=== PATIENT | female | born 1965 | race African-American/Black ===

== ENCOUNTER 2017-12-19 15:46 | Emergency (ER) | payer OTHER ==
[2017-12-19] MEDS ORDERED: ONDANSETRON 4 MG/2 ML VIAL ONE (18:41)
[2017-12-19 18:53] LABS: Urine Blood NEGATIVE (NEG); Urine Glucose NEGATIVE (NEG); Urine Protein NEGATIVE (NEG)
--- NOTE | 2017-12-19 19:07 | RAD REPORT ---
EXAM DESCRIPTION: CT - Stone Protocol - 12/19/2017 6:50 pm CLINICAL HISTORY: Flank pain. ABD PAIN COMPARISON: Abdomen Pelvis W Contrast dated 01/13/2017 TECHNIQUE: Axial images were obtained without oral or IV contrast. Lack of contrast limits solid org an and vascular assessment. The [id number] spans the entirety of the system partially obscuring uppermost abdomen and lung bases. Coronal reformatted images were obtained and reviewed. All CT scans are performed using dose optimization technique as appropriate and may include automated exposure control or mA/KV adjustment according to patient size. FINDINGS: The lower lung martin are clear. Imaged portions of the liver and spleen show no suspicious findings on non-contrast imaging. The panc reas and adrenal glands are normal. No pathologic lymphadenopathy in the abdomen or pelvis. No urinary tract stones or obstructive uropathy. No bowel obstruction, free air, free fluid or abscess. Normal appendix noted. Prominent lower lumbar degenerative changes. IMPRESSION: No urinary tract stones or obstructive uropathy.
[2017-12-19 19:10] LABS: Absolute Lymphocytes (CBC) 2.3 K/uL (0.7-4.9); Absolute Monocytes 0.3 K/uL (0.1-1.3); Absolute Neutrophil 2.6 K/uL (1.8-8.0); Basophils % 0.5 % (0-1.3); Eosinophils % 2.2 % (0-4.4); Hematocrit 35.4 % (36.0-45.0); Lymphocytes % 42.5 % (15.3-44.8); MCH 30.8 pg (27.0-35.0); MCV 91.3 fL (80-100); MPV 8.2 fL (7.6-11.3); Monocytes % 5.8 % (3.3-12.3); RBC Red Blood Cell Count 3.88 M/uL (3.86-4.86)
[2017-12-19 19:32] LABS: ALT/SGPT 12 U/L (12-78); AST/SGOT 15 U/L (15-37); Albumin 3.6 g/dL (3.4-5.0); Alkaline Phosphatase 58 U/L (45-117); BUN Blood Urea Nitrogen 13 mg/dL (7-18); Bicarbonate 33 mmol/L (21-32); Bilirubin Direct < 0.1 mg/dL (0-0.2); Bilirubin Total 0.3 mg/dL (0.2-1.0); Glucose Level 87 mg/dL (74-106); Lipase 137 U/L (73-393); Potassium 3.3 mmol/L (3.5-5.1); Protein, Total 7.2 g/dL (6.4-8.2); Sodium Level 143 mmol/L (136-145)
[2017-12-19 19:34] LABS: Urine Bacteria >50 /HPF (<20); Urine Culture Reflex Order REFLEXED; Urine RBC <5 /HPF (NONE SEEN)
--- NOTE | 2017-12-19 21:07 | EDPHYS ---
Physician Documentation [facility] Name: Zohreh Mabry Age: 52 yrs Sex: Female : 1965 Arrival Date: 12/19/2017 Time: 15:48 Bed 8 Private MD: Guanakito Nettles ED Physician Ward Espinoza HPI: 12/19 21:03 This 52 yrs old Black Female presents to ER via Ambulatory with complaints of Abdominal gs Pain, Dizziness. 21:03 The patient presents with abdominal pain. Onset: The symptoms/episode began/occurred 2 gs day(s) ago. Associated signs and symptoms: Pertinent positives: nausea. The symptoms are described as crampy. Modifying factors: The symptoms are alleviated by nothing, the symptoms are aggravated by nothing. Severity of pain: At its worst the pain was moderate in the emergency department the pain has improved moderately. The patient has experienced similar episodes in the past, a few times. 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 - Social history:: Smoking status: Patient/guardian denies using tobacco. - Ebola Screening: : No symptoms or risks identified at this time. ROS: 21:03 All other systems are negative. gs 21:03 Neuro: Positive for dizziness, similar to vertigo in past. gs Exam: 21:03 Head/Face: Normocephalic, atraumatic. Eyes: Pupils equal round and reactive to light, gs extra-ocular motions intact. Lids and lashes normal. Conjunctiva and sclera are non-icteric and not injected. Cornea within normal limits. Periorbital areas with no swelling, redness, or edema. ENT: Nares patent. No nasal discharge, no septal abnormalities noted. Tympanic membranes are normal and external auditory canals are clear. Oropharynx with no redness, swelling, or masses, exudates, or evidence of obstruction, uvula midline. Mucous membranes moist. Neck: Trachea midline, no thyromegaly or masses palpated, and no cervical lymphadenopathy. Supple, full range of motion without nuchal rigidity, or vertebral point tenderness. No Meningismus. Chest/axilla: Normal chest wall appearance and motion. Nontender with no deformity. No lesions are appreciated. Cardiovascular: Regular rate and rhythm with a normal S1 and S2. No gallops, murmurs, or rubs. Normal PMI, no JVD. No pulse deficits. Respiratory: Lungs have equal breath sounds bilaterally, clear to auscultation and percussion. No rales, rhonchi or wheezes noted. No increased work of breathing, no retractions or nasal flaring. Back: No spinal tenderness. No costovertebral tenderness. Full range of motion. Skin: Warm, dry with normal turgor. Normal color with no rashes, no lesions, and no evidence of cellulitis. MS/ Extremity: Pulses equal, no cyanosis. Neurovascular intact. Full, normal range of motion. Neuro: Awake and alert, GCS 15, oriented to person, place, time, and situation. Cranial nerves II-XII grossly intact. Motor strength 5/5 in all extremities. Sensory grossly intact. Cerebellar exam normal. Normal gait. 21:03 Constitutional: The patient appears alert, awake. 21:03 Abdomen/GI: Palpation: mild abdominal tenderness, in all quadrants, rebound tenderness, is not appreciated. Vital Signs: 16:07 BP 163 / 85; Pulse 76; Resp 16 S; Temp 98.0(TE); Pulse Ox 99% on R/A; Weight 120.2 kg aa5 (R); Height 5 ft. 3 in. (160.02 cm) (R); Pain 8/10; 17:00 BP 156 / 82; Pulse 74; Resp 15; Pulse Ox 100% on R/A; hb 18:15 BP 148 / 80; Pulse 72; Resp 16; Pulse Ox 100% on R/A; Pain 3/10; hb 20:09 BP 126 / 83; Pulse 59; Resp 16; Pulse Ox 98% on R/A; mt 21:00 BP 130 / 79; Pulse 62; Resp 16; Pulse Ox 99% on R/A; Pain 0/10; aa1 16:07 Body Mass Index 46.94 (120.20 kg, 160.02 cm) aa5 MDM: 18:28 Patient medically screened. 21:03 Differential diagnosis: bowel obstruction, diverticulitis, non-specific abd pain, gs pancreatitis. Data reviewed: vital signs, nurses notes. Response to treatment: the patient's symptoms have markedly improved after treatment, the patient's condition has returned to base line, patient is well hydrated. and as a result, I will discharge patient. 21:03 Counseling: I had a detailed discussion with the patient and/or guardian regarding: the gs historical points, exam findings, and any diagnostic results supporting the discharge/admit diagnosis, lab results, radiology results, the need for outpatient follow up. 12/19 18:29 Order name: Basic Metabolic Panel; Complete Time: 20:11 12/19 18:29 Order name: CBC with Diff; Complete Time: 20:11 12/19 18:29 Order name: Hepatic Function; Complete Time: 20:11 12/19 18:29 Order name: Lipase; Complete Time: 20:11 12/19 18:29 Order name: Urine Microscopic Only; Complete Time: 20:11 12/19 18:48 Order name: Urine Dipstick--Ancillary (enter results); Complete Time: 20:11 12/19 18:29 Order name: IV Saline Lock; Complete Time: 18:50 12/19 18:29 Order name: Labs collected and sent; Complete Time: 18:51 12/19 18:29 Order name: Urine Dipstick-Ancillary (obtain specimen); Complete Time: 18:51 12/19 18:29 Order name: CT Stone Protocol; Complete Time: 20:11 12/19 18:30 Order name: EKG; Complete Time: 18:30 12/19 18:30 Order name: EKG - Nurse/Tech; Complete Time: 18:36 12/19 19:35 Order name: Urine Culture EDMS Administered Medications: 18:40 Drug: Zofran 4 mg Route: IVP; Site: left antecubital; hb 19:40 Follow up: Response: No adverse reaction; Nausea is decreased aa1 Disposition: 12/19/17 21:06 Discharged to Home. Impression: Generalized abdominal pain, Cystitis. - Condition is Stable. - Discharge Instructions: Abdominal Pain, Adult, Urinary Tract Infection. - Prescriptions for Macrobid 100 mg Oral Capsule - take 1 capsule by ORAL route every 12 hours for 5 days; 10 capsule. - Medication Reconciliation Form, Thank You Letter, Antibiotic Education, Prescription Opioid Use form. - Follow up: Private Physician; When: 2 - 3 days; Reason: Re-evaluation by your physician. Signatures: Dispatcher [employer] EDKarrie Betancourt RN RN aa1 Maria R Etienne RN RN aa5 Ary Mueller RN RN Ward Espinoza MD MD gs Corrections: (The following items were deleted from the chart) 21:25 21:06 12/19/2017 21:06 Discharged to Home. Impression: Generalized abdominal pain; aa1 Cystitis. Condition is Stable. Forms are Medication Reconciliation Form, Thank You Letter, Antibiotic Education, Prescription Opioid Use. Follow up: Private Physician; When: 2 - 3 days; Reason: Re-evaluation by your physician. gs
--- NOTE | 2017-12-19 21:07 | ER ---
Nurse's Notes [facility] Name: Zohreh Mabry Age: 52 yrs Sex: Female : 1965 Arrival Date: 12/19/2017 Time: 15:48 Bed 8 Private MD: Guanakito Nettles Diagnosis: Generalized abdominal pain;Cystitis Presentation: 12/19 16:06 Presenting complaint: Patient states: LLQ abd pain and nausea that began 2-3 days ago. aa5 Pt also reports dizziness. Pt states"It seems like when I turn my head to the right I get more dizzy". Transition of care: patient was not received from another setting of care. Onset of symptoms was December 2017. Risk Assessment: Do you want to hurt yourself or someone else? Patient reports no desire to harm self or others. Initial Sepsis Screen: Does the patient meet any 2 criteria? No. Patient's initial sepsis screen is negative. Does the patient have a suspected source of infection? No. Patient's initial sepsis screen is negative. Care prior to arrival: None. 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 - Social history:: Smoking status: Patient/guardian denies using tobacco. - Ebola Screening: : No symptoms or risks identified at this time. Screenin:47 Abuse screen: Denies threats or abuse. Denies injuries from another. Nutritional hb screening: No deficits noted. Tuberculosis screening: No symptoms or risk factors identified. Fall Risk None identified. Assessment: 17:45 General: Appears in no apparent distress. Behavior is calm, cooperative. Pain: Pain hb currently is 3 out of 10 on a pain scale. Neuro: Level of Consciousness is awake, alert, obeys commands, Oriented to person, place, time, situation. Cardiovascular: Heart tones S1 S2 present Capillary refill < 3 seconds Patient's skin is warm and dry. Respiratory: Airway is patent Trachea midline Respiratory effort is even, unlabored, Respiratory pattern is regular, symmetrical, Breath sounds are clear bilaterally. GI: Abdomen is non-distended, Bowel sounds present X 4 quads. Abd is soft and non tender X 4 quads. Reports lower abdominal pain, nausea. : No signs and/or symptoms were reported regarding the genitourinary system. EENT: No signs and/or symptoms were reported regarding the EENT system. Derm: No signs and/or symptoms reported regarding the dermatologic system. Skin is intact, is healthy with good turgor, Skin is pink, warm \\T\\ dry. Musculoskeletal: No signs and/or symptoms reported regarding the musculoskeletal system. 18:42 Reassessment: Patient appears in no apparent distress at this time. No changes from hb previously documented assessment. Patient and/or family updated on plan of care and expected duration. Pain level reassessed. Patient is alert, oriented x 3, equal unlabored respirations, skin warm/dry/pink. 21:16 Reassessment: Patient appears in no apparent distress at this time. Patient is alert, aa1 oriented x 3, equal unlabored respirations, skin warm/dry/pink. Discussed d/c \\T\\ f/u instructions with pt; denies questions or concerns at this time Patient states feeling better. Vital Signs: 16:07 BP 163 / 85; Pulse 76; Resp 16 S; Temp 98.0(TE); Pulse Ox 99% on R/A; Weight 120.2 kg aa5 (R); Height 5 ft. 3 in. (160.02 cm) (R); Pain 8/10; 17:00 BP 156 / 82; Pulse 74; Resp 15; Pulse Ox 100% on R/A; hb 18:15 BP 148 / 80; Pulse 72; Resp 16; Pulse Ox 100% on R/A; Pain 3/10; hb 20:09 BP 126 / 83; Pulse 59; Resp 16; Pulse Ox 98% on R/A; mt 21:00 BP 130 / 79; Pulse 62; Resp 16; Pulse Ox 99% on R/A; Pain 0/10; aa1 16:07 Body Mass Index 46.94 (120.20 kg, 160.02 cm) aa5 ED Course: 15:48 Patient arrived in ED. sb2 15:49 Guanakito Nettles MD is Private Physician. sb2 16:07 Triage completed. aa5 16:07 Arm band placed on. aa5 17:45 Ward Espinoza MD is Attending Physician. gs 17:45 Patient has correct armband on for positive identification. Placed in gown. Bed in low hb position. Call light in reach. Side rails up X 1. 18:36 Ary Mueller, RN is Primary Nurse. hb 18:40 Inserted saline lock: 20 gauge in left antecubital area, using aseptic technique. Blood hb collected. 18:46 Patient moved to SD via wheelchair. nj 18:50 CT Stone Protocol In Process Unspecified. EDMS 18:50 CT completed. Patient tolerated procedure well. Patient moved back from SD. sd 19:10 Primary Nurse role handed off by Ary Mueller RN rg2 20:00 Karrie Crawford RN is Primary Nurse. aa1 21:17 No provider procedures requiring assistance completed. IV discontinued, intact, aa1 bleeding controlled, No redness/swelling at site. Pressure dressing applied. Administered Medications: 18:40 Drug: Zofran 4 mg Route: IVP; Site: left antecubital; hb 19:40 Follow up: Response: No adverse reaction; Nausea is decreased aa1 Outcome: 21:06 Discharge ordered by . gs 21:18 Discharged to home ambulatory. aa1 21:18 Condition: good 21:18 Discharge instructions given to patient, Instructed on discharge instructions, follow up and referral plans. medication usage, Demonstrated understanding of instructions, follow-up care, medications, Prescriptions given X 1. 21:25 Patient left the ED. aa1 Signatures: Dispatcher [employer] EDVA Angelo Carty 2 Karrie Crawford RN RN aa1 Maria R Etienne RN RN aa5 Ary Mueller, APURVA MIXON Дмитрий, Zeinab Burks mt, Gregory, MD MD Marlene Eubanks2
[2017-12-19 21:33] VITALS: TEMP 98
[2017-12-19 21:38] VITALS: BP 130/79; O2SAT 99
--- NOTE | 2017-12-20 08:37 | EKG ---
Test Date: 2017-12-19 Test Time: 18:35:06 Water Chaser: SWG MEASUREMENT RESULTS: Intervals: Rate: 55 IA: 158 QRSD: 82 QT: 432 QTc: 413 [place]: P: 65 IA: 158 QRS: 72 T: 34 INTERPRETIVE STATEMENTS: Sinus bradycardia Otherwise normal ECG Compared to ECG 11/13/2016 02:19:52 Sinus rhythm no longer present Electronically Signed On 12-20-17 08:35:32 CDT by Aris Murray
== END 2017-12-19 21:25 | disposition home or self-care (01) ==
LOC: ER 15:46
DX: N30.90 Cystitis, unspecified without hematuria (principal); I10 Essential (primary) hypertension; Z88.8 Allergy status to other drugs, medicaments and biological substances
CPT/HCPCS: 36415; 74176; 76377; 80048; 80076; 81003; 81015; 83690; 85025; 87086; 87088; 93005; 96374; 99284; J2405

== ENCOUNTER 2019-04-02 12:26 | Emergency (ER) | payer OTHER ==
[2019-04-02] MEDS ORDERED: ACETAMINOPHEN 500 MG TAB ONE (13:28)
[2019-04-02] MEDS ORDERED: MECLIZINE HCL 12.5 MG TAB ONE (13:28)
[2019-04-02] MEDS ORDERED: KETOROLAC 30 MG/ML INJ ONE (13:29)
[2019-04-02] MEDS ORDERED: NA CHLORIDE 0.9% 1,000 ML ONE (13:29)
[2019-04-02 13:54] LABS: Absolute Lymphocytes (CBC) 1.8 K/uL (0.7-4.9); Basophils % 0.9 % (0-1.3); Hematocrit 37.2 % (36.0-45.0); Lymphocytes % 46.1 % (15.3-44.8); MPV 8.2 fL (7.6-11.3); RBC Red Blood Cell Count 4.05 M/uL (3.86-4.86)
[2019-04-02 14:06] LABS: Urine Blood NEGATIVE (NEG); Urine Glucose NEGATIVE (NEG); Urine Protein NEGATIVE (NEG)
[2019-04-02 14:08] LABS: ALT/SGPT 13 U/L (12-78); AST/SGOT 15 U/L (15-37); Albumin 3.7 g/dL (3.4-5.0); Alkaline Phosphatase 65 U/L (45-117); BUN Blood Urea Nitrogen 9 mg/dL (7-18); Bicarbonate 30 mmol/L (21-32); Bilirubin Direct 0.2 mg/dL (0-0.2); Bilirubin Total 0.6 mg/dL (0.2-1.0); Glucose Level 87 mg/dL (74-106); Potassium 3.8 mmol/L (3.5-5.1); Protein, Total 7.2 g/dL (6.4-8.2); Sodium Level 141 mmol/L (136-145); Troponin (Emerg Dept Use Only) < 0.02 ng/mL (0.0-0.045)
[2019-04-02 14:08] LABS: Urine Bacteria 20-50 /HPF (<20); Urine RBC <5 /HPF (NONE SEEN)
[2019-04-02 14:09] LABS: Urine Culture Reflex Order REFLEXED; Urine Mucus 1+ /HPF (NONE SEEN)
--- NOTE | 2019-04-02 15:13 | EKG ---
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
--- NOTE | 2019-04-02 15:14 | RAD REPORT ---
EXAM DESCRIPTION: CT - Abdomen Pelvis W Contrast - 04/02/2019 2:29 pm CLINICAL HISTORY: Abdominal pain/diarrhea COMPARISON: 2016 TECHNIQUE: Computed axial tomography of the abdomen pelvis was obtained. 100 cc Isovue-300 was admin istered intravenously. Oral contrast was not requested which limits evaluation of bowel. All CT scans are performed using dose optimization technique as appropriate and may include automated exposure control or mA/KV adjustment according to patient size. FINDINGS: The liver, spleen, pancreas, adrenal and kidneys appear unremarkable. There is no evidence of diverticulitis. Normal appendix Tiny umbilical hernia IMPRESSION: No acute abnormality is displayed.
--- NOTE | 2019-04-02 16:45 | EDPHYS ---
Physician Documentation [facility] Name: Zohreh Mabry Age: 53 yrs Sex: Female : 1965 Arrival Date: 04/02/2019 Time: 12:30 Bed 23 Private MD: ED Physician Regulo Hilton HPI: 04/02 14:54 This 53 yrs old Black Female presents to ER via Ambulatory with complaints of Headache. wa 14:54 The patient complains of pain to the forehead. The patient describes the headache as wa aching. Onset: The symptoms/episode began/occurred 4 day(s) ago. Associated signs and symptoms: Pertinent positives: dizziness, nausea, diarrhea, Pertinent negatives: altered mental status, fever, neck stiffness, paresthesias, Photophobia vomiting, weakness. Severity of symptoms: At its worst the pain was moderate, in the emergency department the pain has improved. Headache History: The patient has had previous headaches and this one is different than previous episodes. The symptoms are alleviated by nothing. the symptoms are aggravated by movement of head to the right. The patient has not experienced similar symptoms in the past. The patient has not recently seen a physician. 53 yo F states woke up 4 days ago with frontal IRWIN, described as pressure. states also noted rm spinning especially when turn head to the right. denies vomiting. states since then has had several bouts of lose stools assoc with abd cramps. denies photophobia. this morning noted mild upper chest discomfort. denies SOB, dizziness, sweats, or facial or arm pain or discomfort. 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 - Social history:: Smoking status: Patient/guardian denies using tobacco. - Ebola Screening: : No symptoms or risks identified at this time. - Family history:: not pertinent. - Hospitalizations: : No recent hospitalization is reported. ROS: 15:00 Constitutional: Negative for fever, chills, and weight loss, Eyes: Negative for injury, wa pain, redness, and discharge, ENT: Negative for injury, pain, and discharge, Neck: Negative for injury, pain, and swelling, Respiratory: Negative for shortness of breath, cough, wheezing, and pleuritic chest pain, Back: Negative for injury and pain, : Negative for injury, bleeding, discharge, and swelling, MS/Extremity: Negative for injury and deformity, Skin: Negative for injury, rash, and discoloration, Psych: Negative for depression, anxiety, suicide ideation, homicidal ideation, and hallucinations. 15:00 Abdomen/GI: Positive for abdominal pain, diarrhea, Negative for vomiting, rectal bleeding. 15:00 Neuro: Positive for dizziness, headache, Negative for syncope, weakness. 15:00 All other systems are negative. Exam: 15:01 Constitutional: This is a well developed, well nourished patient who is awake, alert, wa and in no acute distress. Head/Face: Normocephalic, atraumatic. Eyes: Pupils equal round and reactive to light, extra-ocular motions intact. Lids and lashes normal. Conjunctiva and sclera are non-icteric and not injected. Cornea within normal limits. Periorbital areas with no swelling, redness, or edema. ENT: Nares patent. No nasal discharge, no septal abnormalities noted. Tympanic membranes are normal and external auditory canals are clear. Oropharynx with no redness, swelling, or masses, exudates, or evidence of obstruction, uvula midline. Mucous membranes moist. Neck: Trachea midline, no thyromegaly or masses palpated, and no cervical lymphadenopathy. Supple, full range of motion without nuchal rigidity, or vertebral point tenderness. No Meningismus. Chest/axilla: Normal chest wall appearance and motion. Nontender with no deformity. No lesions are appreciated. Cardiovascular: Regular rate and rhythm with a normal S1 and S2. No gallops, murmurs, or rubs. Normal PMI, no JVD. No pulse deficits. Respiratory: Lungs have equal breath sounds bilaterally, clear to auscultation and percussion. No rales, rhonchi or wheezes noted. No increased work of breathing, no retractions or nasal flaring. Abdomen/GI: Soft, non-tender, with normal bowel sounds. No distension or tympany. No guarding or rebound. No evidence of tenderness throughout. Back: No spinal tenderness. No costovertebral tenderness. Full range of motion. Skin: Warm, dry with normal turgor. Normal color with no rashes, no lesions, and no evidence of cellulitis. MS/ Extremity: Pulses equal, no cyanosis. Neurovascular intact. Full, normal range of motion. Psych: Awake, alert, with orientation to person, place and time. Behavior, mood, and affect are within normal limits. 15:01 Neuro: Orientation: is normal, Cranial nerves: grossly normal, Nystagmus is absent. Cerebellar function: normal finger to nose testing, heel to hinkle testing is normal, able to perform alternating rapid hand movements, Motor: is normal. Vital Signs: 12:38 BP 146 / 89; Pulse 73; Resp 16; Temp 97.4; Pulse Ox 99% ; Pain 5/10; jl7 13:47 BP 136 / 100; Pulse 65; Resp 18; Pulse Ox 100% on R/A; mg2 14:58 BP 143 / 92; Pulse 63; Resp 18; Pulse Ox 100% on R/A; mg2 16:02 BP 146 / 100; Pulse 59; Resp 18; Pulse Ox 100% on R/A; mg2 16:02 patient is sleeping mg2 MDM: 12:[address] 15:01 Differential diagnosis: migraine, vertigo. consider infectious diarrhea, colitis? wa consider dehydration. electrolyte abnml. noted nml cerebellar exam. will work up. treat and ressess. 16:13 Data reviewed: vital signs, EMS record. Test interpretation: by ED physician or ct midlevel provider: labs noted for mild leukopenia at 3.8. Otherwise labs wnl. CXR nml. CT abd/pelvis: no colitis. no acute process. Response to treatment: the patient's symptoms have markedly improved after treatment. ED course: denies IRWIN at this time. states still with mild dizziness when looks sharply to the right. denies episode of abd cramps and or diarrhea. 04/02 13:17 Order name: Basic Metabolic Panel; Complete Time: 15:58 ct 04/02 13:17 Order name: CBC with Diff; Complete Time: 15:59 ct 04/02 13:17 Order name: LFT's; Complete Time: 15:59 ct 04/02 13:17 Order name: Troponin (emerg Dept Use Only); Complete Time: 15:59 ct 04/02 13:17 Order name: Urine Microscopic Only; Complete Time: 15:59 ct 04/02 13:57 Order name: Urine Dipstick--Ancillary (enter results); Complete Time: 15:59 04/02 13:17 Order name: XRAY Chest (1 view) ct 04/02 13:19 Order name: CT Abd/Pelvis - IV Contrast Only; Complete Time: 15:59 ct 04/02 13:57 Order name: Urine --Ancillary (enter results); Complete Time: 15:58 04/02 14:10 Order name: Urine Culture EDAR 04/02 13:06 Order name: EKG - Nurse/Tech; Complete Time: 13:07 [facility] 04/02 13:17 Order name: EKG; Complete Time: 13:18 ct 04/02 13:17 Order name: Cardiac monitoring; Complete Time: 13:31 ct 04/02 13:17 Order name: IV Saline Lock; Complete Time: 13:31 ct 04/02 13:17 Order name: Labs collected and sent; Complete Time: 13:31 ct 04/02 13:17 Order name: O2 Sat Monitoring; Complete Time: 13:31 ct 04/02 13:17 Order name: Urine Dipstick-Ancillary (obtain specimen); Complete Time: 13:43 ct Administered Medications: 13:43 Drug: NS 0.9% 1000 ml Route: IV; Rate: 1 bolus; Site: left antecubital; mg2 14:59 Follow up: Response: No adverse reaction; IV Status: Completed infusion; IV Intake: mg2 1000ml 13:43 Drug: Meclizine 25 mg Route: PO; mg2 14:58 Follow up: Response: No adverse reaction; Marked relief of symptoms mg2 13:43 Drug: Tylenol 1000 mg Route: PO; mg2 14:58 Follow up: Response: No adverse reaction; Marked relief of symptoms mg2 13:43 Drug: TORadol 30 mg Route: IVP; Site: left antecubital; mg2 14:58 Follow up: Response: No adverse reaction; Marked relief of symptoms mg2 Disposition: 04/02/19 16:44 Discharged to Home. Impression: acute dizziness, acute diarrhea, acute headache. - Condition is Stable. - Discharge Instructions: General Headache Without Cause, Diarrhea, Adult, [id number], Dizziness, [id number]. - Prescriptions for Zofran 4 mg Oral Tablet - take 1 tablet by ORAL route every 12 hours As needed; 20 tablet. - Medication Reconciliation Form, Thank You Letter, Antibiotic Education, Prescription Opioid Use form. - Follow up: Jose M Suarez MD; When: 2 - 3 days; Reason: Re-evaluation by your physician. - Problem is new. - Symptoms have improved. - Notes: follow up with the neurologist as discussed. return to ER for any worrisome concerns you may have.drink ample fluids for hydration. see your doctor for follow up if the diarrhea does not improve Signatures: Dispatcher [employer] EDMS Reny Wiggins RN RN jl7 Regulo Hilton MD MD wa Kiet Banks RN RN mg2 Corrections: (The following items were deleted from the chart) 17:25 16:44 04/02/2019 16:44 Discharged to Home. Impression: acute dizziness; acute diarrhea; mg2 acute headache. Condition is Stable. Forms are Medication Reconciliation Form, Thank You Letter, Antibiotic Education, Prescription Opioid Use. Follow up: Jose M Suarez; When: 2 - 3 days; Reason: Re-evaluation by your physician. Problem is new. Symptoms have improved. wa
--- NOTE | 2019-04-02 16:45 | ER ---
Nurse's Notes [facility] Name: Zohreh Mabry Age: 53 yrs Sex: Female : 1965 Arrival Date: 04/02/2019 Time: 12:30 Bed 23 Private MD: Diagnosis: acute dizziness;acute diarrhea;acute headache Presentation: 04/02 12:35 Presenting complaint: Patient states: Right sided IRWIN began Tuesday evening and when I jl7 stand up it feels like the room is spinning and now the "Top of my chest feels like a little pressure." Reports diarrhea since Tuesday evening. Transition of care: patient was not received from another setting of care. Onset of symptoms was March 31, 2019. Risk Assessment: Do you want to hurt yourself or someone else? Patient reports no desire to harm self or others. Initial Sepsis Screen: Does the patient meet any 2 criteria? No. Patient's initial sepsis screen is negative. Does the patient have a suspected source of infection? No. Patient's initial sepsis screen is negative. Care prior to arrival: None. 12:35 Method Of Arrival: Ambulatory [facility] 12:35 Acuity: KERRY 3 jl7 Triage Assessment: 13:51 Headache History: The patient has had previous headaches. General: Appears in no mg2 apparent distress. comfortable, Behavior is calm, cooperative. Pain: Also complains of no other associated symptoms. 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 - Social history:: Smoking status: Patient/guardian denies using tobacco. - Ebola Screening: : No symptoms or risks identified at this time. - Family history:: not pertinent. - Hospitalizations: : No recent hospitalization is reported. Screenin:43 Abuse screen: Denies threats or abuse. Denies injuries from another. Nutritional mg2 screening: No deficits noted. Tuberculosis screening: No symptoms or risk factors identified. 12:44 Fall Risk Secondary diagnosis (15 points) dizziness. mg2 Assessment: 12:43 General: Appears in no apparent distress. comfortable, Behavior is calm, cooperative. mg2 Pain: Complains of pain in head and chest Pain does not radiate. Pain currently is 3 out of 10 on a pain scale. Quality of pain is described as aching, Pain began gradually, Is intermittent. Neuro: Level of Consciousness is awake, alert, obeys commands, Oriented to person, place, time, situation. Cardiovascular: Capillary refill < 3 seconds Patient's skin is warm and dry. Respiratory: Airway is patent Respiratory effort is even, unlabored, Respiratory pattern is regular, symmetrical. GI: No signs and/or symptoms were reported involving the gastrointestinal system. : No signs and/or symptoms were reported regarding the genitourinary system. EENT: No signs and/or symptoms were reported regarding the EENT system. Derm: Skin is intact, is healthy with good turgor, Skin is pink, warm \\T\\ dry. normal. Musculoskeletal: Circulation, motion, and sensation intact. Capillary refill < 3 seconds. 12:45 Neuro: Reports dizziness, headache. mg2 16:02 Reassessment: patient is sleeping on bed now. mg2 17:09 Reassessment: patient up for discharge after completing iv fluid. mg2 Vital Signs: 12:38 BP 146 / 89; Pulse 73; Resp 16; Temp 97.4; Pulse Ox 99% ; Pain 5/10; jl7 13:47 BP 136 / 100; Pulse 65; Resp 18; Pulse Ox 100% on R/A; mg2 14:58 BP 143 / 92; Pulse 63; Resp 18; Pulse Ox 100% on R/A; mg2 16:02 BP 146 / 100; Pulse 59; Resp 18; Pulse Ox 100% on R/A; mg2 16:02 patient is sleeping mg2 ED Course: 12:30 Patient arrived in ED. rg4 12:37 Triage completed. jl7 12:38 Arm band placed on right wrist. jl7 12:42 Kiet Banks, APURVA is Primary Nurse. mg2 12:43 Patient has correct armband on for positive identification. Pulse ox on. NIBP on. Door mg2 closed. Warm blanket given. 12:45 No provider procedures requiring assistance completed. mg2 12:46 Regulo Hilton MD is Attending Physician. wa 13:01 EKG done, by refractory technician. reviewed by Regulo Hilton MD. at1 13:31 Inserted saline lock: 20 gauge in left antecubital area, using aseptic technique. Blood mg2 collected. 13:53 XRAY Chest (1 view) In Process Unspecified. EDMS 14:31 CT Abd/Pelvis - IV Contrast Only In Process Unspecified. EDMS 16:43 Jose M Suarez MD is Referral Physician. wa 17:25 IV discontinued, intact, bleeding controlled, No redness/swelling at site. Pressure mg2 dressing applied. Administered Medications: 13:43 Drug: NS 0.9% 1000 ml Route: IV; Rate: 1 bolus; Site: left antecubital; mg2 14:59 Follow up: Response: No adverse reaction; IV Status: Completed infusion; IV Intake: mg2 1000ml 13:43 Drug: Meclizine 25 mg Route: PO; mg2 14:58 Follow up: Response: No adverse reaction; Marked relief of symptoms mg2 13:43 Drug: Tylenol 1000 mg Route: PO; mg2 14:58 Follow up: Response: No adverse reaction; Marked relief of symptoms mg2 13:43 Drug: TORadol 30 mg Route: IVP; Site: left antecubital; mg2 14:58 Follow up: Response: No adverse reaction; Marked relief of symptoms mg2 Intake: 14:59 IV: 1000ml; Total: 1000ml. mg2 Outcome: 16:44 Discharge ordered by . wa 17:25 Discharged to home ambulatory. mg2 17:25 Condition: good 17:25 Discharge instructions given to patient, Instructed on discharge instructions, follow up and referral plans. medication usage, Demonstrated understanding of instructions, follow-up care, medications, Prescriptions given X 1. 17:25 Patient left the ED. mg2 Signatures: Dispatcher [employer] EDMS Jordana Gross, staff educator EKG Tat1 Yi Roa rg4 Reny Wiggins RN RN jl7 Regulo Hilton MD MD wa Gardose, Michele RN RN mg2 Corrections: (The following items were deleted from the chart) 16:03 16:02 Pulse 59bpm; Resp 18bpm; Pulse Ox 100% RA; patient is sleeping ; mg2 mg2
[2019-04-02 17:31] VITALS: TEMP 97.4
[2019-04-02 17:32] VITALS: O2SAT 100
[2019-04-02 17:34] VITALS: BP 146/100
--- NOTE | 2019-04-03 10:30 | RAD REPORT ---
EXAM DESCRIPTION: Olga Single View04/02/2019 1:52 pm CLINICAL HISTORY: Chest pain COMPARISON: 2017 FINDINGS: The lungs appear clear of acute infiltrate. The heart is normal size IMPRESSION: No acute abnormalities displayed
== END 2019-04-02 17:25 | disposition home or self-care (01) ==
LOC: ER 12:26
DX: R19.7 Diarrhea, unspecified (principal); R51 Headache; I10 Essential (primary) hypertension; Z88.8 Allergy status to other drugs, medicaments and biological substances
CPT/HCPCS: 96361; 93005; 87088; 85025; 87086; 80048; 36415; 81025; 80076; 84484; 74177; 71045; 96374; 99284; Q9967; J8597; J7030; 81003; 81015

== ENCOUNTER 2020-08-05 23:35 | Emergency (ER) | payer OTHER, SELFPAY ==
[2020-08-06] MEDS ORDERED: NA CHLORIDE 0.9% 1,000 ML ONE (00:12)
[2020-08-06] MEDS ORDERED: ONDANSETRON 4 MG/2 ML VIAL ONE (00:12)
[2020-08-06 00:35] LABS: Absolute Lymphocytes (CBC) 0.8 K/uL (0.7-4.9); Basophils % 0.3 % (0-1.3); Hematocrit 41.9 % (36.0-45.0); MPV 8.5 fL (7.6-11.3); RBC Red Blood Cell Count 4.65 M/uL (3.86-4.86)
[2020-08-06 00:56] LABS: Albumin 3.7 g/dL (3.4-5.0); Bilirubin Direct 0.2 mg/dL (0-0.2); Potassium 3.4 mmol/L (3.5-5.1); Protein, Total 8.2 g/dL (6.4-8.2)
--- NOTE | 2020-08-06 02:27 | ER ---
Nurse's Notes [facility] Name: Zohreh Mabry Age: 55 yrs Sex: Female : 1965 Arrival Date: 08/05/2020 Time: 23:39 Bed 24 Private MD: Diagnosis: Other viral enteritis Presentation: 08/05 23:39 Chief complaint: EMS states: they were toned out for report of pt with nausea, bb vomiting, diarrhea since 0200, pt c/o headache earlier in the day and her hands and feet are tingling. Coronavirus screen: diarrhea, headache, nausea, vomiting. Ebola Screen: No symptoms or risks identified at this time. Initial Sepsis Screen: Does the patient meet any 2 criteria? No. Patient's initial sepsis screen is negative. Does the patient have a suspected source of infection? No. Patient's initial sepsis screen is negative. Risk Assessment: Do you want to hurt yourself or someone else? Patient reports no desire to harm self or others. Onset of symptoms was August 05, 2020. 23:39 Method Of Arrival: EMS: [facility] bb 23:39 Acuity: KERRY 3 bb Triage Assessment: 23:43 General: Appears uncomfortable, Behavior is calm, cooperative. GI: Reports diarrhea, bb nausea, vomiting. Historical: - Allergies: 23:43 Nubain; bb 23:43 Vistaril; bb - Home Meds: 23:43 Triamterene-Hydrochlorothiazid Oral [Active]; bb - PMHx: 23:43 Headaches; Hypertension; Vertigo; bb - PSHx: 23:43 Hysterectomy; Tubal ligation; Breast Cyst Removal; spinal surgery; bb - Immunization history:: Adult Immunizations up to date. - Social history:: Smoking status: Patient denies any tobacco usage or history of. Screenin/24 00:00 Abuse screen: Denies threats or abuse. Nutritional screening: No deficits noted. ll2 Tuberculosis screening: No symptoms or risk factors identified. Fall Risk None identified. Assessment: 08/05 23:40 General: Appears in no apparent distress. uncomfortable, Behavior is calm, cooperative, ll2 appropriate for age. Pain: Complains of pain in abdomen. Neuro: Level of Consciousness is awake, alert, obeys commands, Oriented to person, place, time, situation. Cardiovascular: Patient's skin is warm and dry. Respiratory: Airway is patent Respiratory effort is even, unlabored, Respiratory pattern is regular, symmetrical. GI: Abdomen is non-distended. : No signs and/or symptoms were reported regarding the genitourinary system. EENT: No signs and/or symptoms were reported regarding the EENT system. Derm: Skin is intact, is healthy with good turgor, Skin is dry, Skin is normal, Skin temperature is warm. Musculoskeletal: Circulation, motion, and sensation intact. Range of motion: intact in all extremities. 08/06 00:45 Reassessment: Patient and/or family updated on plan of care and expected duration. Pain ll2 level reassessed. Patient is alert, oriented x 3, equal unlabored respirations, skin warm/dry/pink. 01:45 Reassessment: Patient and/or family updated on plan of care and expected duration. Pain ll2 level reassessed. Patient is alert, oriented x 3, equal unlabored respirations, skin warm/dry/pink. 02:58 Reassessment: Patient and/or family updated on plan of care and expected duration. Pain ll2 level reassessed. Patient is alert, oriented x 3, equal unlabored respirations, skin warm/dry/pink. pt escorted to lobby to wait for ride. Vital Signs: 08/05 23:39 BP 147 / 97; Pulse 132; Resp 16 S; Temp 98.4(O); Pulse Ox 97% on R/A; Weight 117.93 kg bb (R); Height 5 ft. 3 in. (160.02 cm) (R); 08/06 00:00 BP 133 / 48; Pulse 108; Resp 20; Pulse Ox 97% on R/A; ll2 01:00 BP 133 / 103; Pulse 104; Resp 22; Pulse Ox 98% on R/A; ll2 02:00 BP 131 / 84; Pulse 95; Resp 18; Pulse Ox 94% on R/A; ll2 08/05 23:39 Body Mass Index 46.06 (117.93 kg, 160.02 cm) ED Course: 08/05 23:39 Patient arrived in ED. cf2 23:41 Triage completed. bb 23:42 Vijay Dao MD is Attending Physician. tw4 23:43 Arm band placed on Patient placed in an exam room, on a stretcher, on pulse oximetry. penny 23:58 Sheri Del Toro, RN is Primary Nurse. ll2 08/06 00:00 Patient has correct armband on for positive identification. Bed in low position. Call 2 light in reach. Side rails up X 1. Pulse ox on. NIBP on. 00:00 Initial lab(s) drawn, by me, sent to lab. Inserted saline lock: 20 gauge in right ll2 antecubital area, using aseptic technique. Blood collected. 02:59 No provider procedures requiring assistance completed. IV discontinued, intact, ll2 bleeding controlled, No redness/swelling at site. Pressure dressing applied. Administered Medications: 00:08 Drug: Zofran (Ondansetron) 4 mg Route: IVP; Site: left antecubital; ll2 00:09 Drug: NS 0.9% 1000 ml Route: IV; Rate: 1 bolus; Site: left antecubital; ll2 Outcome: 02:26 Discharge ordered by . 4 02:59 Discharged to home ambulatory. ll2 02:59 Condition: stable 02:59 Discharge instructions given to patient, Instructed on discharge instructions, follow up and referral plans. medication usage, Demonstrated understanding of instructions, follow-up care, medications, Prescriptions given X 3. 02:59 Patient left the ED. 2 Signatures: Dalila Christianson, RN RN Vijay Booth MD MD 4 Jazmín Saez 2 Sheri Del Toro, RN RN 2
--- NOTE | 2020-08-06 02:27 | EDPHYS ---
Physician Documentation [facility] Name: Zohreh Mabry Age: 55 yrs Sex: Female : 1965 Arrival Date: 08/05/2020 Time: 23:39 Bed 24 Private MD: ED Physician Vijay Dao HPI: 08/06 06:14 This 55 yrs old Black Female presents to ER via EMS with complaints of Nausea. tw4 06:14 The patient presents to the emergency department with nausea, vomiting, diarrhea. tw4 Onset: The symptoms/episode began/occurred yesterday. Possible causes: unknown. The symptoms are aggravated by nothing. The symptoms are alleviated by nothing. Associated signs and symptoms: The patient has no apparent associated signs or symptoms. The patient has not experienced similar symptoms in the past. Historical: - Allergies: 08/05 23:43 Nubain; bb 23:43 Vistaril; bb - Home Meds: 23:43 Triamterene-Hydrochlorothiazid Oral [Active]; bb - PMHx: 23:43 Headaches; Hypertension; Vertigo; bb - PSHx: 23:43 Hysterectomy; Tubal ligation; Breast Cyst Removal; spinal surgery; bb - Immunization history:: Adult Immunizations up to date. - Social history:: Smoking status: Patient denies any tobacco usage or history of. ROS: 08/06 06:14 Constitutional: Negative for fever, chills, and weight loss, Eyes: Negative for injury, tw4 pain, redness, and discharge, Cardiovascular: Negative for chest pain, palpitations, and edema, Respiratory: Negative for shortness of breath, cough, wheezing, and pleuritic chest pain. Back: Negative for injury and pain, MS/Extremity: Negative for injury and deformity, Skin: Negative for injury, rash, and discoloration, Neuro: Negative for headache, weakness, numbness, tingling, and seizure. Abdomen/GI: Positive for abdominal pain, nausea and vomiting, nausea, vomiting, and diarrhea, nausea, vomiting, diarrhea, abdominal cramps, Negative for anorexia, dysphagia, hematemesis, black/tarry stool, rectal pain, rectal bleeding, bowel incontinence, flatulence. Exam: 06:14 Constitutional: This is a well developed, well nourished patient who is awake, alert, tw4 and in no acute distress. Head/Face: Normocephalic, atraumatic. Chest/axilla: Normal chest wall appearance and motion. Nontender with no deformity. No lesions are appreciated. Cardiovascular: Regular rate and rhythm with a normal S1 and S2. No gallops, murmurs, or rubs. Normal PMI, no JVD. No pulse deficits. Respiratory: Lungs have equal breath sounds bilaterally, clear to auscultation and percussion. No rales, rhonchi or wheezes noted. No increased work of breathing, no retractions or nasal flaring. Abdomen/GI: Soft, non-tender, with normal bowel sounds. No distension or tympany. No guarding or rebound. No evidence of tenderness throughout. Back: No spinal tenderness. No costovertebral tenderness. Full range of motion. Skin: Warm, dry with normal turgor. Normal color with no rashes, no lesions, and no evidence of cellulitis. MS/ Extremity: Pulses equal, no cyanosis. Neurovascular intact. Full, normal range of motion. Neuro: Awake and alert, GCS 15, oriented to person, place, time, and situation. Cranial nerves II-XII grossly intact. Motor strength 5/5 in all extremities. Sensory grossly intact. Cerebellar exam normal. Normal gait. Vital Signs: 08/05 23:39 BP 147 / 97; Pulse 132; Resp 16 S; Temp 98.4(O); Pulse Ox 97% on R/A; Weight 117.93 kg bb (R); Height 5 ft. 3 in. (160.02 cm) (R); 08/06 00:00 BP 133 / 48; Pulse 108; Resp 20; Pulse Ox 97% on R/A; ll2 01:00 BP 133 / 103; Pulse 104; Resp 22; Pulse Ox 98% on R/A; ll2 02:00 BP 131 / 84; Pulse 95; Resp 18; Pulse Ox 94% on R/A; ll2 08/05 23:39 Body Mass Index 46.06 (117.93 kg, 160.02 cm) bb MDM: 08/05 23:42 Patient medically screened. tw4 08/06 06:14 Differential diagnosis: Nonspecific abd pain, gastritis, cholecystitis, pancreatitis. tw4 Data reviewed: vital signs, nurses notes. Data interpreted: Pulse oximetry: Interpretation: normal. Counseling: I had a detailed discussion with the patient and/or guardian regarding: the historical points, exam findings, and any diagnostic results supporting the discharge/admit diagnosis. Medication response: Zofran relieved the patient's nausea. Response to treatment: the patient's symptoms have markedly improved after treatment, and as a result, I will discharge patient. Special discussion: I discussed with the patient/guardian in detail that at this point there is no indication for admission to the hospital. It is understood, however, that if the symptoms persist or worsen the patient needs to return immediately for re-evaluation. 08/05 23:44 Order name: Basic Metabolic Panel 08/05 23:44 Order name: CBC with Diff 08/05 23:44 Order name: Hepatic Function 08/05 23:44 Order name: Lipase; Complete Time: 01:48 tw08/06 02:11 Interpretation: Within normal limits: LIP 46. 08/05 23:44 Order name: Basic Metabolic Panel; Complete Time: 01:48 EDMS 08/06 02:10 Interpretation: Normal except: K 3.4; GLUC 121; GFR 74. 08/05 23:44 Order name: CBC with Automated Diff; Complete Time: 01:48 EDMS 08/05 23:44 Order name: IV Saline Lock; Complete Time: 01:54 08/05 23:44 Order name: Labs collected and sent; Complete Time: 01:54 08/05 23:44 Order name: Liver (Hepatic) Function; Complete Time: 01:48 EDMS 08/06 02:25 Interpretation: Normal except: A/G 0.8; GLOB 4.5; AST 11. tw4 Administered Medications: 00:08 Drug: Zofran (Ondansetron) 4 mg Route: IVP; Site: left antecubital; ll2 00:09 Drug: NS 0.9% 1000 ml Route: IV; Rate: 1 bolus; Site: left antecubital; ll2 Disposition: 08/06/20 02:26 Discharged to Home. Impression: Other viral enteritis. - Condition is Stable. - Discharge Instructions: Viral Gastroenteritis, Adult. - Prescriptions for Bentyl 20 mg Oral Tablet - take 1 tablet by ORAL route every 6 hours As needed; 20 tablet. Zofran 4 mg Oral Tablet - take 1 tablet by ORAL route every 12 hours As needed; 6 tablet. Lomotil 2.5- 0.025 mg Oral Tablet - take 2 tablet by ORAL route once daily As needed; 20 tablet. - Medication Reconciliation Form, Thank You Letter, Antibiotic Education, Prescription Opioid Use form. - Follow up: Private Physician; When: Upon discharge from the Emergency Department; Reason: Recheck today's complaints, Continuance of care, Re-evaluation by your physician. - Problem is new. - Symptoms have improved. Signatures: Dispatcher [employer] Dalila Llamas, RN RN Vijay Booth MD MD tw4 Sheri Del Toro RN RN ll2 Corrections: (The following items were deleted from the chart) 02:59 02:26 08/06/2020 02:26 Discharged to Home. Impression: Other viral enteritis. Condition ll2 is Stable. Forms are Medication Reconciliation Form, Thank You Letter, Antibiotic Education, Prescription Opioid Use. Follow up: Private Physician; When: Upon discharge from the Emergency Department; Reason: Recheck today's complaints, Continuance of care, Re-evaluation by your physician. Problem is new. Symptoms have improved. tw4
[2020-08-06 03:29] VITALS: TEMP 98.4
[2020-08-06 03:33] VITALS: BP 131/84; O2SAT 94
== END 2020-08-06 02:59 | disposition home or self-care (01) ==
LOC: ER 23:35
DX: A08.4 Viral intestinal infection, unspecified (principal); I10 Essential (primary) hypertension
CPT/HCPCS: 36415; 80048; 80076; 83690; 85025; 96374; 99284

== ENCOUNTER 2020-09-22 13:45 | Inpatient (IN) | payer SELFPAY ==
[2020-09-22 14:33] LABS: Absolute Lymphocytes (CBC) 1.7 K/uL (0.7-4.9); Basophils % 0.5 % (0-1.3); Hematocrit 36.1 % (36.0-45.0); Lymphocytes % 39.4 % (15.3-44.8); RBC Red Blood Cell Count 3.99 M/uL (3.86-4.86)
[2020-09-22 14:34] LABS: Protime INR 1.11
[2020-09-22 14:51] LABS: ALT/SGPT 12 U/L (12-78); AST/SGOT 15 U/L (15-37); Albumin 3.7 g/dL (3.4-5.0); Alkaline Phosphatase 71 U/L (45-117); BUN Blood Urea Nitrogen 7 mg/dL (7-18); Bicarbonate 31 mmol/L (21-32); Bilirubin Direct < 0.1 mg/dL (0-0.2); Bilirubin Total 0.3 mg/dL (0.2-1.0); Glucose Level 69 mg/dL (74-106); NT PRO-BNP 40 pg/mL (<125); Potassium 3.2 mmol/L (3.5-5.1); Protein, Total 7.3 g/dL (6.4-8.2); Sodium Level 143 mmol/L (136-145); Troponin (Emerg Dept Use Only) 0.05 ng/mL (0.0-0.045)
--- NOTE | 2020-09-22 14:55 | RAD REPORT ---
EXAM DESCRIPTION: RAD - Chest Single View - 09/22/2020 2:48 pm CLINICAL HISTORY: CHEST PAIN COMPARISON: Portable March 2019 TECHNIQUE: AP portable chest image was obtained 09/22/2020 2:48 pm . FINDINGS: Lung volumes are low with no focal lung parenchymal process seen. Heart and vasculature ar e normal. No measurable pleural effusion and no pneumothorax. No acute bony abnormality seen. No acut e aortic findings suspected. Surgical hardware in place from prior cervical fusion procedure. IMPRESSION: No acute cardiopulmonary process.
[2020-09-22] MEDS ORDERED: NITROGLYCERIN 1 GM PKT TD ONE (14:57)
--- NOTE | 2020-09-22 15:11 | ER ---
Nurse's Notes [facility] Name: Zohreh Mabry Age: 55 yrs Sex: Female : 1965 Arrival Date: 09/22/2020 Time: 13:50 Bed 13 Private MD: Diagnosis: Non-ST elevation (NSTEMI) myocardial infarction Presentation: 09/22 13:50 Chief complaint: EMS states: SUDDEN SUBSTERNAL CHEST PRESSURE RADIATING TO THE bp SHOULDERS WITH SOB. Coronavirus screen: At this time, the client does not indicate any symptoms associated with coronavirus-19. Ebola Screen: No symptoms or risks identified at this time. Initial Sepsis Screen: Does the patient meet any 2 criteria? No. Patient's initial sepsis screen is negative. Does the patient have a suspected source of infection? No. Patient's initial sepsis screen is negative. Risk Assessment: Do you want to hurt yourself or someone else? Patient reports no desire to harm self or others. Onset of symptoms was September 22, 2020 at 13:00. Care prior to arrival: Medication(s) given: ASA, 81 mg, x 4, Nitroglycerin, 0.4 mg SL x 1, IV initiated. 20 GA, in the left antecubital area. 13:50 Method Of Arrival: EMS: [facility] bp 13:50 Acuity: KERRY 2 bp Triage Assessment: 13:53 General: Appears distressed, uncomfortable, obese, Behavior is cooperative, appropriate bp for age, anxious. Pain: Complains of pain in chest. EENT: No deficits noted. Neuro: No deficits noted. Cardiovascular: Rhythm is sinus rhythm. Cardiovascular: Reports chest pain. Respiratory: Reports shortness of breath. GI: No signs and/or symptoms were reported involving the gastrointestinal system. : No signs and/or symptoms were reported regarding the genitourinary system. Derm: No deficits noted. Musculoskeletal: No deficits noted. Historical: - Allergies: 13:53 Nubain; bp 13:53 Vistaril; bp - Home Meds: 13:53 Triamterene-Hydrochlorothiazid Oral [Active]; bp - PMHx: 13:53 Headaches; Hypertension; Vertigo; bp - Immunization history:: Adult Immunizations up to date. - Social history:: Smoking status: Patient denies any tobacco usage or history of. Screenin:56 Abuse screen: Denies threats or abuse. Denies injuries from another. Nutritional bp screening: No deficits noted. Tuberculosis screening: No symptoms or risk factors identified. Fall Risk None identified. Assessment: 13:56 General: SEE TRIAGE NOTE. bp 16:00 Reassessment: No changes from previously documented assessment. Patient and/or family bp updated on plan of care and expected duration. Pain level reassessed. DISPO PENDING. 18:00 Reassessment: Patient and/or family updated on plan of care and expected duration. Pain bp level reassessed. Patient is alert, oriented x 3, equal unlabored respirations, skin warm/dry/pink. ADMIT IN PROCESS Patient states symptoms have improved. Vital Signs: 13:50 BP 148 / 86; Pulse 62; Resp 17; Temp 98; Pulse Ox 98% on R/A; bp 14:15 BP 147 / 68; Pulse 60; Resp 10; Pulse Ox 99% ; bp 14:51 BP 128 / 87; Pulse 65; Resp 18; Pulse Ox 97% on R/A; Pain 4/10; sr5 16:00 BP 128 / 77; Pulse 61; Resp 16; Pulse Ox 99% ; bp 17:00 BP 123 / 70; Pulse 64; Resp 12; Pulse Ox 98% ; bp 18:00 BP 116 / 82; Pulse 61; Resp 12; Pulse Ox 96% ; bp ED Course: 13:50 Patient arrived in ED. bp 13:51 Justyn Cuevas NP is PHCP. pm1 13:51 Spencer Kessler MD is Attending Physician. pm1 13:52 Triage completed. bp 13:53 Arm band placed on. bp 13:55 Maintain EMS IV. Dressing intact. Good blood return noted. Site clean \\T\\ dry. Gauge \\T\\ bp site: 20 GAUGE LEFT AC. 13:56 Patient has correct armband on for positive identification. Bed in low position. Call bp light in reach. Side rails up X2. cardiac monitor on. Pulse ox on. NIBP on. 13:57 Amado Goodrich, RN is Primary Nurse. bp 14:34 Warm blanket given. sr5 14:34 Initial lab(s) drawn, by me, sent to lab. sr5 14:48 XRAY Chest (1 view) In Process Unspecified. EDMS 15:11 Gerry Salmon DO is Hospitalizing Provider. pm1 16:36 COVID-19 : Document "Date of Symptom Onset" if Symptomatic. Sent. mh5 16:37 COVID swab sent to lab. mh5 19:13 No provider procedures requiring assistance completed. Patient admitted, IV remains in ea place. Administered Medications: 14:50 Drug: Nitro-Bid Ointment 2 % 1 inches Route: Transdermal; Site: anterior chest wall; sr5 15:15 Drug: morphine 4 mg Route: IVP; Site: left antecubital; bp 18:18 Follow up: Response: Pain is decreased bp 15:30 Drug: Potassium Effervescent Tablet 50 mEq Route: PO; bp 18:18 Follow up: Response: No adverse reaction bp Outcome: 15:11 Decision to Hospitalize by Provider. pm1 19:13 Admitted to ER Hold. Please see [facility] for further documentation. ea 19:13 Condition: stable 19:13 Instructed on the need for admit, Demonstrated understanding of instructions. 22:33 Patient left the ED. jb4 Signatures: Dispatcher [employer] EDMS Justyn Cuevas NP APPLIANCE TECHNICIAN pm1 Ector Taylor RN RN 5 Mathew Barnes RN RN jb4 Moon Samaniego 5 Daysi Verdin RN RN ea Peltier, Brian, RN RN bp
--- NOTE | 2020-09-22 15:12 | EDPHYS ---
Physician Documentation [facility] Name: Zohreh Mabry Age: 55 yrs Sex: Female : 1965 Arrival Date: 09/22/2020 Time: 13:50 Bed 13 Private MD: ED Physician Spencer Kessler HPI: 09/22 14:23 This 55 yrs old Black Female presents to ER via EMS with complaints of Chest Pain, pm1 Shortness Of Breath. 14:23 The patient or guardian reports chest pain that is located primarily in the across pm1 chest. Onset: at 12:30. The pain radiates to the left arm, Associated signs and symptoms: Pertinent positives: nausea, shortness of breath, Pertinent negatives: abdominal pain, cough, headache. The chest pain is described as a pressure. Duration: The patient or guardian reports a single episode, that is still ongoing, but improving. Modifying factors: The symptoms are alleviated by NTG, by EMS in route. Severity of pain: in the emergency department the pain has improved moderately, is a 5 / 10. EMS care prior to arrival includes: aspirin, nitroglycerin, x 1, with partial relief of the chest pain. The patient has not experienced similar symptoms in the past. The patient has not recently seen a physician, the patient's primary care provider is Dr. Carlos. Historical: - Allergies: 13:53 Nubain; bp 13:53 Vistaril; bp - Home Meds: 13:53 Triamterene-Hydrochlorothiazid Oral [Active]; bp - PMHx: 13:53 Headaches; Hypertension; Vertigo; bp - Immunization history:: Adult Immunizations up to date. - Social history:: Smoking status: Patient denies any tobacco usage or history of. ROS: 14:23 Constitutional: Negative for fever, chills, and weight loss. pm1 14:23 Back: Negative for injury and pain, : Negative for injury, bleeding, discharge, and swelling, MS/Extremity: Negative for injury and deformity, Skin: Negative for injury, rash, and discoloration, Neuro: Negative for headache, weakness, numbness, tingling, and seizure. 14:23 Cardiovascular: Positive for chest pain, Negative for edema, palpitations. 14:23 Respiratory: Positive for shortness of breath, Negative for cough. 14:23 Abdomen/GI: Positive for nausea, Negative for abdominal pain, vomiting, diarrhea, constipation. Exam: 14:31 Constitutional: This is a well developed, well nourished patient who is awake, alert, pm1 and in no acute distress. Head/Face: Normocephalic, atraumatic. 14:31 Back: No spinal tenderness. No costovertebral tenderness. Full range of motion. Skin: Warm, dry with normal turgor. Normal color with no rashes, no lesions, and no evidence of cellulitis. MS/ Extremity: Pulses equal, no cyanosis. Neurovascular intact. Full, normal range of motion. 14:31 Cardiovascular: Rate: normal, actual rate is 60 bpm, Rhythm: regular, Pulses: no pulse deficits are appreciated, Edema: is not appreciated. 14:31 ECG was reviewed by the Attending Physician. 14:31 Respiratory: the patient does not display signs of respiratory distress, Breath sounds: are clear throughout. 14:31 Abdomen/GI: Inspection: obese Palpation: abdomen is soft and non-tender, in all quadrants. 14:31 Neuro: Exam negative for acute changes, Orientation: is normal, Mentation: is normal, Motor: is normal, moves all fours. Vital Signs: 13:50 BP 148 / 86; Pulse 62; Resp 17; Temp 98; Pulse Ox 98% on R/A; bp 14:15 BP 147 / 68; Pulse 60; Resp 10; Pulse Ox 99% ; bp 14:51 BP 128 / 87; Pulse 65; Resp 18; Pulse Ox 97% on R/A; Pain 4/10; sr5 16:00 BP 128 / 77; Pulse 61; Resp 16; Pulse Ox 99% ; bp 17:00 BP 123 / 70; Pulse 64; Resp 12; Pulse Ox 98% ; bp 18:00 BP 116 / 82; Pulse 61; Resp 12; Pulse Ox 96% ; bp MDM: 13:53 Patient medically screened. yolanda 15:10 Data reviewed: vital signs. Data interpreted: Pulse oximetry: on room air is 97 %. pm1 Interpretation: normal. Counseling: I had a detailed discussion with the patient and/or guardian regarding: the historical points, exam findings, and any diagnostic results supporting the discharge/admit diagnosis, lab results, radiology results, the need for further work-up and treatment in the hospital. 15:22 Physician consultation: Gerry Salmon DO was called at 15:20, was contacted at 15:20, pm1 regarding admission, patient's condition, in the emergency department to see patient at 15:20, Will contact Dr. Smith to see if he wants Lovenox or Heparin for the patient. 09/22 14:00 Order name: Basic Metabolic Panel; Complete Time: 15:00 pm1 09/22 14:00 Order name: CBC with Diff; Complete Time: 15:00 pm1 09/22 14:00 Order name: LFT's; Complete Time: 15:00 pm1 09/22 14:00 Order name: Magnesium; Complete Time: 15:00 pm1 09/22 14:00 Order name: NT PRO-BNP; Complete Time: 15:00 pm1 09/22 14:00 Order name: PT-INR; Complete Time: 15:00 pm1 09/22 14:00 Order name: Troponin (emerg Dept Use Only); Complete Time: 15:00 pm1 09/22 14:00 Order name: XRAY Chest (1 view); Complete Time: 15:00 pm1 09/22 15:27 Order name: COVID-19 : Document "Date of Symptom Onset" if Symptomatic. pm1 09/22 18:01 Order name: SARS-COV-2 RT PCR; Complete Time: 18:04 EDMS 09/22 21:09 Order name: Creatine Phosphokinase; Complete Time: 21:12 EDMS 09/22 21:09 Order name: CKMB Creatine Kinase MB; Complete Time: 21:12 EDMS 09/22 21:09 Order name: Troponin I; Complete Time: 21:12 EDMS 09/22 14:00 Order name: EKG; Complete Time: 14:01 pm1 09/22 14:00 Order name: Cardiac monitoring; Complete Time: 14:02 pm1 09/22 14:00 Order name: EKG - Nurse/Tech; Complete Time: 14:34 pm1 09/22 14:00 Order name: IV Saline Lock; Complete Time: 14:18 pm1 09/22 14:00 Order name: Labs collected and sent; Complete Time: 14:34 pm1 09/22 14:00 Order name: O2 Per Protocol; Complete Time: 14:02 pm1 09/22 14:00 Order name: O2 Sat Monitoring; Complete Time: 14:02 pm1 EC:31 Rate is 60 beats/min. Rhythm is regular, Normal Sinus Rhythm with No ectopy. QRS [place] pm1 is Normal. No Q waves. T waves are Normal. No ST changes noted. Clinical impression: Normal ECG. Administered Medications: 14:50 Drug: Nitro-Bid Ointment 2 % 1 inches Route: Transdermal; Site: anterior chest wall; sr5 15:15 Drug: morphine 4 mg Route: IVP; Site: left antecubital; bp 18:18 Follow up: Response: Pain is decreased bp 15:30 Drug: Potassium Effervescent Tablet 50 mEq Route: PO; bp 18:18 Follow up: Response: No adverse reaction bp Disposition: 09/22/20 15:11 Hospitalization ordered by Gerry Salmon for Inpatient Admission. Preliminary diagnosis is Non-ST elevation (NSTEMI) myocardial infarction. - Bed requested for Telemetry/MedSurg (Inpatient). - Status is Inpatient Admission. jb4 - Condition is Stable. - Problem is new. - Symptoms have improved. Addendum: 09/24/2020 06:41 Co-signature as Attending Physician, Spencer Kessler MD I agree with the assessment and c brown plan of care. Signatures: Dispatcher [employer] EDMS Kenya Morton bd Lindsey Donovan, RN RN Spencer Rizvi MD MD cha Marinas, Patrick, [employer] pm1 Ector Taylor, RN RN sr5 Mathew Barnes, APURVA RN jb4 Amado Goodrich RN RN bp Corrections: (The following items were deleted from the chart) 09/22 17:19 15:11 Hospitalization Ordered by Gerry Salmon DO for Inpatient Admission. Preliminary bd diagnosis is Non-ST elevation (NSTEMI) myocardial infarction. Bed requested for Telemetry/MedSurg (Inpatient). Status is Inpatient Admission. Condition is Stable. Problem is new. Symptoms have improved. pm1 17:26 17:19 09/22/2020 15:11 Hospitalization Ordered by Gerry Salmon DO for Inpatient bd Admission. Preliminary diagnosis is Non-ST elevation (NSTEMI) myocardial infarction. Bed requested for Telemetry/MedSurg (Inpatient). Status is Inpatient Admission. Condition is Stable. Problem is new. Symptoms have improved. bd 18:25 17:26 09/22/2020 15:11 Hospitalization Ordered by Gerry Salmon DO for Inpatient bd Admission. Preliminary diagnosis is Non-ST elevation (NSTEMI) myocardial infarction. Bed requested for Telemetry/MedSurg (Inpatient). Status is Inpatient Admission. Condition is Stable. Problem is new. Symptoms have improved. bd 21:12 18:25 09/22/2020 15:11 Hospitalization Ordered by Gerry Salmon DO for Inpatient mw Admission. Preliminary diagnosis is Non-ST elevation (NSTEMI) myocardial infarction. Bed requested for [facility] ER HOLD. Status is Inpatient Admission. Condition is Stable. Problem is new. Symptoms have improved. bd 22:33 21:12 09/22/2020 15:11 Hospitalization Ordered by Gerry Salmon DO for Inpatient jb4 Admission. Preliminary diagnosis is Non-ST elevation (NSTEMI) myocardial infarction. Bed requested for Telemetry/MedSurg (Inpatient). Status is Inpatient Admission. Condition is Stable. Problem is new. Symptoms have improved. mw
[2020-09-22] MEDS ORDERED: MORPHINE 4 MG/ML SYR ONE (15:31)
--- NOTE | 2020-09-22 16:01 | P.HP ---
Certification for Inpatient Patient admitted to: Observation With expected LOS: <2 Midnights Patient will require the following post-hospital care: None Practitioner: I am a practitioner with admitting privileges, knowledge of patient current condition, hospital course, and medical plan of care. Services: Services provided to patient in accordance with Admission requirements found in Title 42 Section 412.3 of the Code of Federal Regulations Patient History Date of Service: 09/22/20 Primary Care Provider: Dr. Gasca Reason for admission: chest pain History of Present Illness: 55-year-old -[place] female with history of hypertension presented to the emergency room after chest pain. Patient reported chest pain today while at work. 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 Chest pain radiated from the sternal chest area to the left shoulder. It was associated with some nausea. No vomiting noted. Mild shortness of breath was noted. He is not had this type of chest pain before. She came to the ER for further evaluation. In the ER patient evaluated. EKG shows no significant ST changes. Troponin 0 0.05. Chest x-ray unremarkable. Patient was given nitroglycerin with improvement. Patient now with Nitropaste. Patient admitted for further evaluation and treatment. Patient reports history of a cardiac stress test many years ago. This was unremarkable. She takes Dyazide for hypertension. Allergies hydroxyzine HCl [From Vistaril] Allergy (Mild, Verified 08/17/11 05:12) Hives/Rash hydroxyzine pamoate [From Vistaril] Allergy (Mild, Verified 08/17/11 13:49) Hives/Rash nalbuphine HCl [From Nubain] Allergy (Mild, Verified 08/17/11 05:12) Shortness of breath Home medications list reviewed: Yes Home Medications: Butalbital/Acetaminophen [Butalbital-Acetaminophn 50-325] 1 tab PO Q4HP PRN 08/27/15 Gabapentin 300 mg PO DAILY 08/27/15 Hydrochlorothiazide 25 mg PO DAILY 08/27/15 Amlodipine Besylate [Norvasc] 10 mg PO DAILY #30 tablet 08/28/15 Topiramate [Topamax] 25 mg PO DAILY #30 tablet 08/28/15 - Past Medical/Surgical History Diabetic: No -: Hypertension -: Chronic back pain -: Hysterectomy -: Tubal ligation -: Breast biopsy -: Back surgery Psychosocial/ Personal History: 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 - Family History Family History: Reviewed- Non-Contributory - Family History Father -: Kidney disease - Social History Smoking Status: Never smoker Alcohol use: Yes CD- Drugs: No Caffeine use: Yes Place of Residence: Home Review of Systems General: As per HPI Eyes: Unremarkable ENT: Unremarkable Respiratory: Shortness of Breath, As per HPI Cardiovascular: Chest Pain, Edema, As per HPI Gastrointestinal: Nausea, As per HPI Genitourinary: Unremarkable Musculoskeletal: Pedal edema, As per HPI Integumentary: Unremarkable Neurological: Unremarkable Lymphatics: Unremarkable Physical Examination - Physical Exam General: Alert, In no apparent distress, Oriented x3, Cooperative HEENT: Atraumatic, Normocephalic, PERRLA, Mucous membr. moist/pink Neck: Supple, No Thyromegaly Respiratory: Clear to auscultation bilaterally, Normal air movement Cardiovascular: Normal pulses, Regular rate/rhythm Gastrointestinal: Normal bowel sounds, Soft and benign, Non-distended, No tenderness, No masses, No rebound, No guarding Musculoskeletal: No tenderness, No warmth Integumentary: Tenderness/swelling (1+ pitting edema into the lower extremities) Neurological: Normal speech, Normal strength at 5/5 x4 extr, Normal tone, Normal affect - Studies Laboratory Data (last 24 hrs) 09/22/20 14:15: PT 12.8 H, INR 1.11 09/22/20 14:15: WBC 4.30, Hgb 11.9 L, Hct 36.1, Plt Count 263 09/22/20 14:15: Sodium 143, Potassium 3.2 L, BUN 7, Creatinine 0.76, Glucose 69 L, Magnesium 2.0, Total Bilirubin 0.3, AST 15, ALT 12, Alkaline Phosphatase 71 Assessment and Plan - Plan Impression: Chest pain with history of hypertension Edema to the lower extremities possible underlying CHF Plan: Chest pain with history of hypertension: Patient will be admitted for further evaluation and treatment. Troponin 0 0.05. Will start Lovenox at DVT p rophylaxis. If troponin elevated on second troponin then will adjust Lovenox accordingly. Will start aspirin, metoprolol, and Lipitor. Case discussed with cardiology. Anticipate further evaluation. We will keep the patient n.p.o. after midnight for possible cardiac evaluation. Await recommendations. We will also order echocardiogram to further evaluate for possible underlying CHF. Patient with some edema. Will start Lasix 20 mg. Anticipate improvement over the next 24 hours. Await further evaluation. Edema to the lower extremities possible underlying CHF: We will provide Lasix. Dyazide. Teach on 1500 cc/day fluid restriction. Will check echocardiogram. Await further recommendations from cardiology. Discharge Plan: Home Plan to discharge in: 24 Hours - Advance Directives Does patient have a Living Will: No Does patient have a Durable POA for Healthcare: No - Code Status/Comfort Care Code Status Assessed: Yes (Patient is full code) Time Spent Managing Pts Care (In Minutes): 55
[2020-09-22] MEDS ORDERED: POTASSIUM 25 MEQ EFFERV TAB ONE (16:33)
[2020-09-22] MEDS ORDERED: ONDANSETRON 4 MG/2 ML VIAL IV PRN (19:35)
[2020-09-22] MEDS ORDERED: FUROSEMIDE 20 MG/ 2ML VIAL IV ONE (19:35)
--- NOTE | 2020-09-22 19:41 | CON ---
Date of Consultation: 09/22/2020 Reason For Consultation: Chest pain. History Of Present Illness: This is a 55-year-old female, who at school started having retrosternal chest pain with shortness of breath, heaviness, radiates to upper extremity. The patient denies trinity hua any history of chest pain or exertional related chest discomfort. In the emergency room after irineo n management, her chest pain is much better, but she continues to have some shortness of breath. Past Medical History: Hypertension. Medications: Refer to reconciliation sheet for detailed list. Allergies: HYDROXYZINE. Family History: No premature coronary artery disease or cancer. Social History: Does not smoke or drink. Does not use any drugs. Review of Systems: All systems reviewed and they were negative except what mentioned in the HPI. Physical Examination: Vital Signs: Reviewed. Head and Neck: Pupils are equal, reactive to light. Intact eye movements. No JVD. No cervical lym phadenopathy. Neck: Supple. Thyroid is not enlarged. Lungs: Clear to auscultation bilaterally. No rhonchi, rales, or crackles. No accessory muscle use. Heart: Regular rate and rhythm. No extra sounds. Abdomen: Soft, nontender. Bowel sounds positive. No organomegaly. No masses or hernia. No rigidi ty or rebound. Extremities: No edema, clubbing, or cyanosis. Intact pulses. Skin: No rash noted. Neurologic: Alert, awake, oriented x3. No acute focal deficits appreciated. Investigations: Creatinine 0.76. Troponin 0.05. Hemoglobin is 11.9. EKG without acute specific ab normalities. Assessment And Recommendations: Chest pain with mild troponin leak. Admit and trend troponin. Star t her on heparin drip and keep n.p.o. midnight for possible coronary angiogram if the troponin rises further. Please obtain an echocardiogram and if troponin does not increase, a stress test would be a n alternative option as well. Please load with aspirin 325 mg and then 81 mg daily and heparin drip as outlined above. Please check D-dimer and if elevated, I would recommend CTA of the lungs. Thank you for the consult. SR/MODL Voice ID: [id number] Report ID: [id number]
[2020-09-22] MEDS: FAMOTIDINE 20 MG TAB PO SCH (19:55)
[2020-09-22] MEDS: ATORVASTATIN 20 MG TAB PO SCH (19:55)
[2020-09-22] MEDS: METOPROLOL TAR 25 MG TAB PO SCH (19:56)
[2020-09-22] MEDS: ASPIRIN EC 81 MG TAB PO SCH (19:57)
[2020-09-22] MEDS ORDERED: ATORVASTATIN 20 MG TAB ONE (20:02)
[2020-09-22] MEDS ORDERED: FUROSEMIDE 20 MG/ 2ML VIAL ONE (20:02)
[2020-09-22] MEDS ORDERED: ASPIRIN EC 81 MG TAB PO ONE (20:02)
[2020-09-22] MEDS ORDERED: METOPROLOL TAR 25 MG TAB ONE (20:03)
[2020-09-22] MEDS ORDERED: FAMOTIDINE 20 MG TAB ONE (20:05)
[2020-09-22 21:04] LABS: CKMB Creatine Kinase MB 3.3 ng/mL (0.3-3.6)
[2020-09-22 21:08] LABS: Troponin I 1.56 ng/mL (0.0-0.045)
[2020-09-22 22:32] VITALS: BMI 48.4
[2020-09-23] MEDS ORDERED: HEPARIN/D5W 25,000 UNIT/500 ML BAG IV SCH (03:14)
[2020-09-23] MEDS: ACETAMINOPHEN 500 MG TAB PO PRN ×2 (03:55→12:13)
[2020-09-23 04:02] LABS: Absolute Lymphocytes (CBC) 2.3 K/uL (0.7-4.9); Basophils % 1.1 % (0-1.3); Hematocrit 33.8 % (36.0-45.0); Lymphocytes % 46.1 % (15.3-44.8); MPV 8.4 fL (7.6-11.3); RBC Red Blood Cell Count 3.75 M/uL (3.86-4.86)
[2020-09-23 04:25] LABS: BUN Blood Urea Nitrogen 9 mg/dL (7-18); Bicarbonate 32 mmol/L (21-32); Glucose Level 98 mg/dL (74-106); HDL Cholesterol 57 mg/dL (40-60); LDL Cholesterol, Calculated 29 (<130); Magnesium 2.2 mg/dL (1.8-2.4); Potassium 3.6 mmol/L (3.5-5.1); Sodium Level 142 mmol/L (136-145)
[2020-09-23 04:29] LABS: CKMB Creatine Kinase MB 2.9 ng/mL (0.3-3.6)
[2020-09-23 04:53] LABS: Troponin I 1.01 ng/mL (0.0-0.045)
[2020-09-23] MEDS: METOPROLOL TAR 25 MG TAB PO SCH ×2 (05:26→18:08)
--- NOTE | 2020-09-23 07:51 | P.PN ---
Subjective Date of Service: 09/23/20 Primary Care Provider: Dr. Gasca Chief Complaint: chest pain Subjective: Improving, Doing well Physical Examination - Vital Signs Temperature: 97.6 F Blood Pressure: 109/61 Pulse: 59 Respirations: 18 Pulse Ox (%): 98 - Studies Laboratory Data (last 24 hrs) 09/22/20 14:15: PT 12.8 H, INR 1.11 09/22/20 14:15: WBC 4.30, Hgb 11.9 L, Hct 36.1, Plt Count 263 09/22/20 14:15: Sodium 143, Potassium 3.2 L, BUN 7, Creatinine 0.76, Glucose 69 L, Magnesium 2.0, Total Bilirubin 0.3, AST 15, ALT 12, Alkaline Phosphatase 71 Assessment & Plan Discharge Plan: Home Plan to discharge in: 24 Hours Physician Review Additional Text: Physical exam: Patient alert, cooperative. No chest pain this morning. Second troponin increased to 1.56. Third troponin improved. Heart: Regular rate and rhythm Lungs: Clear to auscultation Abdomen: Soft nontender nondistended Extremities: Good range of motion. No focal deficits. No edema to the lower extremities. Impression: Chest pain secondary to NSTEMI Hypertension Edema to the lower extremities suspect underlying diastolic CHF Obesity, BMI 48 Plan: Chest pain secondary to NSTEMI: Patient on heparin drip in preparation for heart catheterization today. Continue aspirin, metoprolol and Lipitor. Patient without chest pain this morning. Await findings from heart catheterization. Await further recommendations. Likely discharge within the next 24 hours. Hypertension: Continue metoprolol. Will make adjustments accordingly. Edema to the lower extremities suspect underlying diastolic CHF: Await echocardiogram. Patient previously on Dyazide which has been discontinued. Lasix was given yesterday. Teach on 1500 cc/day fluid restriction. Await further recommendations from cardiology. Obesity, BMI 48: Continue lifestyle modification education. Time Spent Managing Pts Care (In Minutes): 55
[2020-09-23] MEDS: ASPIRIN EC 81 MG TAB PO SCH (08:29)
[2020-09-23] MEDS: FAMOTIDINE 20 MG TAB PO SCH ×2 (08:30→22:12)
[2020-09-23] MEDS ORDERED: ENOXAPARIN 40 MG/0.4 ML SQ SCH (09:00)
[2020-09-23] MEDS ORDERED: HEPA 1000U/500MLS 1,000 UNIT/500 ML BAG IV ONE (10:26)
[2020-09-23] MEDS ORDERED: MIDAZOLAM HCL 2 MG/2 ML INJ ONE ×2 (10:41→10:56)
[2020-09-23] MEDS ORDERED: ATROPINE SULF 1 MG/10 ML SYR IV ONE (10:42)
[2020-09-23] MEDS ORDERED: NA CHLORIDE 0.9% 0 ML ONE (10:42)
[2020-09-23] MEDS ORDERED: FENTANYL CITR 100 MCG/2 ML ONE (10:42)
[2020-09-23] MEDS ORDERED: NA CHLORIDE 0.9% 1,000 ML ONE (10:42)
[2020-09-23] MEDS ORDERED: cloNIDine HCL 0.1 MG TAB ONE (10:58)
[2020-09-23 13:38] LABS: Urine Appearance CLEAR (Clear); Urine Bilirubin NEGATIVE (Negataive); Urine Blood NEGATIVE (Negative); Urine Color YELLOW (Yellow); Urine Glucose NEGATIVE (Negative); Urine Protein NEGATIVE (Negative); Urine Specific Gravity >=1.030 (1.005-1.030); Urine Urobilinogen 0.2 mg/dL (0.2-1.0); Urine pH 7.5 (5.0-7.0)
[2020-09-23 13:41] LABS: Urine Microscopic Reflex NO UMIC
--- NOTE | 2020-09-23 14:36 | P.DS ---
Admission Date: 09/23/20 Discharge Date: 09/23/20 Primary Care Provider: Dr. Gasca Disposition: ROUTINE DISCHARGE Discharge Condition: GOOD Reason for Admission: chest pain Consultations: Cardiology-Dr. Murray Procedures: COVID: Negative Heart Cath: Normal coronaries Medical Problem List: Chest pain secondary to NSTEMI Hypertension Edema to the lower extremities suspect underlying diastolic CHF Obesity, BMI 48 Brief History of Present Illness: 55-year-old -[place] female with history of hypertension presented to the emergency room after chest pain. Patient reported chest pain today while at work. 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 Chest pain radiated from the sternal chest area to the left shoulder. It was associated with some nausea. No vomiting noted. Mild shortness of breath was noted. He is not had this type of chest pain before. She came to the ER for further evaluation. In the ER patient evaluated. EKG shows no significant ST changes. Troponin 0 0.05. Chest x-ray unremarkable. Patient was given nitroglycerin with improvement. Patient now with Nitropaste. Patient admitted for further evaluation and treatment. Patient reports history of a cardiac stress test many years ago. This was unremarkable. She takes Dyazide for hypertension. Hospital Course: Patient presented with chest pain. Patient found to have elevated troponin suspicious for NSTEMI. Cardiology was consulted. Heart catheterization was recommended. Heart catheterization performed showed normal coronaries. Patient did had elevated blood pressure upon admission. Patient also had edema to the lower extremities suspicious for diastolic CHF. The patient was given diuresis. Blood pressure improved with medication. No further intervention required at this time. At discharge patient will continue with aspirin 81 mg daily, metoprolol 12.5 mg 1 pill twice daily and hydrochlorothiazide 25 mg daily. Recommend follow-up with PCP in 1 week to follow-up hospitalization. Recommend follow-up with cardiology in 2 to 4 weeks. Patient with hypertension. Blood pressures were elevated upon admission. Patient was given metoprolol with improvement. Recommend to maintain blood pressure less than 130/80. Discharge patient will continue with metoprolol 12.5 mg 1 pill twice daily and hydrochlorothiazide 25 mg daily. Further adjustment can be done by her PCP or cardiology. Recommend follow-up with cardiology in 2 to 4 weeks to follow-up hospitalization. Suspect underlying diastolic CHF. Continue with [place] [employer] diet. Education on CHF will be provided. Recommend to continue 1500 cc/day fluid restriction and low-salt diet. Recommend to monitor her weight daily. As mentioned above patient will continue with hydrochlorothiazide 25 mg daily. Further adjustment in medication can be done by her PCP or cardiology. Vital Signs/Physical Exam: Temp Pulse Resp BP Pulse Ox 97.3 F 50 15 173/80 H 98 09/23/20 08:00 09/23/20 12:25 09/23/20 11:25 09/23/20 12:25 09/23/20 08:00 General: Alert, In no apparent distress, Oriented x3, Cooperative HEENT: Atraumatic Neck: Supple Respiratory: Clear to auscultation bilaterally, Normal air movement Cardiovascular: Normal pulses, Regular rate/rhythm Gastrointestinal: Normal bowel sounds, Soft and benign, Non-distended, No masses, No rebound, No guarding Musculoskeletal: No erythema, No tenderness, No warmth Neurological: Normal speech, Normal strength at 5/5 x4 extr, Normal tone, Normal affect Laboratory Data at Discharge: WBC 5.00 K/uL (4.3-10.9) D 09/23/20 03:40 Hgb 11.1 g/dL (12.0-15.0) L 09/23/20 03:40 Hct 33.8 % (36.0-45.0) L 09/23/20 03:40 Plt Count 247 K/uL (152-406) 09/23/20 03:40 PT 12.8 SECONDS (9.5-12.5) H 09/22/20 14:15 INR 1.11 09/22/20 14:15 APTT 70.7 SECONDS (24.3-36.9) H 09/23/20 08:22 Sodium 142 mmol/L (136-145) 09/23/20 03:40 Potassium 3.6 mmol/L (3.5-5.1) 09/23/20 03:40 BUN 9 mg/dL (7-18) 09/23/20 03:40 Creatinine 0.73 mg/dL (0.55-1.3) 09/23/20 03:40 Glucose 98 mg/dL (74-106) 09/23/20 03:40 Magnesium 2.2 mg/dL (1.8-2.4) 09/23/20 03:40 Total Bilirubin 0.3 mg/dL (0.2-1.0) 09/22/20 14:15 AST 15 U/L (15-37) 09/22/20 14:15 ALT 12 U/L (12-78) 09/22/20 14:15 Alkaline Phosphatase 71 U/L (45-117) 09/22/20 14:15 Troponin I 1.01 ng/mL (0.0-0.045) H* 09/23/20 03:40 Triglycerides 88 mg/dL (<150) 09/23/20 03:40 Cholesterol 104 mg/dL (<200) 09/23/20 03:40 HDL Cholesterol 57 mg/dL (40-60) 09/23/20 03:40 Cholesterol/HDL Ratio 1.82 09/23/20 03:40 Home Medications: Aspirin [Aspirin EC 81 MG] 81 mg PO DAILY #90 tablet. 09/23/20 Metoprolol Tartrate [Lopressor*] 12.5 mg PO BID #30 tab 09/23/20 hydroCHLOROthiazide [Hydrochlorothiazide] 25 mg PO DAILY #30 tablet 09/23/20 New Medications: Aspirin [Aspirin EC 81 MG] 81 mg PO DAILY #90 tablet. hydroCHLOROthiazide [Hydrochlorothiazide] 25 mg PO DAILY #30 tablet Metoprolol Tartrate [Lopressor*] 12.5 mg PO BID #30 tab Physician Discharge Instructions: Patient presented with chest pain. Patient found to have elevated troponin suspicious for NSTEMI. Cardiology was consulted. Heart catheterization was recommended. Heart catheterization performed showed normal coronaries. Patient did had elevated blood pressure upon admission. Patient also had edema to the lower extremities suspicious for diastolic CHF. The patient was given diuresis. Blood pressure improved with medication. No further intervention required at this time. At discharge patient will continue with aspirin 81 mg daily, metoprolol 12.5 mg 1 pill twice daily and hydrochlorothiazide 25 mg daily. Recommend follow-up with PCP in 1 week to follow-up hospitalization. Recommend follow-up with cardiology in 2 to 4 weeks. Patient with hypertension. Blood pressures were elevated upon admission. Patient was given metoprolol with improvement. Recommend to maintain blood pressure less than 130/80. Discharge patient will continue with metoprolol 12.5 mg 1 pill twice daily and hydrochlorothiazide 25 mg daily. Further adjustment can be done by her PCP or cardiology. Recommend follow-up with cardiology in 2 to 4 weeks to follow-up hospitalization. Suspect underlying diastolic CHF. Continue with [place] [employer] diet. Education on CHF will be provided. Recommend to continue 1500 cc/day fluid restriction and low-salt diet. Recommend to monitor her weight daily. As mentioned above patient will continue with hydrochlorothiazide 25 mg daily. Further adjustment in medication can be done by her PCP or cardiology. Diet: AHA Activity: Ad eladia Followup: NONE,NONE [Primary Care Provider] - Time spent managing pt's care (in minutes): 55
--- NOTE | 2020-09-23 16:36 | EKG ---
Test Date: 2020-09-22 Test Time: 14:27:46 Career Professional: GENESIS MEASUREMENT RESULTS: Intervals: Rate: 60 FL: 162 QRSD: 82 QT: 432 QTc: 432 [place]: P: 49 FL: 162 QRS: 14 T: 5 INTERPRETIVE STATEMENTS: Normal sinus rhythm Normal ECG Compared to ECG 04/02/2019 12:55:48 No significant changes Electronically Signed On 09-23-20 16:33:16 CDT by Aris Murray
--- NOTE | 2020-09-23 20:15 | RAD REPORT ---
EXAM DESCRIPTION: US - Extremity Venous Uni Ltd - 09/23/2020 8:07 pm CLINICAL HISTORY: RLE pain/paresthesia s/p heart cath R femoral COMPARISON: None. TECHNIQUE: Real-time sonographic evaluation of the right lower extremity deep venous systems was per formed. FINDINGS: Normal compressibility, flow augmentation, phasic flow and spontaneous flow are identified in the right lower extremity common femoral, superficial femoral, popliteal and posterior tibial vei ns. No intraluminal filling defects seen. No pseudoaneurysm, hematoma or other mass in the right groin. No suspicious soft tissue findings. IMPRESSION: No DVT in the right lower extremity.
--- NOTE | 2020-09-23 20:16 | RAD REPORT ---
EXAM DESCRIPTION: US - Lower Extremity Artery Uni Ltd - 09/23/2020 8:07 pm CLINICAL HISTORY: RLE pain/paresthesia s/p heart cath R femoral COMPARISON: LOWER EXTREMITY WITH CONTRAST dated 03/31/2007 TECHNIQUE: Doppler evaluation of the right leg arterial tree performed. Waveforms and velocity value s were obtained along with visual inspection. FINDINGS: Triphasic to biphasic waveforms were seen along the entire length of the right lower extre mity. No pseudoaneurysm or hematoma in the right groin. No suspicious soft tissue finding identifiabl e. No suspicious waveform pattern or velocity value observed. No occlusion or focal flow restricting les ion identifiable. IMPRESSION: Right lower extremity arterial study shows no significant or suspicious finding. No pseudoaneurysm, hematoma or other suspicious finding in the groin soft tissues.
[2020-09-23 20:23] VITALS: O2SAT 95
[2020-09-23] MEDS ORDERED: HYDROCODONE/APAP 5/325 MG TAB PO PRN (20:30)
--- NOTE | 2020-09-23 21:08 | OP ---
Date of Procedure: 09/23/2020 Surgeon: Aris Murray MD Paper Hanger: Jerardo Lagunas. I saw the patient on 09/23/2020 in the ammunition assembly ii laborer. She was brought to the ammunition assembly ii laborer for a heart cathete rization, selective coronary arteriogram. Indication: Elevated troponin and chest pain. The patient was prepped and draped in routine sterile fashion. Given Versed and fentanyl for sedation. A 6-Israeli sheath was introduced in the right com mon femoral artery successfully. Angiography there was normal. Angio-Seal was used to close the brice e. 6-Israeli catheter, left and right Veronica were used to cannulate the left main and the right main . She had normal coronaries. Left dominant system. No complications. Blood Loss: 5 mL. Postoperative Diagnoses: Hypertension, elevated troponin, normal heart catheterization. Plan: Plan for medical therapy. The patient can go home later on today if it is okay with Dr. Sandra ko. We will see her in the office in 2 weeks. Anesthesia: Total conscious sedation was 45 minutes. LUIS FERNANDO/XAVI Voice ID: [id number] Report ID: [id number]
[2020-09-23 21:10] VITALS: BP 135/81; TEMP 97.7
--- NOTE | 2020-09-23 21:34 | RAD REPORT ---
EXAM DESCRIPTION: CT - Abdomen Pelvis Wo Contrast - 09/23/2020 9:09 pm CLINICAL HISTORY: abd pain COMPARISON: Abdomen Pelvis W Contrast dated 04/02/2019 TECHNIQUE: Axial [address] imaging of the abdomen and pelvis was performed without IV contrast. No IV contrast was given because of allergy, abnormal renal function, patient refusal or physician re quest. No oral contrast administered. All CT scans are performed using dose optimization technique as appropriate and may include automated exposure control or mA/KV adjustment according to patient size. FINDINGS: No suspicious findings in the lung bases. The liver, spleen and pancreas show no suspicious findings on non-contrast imaging. Gallbladder is ti ghtly contracted. No biliary tree dilatation. No hydronephrosis or suspicious renal mass. Nonobstructing calyx or pyramid calculi are present. Nume papito pelvic floor phleboliths are present. No significant adrenal finding. Isodense renal masses and pyelonephritis cannot be excluded in the absence of IV contrast. Urinary bladder is tightly contracte d. Uterus is absent. Ovaries are absent or atrophic. No adnexal mass. No dilated bowel loops or bowel wall thickening. No appendicitis or other active GI process identifie d. No free air, free fluid or inflammatory stranding. No hernia, mass or bulky lymphadenopathy. Prominent disc and bone degenerative changes are present. No pathologic bone process seen. IMPRESSION: Non-contrast enhanced CT abdomen and pelvis imaging show no acute or emergent finding. No significant change from the 2019 comparison. Full assessment is limited is the absence of IV contrast.
[2020-09-23] MEDS: ATORVASTATIN 20 MG TAB PO SCH (22:13)
[2020-09-24 01:02] LABS: Urine Appearance CLEAR (Clear); Urine Bilirubin NEGATIVE (Negataive); Urine Blood NEGATIVE (Negative); Urine Color YELLOW (Yellow); Urine Glucose NEGATIVE (Negative); Urine Protein NEGATIVE (Negative); Urine Specific Gravity >=1.030 (1.005-1.030); Urine Urobilinogen 0.2 mg/dL (0.2-1.0); Urine pH 7.5 (5.0-7.0)
[2020-09-24 01:05] LABS: Urine Microscopic Reflex NO UMIC
== END 2020-09-23 23:00 | disposition home or self-care (01) | DRG 280 ==
LOC: ER 13:45 → ERHOLD 15:49 → 4TH 21:24 → OBSVTOIN 09-23 08:43
PROVIDERS: ADMIT Family Medicine; ATTEND Family Medicine
PROC: 4A023N7 Measurement of Cardiac Sampling and Pressure, Left Heart, Percutaneous Approach (ICD-10-PCS; principal; 2020-09-23)
PROC: B2111ZZ Fluoroscopy of Multiple Coronary Arteries using Low Osmolar Contrast (ICD-10-PCS; 2020-09-23)
DX: I21.4 Non-ST elevation (NSTEMI) myocardial infarction (principal); I50.33 Acute on chronic diastolic (congestive) heart failure; Z68.42 Body mass index [BMI] 45.0-49.9, adult; E66.9 Obesity, unspecified; I11.0 Hypertensive heart disease with heart failure; G89.29 Other chronic pain; M54.9 Dorsalgia, unspecified; Z88.5 Allergy status to narcotic agent; Z88.8 Allergy status to other drugs, medicaments and biological substances; Z79.899 Other long term (current) drug therapy; Z79.82 Long term (current) use of aspirin; Z90.710 Acquired absence of both cervix and uterus; Z98.51 Tubal ligation status; Z20.822 Contact with and (suspected) exposure to COVID-19
CPT/HCPCS: 36415; 71045; 74176; 80048; 80061; 80076; 81003; 82550; 82553; 83735; 83880; 84443; 84484; 85025; 85379; 85610; 85730; 93005; 93454; 93926; 93971; 96374; 99285; C1760; C1893; G0378; J0583; J1644; J1650; J1940; J2250; J3010; J7030; U0003

== ENCOUNTER 2020-10-03 10:17 | Emergency (ER) | payer SELFPAY ==
[2020-10-03 13:48] LABS: Absolute Lymphocytes (CBC) 2.1 K/uL (0.7-4.9); Basophils % 0.8 % (0-1.3); Hematocrit 35.1 % (36.0-45.0); Lymphocytes % 38.5 % (15.3-44.8); MPV 7.8 fL (7.6-11.3); RBC Red Blood Cell Count 3.89 M/uL (3.86-4.86)
[2020-10-03 13:52] LABS: Protime INR 1.14
[2020-10-03] MEDS ORDERED: ONDANSETRON 4 MG/2 ML VIAL ONE (13:58)
[2020-10-03] MEDS ORDERED: MORPHINE 4 MG/ML SYR ONE (13:58)
--- NOTE | 2020-10-03 14:03 | RAD REPORT ---
EXAM DESCRIPTION: RAD - Chest Single View - 10/03/2020 1:44 pm CLINICAL HISTORY: CHEST PAIN Chest pain. COMPARISON: Chest Single View dated 09/22/2020; Chest Single View dated 04/02/2019; Chest Single View dated 11/13/2016; Chest Single View dated 11/07/2016 FINDINGS: Portable technique limits examination quality. The lungs are grossly clear. The heart is normal in size. No displaced fractures.Cervical spine hardw are plate. IMPRESSION: No acute intrathoracic process suspected.
[2020-10-03 14:09] LABS: ALT/SGPT 14 U/L (12-78); AST/SGOT 12 U/L (15-37); Albumin 3.8 g/dL (3.4-5.0); Alkaline Phosphatase 68 U/L (45-117); BUN Blood Urea Nitrogen 13 mg/dL (7-18); Bicarbonate 32 mmol/L (21-32); Bilirubin Direct 0.2 mg/dL (0-0.2); Bilirubin Total 0.6 mg/dL (0.2-1.0); Glucose Level 83 mg/dL (74-106); Magnesium 2.4 mg/dL (1.8-2.4); NT PRO-BNP 21 pg/mL (<125); Potassium 3.4 mmol/L (3.5-5.1); Protein, Total 7.8 g/dL (6.4-8.2); Sodium Level 140 mmol/L (136-145); Troponin (Emerg Dept Use Only) < 0.02 ng/mL (0.0-0.045)
--- NOTE | 2020-10-03 14:15 | RAD REPORT ---
EXAM DESCRIPTION: CTAbdomen Pelvis W Contrast - 10/03/2020 2:01 pm CLINICAL HISTORY: Abdominal pain. ABDOMINAL DISTENTION COMPARISON: Abdomen Pelvis W Contrast dated 04/02/2019; Abdomen Pelvis W Contrast dated 01/13/2017 ; Abdomen Pelvis Wo Contrast dated 09/23/2020 TECHNIQUE: Biphasic CT imaging of the abdomen and pelvis was performed with 100 ml non-ionic IV cont rast. All CT scans are performed using dose optimization technique as appropriate and may include automated exposure control or mA/KV adjustment according to patient size. FINDINGS: The lung bases are clear.Small hiatal hernia. The liver, spleen, pancreas, adrenal glands and kidneys are within normal limits. There is prominence of the pancreatic duct which is seen on prior exams wellness patient may be a normal variant. No bowel obstruction, free air, free fluid or abscess. The appendix is normal. No evidence of signi ficant lymphadenopathy. Moderate degenerative lumbar spondylosis. IMPRESSION: No acute intra-abdominal or pelvic finding.
[2020-10-03 14:23] LABS: Urine Blood Negative (Negative); Urine Glucose Negative (Negative); Urine Protein Negative (Negative)
--- NOTE | 2020-10-03 14:35 | ER ---
Nurse's Notes [facility] Name: Zohreh Mabry Age: 55 yrs Sex: Female : 1965 Arrival Date: 10/03/2020 Time: 10:20 Bed 25 Private MD: Guanakito Nettles Diagnosis: Lower abdominal pain, unspecified;Chest pain, unspecified Presentation: 10/03 10:30 Chief complaint: Diarrhea x 5 and right sided abdominal pain upon waking today, SOB and ss left sided chest pain x 2 hours. Had cardiac cath last week with Dr. Murray, no stent placement. Coronavirus screen: Client presents with at least one sign or symptom that may indicate coronavirus-19. Standard/surgical mask placed on the client. Ebola Screen: No symptoms or risks identified at this time. Initial Sepsis Screen: Does the patient meet any 2 criteria? No. Patient's initial sepsis screen is negative. Does the patient have a suspected source of infection? No. Patient's initial sepsis screen is negative. Risk Assessment: Do you want to hurt yourself or someone else? Patient reports no desire to harm self or others. Onset of symptoms was October 03, 2020. 10:30 Method Of Arrival: Ambulatory ss 10:30 Acuity: KERRY 3 ss Historical: - Allergies: 10:34 Nubain; ss 10:34 Vistaril; ss - Home Meds: 10:34 Metoprolol Tartrate Oral [Active]; Aspirin Oral [Active]; hydrochlorothiazide Oral ss [Active]; - PMHx: 10:34 Headaches; Hypertension; Vertigo; ss - Immunization history:: Adult Immunizations up to date. - Social history:: Smoking status: Patient denies any tobacco usage or history of. Screenin:10 Abuse screen: Denies threats or abuse. Nutritional screening: No deficits noted. aa5 Tuberculosis screening: No symptoms or risk factors identified. Fall Risk None identified. Assessment: 13:10 General: Appears uncomfortable, Behavior is calm, cooperative. Pain: Complains of pain aa5 in anterior aspect of right upper chest and right side of abdomen Pain does not radiate. Pain currently is 6 out of 10 on a pain scale. Quality of pain is described as sharp, Pain began today Is continuous. Neuro: Level of Consciousness is awake, alert, obeys commands, Oriented to person, place, time, situation. Cardiovascular: Heart tones S1 S2 present Rhythm is sinus rhythm. Respiratory: Airway is patent Respiratory effort is even, unlabored, Respiratory pattern is regular, symmetrical. GI: Abdomen is round non-distended, Bowel sounds present X 4 quads. Abd is soft and non tender X 4 quads. Reports diarrhea. : No signs and/or symptoms were reported regarding the genitourinary system. EENT: No signs and/or symptoms were reported regarding the EENT system. Derm: Skin is dry, Skin is normal, Skin temperature is warm. Musculoskeletal: Range of motion: intact in all extremities. 15:20 General: Appears comfortable. Neuro: Level of Consciousness is awake, alert, obeys aa5 commands, Oriented to person, place, time, situation. Respiratory: Airway is patent Respiratory effort is even, unlabored, Respiratory pattern is regular, symmetrical. Derm: Skin is dry, Skin is normal, Skin temperature is warm. Vital Signs: 10:30 BP 136 / 91; Pulse 73; Resp 16; Temp 97.5; Pulse Ox 99% on R/A; Pain 5/10; ss ED Course: 10:20 Patient arrived in ED. mr 10:20 Guanakito Nettles MD is Private Physician. mr 10:32 Triage completed. ss 10:34 Arm band placed on. ss 13:03 Pb Rudolph [facility] jr8 13:03 Spencer Kessler MD is Attending Physician. jr8 13:10 Maria R Etienne, RN is Primary Nurse. aa5 13:10 Patient has correct armband on for positive identification. Bed in low position. Call aa5 light in reach. Side rails up X2. telemetry monitor on. Pulse ox on. NIBP on. 13:25 Initial lab(s) drawn, by me, sent to lab. EKG done, by ED staff, reviewed by Pb [facility]. Inserted saline lock: 20 gauge in left antecubital area, using aseptic technique. Blood collected. 13:25 Patient maintains SpO2 saturation greater than 95% on room air. jp3 13:44 XRAY Chest (1 view) In Process Unspecified. EDMS 14:01 CT Abd/Pelvis - IV Contrast Only In Process Unspecified. EDMS 14:34 Guanakito Nettles MD is Referral Physician. jr8 15:20 No provider procedures requiring assistance completed. IV discontinued, intact, aa5 bleeding controlled, No redness/swelling at site. Pressure dressing applied. Administered Medications: 13:49 Drug: morphine 4 mg Route: IVP; Site: left antecubital; kg 15:02 Follow up: Response: No adverse reaction; Pain is decreased kg 13:49 Drug: Zofran (Ondansetron) 4 mg Route: IVP; Site: left antecubital; kg 15:01 Follow up: Response: No adverse reaction; Pain is decreased kg Outcome: 14:34 Discharge ordered by MD. jr8 15:20 Discharged to home ambulatory. aa5 15:20 Condition: stable 15:20 Discharge instructions given to patient, Instructed on discharge instructions, follow up and referral plans. medication usage, Demonstrated understanding of instructions, follow-up care, medications, Prescriptions given X 1. 15:22 Patient left the ED. aa5 Signatures: Dispatcher [employer] [facility] BatemanGabrielle Audri, RN RN aa5 Marybeth Howe RN RN ss Roszak, Josh, PA PA jr8 Mateo Palomo jp3 [place] kg
--- NOTE | 2020-10-03 14:35 | EDPHYS ---
Physician Documentation [facility] Name: Zohreh Mabry Age: 55 yrs Sex: Female : 1965 Arrival Date: 10/03/2020 Time: 10:20 Bed 25 Private MD: Guanakito Nettles ED Physician Spencer Kessler HPI: 10/03 13:26 This 55 yrs old Black Female presents to ER via Ambulatory with complaints of Chest jr8 Pain, Abdominal Pain. 13:26 Patient presents for abd pain and CP. She reports having a heart attack 12 days ago to jr8 which she had a cath and no stent was placed. This morning she woke up to excessive amounts of diarrhea with a feeling of fullness and pain in R lower abd that radiates to L flank pain. She reports feeling a wetness but cannot visualize the area on her own. . Historical: - Allergies: 10:34 Nubain; ss 10:34 Vistaril; ss - Home Meds: 10:34 Metoprolol Tartrate Oral [Active]; Aspirin Oral [Active]; hydrochlorothiazide Oral ss [Active]; - PMHx: 10:34 Headaches; Hypertension; Vertigo; ss - Immunization history:: Adult Immunizations up to date. - Social history:: Smoking status: Patient denies any tobacco usage or history of. ROS: 13:30 Respiratory: Negative for shortness of breath, cough, wheezing, and pleuritic chest jr8 pain, MS/Extremity: Negative for injury and deformity, Skin: Negative for injury, rash, and discoloration, Neuro: Negative for headache, weakness, numbness, tingling, and seizure. 13:30 Cardiovascular: Positive for chest pain. 13:30 Abdomen/GI: Positive for abdominal pain, diarrhea, abdominal distension. 13:30 Back: Positive for flank pain, on the left. 13:30 Skin: Positive for 13:30 All other systems are negative. jr8 Exam: 13:46 Constitutional: This is a well developed, well nourished patient who is awake, alert, jr8 and in no acute distress. Respiratory: Lungs have equal breath sounds bilaterally, clear to auscultation and percussion. No rales, rhonchi or wheezes noted. No increased work of breathing, no retractions or nasal flaring. MS/ Extremity: Pulses equal, no cyanosis. Neurovascular intact. Full, normal range of motion. Neuro: Awake and alert, GCS 15, oriented to person, place, time, and situation. Cranial nerves II-XII grossly intact. Motor strength 5/5 in all extremities. Sensory grossly intact. Cerebellar exam normal. Normal gait. 13:46 Chest/axilla: Inspection: normal, Palpation: is normal. 13:46 Cardiovascular: Rate: normal, actual rate is 73 bpm, Rhythm: regular, Pulses: Pulses are 2+ in right radial artery, right dorsalis pedis artery, left radial artery and left dorsalis pedis artery. Heart sounds: normal. 13:46 Respiratory: the patient does not display signs of respiratory distress. 13:46 Abdomen/GI: Inspection: obese Bowel sounds: diminished, in all quadrants, Palpation: moderate abdominal tenderness, in the anterior aspect of right lateral abdomen and right lower quadrant, involuntary guarding, is elicited in the anterior aspect of right lateral abdomen and right lower quadrant, Indicators: McBurney's point is tender, Cho's sign is positive, Rovsing's sign is negative. Vital Signs: 10:30 BP 136 / 91; Pulse 73; Resp 16; Temp 97.5; Pulse Ox 99% on R/A; Pain 5/10; ss [facility]: 13:03 Patient medically screened. [facility] 14:31 Data reviewed: vital signs, nurses notes, lab test result(s), EKG, radiologic studies, [facility] CT scan, plain films. Data interpreted: Pulse oximetry: on room air is 99 %. Interpretation: normal. Counseling: I had a detailed discussion with the patient and/or guardian regarding: the historical points, exam findings, and any diagnostic results supporting the discharge/admit diagnosis, lab results, radiology results, the need for outpatient follow up, a family practitioner, to return to the emergency department if symptoms worsen or persist or if there are any questions or concerns that arise at home. ED course: Discussed with patient that at this time there are no acute blood findings or imaging findings that would give light to the lower abdominal pain she is experiencing. Catheter site from angio appears clean and without no hematoma formation. Nothing on the CT to suggest extravasation as well. Recommend rest and will put on a few days of pain medicine. To watch for other s/s or fevers. If this were to occur or she were to worsen, to come back for further evaluation. Patient good with this plan . 10/03 13:05 Order name: Basic Metabolic Panel [facility] 10/03 13:05 Order name: CBC with Diff 10/03 13:05 Order name: LFT's 10/03 13:05 Order name: Magnesium [facility] 10/03 13:05 Order name: NT PRO-BNP; Complete Time: 14:10 [facility] 10/03 13:05 Order name: PT-INR; Complete Time: 13:59 [facility] 10/03 13:05 Order name: Troponin (emerg Dept Use Only); Complete Time: 14:10 [facility] 10/03 13:05 Order name: Urine Microscopic Only [facility] 10/03 13:06 Order name: Basic Metabolic Panel; Complete Time: 14:10 EDMS 10/03 13:06 Order name: CBC with Automated Diff; Complete Time: 13:52 EDMS 10/03 13:06 Order name: Liver (Hepatic) Function; Complete Time: 14:10 EDMS 10/03 13:06 Order name: Magnesium; Complete Time: 14:10 EDMS 10/03 14:14 Order name: CREATININE WHOLE BLOOD; Complete Time: 14:24 EDMS 10/03 14:23 Order name: Urine Dipstick-Ancillary; Complete Time: 14:24 EDMS 10/03 13:05 Order name: XRAY Chest (1 view); Complete Time: 14:03 10/03 13:05 Order name: EKG; Complete Time: 13:06 10/03 13:05 Order name: Cardiac monitoring; Complete Time: 13:35 [facility] 10/03 13:05 Order name: EKG - Nurse/Tech; Complete Time: 13:11 10/03 13:05 Order name: IV Saline Lock; Complete Time: 13:34 10/03 13:05 Order name: Labs collected and sent; Complete Time: 13:34 10/03 13:05 Order name: O2 Per Protocol; Complete Time: 13:35 10/03 13:05 Order name: O2 Sat Monitoring; Complete Time: 13:35 10/03 13:05 Order name: Urine Dipstick-Ancillary (obtain specimen); Complete Time: 15:01 10/03 13:26 Order name: CT Abd/Pelvis - IV Contrast Only; Complete Time: 14:24 jr8 Administered Medications: 13:49 Drug: morphine 4 mg Route: IVP; Site: left antecubital; kg 15:02 Follow up: Response: No adverse reaction; Pain is decreased kg 13:49 Drug: Zofran (Ondansetron) 4 mg Route: IVP; Site: left antecubital; kg 15:01 Follow up: Response: No adverse reaction; Pain is decreased kg Disposition: 10/03/20 14:34 Discharged to Home. Impression: Lower abdominal pain, unspecified, Chest pain, unspecified. - Condition is Stable. - Discharge Instructions: Abdominal Pain, Adult, Nonspecific Chest Pain. - Prescriptions for Tylenol- Codeine #3 300-30 mg Oral Tablet - take 2 tablets by ORAL route every 4-6 hours As needed; 20 tablet. - Medication Reconciliation Form, Thank You Letter, Antibiotic Education, Prescription Opioid Use form. - Follow up: Guanakito Nettles MD; When: 2 - 3 days; Reason: Recheck today's complaints, Continuance of care, Re-evaluation by your physician. - Problem is new. - Symptoms have improved. Addendum: 10/05/2020 08:08 Co-signature as Attending Physician, Spencer Kessler MD I agree with the assessment and c brown plan of care. Signatures: Dispatcher [employer] EDMS Spencer Kessler MD MD cha Calderon, Audri, RN RN aa5 Marybeth Howe RN RN ss Pb Rudolph PA PA jr8 [place] kg Corrections: (The following items were deleted from the chart) 10/03 15:22 14:34 10/03/2020 14:34 Discharged to Home. Impression: Lower abdominal pain, aa5 unspecified; Chest pain, unspecified. Condition is Stable. Forms are Medication Reconciliation Form, Thank You Letter, Antibiotic Education, Prescription Opioid Use. Follow up: Guanakito Nettles; When: 2 - 3 days; Reason: Recheck today's complaints, Continuance of care, Re-evaluation by your physician. Problem is new. Symptoms have improved. jr8
[2020-10-03 15:26] LABS: Urine RBC NONE SEEN /HPF (NONE SEEN)
[2020-10-03 15:27] LABS: Urine Bacteria <20 /HPF (<20)
[2020-10-03 15:36] VITALS: BP 136/91; TEMP 97.5; O2SAT 99
--- NOTE | 2020-10-04 07:58 | EKG ---
Test Date: 2020-10-03 Test Time: 10:39:13 Ssds Mk 2 Advanced Operator: HB MEASUREMENT RESULTS: Intervals: Rate: 69 MO: 162 QRSD: 82 QT: 408 QTc: 437 [place]: P: 22 MO: 162 QRS: 19 T: -4 INTERPRETIVE STATEMENTS: Normal sinus rhythm Nonspecific ST and T wave abnormality Abnormal ECG Compared to ECG 09/22/2020 14:27:46 ST (T wave) deviation now present Electronically Signed On 10-04-20 07:56:49 CDT by Aris Murray
== END 2020-10-03 15:22 | disposition home or self-care (01) ==
LOC: ER 10:17
DX: R10.30 Lower abdominal pain, unspecified (principal); R07.9 Chest pain, unspecified; R19.7 Diarrhea, unspecified; I10 Essential (primary) hypertension; I21.9 Acute myocardial infarction, unspecified
CPT/HCPCS: 36415; 71045; 74177; 80048; 80076; 81003; 81015; 82565; 83735; 83880; 84484; 85025; 85610; 93005; 96374; 96375; 99285; J2405; Q9967

== ENCOUNTER 2021-02-09 16:32 | Emergency (ER) | payer SELFPAY ==
--- OUTSIDE RECORDS SUMMARY | 2021-02-09 16:35 | XMS REPORT | Continuity of Care Document ---
:1965 Author Organization [facility] t Address [address] [place] [address] Care Team Providers Name Role Phone Pcp, Does Not Have A Primary Care Physician Frandy YUNG Attending Clinician Jose E YUNG Attending Clinician Doctor Unassigned, Name Attending Clinician Unavailable Jose E YUNG Admitting Clinician Problems Condition Condition Condition Status Onset Resolution Last Treating Co mments Source Name Details Category Date Date Treatment Clinician Date Chest pain Chest pain Disease Active U nivers 7-15 ity of 00:00: [place] [facility] Morbid Morbid Disease Active Univers obesity obesity 7-15 [place]y of [place] mass index 00 Me dical of of Branch 40.0-49.9 40.0-49.9 Essential Essential Disease Active Uni vers hypertensi hypertensi 7-15 it y of on on 00:00: [place] [facility] Dizziness Dizziness Disease Active Uni vers 7-15 ity of 00:: [place] [facility] Headache Headache Disease Active Unive rs 7-15 ity of 00:00: [place] [facility] Allergies, Adverse Reactions, Alerts Allergy Allergy Status Severity Reaction(s) Onset Inactive Treating Comm ents Source Name Type Date Date Clinician Nalbuphi Propensi Active Extra Univer s ne ty to pyramidal 7-14 ity of adverse effects 00:00: [place] reaction 00 Medical s Branch Hydroxyz Propensi Active Extra Univer s ine Hcl ty to pyramidal 7-14 ity of adverse effects 00:00: [place] reaction 00 Medical s Branch Social History Social Habit Start Date Stop Date Quantity Comments Source Exposure to Not sure University SARS-CoV-2 [place] [facility] (event) Branch Tobacco use and 2017-12-25 2017-12-25 Never used Universit y of exposure 00:00:00 00:00:00 [facility] Alcohol intake 2017-12-25 2017-12-25 Current University 00:00:00 00:00:00 non-drinker of [facility] [place] [facility] alcohol Branch (finding) Sex Ass[birth year] At [birth year] Universit y of 00:00:00 00:00:00 [facility] Smoking Status Start Date Stop Date Source Never smoker [facility] [place] Medications Ordered Filled Start Stop Current Ordering Indication Dosage Frequency Signature Comments Components Source Medication Medication Date Date Medication? Clinician (SIG) Name Name enoxaparin Yes 40mg 40 mg, Unive rs (LOVENOX) 02-08 Subcutaneo ity of [place] 14:00[place] 00 First dose Medical [place] 02/08/21 at 0900, Until Discontinu ed, Routine hydroCHLORO Yes 25mg Take 25 mg Univers thiazide 25 8-28 by mouth ity of mg tablet 23:51: daily. [address] Branch traZODONE Yes 50mg Take 50 mg Un rubin 50 mg 8-28 by mouth ity of tablet 23:51: at [place] [address] bedtime. Medical Branch aspirin 81 Yes 81mg Take 81 mg U nivers mg chewable 8-28 by mouth ity of tablet 23:51: as needed. [address] Branch azithromyci Yes 250mg Take 250 U nivers n 8-28 mg by ity of (ZITHROMAX 23:51: mouth [place] Z-NIRAJ) 250 41 daily. Medical mg tablet Take 500 Branch mg day 1, then 250 mg days 2 to 5. azithromyci Yes 250mg Take 250 U nivers n 8-28 mg by ity of (ZITHROMAX 23:51: mouth [place] Z-NIRAJ) 250 41 daily. Medical mg tablet Take 500 Branch mg day 1, then 250 mg days 2 to 5. iopamidol 2020- No [id number] 100mL 100 mL, Univers (ISOVUE 02-07 Intravenou ity o f 370-500 mL) 20:45: 20:45 s, ONCE, 1 [place] injection 00 :00 dose, Sat Medic al 100 mL 02/07/21 at Branch 1545, Routine aspirin 2020- No 325mg 325 mg, Unive rs tablet 325 02-07 Oral, ity of mg 19:45: 22:03 ONCE, 1 [place] 00 :00 dose, Sat Medical 02/07/21 at Branch 1445, STAT nitroglycer Yes .4mg 0.4 mg, Uni vers in 02-07 Sublingual ity of (NITROSTAT) 18:56: , Q5MIN Manpreet as sublingual 00 PRN, Medical tablet 0.4 Starting Branc h mg [facility] 02/07/21 at 1356, Until Discontinu ed, Routine, Chest pain morpHINE 2020- Yes 2mg 2 mg, Slow Un rubin injection 2 02-07 IV Push, ity of mg 18:55: 18:54 Q4HPRN, [place] 48 :48 Starting Medical [facility] 02/07/21 at 1355, Until 02/08/21 at 1354, Routine, Pain (scale 7-10), Chest pain acetaminoph Yes 650mg 650 mg, Un rubin en 02-07 Oral, ity of (TYLENOL) 18:55: Q6HPN, [place] tablet 650 36 Starting Medic al mg [facility] 02/07/21 at 1355, Until Discontinu ed, Routine, Pain (scale 1-3) hydroCHLORO Yes 25mg Take 25 mg Univers thiazide 25 7-15 by mouth ity of mg tablet 22:10: daily. [address] traZODONE Yes 50mg Take 50 mg Un rubin 50 mg 7-15 by mouth ity of tablet 22:10: at [place] [address] bedtime. [facility] Branch aspirin 81 Yes 81mg Take 81 mg U nivers mg chewable 7-15 by mouth ity of tablet 22:10: as needed. [address] Vital Signs Vital Name Observation Time Observation Value Comments Source Heart rate 2021-02-07 22:00:00 79 /min [facility] Respiratory rate 2021-02-07 22:00:00 21 /min [facility] Oxygen saturation in 2021-02-07 22:00:00 98 /min [facility] Arterial blood by [facility] Pulse oximetry Branch Systolic blood 2021-02-07 21:00:00 166 mm[Hg] [facility] Diastolic blood 2021-02-07 21:00:00 131 mm[Hg] [facility] Body temperature 2021-02-07 20:00:00 36.83 Myrtle [facility] Body weight 2021-02-07 16:56:00 120.203 kg [facility] BMI 2021-02-07 16:56:00 46.94 kg/m2 [facility] Procedures Procedure Date / Time Performing Clinician Source Performed TROPONIN I 2021-02-07 22:16:00 Graham Dorantes [facility] CT CHEST PULMONARY 2021-02-07 19:40:28 Graham Dorantes [facility] ANGIOGRAM [facility] PROTHROMBIN TIME / INR 2021-02-07 18:58:00 Graham [facility] D-DIMER 2021-02-07 18:58:00 Luis [facility] ACTIVATED PARTIAL 2021-02-07 18:58:00 Jose E [facility] THRMPLAS TERESO [facility] XR CHEST 1 VW 2021-02-07 17:53:12 Julian Wise [facility] TROPONIN I 2021-02-07 17:25:00 Julian Wise [facility] COMP. METABOLIC PANEL 2021-02-07 17:25:00 Julian Wise [facility] ([id number]) [facility] CBC WITH DIFF 2021-02-07 17:25:00 Julian Wise [facility] N-TERMINAL PRO-BNP 2021-02-07 17:25:00 Julian Wise [facility] COVID-19 (ID NOW RAPID 2021-02-07 17:25:00 Julian Wise [facility] TESTING) Medical Branch NOTICE OF PRIVACY 2021-02-07 16:55:14 Doctor Unassigned, No Univ [facility] PRACTICES Name Medical Branch CONSENT/REFUSAL FOR 2021-02-07 16:51:57 [facility], [facility] Name Medical Branch Encounters Start End Encounter Admission Attending Care Care Encounter Source Date/Time Date/Time Type Type Clinicians Facility Department ID 2021-02-07 2021-02-07 Emergency [facility] [id number] Univers 11:59:00 18:51:00 Graham Dorantes [id number] ity [facility] [id number] [facility] [id number] [facility] 080 Branch 2021-02-07 2021-02-07 Orders Doctor RUCKER [id number] Univers 00:00:00 00:00:00 Only UnassRAHEEM lloyd 350.1.13.10 ity of [place] [facility] [id number] [facility] [id number] [facility] 009 Branch Results Test Description Test Time Test Comments Results Result Comments Source TROPONIN I 2021-02-07 22:50:08 Test Item Value Reference Range Interpretation Comme nts TROPONIN I (test code = 0.001 ng/mL See_Comment [Au tomated message] The [id number]) system which ge nerated this result transmit taniya reference range: <=0.034. The reference range was not u sed to interpret this result as normal/abnormal . SANTO (test code = SANTO) Lab Interpretation (test code Normal = 85718-4) [facility] [id number] 20:59:34 1. No pulmonary emboli. 2. Scattered lung opacities involving small volumes of the lungs consistentwith the known diagnosis of COVID 19 pneumonia. Preliminary Report Dictated by Resident: Quinn Nicole MD., have reviewed this study and agree with theabove report.PROCEDURE: CT CHEST WITH CONTRAST- CHEST PE PROTOCOL CLINICAL INDICATION: 55-year-old female patient with Covid presenting withshortness of breath. COMPARISON: Chest radiograph dated 08/10/2020. TECHNIQUE: Volumetric helical CT angiogram was performed of the chest (lungapices to bases) with IV contrast. Imageswere reconstructed at 1.25 mmslice thickness. Corresponding axial, sagittal and coronal MIP images wereperformed. Axial MIPs and coronal and sagittal MPR images were generatedand reviewed.. FINDINGS: DEVICES: None HEART AND GREAT VESSELS: The opacification of the pulmonary vasculature isappropriate. No filling defects are seen through the level of the segmentalpulmonary arteries. The pulmonary trunk is normal in caliber. The thoracic aorta is normal in caliber. The heart is normal in size. No pericardial abnormalities are identified.The RV to LV is normal. MEDIASTINUM AND LOWER NECK: No central a irway lesions are detected. Theesophagus is within normal limits. The included thyroid gland appearsnormal. LYMPH NODES: Scattered small lymph nodes in both sides of the mediastinumand hilar regions. No evidence of intrathoracic lymphadenopathy. LUNGS AND PLEURA: Scattered small areas of peripheral patchy groundglassopacities seen at both lungs involving small volume of the lungs. Nosuspicious nodules. No pleural abnormality detected. VISUALIZED UPPER ABDOMEN: Small type I hiatal hernia. OSSEOUS STRUCTURES AND SOFT TISSUES: No focal osseous lesions are detected.The soft tissues appear normal. [facility], Radiant Results Inft User - 02/07/2021 4:00 PM CDTFormatting of this note might be different fromthe original.PROCEDURE: CT CHEST WITH CONTRAST- CHEST PE PROTOCOLCLINICAL INDICATION: 55-year-old female patient with Covid presenting withshortness of breath. COMPARISON: Chest radiograph dated 08/10/2020.TECHNIQUE: Volumetric helical CT angiogram was performed of the chest (lungapices to bases) with IV contrast. Images were reconstructed at 1.25 mmslice thickness. Corresponding axial, sagittal and coronal MIP images wereperformed. Axial MIPs and coronal and sagittal MPR images were generatedand revi ewed..FINDINGS:DEVICES: None HEART AND GREAT VESSELS: The opacification of the pulmonary vasculatureisappropriate. No filling defects are seen through the level of the segmentalpulmonary arteries. Thepulmonary trunk is normal in caliber.The thoracic aorta is normal in caliber.The heart is normal in size. No pericardial abnormalities are identified.The RV to LV is normal. MEDIASTINUM AND LOWER NECK:No central airway lesions are detected. Theesophagus is within normal limits. The included thyroid gland appearsnormal.LYMPH NODES: Scattered small lymph nodes in both sides of the mediastinumand hilarregions. No evidence of intrathoracic lymphadenopathy.LUNGS AND PLEURA: Scattered small areas of geoffrey pheral patchy groundglassopacities seen at both lungs involving small volume of the lungs. Nosuspicious nodules. No pleural abnormality detected.VISUALIZED UPPER ABDOMEN: Small type I hiatal hernia. OSSEOUS STRUCTURES AND SOFT TISSUES: No focal osseous lesions are detected.The soft tissues appear kaushik l.IMPRESSION1. No pulmonary emboli.2. Scattered lung opacities involving small volumes of the lungs consistentwith the known diagnosis of COVID 19 pneumonia.Preliminary Report Dictated by Resident: Quinn Finney MD., have reviewed this study and agree with theabove report.[id number] 19:37:33 Test Item Value Reference Range Interpretation Comments D-DIMER (test code = See_Comment H [Autom ated message] [id number]) The system [employer] generated this result transmitted ref erence range: <0.41 ?g /mL (FEU). The refe rence range was not u sed to interpret this result as normal/abnor mal. SANTO (test code = SANTO) Lab Interpretation (test Abnormal code = 76214-9) [facility] THRMPLAS [id number] 19:30:55 Test Item Value Reference Range Interpretation Comments APTT Patient (test code = See_Comment [ Automated message] 3173-2) The system [employer] generated this result transmitted ref erence range: 23 - 38 Seconds. The re ference range was not u sed to interpret this result as normal/abnor mal. SANTO (test code = SANTO) Lab Interpretation (test Normal code = 11418-0) [facility] / [id number] 19:28:54 Test Item Value Reference Range Interpretation Comments PROTIME PATIENT (test See_Comment [Auto mated message] code = 5964-2) The system [employer] generated this result transmitted ref erence range: 12.0 - 1 4.7 Seconds. The re ference range was not u sed to interpret this result as normal/abnor mal. INR (test code = 6301-6) Lab Interpretation (test Normal code = 11708-0) [facility] 1 [id number] 18:41:28 1. ?Low lung volumes without focal infiltrate. RL: 1105 Electronically signed by Jayy Edwards 02/07/2021 1:41 PMHISTORY: ?dyspnea COMPARISON: ?None FINDINGS: AP view of the chest shows the heart to be normal in size. ?Lung volumesare low resulting in crowding of the pulmonary vascularity. ?Cardiacmonitor leads overlie the chest. [facility], Radiant Results Inft User - 02/07/2021 1:42 PM CDT HISTORY: dyspnea COMPARISON: None FINDINGS:AP view of the chest shows the heart to be normal in size. Lung volumesare low resulting in crowding of the pulmonary vascularity. Cardiacmonitor leads overlie the chest.IMPRESSION1. Low lung volumes without focal infiltrate.RL: 1105 [facility] [id number] 18:06:10 Test Item Value Reference Range Interpretation Comments TROPONIN I (test code = 0.002 ng/mL See_Comment [Au tomated [id number]) message] The sy stem which generated this result transmitted reference range : <=0.034. The reference range was not used to interpret this result as normal/abnormal . SANTO (test code = SANTO) Lab Interpretation Normal (test code = 76869-0) [facility] [id number] 18:02:53 Test Item Value Reference Range Interpretation Comments NT-proBNP (test code = 97 pg/mL See_Comment [Aut omated message] 0761280621) The system whic h generated this result transmitted ref erence range: <=125. T he reference range was not used to int erpret this result as normal/abnormal . SANTO (test code = SANTO) Lab Interpretation (test Normal code = 76364-4) [facility]OLIC PANEL (41760)2021-02-07 17:55:47 Test Item Value Reference Range Interpretation Comments NA (test code = 2924057791) 142 mmol/L 135-145 K (test code = 8375166986) 3.8 mmol/L 3.5-5.0 CL (test code = 9112805861) 102 mmol/L 98-108 CO2 TOTAL (test code = 5649122512) 29 mmol/L 23-31 AGAP (test code = 9100898995) 2-16 BUN (test code = 7920442890) 15 mg/dL 7-23 GLUCOSE (test code = 7066258522) 98 mg/dL 70-110 CREATININE (test code = 0.66 mg/dL 0.50-1.04 5502273987) TOTAL BILI (test code = 0.7 mg/dL 0.1-1.6 2442296580) CALCIUM (test code = 0669359892) 9.2 mg/dL 8.6-10.6 T PROTEIN (test code = 7379004509) 8.3 g/dL 6.3-8.2 H ALBUMIN (test code = 6693283245) 4.5 g/dL 3.5-5.0 ALK PHOS (test code = 8576935305) 65 U/L 34-122 ALTv (test code = 1742-6) 33 U/L 5-35 AST(SGOT) (test code = 6714615663) 44 U/L 13-40 H eGFR (test code = 6640242446) mL/min/1.73m2 SANTO (test code = SANTO) Lab Interpretation (test code = Abnormal 92420-0) [facility] (ID NOW RAPID TESTING)2021-02-07 17:55:47 Test Item Value Reference Range Interpretation Comments SARS-CoV-2 Rapid ID NOW (test code = Positive Not Detected A 34927-1) SANTO (test code = SANTO) Lab Interpretation (test code = Abnormal 80936-9) [facility] WITH [id number] 17:41:52 Test Item Value Reference Range Interpretation Comments WBC (test code = See_Comment [Automated 0268-2) message] The sy stem which generated this result transmitted reference range : 4.30 - 11.10 10*3/?L. The reference range was not used to interpret this result as normal/abnormal . RBC (test code = See_Comment [Automated 789-8) message] The sy stem which generated this result transmitted reference range : 3.93 - 5.25 10*6/?L. The reference range was not used to interpret this result as normal/abnormal . HGB (test code = 12.0 g/dL 11.6-15.0 718-7) HCT (test code = 38.0 % 35.7-45.2 4544-3) MCV (test code = 91.1 fL 80.6-95.5 787-2) MCH (test code = 28.8 pg 25.9-32.8 785-6) MCHC (test code = 31.6 g/dL 31.6-35.1 786-4) RDW-SD (test code = 48.4 fL 39.0-49.9 84559-2) RDW-CV (test code = 14.6 % 12.0-15.5 788-0) PLT (test code = See_Comment H [Automated 777-3) message] The sy stem which generated this result transmitted reference range : 166 - 358 10*3/ ?L. The reference r darius was not used to interpret this result as normal/abnormal . MPV (test code = 9.2 fL 9.5-12.9 L 02185-2) NRBC/100 WBC (test See_Comment [Automat ed code = 5565122692) message] The system which generated this result transmitted reference range : 0.0 - 10.0 /100 WBCs. The refer ence range was not u sed to interpret th is result as normal/abnormal . NRBC x10^3 (test code <0.01 See_Comment [Auto mated = 6248057700) message] The s ystem which generated this result transmitted reference range : 10*3/?L. The reference range was not used to interpret this result as normal/abnormal . GRAN MAT (NEUT) % 74.0 % (test code = 770-8) IMM GRAN % (test code 1.60 % = 8148708196) LYMPH % (test code = 18.7 % 736-9) MONO % (test code = 5.3 % 5905-5) EOS % (test code = 0.2 % 713-8) BASO % (test code = 0.2 % 706-2) GRAN MAT x10^3(ANC) 7.07 10*3/uL 1.88-7.09 (test code = 0249012017) IMM GRAN x10^3 (test 0.15 10*3/uL 0.00-0.06 H code = 8200172214) LYMPH x10^3 (test code 1.79 10*3/uL 1.32-3.29 = 731-0) MONO x10^3 (test code 0.51 10*3/uL 0.33-0.92 = 742-7) EOS x10^3 (test code = <0.03 0.03-0.39 L 711-2) BASO x10^3 (test code <0.03 0.01-0.07 = 704-7) Lab Interpretation Abnormal (test code = 84281-1) [facility]
--- NOTE | 2021-02-09 18:25 | RAD REPORT ---
EXAM DESCRIPTION: Olga Single View02/09/2021 6:04 pm CLINICAL HISTORY: Chest pain COMPARISON: September 2020 FINDINGS: The lungs appear clear of acute infiltrate. The heart is normal size IMPRESSION: No acute abnormalities displayed
[2021-02-09 18:39] LABS: Absolute Lymphocytes (CBC) 2.5 K/uL (0.7-4.9); Basophils % 1.6 % (0-1.3); Hematocrit 36.4 % (36.0-45.0); Lymphocytes % 33.1 % (15.3-44.8); MPV 6.8 fL (7.6-11.3); RBC Red Blood Cell Count 4.06 M/uL (3.86-4.86)
[2021-02-09 19:04] LABS: Protime INR 1.27
[2021-02-09] MEDS ORDERED: ASPIRIN 81 MG CHEWABLE TABLET ONE (19:16)
[2021-02-09 19:54] LABS: ALT/SGPT 28 U/L (12-78); AST/SGOT 19 U/L (15-37); Albumin 3.3 g/dL (3.4-5.0); Alkaline Phosphatase 59 U/L (45-117); BUN Blood Urea Nitrogen 12 mg/dL (7-18); Bicarbonate 28 mmol/L (21-32); Bilirubin Direct 0.1 mg/dL (0-0.2); Bilirubin Total 0.4 mg/dL (0.2-1.0); Glucose Level 94 mg/dL (74-106); Lipase 326 U/L (73-393); Magnesium 2.5 mg/dL (1.8-2.4); NT PRO-BNP 51 pg/mL (<125); Potassium 3.8 mmol/L (3.5-5.1); Protein, Total 7.4 g/dL (6.4-8.2); Sodium Level 144 mmol/L (136-145); Troponin (Emerg Dept Use Only) < 0.02 ng/mL (0.0-0.045)
[2021-02-09] MEDS ORDERED: METOPROLOL TAR 25 MG TAB ONE (20:21)
[2021-02-09] MEDS ORDERED: FAMOTIDINE 20 MG/2 ML VIAL IV ONE (20:22)
[2021-02-09] MEDS ORDERED: ONDANSETRON 4 MG/2 ML VIAL ONE (20:35)
--- NOTE | 2021-02-09 20:36 | RAD REPORT ---
EXAM DESCRIPTION: CT - Chest For Pe Angio - 02/09/2021 8:28 pm CLINICAL HISTORY: Chest pain COMPARISON: Chest x-ray February 09, 2021 TECHNIQUE: Dynamically enhanced axial 3 mm thick images of the chest were obtained during administra tion of <100> mL Isovue 370 IV contrast. Coronal and oblique reconstruction images were generated and reviewed. Exam utilizes a protocol for optimal evaluation of pulmonary arterial tree. Maximum intensity projections 3D imaging was utilized All CT scans are performed using dose optimization technique as appropriate and may include automated exposure control or mA/KV adjustment according to patient size. FINDINGS: A pulmonary embolus is not seen. A thoracic aortic aneurysm is not noted. A pleural effusion is not seen. A pericardial effusion is not seen. A lung consolidation is not present. IMPRESSION: Negative for a pulmonary embolism.
[2021-02-09] MEDS ORDERED: AMLODIPINE 5 MG TAB ONE (20:57)
[2021-02-09 21:03] LABS: Blood Morphology Comment NOT SEEN (NOT SEEN); Platelet Estimate INCR
--- NOTE | 2021-02-09 21:04 | ER ---
Nurse's Notes [facility] Name: Zohreh Mabry Age: 55 yrs Sex: Female : 1965 Arrival Date: 02/09/2021 Time: 16:35 Bed 12 Private MD: Guanakito Nettles Diagnosis: Chest pain, unspecified;Obesity, unspecified;Essential (primary) hypertension;Bradycardia, unspecified Presentation: 02/09 17:24 Chief complaint: Left sided chest pain that radiates to upper back and intermittent SOB hb x 4 days. Coronavirus screen: At this time, the client does not indicate any symptoms associated with coronavirus-19. Ebola Screen: No symptoms or risks identified at this time. Initial Sepsis Screen: Does the patient meet any 2 criteria? No. Patient's initial sepsis screen is negative. Does the patient have a suspected source of infection? No. Patient's initial sepsis screen is negative. Risk Assessment: Do you want to hurt yourself or someone else? Patient reports no desire to harm self or others. Onset of symptoms was January 26, 2021. 17:24 Method Of Arrival: Ambulatory hb 17:24 Acuity: KERRY 3 hb Triage Assessment: 18:09 General: Appears in no apparent distress. Behavior is calm, cooperative. Pain: Denies kh1 pain. Cardiovascular: No deficits noted. Historical: - Allergies: 17:26 Nubain; hb 17:26 Vistaril; hb - PMHx: 17:26 Headaches; Hypertension; Vertigo; hb - Immunization history:: Client reports having NOT received the Covid vaccine. - Social history:: Smoking status: Patient denies any tobacco usage or history of. - Family history:: not pertinent. - Code Status:: Full code. - Hospitalizations: : No recent hospitalization is reported. - History obtained from: mother. Screenin:09 Abuse screen: Denies threats or abuse. Nutritional screening: No deficits noted. kh1 Tuberculosis screening: No symptoms or risk factors identified. Fall Risk None identified. Assessment: 18:11 Pain: Denies pain. kh1 19:00 Pain: Pain does not radiate. kh1 21:19 Pain: Pain began 2 hours ago. ld1 Vital Signs: 17:24 BP 137 / 93; Pulse 60; Resp 16; Temp 97.5; Pulse Ox 100% on R/A; Weight 117.93 kg; hb Height 5 ft. 3 in. (160.02 cm); Pain 3/10; 18:34 BP 144 / 86; Pulse 66; Resp 20; Temp 97.1(TE); Pulse Ox 98% on R/A; kh1 20:42 BP 117 / 70; Pulse 59; Resp 18; Pulse Ox 99% on R/A; ld1 17:24 Body Mass Index 46.06 (117.93 kg, 160.02 cm) hb ED Course: 16:35 Patient arrived in ED. as 16:35 Guanakito Nettles MD is Private Physician. as 17:26 Triage completed. hb 17:26 Arm band placed on. hb 17:33 Spencer Kessler MD is Attending Physician. yolanda 18:06 XRAY Chest (1 view) In Process Unspecified. EDMS 18:08 Gali Jeffers is Primary Nurse. kh1 18:09 Patient has correct armband on for positive identification. kh1 18:09 Patient maintains SpO2 saturation greater than 95% on room air. kh1 18:10 No provider procedures requiring assistance completed. kh1 18:11 Pulse ox on. NIBP on. kh1 18:11 Inserted Accessed Missed attempt(s): Patient did not have IV access during this [facility] emergency room visit. 18:33 Basic Metabolic Panel Sent. kh1 18:33 Lipase Sent. kh1 18:33 Basic Metabolic Panel Sent. kh1 18:33 Troponin (emerg Dept Use Only) Sent. kh1 18:33 PT-INR Sent. kh1 18:33 NT PRO-BNP Sent. kh1 18:33 Magnesium Sent. kh1 18:33 LFT's Sent. kh1 18:33 CBC with Diff Sent. kh1 19:01 Basic Metabolic Panel Sent. kh1 19:01 Lipase Sent. kh1 19:01 CBC with Diff Sent. kh1 19:01 LFT's Sent. kh1 19:01 Magnesium Sent. kh1 19:01 NT PRO-BNP Sent. kh1 19:01 PT-INR Sent. kh1 19:02 Troponin (emerg Dept Use Only) Sent. kh1 20:28 CT Chest For PE Angio In Process Unspecified. EDMS 21:04 Guanakito Nettles MD is Referral Physician. pm1 21:04 Aris Murray MD is Referral Physician. pm1 21:08 [facility]vas [facility] pm1 Administered Medications: 19:01 Drug: Aspirin Chewable Tablet 324 mg Route: PO; kh1 20:42 Follow up: Response: No adverse reaction ld1 20:00 Drug: Pepcid (famotidine) 20 mg Route: IVP; Site: left antecubital; ld1 20:41 Follow up: Response: No adverse reaction ld1 20:05 Not Given (Duplicate Order): ToPROL XL (metoprolol SUCCINATE) 25 mg PO once [facility] 20:13 Drug: Zofran (Ondansetron) 4 mg Route: IVP; Site: left antecubital; em 20:42 Follow up: Response: No adverse reaction ld1 20:41 Not Given (Physician Discretion): Norvasc (amlodipine) 5 mg PO once ld1 Outcome: 21:04 Discharge ordered by MD. pm1 21:19 Discharged to home ambulatory. ld1 21:19 Condition: stable 21:19 Discharge instructions given to patient, Instructed on discharge instructions, follow up and referral plans. medication usage, Demonstrated understanding of instructions, follow-up care, medications. 21:19 Patient left the ED. ld1 Signatures: Dispatcher [employer] EDMS Spencer Kessler MD MD cha Munoz, Edgar, RN RN em Johana Samaniego as Justyn Cuevas, LANEY ASSEMBLER WATCH TRAIN pm1 Ary Mueller, APURVA MIXON Scarlett Leone RN RN ld1 Gali Jeffers [facility] Corrections: (The following items were deleted from the chart) 19:39 18:33 CORONAVIRUS+MR.LAB.BRZ drawn and sent. [facility] EDOR
--- NOTE | 2021-02-09 21:04 | EDPHYS ---
Physician Documentation [facility] Name: Zohreh Mabry Age: 55 yrs Sex: Female : 1965 Arrival Date: 02/09/2021 Time: 16:35 Bed 12 Private MD: Guanakito Nettles ED Physician Spencer Kessler HPI: 02/09 18:54 This 55 yrs old Black Female presents to ER via Ambulatory with complaints of Chest yolanda Pain, Shortness Of Breath. 18:54 The patient or guardian reports chest pain that is located primarily in the substernal yolanda area, anterior chest wall, bilaterally. Onset: 2 day(s) ago. The pain does not radiate. Associated signs and symptoms: The patient has no apparent associated signs or symptoms. The chest pain is described as aching. Duration: The patient or guardian reports multiple episodes, with no pattern. Modifying factors: The symptoms are alleviated by nothing. the symptoms are aggravated by nothing. Severity of pain: At its worst the pain was mild in the emergency department the pain has resolved and did so earlier today. The patient has experienced similar episodes in the past, a few times. Historical: - Allergies: 17:26 Nubain; hb 17:26 Vistaril; hb - PMHx: 17:26 Headaches; Hypertension; Vertigo; hb - Immunization history:: Client reports having NOT received the Covid vaccine. - Social history:: Smoking status: Patient denies any tobacco usage or history of. - Family history:: not pertinent. - Code Status:: Full code. - Hospitalizations: : No recent hospitalization is reported. - History obtained from: mother. ROS: 18:54 Constitutional: Negative for fever, chills, and weight loss, Eyes: Negative for injury, yolanda pain, redness, and discharge, ENT: Negative for injury, pain, and discharge, Neck: Negative for injury, pain, and swelling, Respiratory: Negative for shortness of breath, cough, wheezing, and pleuritic chest pain, Abdomen/GI: Negative for abdominal pain, nausea, vomiting, diarrhea, and constipation, Back: Negative for injury and pain, : Negative for injury, bleeding, discharge, and swelling, MS/Extremity: Negative for injury and deformity, Skin: Negative for injury, rash, and discoloration, Neuro: Negative for headache, weakness, numbness, tingling, and seizure, Psych: Negative for depression, anxiety, suicide ideation, homicidal ideation, and hallucinations, Allergy/Immunology: Negative for hives, rash, and allergies, Endocrine: Negative for neck swelling, polydipsia, polyuria, polyphagia, and marked weight changes, Hematologic/Lymphatic: Negative for swollen nodes, abnormal bleeding, and unusual bruising. 18:54 Cardiovascular: Positive for chest pain, palpitations. Exam: 18:54 Constitutional: This is a well developed, well nourished patient who is awake, alert, yolanda and in no acute distress. Head/Face: Normocephalic, atraumatic. Eyes: Pupils equal round and reactive to light, extra-ocular motions intact. Lids and lashes normal. Conjunctiva and sclera are non-icteric and not injected. Cornea within normal limits. Periorbital areas with no swelling, redness, or edema. ENT: Nares patent. No nasal discharge, no septal abnormalities noted. Tympanic membranes are normal and external auditory canals are clear. Oropharynx with no redness, swelling, or masses, exudates, or evidence of obstruction, uvula midline. Mucous membranes moist. Neck: Trachea midline, no thyromegaly or masses palpated, and no cervical lymphadenopathy. Supple, full range of motion without nuchal rigidity, or vertebral point tenderness. No Meningismus. Chest/axilla: Normal chest wall appearance and motion. Nontender with no deformity. No lesions are appreciated. Cardiovascular: Regular rate and rhythm with a normal S1 and S2. No gallops, murmurs, or rubs. Normal PMI, no JVD. No pulse deficits. Respiratory: Lungs have equal breath sounds bilaterally, clear to auscultation and percussion. No rales, rhonchi or wheezes noted. No increased work of breathing, no retractions or nasal flaring. Abdomen/GI: Soft, non-tender, with normal bowel sounds. No distension or tympany. No guarding or rebound. No evidence of tenderness throughout. Back: No spinal tenderness. No costovertebral tenderness. Full range of motion. Skin: Warm, dry with normal turgor. Normal color with no rashes, no lesions, and no evidence of cellulitis. MS/ Extremity: Pulses equal, no cyanosis. Neurovascular intact. Full, normal range of motion. Neuro: Awake and alert, GCS 15, oriented to person, place, time, and situation. Cranial nerves II-XII grossly intact. Motor strength 5/5 in all extremities. Sensory grossly intact. Cerebellar exam normal. Normal gait. Psych: Awake, alert, with orientation to person, place and time. Behavior, mood, and affect are within normal limits. 18:54 Musculoskeletal/extremity: DVT Exam: No signs of deep vein thrombosis. no pain, no swelling, no tenderness, negative Homans' sign noted on exam, no appreciated bluish discoloration, no erythema, no increased warmth. 20:06 ECG was reviewed by the Attending Physician. [facility] Vital Signs: 17:24 BP 137 / 93; Pulse 60; Resp 16; Temp 97.5; Pulse Ox 100% on R/A; Weight 117.93 kg; hb Height 5 ft. 3 in. (160.02 cm); Pain 3/10; 18:34 BP 144 / 86; Pulse 66; Resp 20; Temp 97.1(TE); Pulse Ox 98% on R/A; kh1 20:42 BP 117 / 70; Pulse 59; Resp 18; Pulse Ox 99% on R/A; ld1 17:24 Body Mass Index 46.06 (117.93 kg, 160.02 cm) hb MDM: 17:33 Patient medically screened. yolanda 18:57 Differential diagnosis: abnormal EKG, coronary artery disease cholecystitis, hiatal yolanda hernia, pneumonia, pulmonary embolus, stable angina, unstable angina. HEART Score: History: Slightly Suspicious (0), ECG: Normal (0), Age: > 45 and < 65 years (1), Risk Factors: 1 or 2 risk factors (1), [Hypertension] [Obesity] Troponin: < or = 1 x Normal Limit (0). The patient was given aspirin in the Emergency Department. The patient's deep vein thrombosis risk score was calculated as follows: Total Score: 0. This patient was found to be at low risk for a deep vein thrombosis by using the Well's assessment criteria. The patient's pulmonary embolism risk score was calculated as follows: Total Score: 0-2 points. This patient was found to be at low risk for a pulmonary embolism by using the Well's assessment criteria. SUZY Risk Score: TOTAL SCORE = 0. Data reviewed: vital signs, nurses notes, lab test result(s), EKG, radiologic studies, plain films. Data interpreted: monitoring manager: rate is 66 beats/min, rhythm is regular, Pulse oximetry: on room air is 98 %. Test interpretation: by ED physician or midlevel provider: ECG, plain radiologic studies. 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 02/09 17:40 Order name: Basic Metabolic Panel [facility] 02/09 17:40 Order name: CBC with Diff; Complete Time: 21:09 [facility] 02/09 17:40 Order name: LFT's; Complete Time: 19:58 [facility] 02/09 17:40 Order name: Magnesium; Complete Time: 19:58 [facility] 02/09 17:40 Order name: NT PRO-BNP; Complete Time: 19:58 [facility] 02/09 17:40 Order name: PT-INR; Complete Time: 19:14 [facility] 02/09 17:40 Order name: Troponin (emerg Dept Use Only); Complete Time: 19:58 [facility] 02/09 17:40 Order name: XRAY Chest (1 view); Complete Time: 19:03 [facility] 02/09 17:40 Order name: Lipase; Complete Time: 19:58 [facility] 02/09 17:40 Order name: Basic Metabolic Panel; Complete Time: 19:58 [facility] 02/09 19:41 Order name: Troponin (emerg Dept Use Only): AT 8 PM; Complete Time: 20:56 [facility] 02/09 20:36 Order name: Manual Differential; Complete Time: 21:09 [facility] 02/09 21:05 Order name: SARS-COV-2 RT PCR; Complete Time: 21:09 [facility] 02/09 17:40 Order name: EKG; Complete Time: 17:40 [facility] 02/09 17:40 Order name: EKG - Nurse/Tech; Complete Time: 18:34 [facility] 02/09 17:40 Order name: IV Saline Lock; Complete Time: 18:33 [facility] 02/09 17:40 Order name: Labs collected and sent; Complete Time: 18:33 [facility] 02/09 17:40 Order name: O2 Per Protocol; Complete Time: 18:33 [facility] 02/09 17:40 Order name: O2 Sat Monitoring; Complete Time: 18:33 yolanda 02/09 19:41 Order name: CT Chest For PE Angio; Complete Time: 20:56 yolanda EC:06 Rate is 53 beats/min. Rhythm is regular. QRS [place] is Normal. NC interval is normal. QRS yolanda interval is normal. QT interval is normal. No Q waves. T waves are Normal. No ST changes noted. Clinical impression: Sinus bradycardia. Interpreted by me. Reviewed by me. Administered Medications: 19:01 Drug: Aspirin Chewable Tablet 324 mg Route: PO; kh1 20:42 Follow up: Response: No adverse reaction ld1 20:00 Drug: Pepcid (famotidine) 20 mg Route: IVP; Site: left antecubital; ld1 20:41 Follow up: Response: No adverse reaction ld1 20:05 Not Given (Duplicate Order): ToPROL XL (metoprolol SUCCINATE) 25 mg PO once yolanda 20:13 Drug: Zofran (Ondansetron) 4 mg Route: IVP; Site: left antecubital; em 20:42 Follow up: Response: No adverse reaction ld1 20:41 Not Given (Physician Discretion): Norvasc (amlodipine) 5 mg PO once ld1 Disposition Summary: 02/09/21 21:04 Discharge Ordered Location: Home pm1 Problem: new pm1 Symptoms: have improved pm1 Condition: Stable pm1 Diagnosis - Chest pain, unspecified pm1 - Obesity, unspecified pm1 - Essential (primary) hypertension pm1 - Bradycardia, unspecified pm1 Followup: yolanda - With: - When: 1 - 2 days - Reason: Recheck today's complaints, Continuance of care, Re-evaluation by your physician Followup: yolanda - With: - When: 2 - 3 days - Reason: Recheck today's complaints, Continuance of care, Re-evaluation by your physician Discharge Instructions: - Discharge Summary Sheet yolanda - Bradycardia, Adult yolanda - Nonspecific Chest Pain, Adult yolanda - Hypertension, Adult yolanda - Nonspecific Chest Pain, Adult, [id number] yolanda - Hypertension, Adult, [id number] yolanda - Aspirin and Your Heart yolanda - Managing Your Hypertension yolanda Forms: - Medication Reconciliation Form pm1 - Thank You Letter pm1 - Antibiotic Education pm1 - Prescription Opioid Use pm1 Prescriptions: - Norvasc 5 mg Oral Tablet - take 1 tablet by ORAL route once daily; 20 tablet; Refills: 0, Product yolanda Selection Permitted - Pepcid 20 mg Oral Tablet - take 1 tablet by ORAL route every 12 hours for 15 days; 30 tablet; Refills: 0, yolanda Product Selection Permitted Signatures: Dispatcher [employer] EDVanessa Estes, COPYRIGHT CLERK-C COPYRIGHT CLERK-Spencer Grey MD MD cha Munoz, Edgar RN RN Justyn Ortez, PIPELINE EXECUTIVE PIPELINE EXECUTIVE pm1 Ary Mueller RN RN Scarlett Leone RN RN ld1 [facility] Corrections: (The following items were deleted from the chart) 19:39 17:40 CORONAVIRUS+MRRogerLAB.BRZ ordered. ANGELIKAND STEVE
[2021-02-09 21:41] VITALS: TEMP 97.1
[2021-02-09 21:46] VITALS: BP 117/70; O2SAT 99
--- NOTE | 2021-02-10 16:13 | EKG ---
Test Date: 2021-02-09 Test Time: 19:52:23 Derrickman Helper: MARIELA MEASUREMENT RESULTS: Intervals: Rate: 0 OR: QRSD: 0 QT: 0 QTc: 0 [place]: P: OR: QRS: 0 T: 0 INTERPRETIVE STATEMENTS: No QRS complexes found, no ECG analysis possible Compared to ECG 10/03/2020 10:39:13 Sinus rhythm no longer present ST (T wave) deviation no longer present Electronically Signed On 02-10-21 16:11:40 CDT by Aris Murray
--- NOTE | 2021-02-10 16:13 | EKG ---
Test Date: 2021-02-09 Test Time: 19:59:36 Senior Vice President: MARIELA MEASUREMENT RESULTS: Intervals: Rate: 53 [place]: 154 QRSD: 82 QT: 456 QTc: 427 [place]: P: 59 [place]: 154 QRS: 51 T: 42 INTERPRETIVE STATEMENTS: Sinus bradycardia Otherwise normal ECG Compared to ECG 02/09/2021 19:52:23 No significant changes Electronically Signed On 02-10-21 16:11:39 CDT by Aris Murray
== END 2021-02-09 21:19 | disposition home or self-care (01) ==
LOC: ER 16:32
DX: U07.1 COVID-19 (principal); I10 Essential (primary) hypertension; R00.1 Bradycardia, unspecified; E66.9 Obesity, unspecified; Z88.8 Allergy status to other drugs, medicaments and biological substances
CPT/HCPCS: 36415; 71045; 71275; 80048; 80076; 83690; 83735; 83880; 84484; 85025; 85610; 93005; 96374; 96375; 99285; J2405; Q9967; U0003

== ENCOUNTER 2021-10-11 20:37 | Emergency (ER) | payer SELFPAY ==
--- OUTSIDE RECORDS SUMMARY | 2021-10-11 20:40 | XMS REPORT | Continuity of Care Document ---
:1965 Author Organization [facility] t Address [address] [place] [address] Care Team Providers Name Role Phone Pcp, Does Not Have A Primary Care Physician Frandy YUNG Attending Clinician Jose E YUNG Attending Clinician Jose E YUNG Admitting Clinician Problems Condition Condition Condition Status Onset Resolution Last Treating Co mments Source Name Details Category Date Date Treatment Clinician Date Chest pain Chest pain Disease Active U nivers 7-15 ity of 00:00: [place] 00 Medical Branch Morbid Morbid Disease Active Univers obesity obesity 7-15 ity of [place] mass [place] mass index 00 Me dical of of Branch 40.0-49.9 40.0-49.9 Essential Essential Disease Active Uni vers hypertensi hypertensi 7-15 it y of on on 00:00: Medical Branch Dizziness Dizziness Disease Active Uni vers 7-15 ity of 00:00: [place] 00 Medical Branch Headache Headache Disease Active Unive rs 7-15 ity of 00:00: [place] 00 Medical Branch Allergies, Adverse Reactions, Alerts Allergy [...] 00:00: [place] reaction 00 Medical s Branch NALBU[place]I DRUG Active EP Effects Univ ers NE INGREDI 12-24 ity of 00:00: [place] 00 Medical Branch HYDROXYZ DRUG Active EP Effects Univ ers INE HCL INGREDI 12-24 ity of 00:00: [place] 00 Medical Branch Social History Social Habit Start Date Stop Date Quantity Comments Source Exposure to Not sure [facility] SARS-CoV-2 [facility] (event) Branch Tobacco use and 2017-12-25 2017-12-25 Never used Universit y of exposure 00:00:00 00:00:00 [facility] Alcohol intake 2017-12-25 2017-12-25 Current University of 00:00:00 00:00:00 non-drinker of [facility] alcohol [place] (finding) Sex Ass[birth year] At [birth year] Universit y of 00:00:00 00:00:00 [facility] Smoking Status Start Date Stop Date Source Never smoker [facility] Medications Ordered Filled Start Stop Current Ordering [...] mouth ity of mg tablet 23:51: daily. [address] Branch traZODONE Yes 50mg Take 50 mg Un rubin 50 mg 8-28 by mouth ity of tablet 23:51: at [place] [address] bedtime. Medical Branch aspirin 81 Yes 81mg Take 81 mg U nivers mg chewable 8-28 by mouth ity of tablet 23:51: as needed. [address] azithromyci Yes 250mg Take 250 U nivers n 8-28 mg by ity of (ZITHROMAX 23:51: mouth [place] Z-NIRAJ) 250 41 daily. Medical mg tablet Take 500 Branch mg day 1, then 250 mg days 2 to 5. azithromyci Yes 250mg Take 250 U nivers n 02-07 mg by ity of (ZITHROMAX 23:51: mouth [place] Z-NIRAJ) 250 41 daily. Medical mg tablet Take 500 Branch mg day 1, then 250 mg days 2 to 5. iopamidol 2020- No [id number] 100mL 100 mL, Univers (ISOVUE 02-07 Intravenou ity o f 370-500 mL) 20:45: 20:45 s, ONCE, 1 [place] injection 00 :00 dose, Sat Medic al 100 mL 02/07/21 at Branch 1545, Routine aspirin 2020- No 325mg 325 mg, Unive rs tablet 325 02-07 Oral, ity of mg 19:45: 22:03 ONCE, 1 [place] 00 :00 dose, [facility] 02/07/21 at [place] 1445, STAT nitroglycer Yes .4mg 0.4 mg, Uni vers in 02-07 Sublingual ity of (NITROSTAT) 18:56: , Q5MIN Manpreet as sublingual 00 PRN, Medical tablet 0.4 Starting Branc h mg [facility] 02/07/21 at 1356, Until Discontinu ed, Routine, Chest pain morpHINE No 2mg 2 mg, Slow Un rubin injection 2 02-07 IV Push, ity of mg 18:55: 18:54 Q4HPRN, [place] 48 :48 Starting Medical Sat [place] 02/07/21 at 1355, Until 02/08/21 at 1354, Routine, Pain (scale 7-10), Chest pain acetaminoph Yes 650mg 650 mg, Un rubin en 02-07 Oral, ity of (TYLENOL) 18:55: Q6HPRN, [place] tablet 650 36 Starting Medic al mg [facility] 02/07/21 at 1355, Until Discontinu ed, Routine, Pain (scale 1-3) Vital Signs Vital Name Observation Time Observation Value Comments Source Heart rate 2021-02-07 22:00:00 79 /min [facility] Respiratory rate 2021-02-07 22:00:00 21 /min [facility] Oxygen saturation in 2021-02-07 22:00:00 98 /min [facility] Arterial blood by [facility] Pulse oximetry Branch Systolic blood 2021-02-07 21:00:00 166 [facility]Hg[facility] Diastolic blood 2021-02-07 21:00:00 131 mm[Hg] [facility] Body temperature 2021-02-07 20:00:00 36.83 [place] [facility] Body weight 2021-02-07 16:56:00 120.203 kg [facility] BMI 2021-02-07 16:56:00 46.94 kg/m2 [facility] Procedures Procedure Date / Time Performing Clinician Source Performed TROPONIN I 2021-02-07 22:16:00 Graham Dorantes [facility] CT CHEST PULMONARY 2021-02-07 19:40:28 Jose E Graham [facility] ANGIOGRAM [facility] PROTHROMBIN TIME / INR 2021-02-07 18:58:00 Graham Dorantes [facility] D-DIMER 2021-02-07 18:58:[address] [facility] ACTIVATED PARTIAL 2021-02-07 18:58:00 Jose E [facility] THRMPLAS TERESO [facility] XR CHEST 1 VW 2021-02-07 17:53:12 Frandy [facility] TROPONIN I 2021-02-07 17:25:00 Frandy Julian [facility] COMP. METABOLIC PANEL 2021-02-07 17:25:00 Julian Wise [facility] ([id number]) [facility] CBC WITH DIFF 2021-02-07 17:25:00 Julian Wise [facility] N-TERMINAL PRO-BNP 2021-02-07 17:25:00 Julian [facility] COVID-19 (ID NOW RAPID 2021-02-07 17:25:00 [facility] NOTICE OF PRIVACY 2021-02-07 16:55:14 Doctor Unassigned, No Univ [facility] PRACTICES Name Medical Branch Encounters Start End Encounter Admission Attending Care Care Encounter Source Date/Time Date/Time Type Type Clinicians Facility Department ID 2021-02-07 2021-02-07 Emergency Julian Wise [facility] [id number] Univers 11:59:00 18:51:00 [id number] [id number] [facility] [id number] [facility] 080 Branch 2021-02-07 2021-02-07 Emergency X RUST ERT [id number] Univers 11:52:00 11:52:00 ity of [facility] Results Test Description Test Time Test Comments Results Result Comments Source TROPONIN I 2021-02-07 22:50:08 Test Item Value Reference Range Interpretation Comme nts TROPONIN I (test code = 0.001 ng/mL See_Comment [Au tomated message] The [id number]) system which [employer] nerated this result transmit taniya reference range: <=0.034. The reference range was not u sed to interpret this result as normal/abnormal . SANTO (test code = SANTO) Lab Interpretation (test code Normal = 36594-9) [facility] [id number] 20:59:34 1. No pulmonary emboli. 2. Scattered [...] lesions are detected.The soft tissues appear normal. [facility], Radiant Results Inft User - 02/07/2021 4:00 [...] COVID 19 pneumonia.Preliminary Report Dictated by Resident: Larry Lilly, Quinn Small MD., have reviewed this study and agree with theabove report.[id number] 19:37:33 Test Item Value Reference Range Interpretation Comments D-DIMER (test code = See_Comment H [Autom ated message] [id number]) The system [employer] generated this result transmitted ref erence range: <0.41 ?g /mL (FEU). The refe rence range was not u sed to interpret this result as normal/abnor mal. SANTO (test code = SANTO) Lab Interpretation (test Abnormal code = 71690-7) [facility] THRMPLAS [id number] 19:30:55 Test Item Value Reference Range Interpretation Comments APTT Patient (test code = See_Comment [ Automated message] 3173-2) The system [employer] generated this result transmitted ref erence range: 23 - 38 Seconds. The re ference range was not u sed to interpret this result as normal/abnor mal. SANTO (test code = SANTO) Lab Interpretation (test Normal code = 45658-6) [facility] / [id number] 19:28:54 Test Item Value Reference Range Interpretation Comments PROTIME PATIENT (test See_Comment [Auto mated message] code = 5964-2) The system [employer] generated this result transmitted ref erence range: 12.0 - 1 4.7 Seconds. The re ference range was not u sed to interpret this result as normal/abnor mal. INR (test code = 6301-6) Lab Interpretation (test Normal code = 39558-3) [facility] 1 [id number] 18:41:28 1. ?Low lung volumes without focal [...] Low lung volumes without focal infiltrate.RL: [address] [facility] [id number] 18:06:10 Test Item Value Reference Range Interpretation Comments TROPONIN I (test code = 0.002 ng/mL See_Comment [Au tomated [id number]) message] The sy stem which generated this result transmitted reference range : <=0.034. The reference range was not used to interpret this result as normal/abnormal . SANTO (test code = SANTO) Lab Interpretation Normal (test code = 43118-3) [facility] [id number] 18:02:53 Test Item Value Reference Range Interpretation Comments NT-proBNP (test code = 97 pg/mL See_Comment [Aut omated message] [id number]) The system whic h generated this result transmitted ref erence range: <=125. T he reference range was not used to int erpret this result as normal/abnormal . SANTO (test code = SANTO) Lab Interpretation (test Normal code = 36426-5) [facility] MET[facility]OLIC PANEL (33677)2021-02-07 17:55:47 Test Item Value Reference Range Interpretation Comments NA (test code = 1381638456) 142 mmol/L 135-145 K (test code = 1336101868) 3.8 mmol/L 3.5-5.0 CL (test code = 8331801238) 102 mmol/L 98-108 CO2 TOTAL (test code = 4846483386) 29 mmol/L 23-31 AGAP (test code = 1312157501) 2-16 BUN (test code = 9330361890) 15 mg/dL 7-23 GLUCOSE (test code = 4746095524) 98 mg/dL 70-110 CREATININE (test code = 0.66 mg/dL 0.50-1.04 7200795631) TOTAL BILI (test code = 0.7 mg/dL 0.1-1.6 3852388470) CALCIUM (test code = 4281541939) 9.2 mg/dL 8.6-10.6 T PROTEIN (test code = 5845776228) 8.3 g/dL 6.3-8.2 H ALBUMIN (test code = 1259534296) 4.5 g/dL 3.5-5.0 ALK PHOS (test code = 7146233550) 65 U/L 34-122 ALTv (test code = 1742-6) 33 U/L 5-35 AST(SGOT) (test code = 4907541413) 44 U/L 13-40 H eGFR (test code = 4440167042) mL/min/1.73m2 SANTO (test code = SANTO) Lab Interpretation (test code = Abnormal 40456-5) [facility] (ID NOW RAPID TESTING)2021-02-07 17:55:47 Test Item Value Reference Range Interpretation Comments SARS-CoV-2 Rapid ID NOW (test code = Positive Not Detected A 61949-9) SANTO (test code = SANTO) Lab Interpretation (test code = Abnormal 21762-3) [facility] WITH [id number] 17:41:52 Test Item Value Reference Range Interpretation Comments WBC (test code = See_Comment [Automated 3990-2) message] The sy stem which generated this result transmitted reference range : 4.30 - 11.10 10*3/?L. The reference range was not used to interpret this result as normal/abnormal . RBC (test code = See_Comment [Automated 040-8) message] The sy stem which generated this [...] RDW-SD (test code = 48.4 fL 39.0-49.9 95224-6) RDW-CV (test code = 14.6 % 12.0-15.5 788-0) PLT (test code = See_Comment H [Automated 777-3) message] The sy stem which generated this result transmitted reference range : 166 - 358 10*3/ ?L. The reference r darius was not used to interpret this result as normal/abnormal . MPV (test code = 9.2 fL 9.5-12.9 L 57694-9) NRBC/100 WBC (test See_Comment [Automat ed code = 5994267059) message] The system which generated this result transmitted reference range : 0.0 - 10.0 /100 WBCs. The refer ence range was not u sed to interpret th is result as normal/abnormal . NRBC x10^3 (test code <0.01 See_Comment [Auto mated = 4279839238) message] The s ystem which generated this result transmitted reference range : 10*3/?L. The reference range was not used to interpret this result as normal/abnormal . GRAN MAT (NEUT) % 74.0 % (test code = 770-8) IMM GRAN % (test code 1.60 % = 0455077894) LYMPH % (test code = 18.7 % 736-9) MONO % (test code = 5.3 % 5905-5) EOS % (test code = 0.2 % 713-8) BASO % (test code = 0.2 % 706-2) GRAN MAT x10^3(ANC) 7.07 10*3/uL 1.88-7.09 (test code = 7985947945) IMM GRAN x10^3 (test 0.15 10*3/uL 0.00-0.06 H code = 9853641813) LYMPH x10^3 (test code 1.79 10*3/uL 1.32-3.29 = 731-0) MONO x10^3 (test code 0.51 10*3/uL 0.33-0.92 = 742-7) EOS x10^3 (test code = <0.03 0.03-0.39 L 711-2) BASO x10^3 (test code <0.03 0.01-0.07 = 704-7) Lab Interpretation Abnormal (test code = 60489-7) [facility]
[2021-10-11] MEDS ORDERED: ASPIRIN 81 MG CHEWABLE TABLET ONE (21:09)
[2021-10-11] MEDS ORDERED: ASPIRIN 325 MG TAB ONE (21:09)
[2021-10-11 21:14] LABS: Absolute Lymphocytes (CBC) 2.1 K/uL (0.7-4.9); Lymphocytes % 43.3 % (15.3-44.8); MPV 7.4 fL (7.6-11.3); Protime INR 1.12; RBC Red Blood Cell Count 4.06 M/uL (3.86-4.86)
[2021-10-11 21:21] LABS: Urine Blood Negative (Negative); Urine Glucose Negative (Negative); Urine Protein Negative (Negative); Urine pH 7.5 (5.0-7.0)
--- NOTE | 2021-10-11 21:21 | RAD REPORT ---
EXAM DESCRIPTION: RAD - Chest Single View - 10/11/2021 9:11 pm CLINICAL HISTORY: CHEST PAIN Chest pain. COMPARISON: Chest Single View dated 02/09/2021; Chest Single View dated 10/03/2020; Chest Single View dated 09/22/2020; Chest Single View dated 04/02/2019 FINDINGS: Portable technique limits examination quality. The lungs are grossly clear. The heart is normal in size. No displaced fractures.Cervical hardware pl ate. IMPRESSION: No acute intrathoracic process suspected.
[2021-10-11 21:34] LABS: Albumin 3.4 g/dL (3.4-5.0); Alkaline Phosphatase 60 U/L (45-117); BUN Blood Urea Nitrogen 9 mg/dL (7-18); Bicarbonate 31 mmol/L (21-32); Bilirubin Direct 0.1 mg/dL (0-0.2); Bilirubin Total 0.6 mg/dL (0.2-1.0); Glucose Level 101 mg/dL (74-106); Lipase 91 U/L (73-393); NT PRO-BNP 44 pg/mL (<125); Potassium 3.6 mmol/L (3.5-5.1); Protein, Total 7.1 g/dL (6.4-8.2); Sodium Level 141 mmol/L (136-145); Troponin High Sensitivity 5.4 pg/mL (<58.9)
[2021-10-11 21:35] LABS: ALT/SGPT < 10 U/L (12-78); AST/SGOT 16 U/L (15-37); Magnesium 2.2 mg/dL (1.8-2.4)
--- NOTE | 2021-10-11 23:04 | EDPHYS ---
Physician Documentation [facility] Name: Zohreh Mabry Age: 56 yrs Sex: Female : 1965 Arrival Date: 10/11/2021 Time: 20:38 Bed 16 Private MD: ED Physician Spencer Kessler HPI: 10/11 22:51 This 56 yrs old Black Female presents to ER via EMS with complaints of chest pain and yolanda sob. 22:51 The patient has shortness of breath at rest, driving. Onset: The symptoms/episode yolanda began/occurred just prior to arrival. Duration: The symptoms are intermittent. The patient's shortness of breath is aggravated by light activity, deep breathing. The patient or guardian reports chest pain that is located primarily in the anterior chest wall, right. Onset: just prior to arrival. The pain does not radiate. Associated signs and symptoms: The patient has no apparent associated signs or symptoms. Severity of symptoms: At their worst the symptoms were moderate in the emergency department the symptoms have improved moderately. Associated signs and symptoms: Pertinent positives: shortness of breath. Historical: - Allergies: 20:42 Nubain; ke1 20:42 Vistaril; ke1 - PMHx: 20:42 Headaches; Hypertension; Vertigo; ke1 - Immunization history:: Flu vaccine is up to date. - Social history:: Smoking status: Patient denies any tobacco usage or history of. - Family history:: not pertinent. ROS: 22:51 Constitutional: Negative for fever, chills, and weight loss, Eyes: Negative for injury, yolanda pain, redness, and discharge, ENT: Negative for injury, pain, and discharge, Neck: Negative for injury, pain, and swelling, Abdomen/GI: Negative for abdominal pain, nausea, vomiting, diarrhea, and constipation, Back: Negative for injury and pain, : Negative for injury, bleeding, discharge, and swelling, MS/Extremity: Negative for injury and deformity, Skin: Negative for injury, rash, and discoloration, Neuro: Negative for headache, weakness, numbness, tingling, and seizure. 22:51 Cardiovascular: Positive for chest pain, of the anterior aspect of right upper chest and right breast. 22:51 Respiratory: Positive for pleurisy, of the anterior aspect of right upper chest and right breast, shortness of breath. Exam: 22:51 Constitutional: This is a well developed, well nourished patient who is awake, alert, yolanda and in no acute distress. Head/Face: Normocephalic, atraumatic. Eyes: Pupils equal round and reactive to light, extra-ocular motions intact. Lids and lashes normal. Conjunctiva and sclera are non-icteric and not injected. Cornea within normal limits. Periorbital areas with no swelling, redness, or edema. ENT: Nares patent. No nasal discharge, no septal abnormalities noted. Tympanic membranes are normal and external auditory canals are clear. Oropharynx with no redness, swelling, or masses, exudates, or evidence of obstruction, uvula midline. Mucous membranes moist. Neck: Trachea midline, no thyromegaly or masses palpated, and no cervical lymphadenopathy. Supple, full range of motion without nuchal rigidity, or vertebral point tenderness. No Meningismus. Chest/axilla: Normal chest wall appearance and motion. Nontender with no deformity. No lesions are appreciated. Cardiovascular: Regular rate and rhythm with a normal S1 and S2. No gallops, murmurs, or rubs. Normal PMI, no JVD. No pulse deficits. Respiratory: Lungs have equal breath sounds bilaterally, clear to auscultation and percussion. No rales, rhonchi or wheezes noted. No increased work of breathing, no retractions or nasal flaring. Abdomen/GI: Soft, non-tender, with normal bowel sounds. No distension or tympany. No guarding or rebound. No evidence of tenderness throughout. Back: No spinal tenderness. No costovertebral tenderness. Full range of motion. Female : Normal external genitalia. Skin: Warm, dry with normal turgor. Normal color with no rashes, no lesions, and no evidence of cellulitis. MS/ Extremity: Pulses equal, no cyanosis. Neurovascular intact. Full, normal range of motion. Neuro: Awake and alert, GCS 15, oriented to person, place, time, and situation. Cranial nerves II-XII grossly intact. Motor strength 5/5 in all extremities. Sensory grossly intact. Cerebellar exam normal. Normal gait. Psych: Awake, alert, with orientation to person, place and time. Behavior, mood, and affect are within normal limits. 22:51 Musculoskeletal/extremity: DVT Exam: No signs of deep vein thrombosis. no pain, no swelling, no tenderness, negative Homans' sign noted on exam, no appreciated bluish discoloration, no erythema, no increased warmth. 23:04 ECG was reviewed by the Attending Physician. [facility] Vital Signs: 20:39 BP 138 / 80; Pulse 75; Resp 18; Temp 98.3(O); Pulse Ox 96% on R/A; Weight 117.93 kg; ke1 Height 5 ft. 3 in. (160.02 cm); Pain 10/10; 21:10 BP 140 / 92; Pulse 78; Resp 18; Pulse Ox 97% on R/A; ke1 23:18 BP 144 / 91; Pulse 58; Resp 14; Pulse Ox 96% on R/A; ke1 10/12 01:16 BP 116 / 74; Pulse 61; Resp 16; Pulse Ox 100% on R/A; ke1 02:19 BP 130 / 90; Pulse 56; Resp 14; Pulse Ox 97% on R/A; ke1 04:10 BP 150 / 90; Pulse 62; Resp 15; Pulse Ox 100% on R/A; ke1 10/11 20:39 Body Mass Index 46.05 (117.93 kg, 160.02 cm) ke MDM: 10/11 20:48 Patient medically screened. yolanda 22:54 Differential diagnosis: asthma, CHF exacerbation, abnormal EKG, acute pericarditis, yolanda coronary artery disease Cholelithiasis esophagitis, hiatal hernia, pneumonia, Psychogenic pulmonary edema, Pulmonary Embolism reactive airway disease, Unstable Angina. Antibiotic administration: Not indicated. HEART Score: History: Slightly Suspicious (0), ECG: Normal (0), Age: > 45 and < 65 years (1), Risk Factors: > or = 3 Risk factors for atherosclerotic disease (2), [Hypertension] [+ Family HX] [Obesity] Troponin: < or = 1 x Normal Limit (0). The patient was given aspirin in the Emergency Department. The patient's Wells Deep Vein Thrombosis Score was calculated as follows: Total Score: 0. This patient was found to be at low risk for a deep vein thrombosis by using the Well's assessment criteria Total Score: 0-2 Pts- Low Risk. The patient's pulmonary embolism risk score was calculated as follows: Total Score: 0-2 points. This patient was found to be at low risk for a pulmonary embolism by using the Well's assessment criteria Total Score: 0-2 points. This patient was found to be at low risk for a pulmonary embolism by using the Well's assessment criteria. SUZY Risk Score: 1 - Three or more CAD risk factors, 1 - ASA use in past 7 days, 1 - Recent [<24hrs] Severe Angina, TOTAL SCORE = 3. Immunization status: Influenza vaccine:. Data reviewed: vital signs, nurses notes, lab test result(s), EKG, radiologic studies, CT scan, doppler, plain films. Data interpreted: reference data expert: rate is 78 beats/min, rhythm is normal sinus rhythm, Pulse oximetry: on room air is 97 %. Test interpretation: by ED physician or midlevel provider: ECG, plain radiologic studies. 10/11 20:50 Order name: Basic Metabolic Panel; Complete Time: 21:41 yolanda 10/11 20:50 Order name: CBC with Diff; Complete Time: 21:41 yolanda 10/11 20:50 Order name: LFT's; Complete Time: 21:41 yolanda 10/11 20:50 Order name: Magnesium; Complete Time: 21:41 yolanda 10/11 20:50 Order name: NT PRO-BNP; Complete Time: 21:41 yolanda 10/11 20:50 Order name: PT-INR; Complete Time: 21:41 yolanda 10/11 20:50 Order name: Troponin HS; Complete Time: 21:41 yolanda 10/11 20:50 Order name: XRAY Chest (1 view); Complete Time: 21:41 yolanda 10/11 20:51 Order name: SARS-COV-2 RT PCR (Document "Date of Onset" if Symptomatic); Complete Time: yolanda 22:50 10/11 20:51 Order name: Lipase; Complete Time: 21:41 yolanda 10/11 21:21 Order name: Urine Dipstick-Ancillary; Complete Time: 21:41 EDID 10/11 22:50 Order name: CT Chest For PE Angio 10/12 00:49 Order name: Troponin High Sensitivity; Complete Time: 01:37 yolanda 10/11 20:50 Order name: EKG; Complete Time: 20:51 yolanda 10/11 20:50 Order name: Cardiac monitoring; Complete Time: 20:52 yolanda 10/11 20:50 Order name: EKG - Nurse/Tech; Complete Time: 20:52 yolanda 10/11 20:50 Order name: IV Saline Lock; Complete Time: 21:02 [facility] 10/11 20:50 Order name: Labs collected and sent; Complete Time: 21: [facility] 10/11 20:50 Order name: O2 Per Protocol; Complete Time: 20:52 [facility] 10/11 20:50 Order name: O2 Sat Monitoring; Complete Time: 20:52 [facility] 10/11 20:50 Order name: Urine Dipstick-Ancillary (obtain specimen); Complete Time: 21:32 [facility] 10/11 22:50 Order name: US Extremity Venous W Compression Richard yolanda EC: Rate is 69 beats/min. Rhythm is regular. QRS [place] is Normal. [place] interval is normal. QRS yolanda interval is normal. QT interval is normal. No Q waves. T waves are Normal. No ST changes noted. Clinical impression: Normal ECG and No evidence of ischemia. Interpreted by me. Reviewed by me. Administered Medications: 21:11 Drug: Aspirin Chewable Tablet 324 mg Route: PO; 10/12 04:19 Follow up: Response: No adverse reaction 10/11 23:17 Drug: Lovenox (enoxaparin) 100 mg Route: Sub-Q; Site: left upper abdomen; 10/12 02:09 Follow up: Response: No adverse reaction 10/11 23:17 Drug: morphine 2 mg Route: IVP; Site: left antecubital; ke1 23:30 Follow up: Response: Pain is decreased 10/12 02:08 Follow up: Response: No adverse reaction 10/11 23:17 Drug: Zofran (Ondansetron) 4 mg Route: IVP; Site: left antecubital; ke1 23:30 Follow up: Response: No adverse reaction ke 23:18 Drug: Pepcid (famotidine) 20 mg Route: IVP; Site: left antecubital; ke10/12 02:09 Follow up: Response: No adverse reaction 01:11 Drug: Ketorolac 15 mg Route: IVP; Site: left antecubital; ke1 01:44 Follow up: Response: Pain is unchanged, physician notified ke1 02:07 Drug: [facility] (HYDROcodone-acetaminophen) (7.5 mg-325 mg) 1 tabs Route: PO; ke1 02:40 Follow up: Response: Marked relief of symptoms; Pain is decreased ke1 Disposition Summary: 10/12/21 04:07 Discharge Ordered Location: Home(10/12/21 04:07) yolanda Problem: new(10/12/21 04:07) yolanda Symptoms: have improved(10/12/21 04:07) yolanda Condition: Stable(10/12/21 04:07) yolanda Diagnosis - Chest pain on breathing(10/12/21 04:07) yolanda - Obesity, unspecified(10/12/21 04:07) yolanda Followup: yolanda - With: Private Physician - When: 2 - 3 days - Reason: Recheck today's complaints, Continuance of care, Re-evaluation by your physician Followup: yolanda - With: Aris Murray MD - When: 2 - 3 days - Reason: Recheck today's complaints, Re-evaluation by your physician Discharge Instructions: - Discharge Summary Sheet yolanda - Nonspecific Chest Pain, Adult yolanda - Chest Wall Pain yolanda - Costochondritis yolanda - Obesity, Adult yolanda - Nonspecific Chest Pain, Adult, [id number] yolanda - Aspirin and Your Heart yolanda Forms: - Medication Reconciliation Form yolanda - Thank You Letter yolanda - Antibiotic Education yolanda - Prescription Opioid Use yolanda - Work release form ke1 Prescriptions: - Pepcid 20 mg Oral Tablet - take 1 tablet by ORAL route every 12 hours for 10 days; 20 tablet; Refills: 0, yolanda Product Selection Permitted - Motrin IB 200 mg Oral Tablet - take 2 tablet by ORAL route every 6 hours As needed as needed with food; 30 yolanda tablet; Refills: 0, Product Selection Permitted Signatures: Dispatcher [employer] EDSpencer Khan MD MD cha Attema, Lee, [employer]-C [employer]-Cla1 Ophelia Roa, RN RN Noe Santiago RN RN ke1 Corrections: (The following items were deleted from the chart) 00:12 10/11 23:03 Telemetry/MedSurg (Inpatient) [facility] 10/12 00:12 10/11 23:03 [facility] 10/12 04:06 10/11 23:03 Observation on license of [facility] 10/12 04:06 10/11 23:03 David Jalloh on license of [facility] 10/12 04:06 10/11 23:03 Fair on license of [facility] 10/12 04:06 10/11 23:03 new on license of [facility] 10/12 04:06 10/11 23:03 have improved yolanda guerrero 10/12 04:06 10/11 23:03 Standard yolanda guerrero 10/12 04:06 10/11 23:03 Chest pain on breathing yolanda guerrero 10/12 04:06 10/11 23:03 Obesity, unspecified yolanda guerrero 10/12 04:06 10/11 23:03 Pleurisy yolanda guerrero 10/12 04:06 10/11 23:03 Essential (primary) hypertension yolanda guerrero 10/12 04:06 00:12 [facility] ER HOLD cg [facility] 04:06 00:12 ERHOLD- cg yolanda
--- NOTE | 2021-10-11 23:04 | ER ---
Nurse's Notes [facility] Name: Zohreh Mabry Age: 56 yrs Sex: Female : 1965 Arrival Date: 10/11/2021 Time: 20:38 Bed 16 Private MD: Diagnosis: Chest pain on breathing;Obesity, unspecified Presentation: 10/11 20:39 Chief complaint: EMS states: CP under right breast since this morning before going to [address] Coronavirus screen: Vaccine status: Patient reports receiving the 2nd dose of the covid vaccine. x3 doses moderna. Ebola Screen: No symptoms or risks identified at this time. Initial Sepsis Screen: Does the patient meet any 2 criteria? No. Patient's initial sepsis screen is negative. Does the patient have a suspected source of infection? No. Patient's initial sepsis screen is negative. Risk Assessment: Do you want to hurt yourself or someone else? Patient reports no desire to harm self or others. Onset of symptoms was October 11, 2021 at 09:00. 20:39 Method Of Arrival: EMS: [place] [address] 20:39 Acuity: KERRY 4 [facility] Triage Assessment: 20:42 General: Appears uncomfortable, Behavior is appropriate for age. Pain: Complains of [facility] pain in chest under right breast Pain does not radiate. Pain currently is 10 out of 10 on a pain scale. Quality of pain is described as sharp, Pain began gradually, Is intermittent. 20:44 EENT: No deficits noted. Neuro: Level of Consciousness is awake, alert, Oriented to [facility] person, place, time, situation. Respiratory: Airway is patent Respiratory effort is even, unlabored. GI: No deficits noted. : No deficits noted. Derm: No deficits noted. Musculoskeletal: No deficits noted. 20:45 Cardiovascular: Rhythm is sinus rhythm. [facility] Historical: - Allergies: 20:42 Nubain; ke1 20:42 Vistaril; ke1 - PMHx: 20:42 Headaches; Hypertension; Vertigo; ke1 - Immunization history:: Flu vaccine is up to date. - Social history:: Smoking status: Patient denies any tobacco usage or history of. - Family history:: not pertinent. Screenin:45 Abuse screen: Denies threats or abuse. Nutritional screening: No deficits noted. ke1 Tuberculosis screening: No symptoms or risk factors identified. Fall Risk No fall in past 12 months (0 pts). No secondary diagnosis (0 pts). IV access (20 points). Ambulatory Aid- None/Bed Rest/Nurse Assist (0 pts). Gait- Normal/Bed Rest/Wheelchair (0 pts) Mental Status- Oriented to own ability (0 pts). Total Melendez Fall Scale indicates No Risk (0-24 pts). Assessment: 23:40 Reassessment: Patient states feeling better. Patient states symptoms have improved. ke1 Pain: Complains of pain in chest Pain currently is 3 out of 10 on a pain scale. 10/12 00:30 Reassessment: Patient appears in no apparent distress at this time. No changes from ke1 previously documented assessment. Patient states feeling better. 01:00 Pain: Complains of pain in chest Pain does not radiate. Pain currently is 8 out of 10 ke1 on a pain scale. 02:19 Reassessment: Patient appears in no apparent distress at this time. Patient states ke1 symptoms have improved. 04:09 Reassessment: Patient denies pain at this time. Patient states feeling better. ke1 Vital Signs: 10/11 20:39 BP 138 / 80; Pulse 75; Resp 18; Temp 98.3(O); Pulse Ox 96% on R/A; Weight 117.93 kg; ke1 Height 5 ft. 3 in. (160.02 cm); Pain 10/10; 21:10 BP 140 / 92; Pulse 78; Resp 18; Pulse Ox 97% on R/A; ke1 23:18 BP 144 / 91; Pulse 58; Resp 14; Pulse Ox 96% on R/A; ke1 10/12 01:16 BP 116 / 74; Pulse 61; Resp 16; Pulse Ox 100% on R/A; ke1 02:19 BP 130 / 90; Pulse 56; Resp 14; Pulse Ox 97% on R/A; ke1 04:10 BP 150 / 90; Pulse 62; Resp 15; Pulse Ox 100% on R/A; ke1 10/11 20:39 Body Mass Index 46.05 (117.93 kg, 160.02 cm) ke1 ED Course: 10/11 20:38 Patient arrived in ED. ke1 20:38 Noe Lowe RN is Primary Nurse. ke1 20:42 Triage completed. ke1 20:45 Bed in low position. Call light in reach. Side rails up X 1. ke1 20:45 Arm band placed on. ke1 20:48 Spencer Kessler MD is Attending Physician. yolanda 21:02 Inserted saline lock: 20 gauge in left antecubital area, using aseptic technique. ke1 21:13 XRAY Chest (1 view) In Process Unspecified. EDMS 22:57 David Jalloh MD is Hospitalizing Provider. yolanda 23:59 US Extremity Venous W Compression Richard In Process Unspecified. EDMS 05 00:31 CT Chest For PE Angio In Process Unspecified. EDMS 04:06 Aris Murray MD is Referral Physician. yolanda 04:11 No provider procedures requiring assistance completed. IV discontinued. ke1 Administered Medications: 10/11 21:11 Drug: Aspirin Chewable Tablet 324 mg Route: PO; ke1 10/12 04:19 Follow up: Response: No adverse reaction ke1 10/11 23:17 Drug: Lovenox (enoxaparin) 100 mg Route: Sub-Q; Site: left upper abdomen; ke1 10/12 02:09 Follow up: Response: No adverse reaction ke1 10/11 23:17 Drug: morphine 2 mg Route: IVP; Site: left antecubital; ke1 23:30 Follow up: Response: Pain is decreased ke1 10/12 02:08 Follow up: Response: No adverse reaction ke1 10/11 23:17 Drug: Zofran (Ondansetron) 4 mg Route: IVP; Site: left antecubital; ke1 23:30 Follow up: Response: No adverse reaction ke1 23:18 Drug: Pepcid (famotidine) 20 mg Route: IVP; Site: left antecubital; ke1 10/12 02:09 Follow up: Response: No adverse reaction ke1 01:11 Drug: Ketorolac 15 mg Route: IVP; Site: left antecubital; ke1 01:44 Follow up: Response: Pain is unchanged, physician notified ke1 02:07 Drug: [place] (HYDROcodone-acetaminophen) (7.5 mg-325 mg) 1 tabs Route: PO; ke1 02:40 Follow up: Response: Marked relief of symptoms; Pain is decreased ke Outcome: 10/11 23:03 Decision to Hospitalize by Provider. yolanda 10/12 04:07 Discharge ordered by . yolanda 04:24 Discharged to home ambulatory. ke1 04:24 Condition: good 04:24 Discharge instructions given to patient. 04:24 Patient left the ED. ke1 Signatures: Dispatcher [employer] Spencer Escalona MD MD cha Ebrottie, Kouassi RN RN ke1 Corrections: (The following items were deleted from the chart) 04:12 04:10 Arm band placed on ke1 ke1
[2021-10-11] MEDS ORDERED: ONDANSETRON 4 MG/2 ML VIAL ONE (23:08)
[2021-10-11] MEDS ORDERED: MORPHINE 2 MG/ML SYR ONE (23:08)
[2021-10-11] MEDS ORDERED: FAMOTIDINE 20 MG/2 ML VIAL IV ONE (23:09)
[2021-10-11] MEDS ORDERED: ENOXAPARIN 100 MG/ML SYR SQ ONE (23:09)
[2021-10-12] MEDS ORDERED: KETOROLAC 30 MG/ML INJ ONE (01:11)
[2021-10-12] MEDS ORDERED: HYDROCODONE/APAP 7.5/325 MG TAB ONE (02:10)
[2021-10-12 04:31] VITALS: TEMP 98.3
[2021-10-12 04:37] VITALS: BP 150/90; O2SAT 100
--- NOTE | 2021-10-12 12:54 | RAD REPORT ---
EXAM DESCRIPTION: CT - Chest For Pe Angio - 10/12/2021 5:19 am CLINICAL HISTORY: Chest pain COMPARISON: None. TECHNIQUE: CT CHEST ANGIOGRAPHY WITH IV CONTRAST on 10/11/2021 10:50 PM CDT. MIPS reconstructions were generated. This exam was performed according to our departmental dose-optimization program, which includes autom ated exposure control, adjustment of the mA and/or kV according to patient size and/or use of iterati ve reconstruction technique. MIP images were generated. FINDINGS: Thoracic aorta is normal in course and caliber without aneurysm or dissection. Pulmonary a rteries are adequately opacified without acute or chronic filling defects. The heart is moderately enlarged. There is no pericardial effusion. Intrathoracic lymph nodes are not enlarged. There is no pleural effusion, pleural thickening or pneumothorax. Central airways are patent. Lungs a re clear with no consolidation, mass or interstitial lung disease. There are no acute abnormalities within the limited images of the upper abdomen. There are no acute osseous findings. No suspicious bony lesions. IMPRESSION: No aortic dissection or aneurysm. No pulmonary embolus. Cardiomegaly without pneumonia or edema. Electronically signed by: Jorge Holland MD 10/12/2021 12:40 AM CDT Due to temporary technical issues with the PACS/Fluency reporting system, reports are being signed by the in house radiologist without review as a courtesy to ensure prompt reporting. The interpreting r adiologist is fully responsible for the content of the report.
--- NOTE | 2021-10-12 12:56 | RAD REPORT ---
EXAM DESCRIPTION: US - Extrem Venous W Compress Richard - 10/12/2021 12:35 am CLINICAL HISTORY: 56 years, Female, PAIN COMPARISON: None. FINDINGS: Multiple grayscale images as well as duplex Doppler ultrasound of both lower extremities w ere performed. Both common femoral veins, superficial femoral veins, popliteal veins, posterior tibial and peroneal veins at the level of the calves were imaged. Spectral waveform demonstrate normal compressibilit y, phasicity and augmentation. No intraluminal defects were seen. IMPRESSION: No sonographic evidence of acute lower extremity deep venous thrombosis. Electronically signed by: Juan R Holliday MD 10/12/2021 12:21 AM CDT Due to temporary technical issues with the PACS/Fluency reporting system, reports are being signed by the in house radiologist without review as a courtesy to ensure prompt reporting. The interpreting r adiologist is fully responsible for the content of the report.
== END 2021-10-12 04:24 | disposition home or self-care (01) ==
LOC: ER 20:37
DX: R07.1 Chest pain on breathing (principal); E66.9 Obesity, unspecified; I10 Essential (primary) hypertension; Z20.822 Contact with and (suspected) exposure to COVID-19; Z88.8 Allergy status to other drugs, medicaments and biological substances
CPT/HCPCS: 36415; 71045; 71275; 80048; 80076; 81003; 83690; 83735; 83880; 84484; 85025; 85610; 93005; 93970; 96372; 96374; 96375; 99284; J1650; J2270; J2405; J3490; Q9967; U0003

== ENCOUNTER 2022-10-30 12:52 | Observation (INO) | payer SELFPAY ==
--- OUTSIDE RECORDS SUMMARY | 2022-10-30 12:56 | XMS REPORT | Continuity of Care Document ---
:1965 Author Organization [facility] t Address [address] [facility] Last. [address] [place] [address] Care Team Providers Name Role Phone DOMI QUINONEZ JR Primary Care Physician Unavailable Etienne MO Attending Clinician Unavailable Etienne Hernandez Attending Clinician Julian Wise MD Attending Clinician Graham Dorantes MD Attending Clinician Etienne MO Admitting Clinician Unavailable Graham Dorantes MD Admitting Clinician Problems Condition Condition Condition Status Onset Resolution Last Treating Co mments Source Name Details Category Date Date Treatment Clinician Date Morbid Morbid Disease Active Univers obesity obesity 7-15 [place] of [place] mass index 00 [place] dical of of Branch 40.0-49.9 40.0-49.9 Chest pain Chest pain Disease Active U nivers 7-15 ity of 00:00: [address] Morbid Morbid Disease Active Univers obesity obesity 7-15 [place] of with body [place] mass index 00 Me dical of of Branch 40.0-49.9 40.0-49.9 Essential Essential Disease Active Uni vers hypertensi hypertensi 7-15 it y of on on 00:00: [address] Branch Dizziness Dizziness Disease Active Uni vers 7-15 ity of 00:00: [place] 00 Medical Branch Headache Headache Disease Active Unive rs 7-15 ity of 00:00: [place] 00 Medical Branch Allergies, Adverse Reactions, Alerts Allergy Allergy Status Severity Reaction(s) Onset Inactive Treating Comm ents Source Name Type Date Date Clinician Mesna - Propensi Active Intraven ty to 6-28 ous adverse 00:00: reaction 00 to drug Vistaril Propensi Active - Oral ty to 3-03 adverse 00:00: reaction 00 to drug Nalbuphi Propensi Active Extra Univer s ne ty to pyramidal 7-14 ity of adverse effects 00:00: [place] reaction 00 Medical s Branch Hydroxyz Propensi Active Extra Univer s ine Hcl ty to pyramidal 7-14 ity of adverse effects 00:00: [place] reaction 00 Medical s Branch NALBUPHI DRUG Active EP Effects Univ ers NE INGREDI 7-14 ity of 00:00: [place] 00 Medical Branch HYDROXYZ DRUG Active EP Effects Univ ers INE HCL INGREDI 7-14 ity of 00:00: [place] 00 Medical Branch Vistaril Propensi Active 2015-06 ty to 2-01 adverse 00:00: reaction 00 to drug Social History Social Habit Start Date Stop Date Quantity Comments Source Exposure to 2021-10-03 2021-10-13 Not sure [facility] SARS-CoV-2 00:00:00 19:35:00 [facility] (event) Branch Tobacco use and 2017-12-25 2017-12-25 Never used Universit y of exposure 00:00:00 00:00:00 [facility] Alcohol intake 2017-12-25 2017-12-25 Current University of 00:00:00 00:00:00 non-drinker of [facility] alcohol Branch (finding) Sex Ass[birth year] At [birth year] Universit y of 00:00:00 00:00:00 [facility] Smoking Status Start Date Stop Date Source Never smoker [facility] Branch Medications Ordered Filled Start Stop Current Ordering Indication Dosage Frequency Signature Comments Components Source Medication Medication Date Date Medication? Clinician (SIG) Name Name TAKE ONE No 160 TABLET 9-03 DAILY FOR 00:00: MIGRAINE 00 HEADACHE PREVENTION TAKE ONE 2022-0 No TABLET 9-03 DAILY FOR 00:00: MIGRAINE 00 HEADACHE PREVENTION TAKE ONE 2021-0 No 160 TABLET 9-03 DAILY FOR 00:00: MIGRAINE 00 HEADACHE PREVENTION TAKE 1 2021-0 No TABLET BY 8-26 MOUTH TWICE 00:00: DAILY 00 TAKE 1 2021-0 No TABLET BY 8-26 MOUTH TWICE 00:00: DAILY 00 TAKE 1 2021-0 No TABLET BY 8-26 MOUTH TWICE 00:00: DAILY 00 hydrochloro 2-0 No 1mg thiazide 25 6-28 mg tablet 00:00: 00 hydrochloro 2022-0 No 1mg thiazide 25 6-28 mg tablet 00:00: 00 hydrochloro 2022-0 No 1mg thiazide 25 6-28 mg tablet 00:00: 00 KCL 2021-0 2021- No 40meq 40 mEq, Univers (KLOR-CON 10-14-04 Oral, ity of M20) tablet 03:45: 02:55 [place]Eq 00 :00 dose, On Medical Tue10/13/21 Branch at 2245, Routine methylpredn 2021- No 125mg 125 mg, U nivers isolone sod 10-14 05- Slow IV ity of succ 02:30: 01:45 Push, [place] (SOLU-MEDRO 00 :00 ONCE, 1 Medic al L) dose, On Branch injection Tue10/13/21 125 mg at 2130, ABAD methylPREDN 2021-0 Yes [id number] Take by Univers ISolone 5-03 mouth ity of (MEDROL, 00:00: SEE-INSTRU Manpreet as NIRAJ,) 4 mg 00 CTIONS. Medica l tablets follow Branch package directions Augmentin 2021-0 No 1mg 500 mg-125 4-16 mg tablet 00:00: 00 benzonatate 2-0 No 1mg 200 mg 4-16 capsule 00:00: 00 Dose 2021-0 No Unknown 4-16 00:00: 00 Dose 2021-0 No Unknown 4-16 00:00: 00 Augmentin 2022-0 No 1mg 500 mg-125 4-16 mg tablet 00:00: 00 benzonatate 2-0 No 1mg 200 mg 4-16 capsule 00:00: 00 Dose 2021-0 No Unknown 4-16 00:00: 00 Dose 2-0 No Unknown 4-16 00:00: 00 Augmentin 2-0 No 1mg 500 mg-125 4-16 mg tablet 00:00: 00 benzonatate 2-0 No 1mg 200 mg 4-16 capsule 00:00: 00 Dose 2-0 No Unknown 4-16 00:00: 00 Dose 2-0 No Unknown 4-16 00:00: 00 Flovent HFA 2-0 No 2mcg/ac 110 3-10 tuation mcg/actuati 00:00: on aerosol 00 inhaler promethazin 2-0 No 1mg e 12.5 mg 3-10 tablet 00:00: 00 Flovent HFA 2-0 No 2mcg/ac 110 3-10 tuation mcg/actuati 00:00: on aerosol 00 inhaler promethazin 2-0 No 1mg e 12.5 mg 3-10 tablet 00:00: 00 Flovent HFA 2-0 No 2mcg/ac 110 3-10 tuation mcg/actuati 00:00: on aerosol 00 inhaler promethazin 2-0 No 1mg e 12.5 mg 3-10 tablet 00:00: 00 Dose 2-0 No Unknown 3-06 00:00: 00 Dose 2-0 No Unknown 3-06 00:00: 00 Dose 2-0 No Unknown 3-06 00:00: 00 Dose 2-0 No Unknown 3-06 00:00: 00 Dose 2-0 No Unknown 3-06 00:00: 00 Dose 2-0 No Unknown 3-06 00:00: 00 Flovent HFA 2-0 No 2mcg/ac 110 3-05 tuation mcg/actuati 00:00: on aerosol 00 inhaler promethazin 2-0 No 1mg e 12.5 mg 3-05 tablet 00:00: 00 Dose 2-0 No Unknown 3-05 00:00: 00 Dose 2-0 No Unknown 3-05 00:00: 00 Dose 2-0 No Unknown 3-05 00:00: 00 Dose 2-0 No Unknown 3-05 00:00: 00 Dose 2-0 No Unknown 3-05 00:00: 00 Dose 2-0 No Unknown 3-05 00:00: 00 Dose 2022-0 No Unknown 3-05 00:00: 00 Dose 2022-0 No Unknown 3-05 00:00: 00 Dose 2022-0 No Unknown 3-05 00:00: 00 Dose 2022-0 No Unknown 3-05 00:00: 00 Dose 2022-0 No Unknown 3-05 00:00: 00 Dose 2022-0 No Unknown 3-05 00:00: 00 Flovent HFA 2-0 No 2mcg/ac 110 3-05 tuation mcg/actuati 00:00: on aerosol 00 inhaler promethazin 2-0 No 1mg e 12.5 mg 3-05 tablet 00:00: 00 Dose 2022-0 No Unknown 3-05 00:00: 00 Dose 2022-0 No Unknown 3-05 00:00: 00 Dose 2022-0 No Unknown 3-05 00:00: 00 Dose 2022-0 No Unknown 3-05 00:00: 00 Dose 2022-0 No Unknown 3-05 00:00: 00 Dose 2022-0 No Unknown 3-05 00:00: 00 Dose 2022-0 No Unknown 3-05 00:00: 00 Dose 2022-0 No Unknown 3-05 00:00: 00 Dose 2022-0 No Unknown 3-05 00:00: 00 Dose 2022-0 No Unknown 3-05 00:00: 00 Dose 2022-0 No Unknown 3-05 00:00: 00 Dose 2022-0 No Unknown 3-05 00:00: 00 Flovent HFA 2-0 No 2mcg/ac 110 3-05 tuation mcg/actuati 00:00: on aerosol 00 inhaler promethazin 2-0 No 1mg e 12.5 mg 3-05 tablet 00:00: 00 Dose 2022-0 No Unknown 3-05 00:00: 00 Dose 2022-0 No Unknown 3-05 00:00: 00 Dose 2022-0 No Unknown 3-05 00:00: 00 Dose 2022-0 No Unknown 3-05 00:00: 00 Dose 2022-0 No Unknown 3-05 00:00: 00 Dose 2022-0 No Unknown 3-05 00:00: 00 Dose 2022-0 No Unknown 3-05 00:00: 00 Dose 2022-0 No Unknown 3-05 00:00: 00 Dose 2022-0 No Unknown 3-05 00:00: 00 Dose 2022-0 No Unknown 3-05 00:00: 00 Dose 2022-0 No Unknown 3-05 00:00: 00 Dose 2022-0 No Unknown 3-05 00:00: 00 ondansetron 2022-0 No 1mg 4 mg 3-03 disintegrat 00:00: ing tablet 00 benzonatate 2022-0 No 1mg 100 mg 3-03 capsule 00:00: 00 Dose 2022-0 No Unknown 3-03 00:00: 00 Dose 2022-0 No Unknown 3-03 00:00: 00 Dose 2022-0 No Unknown 3-03 00:00: 00 ondansetron 2022-0 No 1mg 4 mg 3-03 disintegrat 00:00: ing tablet 00 Dose 2022-0 No Unknown 3-03 00:00: 00 benzonatate 2022-0 No 1mg 100 mg 3-03 capsule 00:00: 00 Dose 2022-0 No Unknown 3-03 00:00: 00 Dose 2022-0 No Unknown 3-03 00:00: 00 Dose 2022-0 No Unknown 3-03 00:00: 00 Dose 2022-0 No Unknown 3-03 00:00: 00 Dose 2022-0 No Unknown 3-03 00:00: 00 Dose 2022-0 No Unknown 3-03 00:00: 00 Dose 2022-0 No Unknown 3-03 00:00: 00 Dose 2022-0 No Unknown 3-03 00:00: 00 Dose 2022-0 No Unknown 3-03 00:00: 00 Dose 2022-0 No Unknown 3-03 00:00: 00 Dose 2022-0 No Unknown 3-03 00:00: 00 Dose 2022-0 No Unknown 3-03 00:00: 00 Dose 2022-0 No Unknown 3-03 00:00: 00 Dose 2022-0 No Unknown 3-03 00:00: 00 Dose 2022-0 No Unknown 3-03 00:00: 00 Dose 2022-0 No Unknown 3-03 00:00: 00 Dose 2022-0 No Unknown 3-03 00:00: 00 Dose 2022-0 No Unknown 3-03 00:00: 00 Dose 2022-0 No Unknown 3-03 00:00: 00 Dose 2022-0 No Unknown 3-03 00:00: 00 Dose 2022-0 No Unknown 3-03 00:00: 00 Dose 2022-0 No Unknown 3-03 00:00: 00 Dose 2022-0 No Unknown 3-03 00:00: 00 Dose 2022-0 No Unknown 3-03 00:00: 00 Dose 2022-0 No Unknown 3-03 00:00: 00 Dose 2022-0 No Unknown 3-03 00:00: 00 Dose 2022-0 No Unknown 3-03 00:00: 00 Dose 2022-0 No Unknown 3-03 00:00: 00 Dose 2022-0 No Unknown 3-03 00:00: 00 Dose 2022-0 No Unknown 3-03 00:00: 00 Dose 2022-0 No Unknown 3-03 00:00: 00 Dose 2022-0 No Unknown 3-03 00:00: 00 Dose 2022-0 No Unknown 3-03 00:00: 00 Dose 2022-0 No Unknown 3-03 00:00: 00 Dose 2022-0 No Unknown 3-03 00:00: 00 Dose 2022-0 No Unknown 3-03 00:00: 00 Dose 2022-0 No Unknown 3-03 00:00: 00 Dose 2022-0 No Unknown 3-03 00:00: 00 Dose 2022-0 No Unknown 3-03 00:00: 00 Dose 2022-0 No Unknown 3-03 00:00: 00 Dose 2022-0 No Unknown 3-03 00:00: 00 Dose 2022-0 No Unknown 3-03 00:00: 00 Dose 2022-0 No Unknown 3-03 00:00: 00 Dose 2022-0 No Unknown 3-03 00:00: 00 Dose 2022-0 No Unknown 3-03 00:00: 00 Dose 2022-0 No Unknown 3-03 00:00: 00 Dose 2022-0 No Unknown 3-03 00:00: 00 Dose 2022-0 No Unknown 3-03 00:00: 00 Dose 2022-0 No Unknown 3-03 00:00: 00 Dose 2022-0 No Unknown 3-03 00:00: 00 Dose 2022-0 No Unknown 3-03 00:00: 00 Dose 2022-0 No Unknown 3-03 00:00: 00 Dose 2022-0 No Unknown 3-03 00:00: 00 Dose 2022-0 No Unknown 3-03 00:00: 00 Dose 2022-0 No Unknown 3-03 00:00: 00 Dose 2022-0 No Unknown 3-03 00:00: 00 Dose 2022-0 No Unknown 3-03 00:00: 00 Dose 2022-0 No Unknown 3-03 00:00: 00 Dose 2022-0 No Unknown 3-03 00:00: 00 Dose 2022-0 No Unknown 3-03 00:00: 00 Dose 2022-0 No Unknown 3-03 00:00: 00 Dose 2022-0 No Unknown 3-03 00:00: 00 Dose 2022-0 No Unknown 3-03 00:00: 00 Dose 2022-0 No Unknown 3-03 00:00: 00 ondansetron 2022-0 No 1mg 4 mg 3-03 disintegrat 00:00: ing tablet 00 benzonatate 2022-0 No 1mg 100 mg 3-03 capsule 00:00: 00 Dose 2022-0 No Unknown 3-03 00:00: 00 Dose 2022-0 No Unknown 3-03 00:00: 00 Dose 2022-0 No Unknown 3-03 00:00: 00 Dose 2022-0 No Unknown 3-03 00:00: 00 Dose 2022-0 No Unknown 3-03 00:00: 00 Dose 2022-0 No Unknown 3-03 00:00: 00 Dose 2022-0 No Unknown 3-03 00:00: 00 Dose 2022-0 No Unknown 3-03 00:00: 00 Dose 2022-0 No Unknown 3-03 00:00: 00 Dose 2022-0 No Unknown 3-03 00:00: 00 Dose 2022-0 No Unknown 3-03 00:00: 00 Dose 2022-0 No Unknown 3-03 00:00: 00 Dose 2022-0 No Unknown 3-03 00:00: 00 Dose 2022-0 No Unknown 3-03 00:00: 00 Dose 2022-0 No Unknown 3-03 00:00: 00 Dose 2022-0 No Unknown 3-03 00:00: 00 Dose 2022-0 No Unknown 3-03 00:00: 00 Dose 2022-0 No Unknown 3-03 00:00: 00 Dose 2022-0 No Unknown 3-03 00:00: 00 Dose 2022-0 No Unknown 3-03 00:00: 00 Dose 2022-0 No Unknown 3-03 00:00: 00 Dose 2022-0 No Unknown 3-03 00:00: 00 Dose 2022-0 No Unknown 3-03 00:00: 00 Dose 2022-0 No Unknown 3-03 00:00: 00 Dose 2022-0 No Unknown 3-03 00:00: 00 Dose 2022-0 No Unknown 3-03 00:00: 00 Dose 2022-0 No Unknown 3-03 00:00: 00 Dose 2022-0 No Unknown 3-03 00:00: 00 Dose 2022-0 No Unknown 3-03 00:00: 00 Dose 2022-0 No Unknown 3-03 00:00: 00 Dose 2022-0 No Unknown 3-03 00:00: 00 Dose 2022-0 No Unknown 3-03 00:00: 00 Dose 2022-0 No Unknown 3-03 00:00: 00 Dose 2022-0 No Unknown 3-03 00:00: 00 Dose 2022-0 No Unknown 3-03 00:00: 00 Dose 2022-0 No Unknown 3-03 00:00: 00 Dose 2022-0 No Unknown 3-03 00:00: 00 Dose 2022-0 No Unknown 3-03 00:00: 00 Dose 2022-0 No Unknown 3-03 00:00: 00 Dose 2022-0 No Unknown 3-03 00:00: 00 Dose 2022-0 No Unknown 3-03 00:00: 00 Dose 2022-0 No Unknown 3-03 00:00: 00 Dose 2022-0 No Unknown 3-03 00:00: 00 Dose 2022-0 No Unknown 3-03 00:00: 00 Dose 2022-0 No Unknown 3-03 00:00: 00 Dose 2022-0 No Unknown 3-03 00:00: 00 Dose 2022-0 No Unknown 3-03 00:00: 00 Dose 2022-0 No Unknown 3-03 00:00: 00 Dose 2022-0 No Unknown 3-03 00:00: 00 Dose 2022-0 No Unknown 3-03 00:00: 00 Dose 2022-0 No Unknown 3-03 00:00: 00 Dose 2022-0 No Unknown 3-03 00:00: 00 Dose 2022-0 No Unknown 3-03 00:00: 00 Dose 2022-0 No Unknown 3-03 00:00: 00 Dose 2022-0 No Unknown 3-03 00:00: 00 Dose 2022-0 No Unknown 3-03 00:00: 00 Dose 2022-0 No Unknown 3-03 00:00: 00 Dose 2022-0 No Unknown 3-03 00:00: 00 Dose 2022-0 No Unknown 3-03 00:00: 00 Dose 2022-0 No Unknown 3-03 00:00: 00 Dose 2022-0 No Unknown 3-03 00:00: 00 Dose 2022-0 No Unknown 3-03 00:00: 00 Dose 2022-0 No Unknown 3-03 00:00: 00 Dose 2022-0 No Unknown 3-03 00:00: 00 Dose 2022-0 No Unknown 3-03 00:00: 00 Dose 2022-0 No Unknown 3-03 00:00: 00 Dose 2022-0 No Unknown 3-03 00:00: 00 Dose 2022-0 No Unknown 3-03 00:00: 00 Dose 2022-0 No Unknown 3-03 00:00: 00 Dose 2022-0 No Unknown 3-03 00:00: 00 Dose 2022-0 No Unknown 3-03 00:00: 00 Dose 2022-0 No Unknown 3-03 00:00: 00 Dose 2022-0 No Unknown 3-03 00:00: 00 Dose 2022-0 No Unknown 3-03 00:00: 00 Dose 2022-0 No Unknown 3-03 00:00: 00 Dose 2022-0 No Unknown 3-03 00:00: 00 Dose 2022-0 No Unknown 3-03 00:00: 00 Dose 2022-0 No Unknown 3-03 00:00: 00 Dose 2022-0 No Unknown 3-03 00:00: 00 Dose 2022-0 No Unknown 3-03 00:00: 00 Dose 2022-0 No Unknown 3-03 00:00: 00 Dose 2022-0 No Unknown 3-03 00:00: 00 Dose 2022-0 No Unknown 3-03 00:00: 00 Dose 2022-0 No Unknown 3-03 00:00: 00 Dose 2022-0 No Unknown 3-03 00:00: 00 Dose 2022-0 No Unknown 3-03 00:00: 00 Dose 2021-0 No Unknown 3-03 00:00: 00 Dose 2021-0 No Unknown 3-03 00:00: 00 Dose 2021-0 No Unknown 3-03 00:00: 00 Dose 2021-0 No Unknown 3-03 00:00: 00 Dose 2021-0 No Unknown 3-03 00:00: 00 Dose 2021-0 No Unknown 3-03 00:00: 00 Dose 2021-0 No Unknown 3-03 00:00: 00 Dose 2021-0 No Unknown 3-03 00:00: 00 enoxaparin Yes 40mg 40 mg, Unive rs (LOVENOX) 02-08 Subcutaneo ity of injection 14:00[place] 00 First dose Medical on [place] Branch 02/08/21 at 0900, Until Discontinu ed, Routine hydroCHLORO Yes 25mg Take 25 mg Univers thiazide 25 02-07 by mouth ity of mg tablet 23:51: daily. [address] Branch traZODONE Yes 50mg Take 50 mg Un rubin 50 mg -28 by mouth ity of tablet 23:51: at [place] [address] bedtime. [facility] Branch aspirin 81 0 Yes 81mg Take 81 mg U nivers mg chewable 02-07 by mouth ity of tablet 23:51: as needed. [address] azithromyci Yes 250mg Take 250 U [...] days 2 to 5. iopamidol 2020- No [id number] 100mL 100 mL, Univers (ISOVUE 02-07- Intravenou ity o f 370-500 mL) 20:45: 20:45 s, ONCE, 1 [place] injection 00 :00 dose, Sat Medic al 100 mL 02/07/21 at Branch 1545, Routine aspirin 2020- No 325mg 325 mg, Unive rs tablet 325 02-07 Oral, ity of mg 19:45: 22:03 ONCE, 1 [place] 00 :00 dose, Sat [facility] 02/07/21 at Branch 1445, STAT nitroglycer Yes .4mg 0.4 mg, Uni vers in 02-07 Sublingual ity of (NITROSTAT) 18:56: , Q5MIN Manpreet as sublingual 00 PRN, Medical tablet 0.4 Starting Branc h mg [facility] 02/07/21 at 1356, Until Discontinu ed, Routine, Chest pain morpHINE No 2mg 2 mg, Slow Un rubin injection 2 02-07 IV Push, ity of mg 18:55: 18:54 Q4HPRN, [place] 48 :48 Starting Medical Sat [place] 02/07/21 at 1355, Until 02/08/21 at 1354, Routine, Pain (scale 7-10), Chest pain acetaminoph Yes 650mg 650 mg, Un rubin en 02-07 Oral, ity of (TYLENOL) 18:55: Q6HPRN, [place] tablet 650 36 Starting Medic al mg [facility] 02/07/21 at 1355, Until Discontinu ed, Routine, Pain (scale 1-3) hydroCHLORO Yes 25mg Take 25 mg Univers thiazide 25 02-07 by mouth ity of mg tablet 18:51: daily. [address] traZODONE Yes 50mg Take 50 mg Un rubin 50 mg 02-07 by mouth ity of tablet 18:51: at [place] [address] bedtime. [facility] Branch aspirin 81 Yes 81mg Take 81 mg U nivers mg chewable 02-07 by mouth ity of tablet 18:51: as needed. [address] azithromyci Yes 250mg Take 250 U nivers n 02-07 mg by ity of (ZITHROMAX 18:51: mouth [place] Z-NIRAJ) 250 41 daily. Medical mg tablet Take 500 Branch mg day 1, then 250 mg days 2 to 5. azithromyci Yes 250mg Take 250 U nivers n 8-28 mg by ity of (ZITHROMAX 18:51: mouth [place] Z-NIRAJ) 250 41 daily. Medical mg tablet Take 500 Branch mg day 1, then 250 mg days 2 to 5. ProAir HFA No 2mcg/ac 90 8-20 tuation mcg/actuati 00:00: on aerosol 00 inhaler Tessalon 0 No 1mg Perles 100 8-20 mg capsule 00:00: 00 ProAir HFA 0 No 2mcg/ac 90 8-20 tuation mcg/actuati 00:00: on aerosol 00 inhaler Tessalon No 1mg Perles 100 8-20 mg capsule 00:00: 00 ProAir HFA No 2mcg/ac 90 8-20 tuation mcg/actuati 00:00: on aerosol 00 inhaler Tessalon 0 No 1mg Perles 100 8-20 mg capsule 00:00: 00 butalbital- 2015-06 No 1mg acetaminoph 2-01 en-caffeine 00:00: 50 mg-300 00 mg-40 mg capsule hydrochloro 2015-06 No 1mg thiazide 25 2-01 mg tablet 00:00: 00 amlodipine 2015-06 No 1mg 5 mg tablet 2- 00:00: 00 sumatriptan 2015-06 No 12mg 25 mg 2-01 tablet 00:00: 00 butalbital- 2015-06 No 1mg acetaminoph 2-01 en-caffeine 00:00: 50 mg-300 00 mg-40 mg capsule hydrochloro 2015-06 No 1mg thiazide 25 2-01 mg tablet 00:00: 00 amlodipine 2015-06 No 1mg 5 mg tablet 2- 00:00: 00 sumatriptan 2015-06 No 12mg 25 mg 2-01 tablet 00:00: 00 butalbital- 2015-06 No 1mg acetaminoph 2-01 en-caffeine 00:00: 50 mg-300 00 mg-40 mg capsule hydrochloro 2015-06 No 1mg thiazide 25 2-01 mg tablet 00:00: 00 amlodipine 2015-06 No 1mg 5 mg tablet 2- 00:00: 00 sumatriptan 2015-06 No 12mg 25 mg 2-01 tablet 00:00: 00 Vital Signs Vital Name Observation Time Observation Value Comments Source Systolic blood 2021-10-14 02:57:00 139 mm[Hg] Univer sity of pressure [facility] Diastolic blood 2021-10-14 02:57:00 76 mm[Hg] Unive rsity of pressure [facility] Heart rate 2021-10-14 02:57:00 63 /min Universi ty of [facility] Body temperature 2021-10-14 02:57:00 36.5 [place] Univ ersity of [facility] Respiratory rate 2021-10-14 02:57:00 12 /min Univ ersity of [facility] Oxygen saturation in 2021-10-14 02:57:00 99 /min University of Arterial blood by [place] [employer] [facility] Pulse oximetry Branch Body weight 2021-10-13 23:15:00 117.935 kg Universi ty of [place] [facility] [place] BMI 2021-10-13 23:15:00 46.06 kg/m2 Universi ty [facility] Heart rate 2021-02-07 22:00:00 79 /min Universi ty of [place] [facility] [place] Respiratory rate 2021-02-07 22:00:00 21 /min Univ ersity of [facility] Oxygen saturation in 2021-02-07 22:00:00 98 /min University of Arterial blood by [facility] Pulse oximetry Branch Systolic blood 2021-02-07 21:00:00 166 mm[Hg] Univer sity of [facility] Diastolic blood 2021-02-07 21:00:00 131 mm[Hg] Unive rsity of [facility] Body temperature 2021-02-07 20:00:00 36.83 [place] Univ ersity of [place] [facility] [place] Body weight 2021-02-07 16:56:00 120.203 kg Universi ty of [place] [facility] [place] BMI 2021-02-07 16:56:00 46.94 kg/m2 Universi ty [facility] BP Systolic 2022-04-09 13:37:00 138 mm[Hg] BP Diastolic 2022-04-09 13:37:00 88 mm[Hg] Weight Measured 2022-04-09 13:37:00 272.00 pounds Height Measured 2022-04-09 13:37:00 63.00 inches Body Temperature 2022-04-09 13:37:00 Heart Rate 2022-04-09 13:37:00 89.00 /min Respiratory Rate 2022-04-09 13:37:00 20.00 /min Height Measured 2022-02-12 16:59:00 63.00 inches Body Temperature 2022-02-12 16:59:00 98.30 degrees Heart Rate 2022-02-12 16:59:00 68.00 /min Respiratory Rate 2022-02-12 16:59:00 18.00 /min BP Systolic 2022-02-12 16:59:00 141 mm[Hg] BP Diastolic 2022-02-12 16:59:00 87 mm[Hg] Weight Measured 2022-02-12 16:59:00 271.80 pounds BP Systolic 2021-09-26 09:04:00 BP Diastolic 2021-09-26 09:04:00 Weight Measured 2021-09-26 09:04:00 265.00 pounds Height Measured 2021-09-26 09:04:00 63.00 inches Body Temperature 2021-09-26 09:04:00 Heart Rate 2021-09-26 09:04:00 Respiratory Rate 2021-09-26 09:04:00 BP Systolic 2021-02-04 10:45:00 126 mm[Hg] BP Diastolic 2021-02-04 10:45:00 80 mm[Hg] Weight Measured 2021-02-04 10:45:00 Height Measured 2021-02-04 10:45:00 Body Temperature 2021-02-04 10:45:00 98.30 degrees Heart Rate 2021-02-04 10:45:00 78.00 /min Respiratory Rate 2021-02-04 10:45:00 20.00 /min BP Systolic 2021-02-04 10:29:00 129 mm[Hg] BP Diastolic 2021-02-04 10:29:00 84 mm[Hg] Weight Measured 2021-02-04 10:29:00 Height Measured 2021-02-04 10:29:00 Body Temperature 2021-02-04 10:29:00 98.70 degrees Heart Rate 2021-02-04 10:29:00 84.00 /min Respiratory Rate 2021-02-04 10:29:00 22.00 /min BP Systolic 2021-02-04 10:10:00 132 mm[Hg] BP Diastolic 2021-02-04 10:10:00 84 mm[Hg] Weight Measured 2021-02-04 10:10:00 266.00 pounds Height Measured 2021-02-04 10:10:00 63.00 inches Body Temperature 2021-02-04 10:10:00 98.80 degrees Heart Rate 2021-02-04 10:10:00 86.00 /min Respiratory Rate 2021-02-04 10:10:00 22.00 /min BP Systolic 2016-05-13 11:51:00 140 mm[Hg] BP Diastolic 2016-05-13 11:51:00 78 mm[Hg] Weight Measured 2016-05-13 11:51:00 Height Measured 2016-05-13 11:51:00 Body Temperature 2016-05-13 11:51:00 Heart Rate 2016-05-13 11:51:00 Respiratory Rate 2016-05-13 11:51:00 BP Systolic 2016-05-13 11:19:00 162 mm[Hg] BP Diastolic 2016-05-13 11:19:00 80 mm[Hg] Weight Measured 2016-05-13 11:19:00 266.00 pounds Height Measured 2016-05-13 11:19:00 63.00 inches Body Temperature 2016-05-13 11:19:00 98.30 degrees Heart Rate 2016-05-13 11:19:00 90.00 /min Respiratory Rate 2016-05-13 11:19:00 Procedures Procedure Date / Time Performing Clinician Source Performed XR CHEST 1 VW 2021-10-14 01:21:33 Etienne Mo [facility] POCT GLUCOSE(AGE 2021-10-14 00:50:00 Etienne Mo [facility] >30DAYS) Medical Branch POCT GLUCOSE 2021-10-14 00:49:00 Etienne Mo Yoly [facility] (AUTOMATED) [facility] TROPONIN I 2021-10-14 00:38:00 Etienne Mo Yoly [facility] THYROID STIMULATING 2021-10-14 00:38:00 Etienne Mo [facility] HORMONE Medical Branch COMP. METABOLIC PANEL 2021-10-14 00:38:00 Etienne Mo [facility] ([id number]) Medical Branch CBC WITH DIFF 2021-10-14 00:38:00 Etienne Mo [facility] N-TERMINAL PRO-BNP 2021-10-14 00:38:00 Etienne Mo [facility] NOTICE OF PRIVACY 2021-10-13 23:11:47 Doctor Unassigned, No Univ [facility] Name Medical Branch CONSENT/REFUSAL FOR 2021-10-13 23:11:10 [facility] [place] TROPONIN I 2021-02-07 22:16:00 Jose E Graham [facility] CT CHEST PULMONARY 2021-02-07 19:40:28 Jose E [facility] ANGIOGRAM [facility] PROTHROMBIN TIME / INR 2021-02-07 18:58:00 Graham Dorantes [facility] D-DIMER 2021-02-07 18:58:00 Jose E [facility] ACTIVATED PARTIAL 2021-02-07 18:58:00 Jose E [facility] THRMPLAS TERESO [facility] XR CHEST 1 VW 2021-02-07 17:53:12 Frandy [facility] TROPONIN I 2021-02-07 17:25:00 Frandy [facility] COMP. METABOLIC PANEL 2021-02-07 17:25:00 Julian Wise [facility] ([id number]) Medical Branch CBC WITH DIFF 2021-02-07 17:25:00 Julian Wise [facility] N-TERMINAL PRO-BNP 2021-02-07 17:25:00 Julian Wise [facility] COVID-19 (ID NOW RAPID 2021-02-07 17:25:00 [facility] Medical Branch NOTICE OF PRIVACY 2021-02-07 16:55:14 [facility] [place] Plan of Care Planned Activity Planned Date Details Comments Source Goal Plan of Care Note [code = 95519-7] Goal Plan of Care Note [code = 39011-2] Goal Plan of Care Note [code = 37946-2] Goal Plan of Care Note [code = 17181-4] Goal Plan of Care Note [code = 80994-2] Goal Plan of Care Note [code = 88166-2] Goal Plan of Care Note [code = 77738-3] Goal Plan of Care Note [code = 94804-8] Goal Plan of Care Note [code = 81905-3] Goal Plan of Care Note [code = 23288-9] Goal Plan of Care Note [code = 27970-1] Goal Plan of Care Note [code = 55708-5] Goal Plan of Care Note [code = 29539-6] Goal Plan of Care Note [code = 44180-1] Goal Plan of Care Note [code = 51611-7] Goal Plan of Care Note [code = 20970-5] Goal Plan of Care Note [code = 59417-3] Goal Plan of Care Note [code = 55847-0] Goal Plan of Care Note [code = 35448-2] Goal Plan of Care Note [code = 12733-2] Goal Plan of Care Note [code = 21599-3] Goal Plan of Care Note [code = 59421-5] Goal Plan of Care Note [code = 60088-4] Goal Plan of Care Note [code = 99243-4] Goal Plan of Care Note [code = 33164-4] Goal Plan of Care Note [code = 13305-3] Goal Plan of Care Note [code = 31365-9] Goal Plan of Care Note [code = 41815-3] Goal Plan of Care Note [code = 93652-4] Goal Plan of Care Note [code = 30806-5] Goal Plan of Care Note [code = 05076-1] Goal Plan of Care Note [code = 25812-8] Goal Plan of Care Note [code = 50963-7] Goal Plan of Care Note [code = 80395-2] Goal Plan of Care Note [code = 26681-6] Goal Plan of Care Note [code = 59375-9] Goal Plan of Care Note [code = 88978-8] Goal Plan of Care Note [code = 16279-0] Goal Plan of Care Note [code = 48111-6] Goal Plan of Care Note [code = 29132-3] Goal Plan of Care Note [code = 33432-1] Goal Plan of Care Note [code = 62759-6] Goal Plan of Care Note [code = 05496-5] Goal Plan of Care Note [code = 67740-8] Goal Plan of Care Note [code = 76015-2] Goal Plan of Care Note [code = 28696-1] Goal Plan of Care Note [code = 33557-0] Encounters Start End Encounter Admission Attending Care Care Encounter Source Date/Time Date/Time Type Type Clinicians Facility Department ID 2022-07-21 2022-07-21 Outpatient [facility] [id number] Shashank 16:28:19 16:28:19 0[address] [place] 2022-07-14 2022-07-14 Outpatient [facility] [id number] Shashank 15:02:34 15:02:34 0201 [place] 2022-05-24 2022-05-24 Outpatient [facility] [id number] 022 Shashank 17:04:46 17:04:46 1212 [address] [place] 2022-04-09 2022-04-09 Outpatient [facility] [id number] 022 Shashank 13:29:18 13:29:18 1028 [facility] [place] 2022-04-09 2022-04-09 Outpatient [id number]- [id number] 7fj0e1-8 00:00:00 00:00:00 Visit 4151-487b 151-487b-9 -9abb-fcb abb-fcb5f7 2n41f4l8x 6d3b2c 2022-02-12 2022-02-12 Outpatient [id number]- [id number] b0j53n-v 00:00:00 00:00:00 Visit eecb-4a6c ecb-4a6c-9 -6ha7-8wv bf5-7bb59e 12r8t452w 9o445p 2021-12-08 2021-12-08 Outpatient [id number] [id number] 00:00:00 00:00:00 Visit 091b-4bec 91b-4bec-b -bab7-bda ab7-bda1a1 [id number] 2021-10-13 2021-10-13 Emergency X Etienne MO [facility] ERT [id number] [facility] 18:25[facility]-10-13 2021-10-13 Emergency Etienne Mo [facility] [id number] Univers 18:25:00 22:45:00 Yoly ROGEL 350.1.13.10 i ty of [place] 4.2.7.2.[address] [facility] [id number] [place] [id number] [place] 2021-02-07 2021-02-07 Emergency Julian Wise [facility] 1.2.840. 114 [id number] Univers 11:59:00 18:51:00 Luishailee Grahamyashira Rogel 350.1.13.10 ity [facility] 4.2.[address].2.[address] [facility] [id number] [place] [id number] [place] 2021-02-07 2021-02-07 Emergency X [facility] ERT [id number] [facility] 11:52:00 11:52:00 [facility] Results Test Description Test Time Test Comments Results Result Comments Source VITAMIN D, 25 OH 2022-07-23 04:34:46 Test Item Value Reference Range Interpretation Comme nts VITAMIN D, 25 OH (test 9 NG/ML SEE BELOW L E FFECTIVE 06/21/2022, PLEASE NOTE NEW code = 4958) METHODOLOGY IS* ELECTROCHEMILUM INESCENCE BINDING ASSAY. NOTE: 25-HYDROX YVITAMIN D ASSAY INCLUDES 25-HYDROXYVITAM IN D2 AND D3. INTERPRETIVE RA NGES PEDIATRIC (<17 YEARS) . . . . . . . . . . . NG/ML 20-100ADULT: IN SUFFICIENT . . . . . . . . . . . . . . NG/ ML <20 SUBOPTIMAL . . . . . . . . . . . . . . . NG/ML 20-29 OPTIMAL . . . . . . . . . . . . . . . . . NG/ML 30-100 [id number] 04:31:56 Test Item Value Reference Range Interpretation Comments NT-proBNP <50 PG/ML SEE BELOW If NT-ProBNP i s less than 300 (test code = PG/ML, heart fa ilure is unlikely 32195) for allages. Age............ .....Heart Failure Likely <50 Years.......... .>=450 PG/ML 50-75 Years.... .....>=900 PG/ML > 75 Years..... .....>=1800 PG/ML Methodology: Ro estefania Wyatt Electrochemilum inescense Immunoassay [facility] has important patho logy staff changes effecti ve 08/11/2022. New patholo gy staff will provide uninter rupted, excellent patient care an d clinical consultation. S ee URL: [email or web address]. UNLESS OTHERWIS E INDICATED, ALL TESTING PERFORM ED AT [facility] [address] [place] [address] CLIA: [id number], CAP : [id number] VITAMIN [id number] 04:30:14 Test Item Value Reference Range Interpretation Comments VITAMIN B-12 (test code = 2840) 323 PG/ML 200-950 TSH, THIRD [id number] 04:30:14 Test Item Value Reference Range Interpretation Comments TSH, THIRD GENERATION (test code 1.410 UIU/ML 0.400-4.100 = 2821) [id number] 11:09:48 Test Item Value Reference Range Interpretation Comments D-DIMER (test 0.32 UG/ML FEU See_Comment NOTE: Provi ded code = 1405) reference range is established for evaluation of D eep Venous Thrombosis/Pulm onary Embolus (DVT/PE ). Results below c utoff value of <=0.49 UG/ML FEU have a high negative predic tive value forDVT/PE . No reference range is established for disseminatedint ra-vascu lar coagulation (DIC). [facility] has imp ortant pathology staff changes effective 08/11. New pathol ogy staff will prov jef uninterrupted, excellent patie nt care and clinical consultation. S ee URL: [email or web address]. UNLESS OTHERWISE INDIC ATED, ALL TESTING PER FORMED AT [facility] [place] [address] [place] [address] [place] CLIA: [id number], CAP: [id number] [Autom ated message] The sy stem which generated this result transmit taniya reference range : <=0.49. The ref erence range was not u sed to interpret this result as normal/abnor mal. CBC W/AUTO DIFF WITH [id number] 03:30:03 Test Item Value Reference Range Interpretation Comments WBC (test code = 5.1 K/UL 3.5-11.0 1001) RBC (test code = 3.96 M/UL 3.80-5.40 1002) HEMOGLOBIN (test code 12.0 G/DL 11.5-15.5 = 1003) HEMATOCRIT (test code 36.0 % 34.0-45.0 = 1004) MCV (test code = 90.9 fL 80.0-99.0 1005) MCH (test code = 30.3 PG 25.0-33.0 1006) MCHC (test code = 33.3 G/DL 31.0-36.0 1007) RDW (test code = 13.3 % 11.5-15.0 1038) NEUTROPHILS (test 44.7 % code = 1008) LYMPHOCYTES (test 45.4 % code = 1010) MONOCYTES (test code 6.5 % = 1011) EOSINOPHILS (test 2.8 % code = 1012) BASOPHILS (test code 0.4 % = 1013) IMMATURE GRANULOCYTES 0.2 % (test code = 1036) NUCLEATED RBCS (test 0.0 /100 WBC'S See_Comment [Aut omated code = 1065) message] The sy stem which generated this result transmitted reference range : 0.0. The refere nce range was not u sed to interpret th is result as normal/abnormal . PLATELET COUNT (test 284 K/UL 130-400 code = 1015) ABSOLUTE NEUTROPHILS 2.27 K/UL 1.50-7.50 (test code = 1066) ABSOLUTE LYMPHOCYTES 2.30 K/UL 1.00-4.00 (test code = 1067) ABSOLUTE MONOCYTES 0.33 K/UL 0.20-1.00 (test code = 1068) ABSOLUTE EOSINOPHILS 0.14 K/UL 0.00-0.50 (test code = 1040) ABSOLUTE BASOPHILS 0.02 K/UL 0.00-0.20 (test code = 1069) ABS IMMATURE 0.01 K/UL 0.00-0.10 GRANULOCYTES (test code = 1020) ABS NUCLEATED RBCS 0.00 K/UL 0.00-0.11 (test code = 38891) COMPREHENSIVE METABOLIC [id number] 03:13:06 Test Item Value Reference Range Interpretation Comments GLUCOSE (test code = 92 MG/DL 70-99 2216) BUN (test code = 10 MG/DL 6-20 2207) CREATININE (test 0.89 MG/DL 0.60-1.30 code = 221) eGFR (2020 CKD-EPI) 75 ML/MIN/1.73 >60 (test code = 23691) CALC BUN/CREAT (test 11 RATIO 6-28 code = 223) SODIUM (test code = 144 MEQ/L 868-743 7231) POTASSIUM (test code 3.8 MEQ/L 3.5-5.4 = 2227) CHLORIDE (test code 105 MEQ/L 95-107 = 2214) CARBON DIOXIDE (test 31 MEQ/L 19-31 code = 220) CALCIUM (test code = 9.1 MG/DL 8.5-10.5 2208) PROTEIN, TOTAL (test 6.8 G/DL 6.1-8.3 code = 222) ALBUMIN (test code = 4.3 G/DL 3.5-5.2 2200) CALC GLOBULIN (test 2.5 G/DL 1.9-3.7 code = 2240) CALC A/G RATIO (test 1.7 RATIO 1.0-2.6 code = 223) BILIRUBIN, TOTAL 0.3 MG/DL See_Comment [Automated message] (test code = 2206) The syste m which generated this result transmit taniya reference range : <=1.2. The refe rence range was not u sed to interpret th is result as normal/abnormal . ALKALINE PHOSPHATASE 66 U/L 40-136 (test code = 2203) AST (test code = 15 U/L 9-40 2217) ALT (test code = 7 U/L 5-40 2218) COMPREHENSIVE METABOLIC [id number] 05:44:51 Test Item Value Reference Range Interpretation Comments GLUCOSE (test code = 92 MG/DL 70-99 2216) BUN (test code = 9 MG/DL -8) CREATININE (test 0.78 MG/DL 0.60-1.30 code = 221) eGFR (2020 CKD-EPI) 88 ML/MIN/1.73 >60 (test code = 84747) CALC BUN/CREAT (test 12 RATIO 6-28 code = 2235) SODIUM (test code = 144 MEQ/L 289-386 7374) POTASSIUM (test code 3.3 MEQ/L 3.5-5.4 L = 2227) CHLORIDE (test code 101 MEQ/L 95-107 = 2214) CARBON DIOXIDE (test 31 MEQ/L 19-31 code = 2206) CALCIUM (test code = 9.8 MG/DL 8.5-10.5 2208) PROTEIN, TOTAL (test 7.7 G/DL 6.1-8.3 code = 2228) ALBUMIN (test code = 4.6 G/DL 3.5-5.2 2200) CALC GLOBULIN (test 3.1 G/DL 1.9-3.7 code = 224) CALC A/G RATIO (test 1.5 RATIO 1.0-2.6 code = 223) BILIRUBIN, TOTAL 0.4 MG/DL See_Comment [Automated message] (test code = 220) The syste m which generated this result transmit taniya reference range : <=1.2. The refe rence range was not u sed to interpret th is result as normal/abnormal . ALKALINE PHOSPHATASE 69 U/L 40-136 (test code = 2204) AST (test code = 15 U/L 9-40 2217) ALT (test code = 6 U/L 5-40 2218) LIPID [id number] 05:44:51 Test Item Value Reference Range Interpretation Comments CHOLESTEROL (test 131 MG/DL <200 code = 2210) TRIGLYCERIDES (test 124 MG/DL <150 code = 2232) HDL CHOLESTEROL (test 59 MG/DL >39 code = 2220) CALC LDL CHOL (test 51 MG/DL <100 NOTE: C ALCULATED LDL code = 2237) IS BASED ON SINA-VELÁZQUEZ METHOD WHICHINCLUDES ADJUSTABLE TRIGLYCERIDE:VL DL CHOLESTEROL RAT IO.THIS FACTOR VARIES B Y MEASURED TRIGLY CERIDE AND NON-HDLCHOL ESTEROL CONCENTRATIONS WITH INCREASED CALCU LATED LDL SEENIN HIGH ER TRIGLYCERIDE OR LOWER NON-HDL SPECIME NS. FOR MOREINFORMATION , SEE CLIENT ANNOUNCE MENT AT [email or web address] LDL/HDL 0.86 RATIO <3.22 UNLESS OTHERWISE (test code = 2238) INDICATED , ALL TESTING PERFORMED [facility], [facility]. [address] [place] [address] [facility] DIRECTOR: TRISHA MUNSON M.D. CLIA NUMBER [id number] CAP ACCREDITATION N O. [id number] CBC WITH [id number] 01:46:24 Test Item Value Reference Range Interpretation Comments WBC (test code = See_Comment [Automated 6690-2) message] The sy stem which generated this [...] as normal/abnormal . HGB (test code = 12.3 g/dL 11.6-15.0 718-7) HCT (test code = 36.3 % 35.7-45.2 4544-3) MCV (test code = 89.2 fL 80.6-95.5 787-2) MCH (test code = 30.2 pg 25.9-32.8 785-6) MCHC (test code = 33.9 g/dL 31.6-35.1 786-4) RDW-SD (test code = 44.4 fL 39.0-49.9 74084-7) RDW-CV (test code = 13.6 % 12.0-15.5 788-0) PLT (test code = See_Comment [Automated 777-3) message] The sy stem which generated this result transmitted reference range : 166 - 358 10*3/ ?L. The reference r darius was not used to interpret this result as normal/abnormal . MPV (test code = 9.5 fL 9.5-12.9 37179-0) NRBC/100 WBC (test See_Comment [Automat ed code = 5840056473) message] The system which generated this result transmitted reference range : 0.0 - 10.0 /100 WBCs. The refer ence range was not u sed to interpret th is result as normal/abnormal . NRBC x10^3 (test code <0.01 See_Comment [Auto mated = [id number]) message] The s ystem which generated this result transmitted reference range : 10*3/?L. The reference range was not used to interpret this result as normal/abnormal . SEG % (test code = 47 % 33-76 48997-0) LYMPH % (test code = 45 % 14-54 36934-3) MONO % (test code = 5 % 0-4 H 77483-8) EOS % (test code = 3 % 0-3 29422-0) ANC (test code = 2.18 10*3/uL 1.88-7.09 753-4) SPHEROCYTES (test code 2+ A = 802-9) Lab Interpretation Abnormal (test code = 26737-2) [facility] [id number] 01:34:03 Test Item Value Reference Range Interpretation Comments TSH (test code = See_Comment Biotin has been [id number]) reported to cau se a negative bias, interpret resul ts relative to pat ient's use of biotin. [Automated mess age] The system whic h generated this result transmitted ref erence range: 0.45 - 4 .70 mIU/L. The refe rence range was not u sed to interpret this result as normal/abnor mal. Lab Interpretation (test Normal code = 22616-1) [facility] [id number] 01:15:00 Test Item Value Reference Interpretation Comments Range TROPONIN I (test 0.001 ng/mL See_Comment [Automated code = 9559746576) message] The system which generated this result transmitted reference range : <=0.034. The reference range was not used to interpret this result as normal/abnormal . SANTO (test code = Reference (Normal) SANTO) Range (defined by the 99th percentile reference limit): <= 0.034 ng/mL Note: Cardiac troponin begins to rise 3-4 hours after the onset of ischemia. Repeat in 4-6 hours if the sample was drawn within 3-4 hours of the onset of the symptom and found normal. Diagnosis of myocardial injury is made with acute changes in cTn concentrations with at least one serial sample above the 99th percentile upper reference limit (URL), taken together with the patient's clinical presentation. Biotin has been reported to cause a negative bias, interpret results relative to patient's use of biotin. Lab Interpretation Normal (test code = 84724-1) [facility]MIN[facility] [id number] 01:11:38 Test Item Value Reference Range Interpretation Comments NT-proBNP (test code 35 pg/mL See_Comment [Autom ated = 9678151405) message] The system which generated this result transmitted reference range : <=125. The reference range was not used to interpret this result as normal/abnormal . SANTO (test code = SANTO) Biotin has been reported to cause a negative bias, interpret results relative to patient's use of biotin. Lab Interpretation Normal (test code = 23960-5) [facility]wood[facility] MET[facility]OLIC PAN[facility] (63159)2021-10-14 01:02:55 Test Item Value Reference Range Interpretation Comments NA (test code = 142 mmol/L 135-145 4802234088) K (test code = 3.3 mmol/L 3.5-5.0 L 1268379383) CL (test code = 100 mmol/L 98-108 4106418802) CO2 TOTAL (test code = 30 mmol/L 23-31 0126278370) AGAP (test code = 2-16 8951330487) BUN (test code = 11 mg/dL 7-23 1728861251) GLUCOSE (test code = 108 mg/dL 70-110 5468610414) CREATININE (test code = 0.71 mg/dL 0.50-1.04 2147948970) TOTAL BILI (test code = 0.6 mg/dL 0.1-1.8 6553283610) CALCIUM (test code = 8.8 mg/dL 8.6-10.6 7246744303) T PROTEIN (test code = 7.1 g/dL 6.3-8.2 9351841582) ALBUMIN (test code = 4.2 g/dL 3.5-5.0 2190920702) ALK PHOS (test code = 61 U/L 34-122 5364278694) ALTv (test code = 8 U/L 35 1742-6) AST(SGOT) (test code = 21 U/L 13-40 7381691717) eGFR (test code = mL/min/1.73m2 2312402789) SANTO (test code = SANTO) Association of Glomerular Filtration Rate (GFR) and Staging of Kidney Disease* + --+ --+ ------+| GFR (mL/min/1.73 m2) ?| With Kidney Damage ?| ?Without Kidney Damage+ --------+ --------+ +| ?>90 ?| ?Stage one ?| ? Normal ?+ ---+ ---+ -------+| ?60-89 ?| ?Stage two ?| ? Decreased GFR ? + --+ --+ ------+| ?30-59 ?| ?Stage three ?| ? Stage three ? + --+ --+ ------+| ?15-29 ?| ?Stage four ? | ? Stage four ?+ ---+ ---+ -------+| ?<15 (or dialysis) ? ?| ?Stage five ? | ? Stage five ?+ ---+ ---+ -------+ *Each stage assumes the associated GFR level has been in effect for at least three months. ?Stages 1 to 5, with or without kidney disease, indicate chronic kidney disease. Notes: Determination of stages one and two (with eGFR >59mL/min/1.73 m2) requires estimation of kidney damage for at least three months as defined by structural or functional abnormalities of the kidney, manifested by either:Pathological abnormalities or Markers of kidney damage (including abnormalities in the composition of the blood or urine or abnormalities in imaging tests). Lab Interpretation Abnormal (test code = 90280-0) [facility] GLUCOSE (AUTOMATED)2021-10-14 00:58:37 Test Item Value Reference Range Interpretation Comments POCT GLU (test code = 3600887578) 109 mg/dL 70-110 Lab Interpretation (test code = Normal 35408-8) [facility] GLUCOSE(AGE >30DAYS)2021-10-14 00:50:00 Test Item Value Reference Range Interpretation Comments POCT Glu (age>30days) (test code = 109 mg/dL 70-110 3342) Lab Interpretation (test code = Normal 81612-6) [facility] (COVID-19) by RT-PCR (HIGH RISK) 2021-02-21 00:00:00 Test Item Value Reference Range Interpretation Comments SARS-CoV-2 INTERPRETATION NEGATIVE (test code = 12961) SOURCE (test code = 06399) NASOPHARYNGEAL SARS-CoV-2 (COVID-19) by RT-PCR (HIGH RISK)2021-02-21 00:00:00 Test Item Value Reference Range Interpretation Comments SARS-CoV-2 INTERPRETATION NEGATIVE (test code = 67780) SOURCE (test code = 28765) NASOPHARYNGEAL SARS-CoV-2 (COVID-19) by RT-PCR (HIGH RISK)2021-02-21 00:00:00 Test Item Value Reference Range Interpretation Comments SARS-CoV-2 INTERPRETATION NEGATIVE (test code = 89236) SOURCE (test code = 44488) NASOPHARYNGEAL SARS-CoV-2 (COVID-19) by RT-PCR (HIGH RISK)2021-02-21 00:00:00 Test Item Value Reference Range Interpretation Comments SARS-CoV-2 INTERPRETATION NEGATIVE (test code = 83296) SOURCE (test code = 84917) NASOPHARYNGEAL SARS-CoV-2 (COVID-19) by RT-PCR (HIGH RISK)2021-02-21 00:00:00 Test Item Value Reference Range Interpretation Comments SARS-CoV-2 INTERPRETATION NEGATIVE (test code = 32120) SOURCE (test code = 51077) NASOPHARYNGEAL SARS-CoV-2 (COVID-19) by RT-PCR (HIGH RISK)2021-02-21 00:00:00 Test Item Value Reference Range Interpretation Comments SARS-CoV-2 INTERPRETATION NEGATIVE (test code = 13096) SOURCE (test code = 44274) NASOPHARYNGEAL TROPONIN [id number] 22:50:08 Test Item Value Reference Range Interpretation Comments TROPONIN I (test code = 0.001 ng/mL See_Comment [Au tomated [id number]) message] The sy stem which generated this result transmitted reference range : <=0.034. The reference range was not used to interpret this result as normal/abnormal . SANTO (test code = SANTO) Lab Interpretation Normal (test code = 35579-8) [facility] PULMONARY [id number] 20:59:34 1. No pulmonary emboli. 2. Scattered [...] of the segmentalpulmonary arteries. The pulmonary trunk isnormal in caliber. The thoracic aorta is normal in caliber. The heart is normal in size. No pericardial abnormalities are identified.The RV to LV is normal. MEDIASTINUM AND LOWER NECK: No central airway lesions are detected. Theesophagus is within normal limits. The included thyroid gland appearsnormal. LYMPH NODES: Scattered small lymph nodes in both sides of the mediastinumand hilar regions. No evidence of intrathoracic lymphadenopathy. LUNGS AND PLEURA: Scattered small areas of peripheral patchy g roundglassopacities seen at both lungs involving small volume of the lungs. Nosuspicious nodules. Nopleural abnormality detected. VISUALIZED UPPER ABDOMEN: Small type I hiatal hernia. OSSEOUS STRUCTURES AND SOFT TISSUES: No focal osseous lesions are detected.The soft tissues appear normal. [facility], Radiant Results Inft User - 02/07/2021 4:00 PM CDT PROCEDURE: CT CHEST WITH CONTRAST- CHEST PE PROTOCOLCLINICAL INDICATION: 55-year-old female patient with Covid presenting withshortness of breath. COMPARISON: Chest radiograph dated 08/10/2020.TECHNIQUE: Volumetric helical CT angiogram was performed of the chest (lungapices to bases) with IV contrast. Images were reconstructed at 1.25 mmslice thickness. Corresponding axial, sagittal and coronal MIP images wereperformed. Axial MIPs and coronal and sagittal MPR images were generatedand reviewed..FI NDINGS:DEVICES: None HEART AND GREAT VESSELS: The opacification of the pulmonary vasculature isappropriate. No filling defects are seen through the level of the segmentalpulmonary arteries. The pulmonary trunk is normal in caliber.The thoracic aorta is normal in caliber.The heart is normal in size. Nopericardial abnormalities are identified.The RV to LV is normal. MEDIASTINUM AND LOWER NECK: No central airway lesions are detected. Theesophagus is within normal limits. The included thyroid gland appearsnormal.LYMPH NODES: Scattered small lymph nodes in both sides of the mediastinumand hilar regions. No evidence of intrathoracic lymphadenopathy.LUNGS AND PLEURA: Scattered small areas of peripheral patchy groundglassopacities seen at both lungs involving small volume of the lungs. Nosuspicious nodules. No pleural abnormality detected.VISUALIZED UPPER ABDOMEN: Small type I hiatal hernia. OSSEOUS STRUCTURES AND SOFT TISSUES: No focal osseous lesions are detected.The soft tissues appear normal.IMPRES SION1. No pulmonary emboli.2. Scattered lung opacities involving small volumes of the lungs consistentwith the known diagnosis of COVID 19 pneumonia.Preliminary Report Dictated by Resident: Quinn Finney MD., have reviewed this study and agree with theabove report.[facility]woodD-[id number] 19:37:33 Test Item Value Reference Range Interpretation Comments D-DIMER (test code = See_Comment H [Autom ated message] [id number]) The system [employer] generated this result transmitted ref erence range: <0.41 ?g /mL (FEU). The refe rence range was not u sed to interpret this result as normal/abnor mal. SANTO (test code = SANTO) Lab Interpretation (test Abnormal code = 76495-4) [facility]woodACTIVATED PARTIAL THRMPLAS [id number] 19:30:55 Test Item Value Reference Range Interpretation Comments APTT Patient (test code = See_Comment [ Automated message] 3173-2) The system [employer] generated this result transmitted ref erence range: 23 - 38 Seconds. The re ference range was not u sed to interpret this result as normal/abnor mal. SANTO (test code = SANTO) Lab Interpretation (test Normal code = 61742-7) [facility] BrownwoodPROTHROMBIN TIME / [id number] 19:28:54 Test Item Value Reference Range Interpretation Comments PROTIME PATIENT (test See_Comment [Auto mated message] code = 5964-2) The system [employer] generated this result transmitted ref erence range: 12.0 - 1 4.7 Seconds. The re ference range was not u sed to interpret this result as normal/abnor mal. INR (test code = 6301-6) Lab Interpretation (test Normal code = 84133-4) [facility]woodXR CHEST 1 [id number] 18:41:28 1. ?Low lung volumes without focal infiltrate. RL: 1105 HISTORY: ?dyspnea COMPARISON: ?None FINDINGS: AP view of [...] overlie the chest.IMPRESSION1. Low lung volumes without foc al infiltrate.RL: 1105 [facility] [id number] 18:06:10 Test Item Value Reference Range Interpretation Comments TROPONIN I (test code = 0.002 ng/mL See_Comment [Au tomated [id number]) message] The sy stem which generated this result transmitted reference range : <=0.034. The reference range was not used to interpret this result as normal/abnormal . SANTO (test code = SANTO) Lab Interpretation Normal (test code = 66682-3) [facility]wood[facility]-TERMINAL [id number] 18:02:53 Test Item Value Reference Range Interpretation Comments NT-proBNP (test code = 97 pg/mL See_Comment [Aut omated message] [id number]) The system whic h generated this result transmitted ref erence range: <=125. T he reference range was not used to int erpret this result as normal/abnormal . SANTO (test code = SANTO) Lab Interpretation (test Normal code = 08211-7) [facility]OL[facility] PAN[facility] (47372)2021-02-07 17:55:47 Test Item Value Reference Range Interpretation Comments NA (test code = 1689962918) 142 mmol/L 135-145 K (test code = 6714306068) 3.8 mmol/L 3.5-5.0 CL (test code = 5171396374) 102 mmol/L 98-108 CO2 TOTAL (test code = 6036797888) 29 mmol/L 23-31 AGAP (test code = 0993954161) 2-16 BUN (test code = 7024079476) 15 mg/dL 7-23 GLUCOSE (test code = 4766930908) 98 mg/dL 70-110 CREATININE (test code = 0.66 mg/dL 0.50-1.04 8822278161) TOTAL BILI (test code = 0.7 mg/dL 0.1-1.6 5353217474) CALCIUM (test code = 2924085478) 9.2 mg/dL 8.6-10.6 T PROTEIN (test code = 5095918540) 8.3 g/dL 6.3-8.2 H ALBUMIN (test code = 7498572696) 4.5 g/dL 3.5-5.0 ALK PHOS (test code = 4969693701) 65 U/L 34-122 ALTv (test code = 1742-6) 33 U/L 5-35 AST(SGOT) (test code = 2320686715) 44 U/L 13-40 H eGFR (test code = 6754607600) mL/min/1.73m2 SANTO (test code = SANTO) Lab Interpretation (test code = Abnormal 55147-0) [facility] NOW RAPID TESTING)2021-02-07 17:55:47 Test Item Value Reference Range Interpretation Comments SARS-CoV-2 Rapid ID NOW (test code = Positive Not Detected A 29163-0) SANTO (test code = SANTO) Lab Interpretation (test code = Abnormal 11737-5) [facility] WITH [id number] 17:41:52 Test Item Value Reference Range Interpretation Comments WBC (test code = See_Comment [Automated 6690-2) message] The sy stem which generated this [...] RDW-SD (test code = 48.4 fL 39.0-49.9 44431-2) RDW-CV (test code = 14.6 % 12.0-15.5 788-0) PLT (test code = See_Comment H [Automated 777-3) message] The sy stem which generated this result transmitted reference range : 166 - 358 10*3/ ?L. The reference r darius was not used to interpret this result as normal/abnormal . MPV (test code = 9.2 fL 9.5-12.9 L 78196-4) NRBC/100 WBC (test See_Comment [Automat ed code = 3791579779) message] The system which generated this result transmitted reference range : 0.0 - 10.0 /100 WBCs. The refer ence range was not u sed to interpret th is result as normal/abnormal . NRBC x10^3 (test code <0.01 See_Comment [Auto mated = 3586121617) message] The s ystem which generated this result transmitted reference range : 10*3/?L. The reference range was not used to interpret this result as normal/abnormal . GRAN MAT (NEUT) % 74.0 % (test code = 770-8) IMM GRAN % (test code 1.60 % = 0027863584) LYMPH % (test code = 18.7 % 736-9) MONO % (test code = 5.3 % 5905-5) EOS % (test code = 0.2 % 713-8) BASO % (test code = 0.2 % 706-2) GRAN MAT x10^3(ANC) 7.07 10*3/uL 1.88-7.09 (test code = 6818875376) IMM GRAN x10^3 (test 0.15 10*3/uL 0.00-0.06 H code = 4766455723) LYMPH x10^3 (test code 1.79 10*3/uL 1.32-3.29 = 731-0) MONO x10^3 (test code 0.51 10*3/uL 0.33-0.92 = 742-7) EOS x10^3 (test code = <0.03 0.03-0.39 L 711-2) BASO x10^3 (test code <0.03 0.01-0.07 = 704-7) Lab Interpretation Abnormal (test code = 35806-9) [facility] ([facility] by RT-PCR (HIGH RISK) 2020-07-06 00:00:00 Test Item Value Reference Range Interpretation Comments SARS-CoV-2 INTERPRETATION NEGATIVE (test code = 88847) SOURCE (test code = 69979) NASOPHARYNGEAL SARS-CoV-2 (COVID-19) by RT-PCR (HIGH RISK)2020-07-06 00:00:00 Test Item Value Reference Range Interpretation Comments SARS-CoV-2 INTERPRETATION NEGATIVE (test code = 31370) SOURCE (test code = 80860) NASOPHARYNGEAL SARS-CoV-2 (COVID-19) by RT-PCR (HIGH RISK)2020-07-06 00:00:00 Test Item Value Reference Range Interpretation Comments SARS-CoV-2 INTERPRETATION NEGATIVE (test code = 24986) SOURCE (test code = 46924) NASOPHARYNGEAL SARS-CoV-2 (COVID-19) by RT-PCR (HIGH RISK)2020-07-06 00:00:00 Test Item Value Reference Range Interpretation Comments SARS-CoV-2 INTERPRETATION NEGATIVE (test code = 23245) SOURCE (test code = 43247) NASOPHARYNGEAL SARS-CoV-2 (COVID-19) by RT-PCR (HIGH RISK)2020-07-06 00:00:00 Test Item Value Reference Range Interpretation Comments SARS-CoV-2 INTERPRETATION NEGATIVE (test code = 48079) SOURCE (test code = 09245) NASOPHARYNGEAL SARS-CoV-2 (COVID-19) by RT-PCR (HIGH RISK)2020-07-06 00:00:00 Test Item Value Reference Range Interpretation Comments SARS-CoV-2 INTERPRETATION NEGATIVE (test code = 81201) SOURCE (test code = 60600) NASOPHARYNGEAL"
[2022-10-30] MEDS ORDERED: PANTOPRAZOLE 40 MG INJ ONE (13:45)
--- NOTE | 2022-10-30 13:48 | RAD REPORT ---
EXAM DESCRIPTION: CT - Head Brain Wo Cont - 10/30/2022 1:39 pm CLINICAL HISTORY: Dizziness COMPARISON: June 2022 TECHNIQUE: Computed axial tomography of the head was obtained. IV contrast was not requested. All CT scans are performed using dose optimization technique as appropriate and may include automated exposure control or mA/KV adjustment according to patient size. FINDINGS: An intracranial bleed is not seen The ventricles are normal in caliber No significant hypodense areas within the brain visualized No extra-axial fluid collection is noted. Fluid within the sinuses/ mastoids is not seen IMPRESSION: No acute intracranial abnormality is seen If patient's symptoms persist MRI of the brain would be recommended
[2022-10-30 14:10] LABS: Hematocrit 38.7 % (36.0-45.0); Lymphocytes % 39.5 % (15.3-44.8); MCV 90.7 fL (80-100); MPV 7.4 fL (7.6-11.3); RBC Red Blood Cell Count 4.26 M/uL (3.86-4.86)
[2022-10-30 14:17] LABS: Protime INR 1.11
--- NOTE | 2022-10-30 14:36 | RAD REPORT ---
EXAM DESCRIPTION: Olga Single View10/30/2022 2:16 pm CLINICAL HISTORY: Chest pain COMPARISON: August 2022 FINDINGS: The lungs appear clear of acute infiltrate. The heart is normal size IMPRESSION: No acute abnormalities displayed
[2022-10-30 14:39] LABS: Albumin 3.6 g/dL (3.4-5.0); Bilirubin Direct 0.2 mg/dL (0-0.2); Bilirubin Indirect, Calculated 0.3 mg/dL (0.2-0.8); Bilirubin Total 0.5 mg/dL (0.2-1.0); Magnesium 2.1 mg/dL (1.6-2.4); Potassium 2.8 mEq/L (3.5-5.1); Protein, Total 7.7 g/dL (6.4-8.2)
[2022-10-30 15:08] LABS: Blood Morphology Comment NOT SEEN (NOT SEEN); Platelet Estimate ADEQ; White Blood Cell Scan OK (OK)
--- NOTE | 2022-10-30 15:31 | ER ---
Nurse's Notes [facility] Name: Zohreh Mabry Age: 57 yrs Sex: Female : 1965 Arrival Date: 10/30/2022 Time: 12:52 Bed 7 Private MD: Diagnosis: Hypokalemia;Chest pain, unspecified Presentation: 10/30 13:02 Chief complaint: Intermittent substernal chest pressure and SOB since yesterday, black hb stool today. Coronavirus screen: At this time, the client does not indicate any symptoms associated with coronavirus-19. Ebola Screen: No symptoms or risks identified at this time. Initial Sepsis Screen: Does the patient meet any 2 criteria? No. Patient's initial sepsis screen is negative. Does the patient have a suspected source of infection? No. Patient's initial sepsis screen is negative. Risk Assessment: Do you want to hurt yourself or someone else? Patient reports no desire to harm self or others. Onset of symptoms was October 29, 2022. 13:02 Method Of Arrival: Ambulatory hb 13:02 Acuity: KERRY 3 hb Historical: - Allergies: 13:04 Nubain; hb 13:04 Vistaril; hb - Home Meds: 13:04 hydrochlorothiazide 25 mg Oral tablet daily [Active]; hb - PMHx: 13:04 Headaches; Hypertension; Vertigo; hb - PSHx: 13:04 breast; hysterectomy; tubal ligation; hb - Immunization history:: Adult Immunizations up to date. - Social history:: Smoking status: Patient denies any tobacco usage or history of. Screenin:05 [facility] ED Fall Risk Assessment (Adult) History of falling in the last 3 months, vg1 including since admission No falls in past 3 months (0 pts). Abuse screen: Denies threats or abuse. Denies injuries from another. Nutritional screening: No deficits noted. Tuberculosis screening: No symptoms or risk factors identified. Assessment: 14:05 General: Appears in no apparent distress. comfortable, Behavior is calm, cooperative. vg1 Pain: Complains of pain in back, chest and epigastric area Pain began 2-3 days ago. Neuro: Level of Consciousness is awake, alert, obeys commands, Oriented to person, place, time, situation, Reports headache. Cardiovascular: Patient's skin is warm and dry. Respiratory: Reports shortness of breath Airway is patent Respiratory effort is even, unlabored. GI: Patient currently denies pain, vomiting. Musculoskeletal: Circulation, motion, and sensation intact. 15:00 Reassessment: Patient appears in no apparent distress at this time. Patient and/or vg1 family updated on plan of care and expected duration. Pain level reassessed. Patient is alert, oriented x 3, equal unlabored respirations, skin warm/dry/pink. 16:00 Reassessment: Patient appears in no apparent distress at this time. Patient and/or vg1 family updated on plan of care and expected duration. Pain level reassessed. Patient is alert, oriented x 3, equal unlabored respirations, skin warm/dry/pink. Patient states feeling better. 19:00 Reassessment: Patient appears in no apparent distress at this time. No changes from vg1 previously documented assessment. Patient and/or family updated on plan of care and expected duration. Pain level reassessed. Patient is alert, oriented x 3, equal unlabored respirations, skin warm/dry/pink. 19:37 Reassessment: Patient and/or family updated on plan of care and expected duration. Pain ha1 level reassessed. Patient is alert, oriented x 3, equal unlabored respirations, skin warm/dry/pink. Pain: Denies pain. Neuro: Level of Consciousness is awake, alert, obeys commands, Oriented to person, place, time, situation. Cardiovascular: Patient's skin is warm and dry. Respiratory: Airway is patent Respiratory effort is even, unlabored, Respiratory pattern is regular, symmetrical. 20:00 Reassessment: awaiting on receiving nurse to receive report. nurse unavailable. ha1 Vital Signs: 13:02 BP 176 / 94; Pulse 63; Resp 16; Temp 97.8(TE); Pulse Ox 100% on R/A; Weight 122.47 kg; hb Height 5 ft. 3 in. ; Pain 8/10; 14:07 BP 130 / 70; Pulse 65; Resp 16; Pulse Ox 97% on R/A; vg1 15:30 BP 130 / 80; Pulse 69; Resp 16; Pulse Ox 98% on R/A; vg1 16:00 BP 119 / 70; Pulse 77; Resp 16; Pulse Ox 98% on R/A; hb 16:30 BP 121 / 64; Pulse 72; Resp 20; Pulse Ox 99% on R/A; vg1 17:30 BP 139 / 92; Pulse 70; Resp 19; Pulse Ox 99% ; vg1 19:00 BP 127 / 78; Pulse 68; Resp 18; Pulse Ox 99% on R/A; vg1 19:30 BP 119 / 57; Pulse 67; Resp 16 S; Pulse Ox 100% on R/A; ha1 20:22 BP 113 / 62; Pulse 64; Resp 16; Pulse Ox 100% on R/A; ll3 13:02 Body Mass Index 47.83 (122.47 kg, 160.02 cm) hb 13:02 Pain Scale: Adult hb ED Course: 12:54 Patient arrived in ED. mr 13:03 Linda Greene FNP-C is PHCP. snw 13:03 Spencer Kessler MD is Attending Physician. snw 13:03 Triage completed. hb 13:04 Arm band placed on. hb 13:05 Linda Greene FNP-C is PHCP. snw 13:09 EKG completed in triage. Results shown to . hb 13:28 Lizy Roa, RN is Primary Nurse. vg1 13:41 CT Head Brain wo Cont In Process Unspecified. EDMS 13:57 Inserted saline lock: 20 gauge in left antecubital area, using aseptic technique. vg1 Patient maintains SpO2 saturation greater than 95% on room air. 14:05 Patient has correct armband on for positive identification. Placed in gown. Bed in low vg1 position. Call light in reach. Side rails up X 1. Adult w/ patient. Client placed on continuous cardiac and pulse oximetry monitoring. NIBP monitoring applied. 14:18 XRAY Chest (1 view) In Process Unspecified. EDMS 15:30 Gama Sharif is Hospitalizing Provider. snw 20:40 No provider procedures requiring assistance completed. Patient admitted, IV remains in ha1 place. Administered Medications: 14:00 Drug: Pantoprazole IVP 40 mg Route: IVP; Site: left antecubital; vg1 15:42 Follow up: Response: No adverse reaction; Pain is decreased vg1 15:40 Drug: Potassium Chloride IV 20 mEq Route: IV; Rate: calculated rate; Site: left vg1 antecubital; 15:40 Drug: NS 0.9% IV 250 ml Route: IV; Rate: 100 ml/hr; Site: left antecubital; vg1 19:51 Not Given (Physician Discretion): Potassium Chloride IV 20 mEq IV at calculated rate kd3 once; administer over 1-2 hours 19:58 Drug: Potassium Chloride PO 40 mEq Route: PO; ll3 Medication: 14:05 VIS not applicable for this client. vg1 Outcome: 15:31 Decision to Hospitalize by Provider. snw 20:40 Admitted to Med/surg accompanied by tech, via wheelchair, room 207, with chart, Report ha1 called to Report called to Apurva Wallace by APURVA Ambriz. 20:40 Condition: stable 20:40 Discharge instructions given to patient, Instructed on the need for admit, Demonstrated understanding of instructions. 20:42 Patient left the ED. ha1 Signatures: Dispatcher [employer] EDMS Linda Greene, [employer] NETWORK LIAISON-Gabrielle Barillas mr MuellerAry RN RN hb Garcia, Victoria, RN RN vg1 Katina Chang RN RN ll3 Lore Luciano RN RN 1 Ana Rivas RN kd3
--- NOTE | 2022-10-30 15:31 | EDPHYS ---
Physician Documentation [facility] Name: Zohreh Mabry Age: 57 yrs Sex: Female : 1965 Arrival Date: 10/30/2022 Time: 12:52 Bed 7 Private MD: ED Physician Spencer Kessler HPI: 10/30 13:30 This 57 yrs old Black Female presents to ER via Ambulatory with complaints of Chest snw Pressure, Shortness Of Breath. 13:30 The patient or guardian reports chest pain that is located primarily in the epigastric snw area. 13:30 Onset: 1 week(s) ago, and became persistent. The pain does not radiate. Associated snw signs and symptoms: Pertinent positives: dizziness, nausea. The chest pain is described as a pressure. Duration: The patient or guardian reports multiple episodes, that are intermittent. Severity of pain: At its worst the pain was moderate. The patient has experienced a previous episode. as noted in ED and per PCP. Historical: - Allergies: 13:04 Nubain; hb 13:04 Vistaril; hb - Home Meds: 13:04 hydrochlorothiazide 25 mg Oral tablet daily [Active]; hb - PMHx: 13:04 Headaches; Hypertension; Vertigo; hb - PSHx: 13:04 breast; hysterectomy; tubal ligation; hb - Immunization history:: Adult Immunizations up to date. - Social history:: Smoking status: Patient denies any tobacco usage or history of. ROS: 13:26 Eyes: Negative for injury, pain, redness, and discharge, ENT: Negative for injury, snw pain, and discharge, Neck: Negative for injury, pain, and swelling. 13:26 Respiratory: Negative for shortness of breath, cough, wheezing, and pleuritic chest pain. 13:26 Back: Negative for injury and pain, : Negative for injury, bleeding, discharge, and swelling, MS/Extremity: Negative for injury and deformity, Skin: Negative for injury, rash, and discoloration. 13:26 Constitutional: Positive for malaise, poor PO intake, pt states last week she awoke with the room spinning, n/v, abd pain. She was seen in ED and discharged with abd CT showing only a small hiatal hernia. Pt states she saw her PCP and was placed on steroids and meclizine. The next day pt states she was not able to sleep lying down and had some intermittent chest pressure. Nausea. 13:26 Cardiovascular: Positive for chest pain, of the anterior aspect of left upper chest, xiphoid area and mid-sternal area. 13:26 Abdomen/GI: Positive for nausea and vomiting. 13:26 Neuro: Positive for dizziness, weakness. Exam: 13:18 Constitutional: This is a well developed, well nourished patient who is awake, alert, snw and in no acute distress. Head/Face: Normocephalic, atraumatic. Eyes: Pupils equal round and reactive to light, extra-ocular motions intact. Lids and lashes normal. Conjunctiva and sclera are non-icteric and not injected. Cornea within normal limits. Periorbital areas with no swelling, redness, or edema. ENT: Nares patent. No nasal discharge, no septal abnormalities noted. Tympanic membranes are normal and external auditory canals are clear. Oropharynx with no redness, swelling, or masses, exudates, or evidence of obstruction, uvula midline. Mucous membranes moist. Neck: Trachea midline, no thyromegaly or masses palpated, and no cervical lymphadenopathy. Supple, full range of motion without nuchal rigidity, or vertebral point tenderness. No Meningismus. Chest/axilla: Normal chest wall appearance and motion. Nontender with no deformity. No lesions are appreciated. Cardiovascular: Regular rate and rhythm with a normal S1 and S2. No gallops, murmurs, or rubs. Normal PMI, no JVD. No pulse deficits. Respiratory: Lungs have equal breath sounds bilaterally, clear to auscultation and percussion. No rales, rhonchi or wheezes noted. No increased work of breathing, no retractions or nasal flaring. Back: No spinal tenderness. No costovertebral tenderness. Full range of motion. Skin: Warm, dry with normal turgor. Normal color with no rashes, no lesions, and no evidence of cellulitis. MS/ Extremity: Pulses equal, no cyanosis. Neurovascular intact. Full, normal range of motion. Neuro: Awake and alert, GCS 15, oriented to person, place, time, and situation. Cranial nerves II-XII grossly intact. Motor strength 5/5 in all extremities. Sensory grossly intact. Cerebellar exam normal. Normal gait. Psych: Awake, alert, with orientation to person, place and time. Behavior, mood, and affect are within normal limits. Vital Signs: 13:02 BP 176 / 94; Pulse 63; Resp 16; Temp 97.8(TE); Pulse Ox 100% on R/A; Weight 122.47 kg; hb Height 5 ft. 3 in. ; Pain 8/10; 14:07 BP 130 / 70; Pulse 65; Resp 16; Pulse Ox 97% on R/A; vg1 15:30 BP 130 / 80; Pulse 69; Resp 16; Pulse Ox 98% on R/A; vg1 16:00 BP 119 / 70; Pulse 77; Resp 16; Pulse Ox 98% on R/A; hb 16:30 BP 121 / 64; Pulse 72; Resp 20; Pulse Ox 99% on R/A; vg1 17:30 BP 139 / 92; Pulse 70; Resp 19; Pulse Ox 99% ; vg1 19:00 BP 127 / 78; Pulse 68; Resp 18; Pulse Ox 99% on R/A; vg1 19:30 BP 119 / 57; Pulse 67; Resp 16 S; Pulse Ox 100% on R/A; ha1 20:22 BP 113 / 62; Pulse 64; Resp 16; Pulse Ox 100% on R/A; ll3 13:02 Body Mass Index 47.83 (122.47 kg, 160.02 cm) hb 13:02 Pain Scale: Adult hb MDM: 13:20 Patient medically screened. snw 15:31 Differential diagnosis: abnormal EKG, anxiety, chest wall pain, esophagitis, gastritis, snw gastroesophageal reflux disease (GERD), pancreatitis, stable angina, unstable angina. HEART Score: History: Slightly Suspicious (0), ECG: Non specific repolarization disturbance / LBTB / PM (1), Age: > 45 and < 65 years (1), Risk Factors: 1 or 2 risk factors (1), Troponin: < or = 1 x Normal Limit (0), Total Score = 3. 15:32 The patient was not given aspirin in the Emergency Department. Not indicated due to snw patient's past medical history. Data reviewed: vital signs, nurses notes. Management of patient was discussed with the following: Hospitalist: Dr. Sharif. Counseling: I had a detailed discussion with the patient and/or guardian regarding: the historical points, exam findings, and any diagnostic results supporting the discharge/admit diagnosis, lab results, radiology results, the need for further work-up and treatment in the hospital. Response to treatment: There is no appreciated change of the patient's symptoms at this time. Admission orders: after a detailed discussion of the patient's condition and case, the admit orders are written by me. 10/30 13:22 Order name: Basic Metabolic Panel; Complete Time: 14:40 snw 10/30 13:22 Order name: CBC with Diff; Complete Time: 15:13 snw 10/30 13:22 Order name: LFT's; Complete Time: 14:40 snw 10/30 13:22 Order name: Magnesium; Complete Time: 14:40 snw 10/30 13:22 Order name: NT PRO-BNP; Complete Time: 14:40 snw 10/30 13:22 Order name: PT-INR; Complete Time: 14:24 snw 10/30 13:22 Order name: Troponin HS; Complete Time: 14:40 snw 10/30 14:13 Order name: CBC Smear Scan; Complete Time: 15:13 [facility] 10/30 16:09 Order name: Basic Metabolic Panel [facility] 10/30 16:09 Order name: Basic Metabolic Panel [facility] 10/30 16:09 Order name: CBC with Automated Diff [facility] 10/30 16:09 Order name: CBC with Automated Diff [facility] 10/30 16:09 Order name: Lipid Profile [facility] 10/30 16:09 Order name: Lipid Profile [facility] 10/30 16:09 Order name: Troponin High Sensitivity [facility] 10/30 16:09 Order name: Troponin High Sensitivity [facility] 10/30 16:09 Order name: Troponin High Sensitivity [facility] 10/30 16:09 Order name: Troponin High Sensitivity [facility] 10/30 16:09 Order name: Troponin High Sensitivity; Complete Time: 18:48 EDMS 10/30 13:22 Order name: XRAY Chest (1 view); Complete Time: 14:37 snw 10/30 13:22 Order name: CT Head Brain wo Cont; Complete Time: 14:02 snw 10/30 16:09 Order name: Echo with Doppler [facility] 10/30 13:22 Order name: EKG; Complete Time: 13:23 snw 10/30 16:09 Order name: CONS Physician Consult [facility] 10/30 16:09 Order name: Heart Healthy [facility] 10/30 13:22 Order name: Cardiac monitoring; Complete Time: 13:36 snw 10/30 13:22 Order name: EKG - Nurse/Tech; Complete Time: 13:23 snw 10/30 13:22 Order name: IV Saline Lock; Complete Time: 14:05 snw 10/30 13:22 Order name: Labs collected and sent; Complete Time: 14:05 snw 10/30 13:22 Order name: O2 Per Protocol; Complete Time: 13:36 snw 10/30 13:22 Order name: O2 Sat Monitoring; Complete Time: 13:36 snw EC:18 Rate is 61 beats/min. Rhythm is regular. QRS [place] is Normal. NV interval is normal. QRS snw interval is normal. Clinical impression: NSR w/ Non-specific ST/T Changes and poor R wave progression. Administered Medications: 14:00 Drug: Pantoprazole IVP 40 mg Route: IVP; Site: left antecubital; vg1 15:42 Follow up: Response: No adverse reaction; Pain is decreased vg1 15:40 Drug: Potassium Chloride IV 20 mEq Route: IV; Rate: calculated rate; Site: left vg1 antecubital; 15:40 Drug: NS 0.9% IV 250 ml Route: IV; Rate: 100 ml/hr; Site: left antecubital; vg1 19:51 Not Given (Physician Discretion): Potassium Chloride IV 20 mEq IV at calculated rate kd3 once; administer over 1-2 hours 19:58 Drug: Potassium Chloride PO 40 mEq Route: PO; ll3 Disposition Summary: 10/30/22 15:31 Hospitalization Ordered Hospitalization Status: Observation snw Provider: Gama Sharif [place] Location: Telemetry/MedSurg (observation) snw Condition: Stable snw Problem: new snw Symptoms: have improved snw Bed/Room Type: Standard snw Room Assignment: 207(10/30/22 17:00) Diagnosis - Hypokalemia snw - Chest pain, unspecified snw Forms: - Medication Reconciliation Form snw - SBAR form snw Signatures: Dispatcher [employer] [facility] Linda Greene FNP-C BAKING ASSISTANT-Csnw Ary Mueller RN RN hb Botello, Elizabeth eb Garcia, Victoria RN RN vg1 Katina Chang RN RN ll3 Nan Garza PA-C PA-C sb4 Ana Rivas RN kd3 Corrections: (The following items were deleted from the chart) 17:00 15:31 cynthia cole
[2022-10-30] MEDS ORDERED: KCL 20 MEQ/100 mL IVPB 200 ML IV ONE (15:34)
[2022-10-30] MEDS ORDERED: NA CHLORIDE 0.9% 250 ML ONE (15:34)
[2022-10-30] MEDS ORDERED: NA CHLORIDE 0.9% 500 ML ONE (18:20)
[2022-10-30] MEDS ORDERED: POTASSIUM CL SA 10 MEQ TAB PO ONE (20:01)
[2022-10-30] MEDS: METOPROLOL TAR 50 MG TAB PO SCH (21:15)
[2022-10-30] MEDS: MORPHINE 4 MG/ML SYR IV PRN (21:19)
[2022-10-30 23:37] VITALS: BMI 48.6
[2022-10-31 03:11] LABS: Absolute Lymphocytes (CBC) 3.5 K/uL (0.7-4.9); Hematocrit 35.1 % (36.0-45.0); Lymphocytes % 52.4 % (15.3-44.8); MCV 91.3 fL (80-100); MPV 7.6 fL (7.6-11.3); RBC Red Blood Cell Count 3.84 M/uL (3.86-4.86)
[2022-10-31 03:35] LABS: Potassium 3.2 mEq/L (3.5-5.1); Troponin High Sensitivity 4.8 pg/mL (<58.9)
[2022-10-31] MEDS: METOPROLOL TAR 50 MG TAB PO SCH ×2 (08:40→21:46)
[2022-10-31] MEDS: ENOXAPARIN 40 MG/0.4 ML SQ SCH (08:41)
[2022-10-31] MEDS: ASPIRIN EC 81 MG TAB PO SCH (08:41)
[2022-10-31] MEDS: MORPHINE 4 MG/ML SYR IV PRN (08:52)
[2022-10-31] MEDS ORDERED: POTASSIUM CL SA 10 MEQ TAB PO ONE (14:46)
--- NOTE | 2022-10-31 17:37 | CON ---
Date of Consultation: 10/31/2022 Reason For Consultation: Chest pain. History Of Present Illness: A 57-year-old female who presented to the emergency room with chest pain , pressure like, left-sided, no radiation, along with shortness of breath on minimal activity. She a pparently had a problem with her left foot, so orthopedic surgeon put her on oral steroids and she st arted getting more short of breath with activities and steroids were stopped due to that. Past Medical History: Hypertension and vertigo. Medications: Refer to reconciliation sheet for detailed list. Allergies: DOXAZOSIN AND NALBUPHINE. Family History: No premature coronary artery disease or cancer. Social History: She does not smoke or drink. Does not use any drugs. Review of Systems: All systems reviewed and they were negative except what mentioned in HPI. Physical Examination: Vital Signs: Reviewed. Head and Neck: Pupils are equal, reactive to light. Intact eye movements. No JVD. No cervical lym phadenopathy. Neck is supple. Thyroid is not enlarged. Lungs: Clear to auscultation bilaterally. No rhonchi, wheezing, or crackles. No accessory muscle u se. Heart: Regular rate and rhythm. No extra sounds. Abdomen: Soft, nontender. Bowel sounds positive. No organomegaly. No masses or hernia. No rigidi ty or rebound. Extremities: No edema, clubbing, or cyanosis. Intact pulses. Skin: No rash. Neurologic: Alert, awake, oriented x3. No acute focal deficits appreciated. Lymph Nodes: No cervical or axillary lymphadenopathy. Investigations: Hemoglobin 11.5 and cardiac enzymes are normal. BUN 13, creatinine 0.79. Assessment And Plan: 1.Chest pain. It is atypical pain, but she has shortness of breath on exertion also. I will check a D-dimer. If that is elevated, then obtain CTA of the lungs. As far as her chest pain, the patient had a coronary angiogram on September 2020 that was totally normal. This is unlikely to be acute schultz ry syndrome. 2.Shortness of breath on minimal exertion, could be fluid retention due to the use of steroids. She is off steroids now. She does not have any signs of fluid retention. I will check D-dimer as above . 3.Hypertension. Blood pressure was very high at presentation, now it has improved. Probably, it wa s steroid induced. SR/MODL Voice ID: [id number] Report ID: [id number]
[2022-10-31] MEDS ORDERED: ALBUTEROL 2.5 MG/3 ML NEB SOL NEB PRN (21:57)
--- NOTE | 2022-10-31 23:21 | P.HP ---
Certification for Inpatient Patient admitted to: Observation With expected LOS: <2 Midnights Patient will require the following post-hospital care: None Practitioner: I am a practitioner with admitting privileges, knowledge of patient current condition, hospital course, and medical plan of care. Services: Services provided to patient in accordance with Admission requirements found in Title 42 Section 412.3 of the Code of Federal Regulations Patient History Date of Service: 10/30/22 Reason for admission: Shortness of breath; CP History of Present Illness: Patient is a 57-year-old female who came the hospital with shortness of breath. 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 She has been on steroids and this may be the reason for some of her symptoms. She had a cardiac catheterization done 2 years ago was completely normal coronary arteries. Her BNP is negative. She states her blood pressure was elevated. She may have had some pulmonary edema that developed from diastolic heart failure. She will be admitted to the hospital for further workup. Cardiac catheterization did not show any coronary artery disease so very unlikely to have developed heart disease at this time. We will get echocardiogram and possible CT PE protocol. If these are negative then she should be able to discharge home. Allergies hydroxyzine HCl [From Vistaril] Allergy (Mild, Verified 10/30/22 23:01) Hives/Rash hydroxyzine pamoate [From Vistaril] Allergy (Mild, Verified 10/30/22 23:01) Hives/Rash nalbuphine HCl [From Nubain] Allergy (Mild, Verified 10/30/22 23:01) Shortness of breath Home Medications: Aspirin [Aspirin EC 81 MG] 81 mg PO DAILY #90 tablet. 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 moist/pink, EOMI, Sclerae nonicteric Neck: Supple, 2+ carotid pulse no bruit, No LAD, Without JVD or thyroid abnormality Respiratory: Clear to auscultation bilaterally, Normal air movement Cardiovascular: Regular rate/rhythm, Normal S1 S2, No murmurs Gastrointestinal: Normal bowel sounds, Soft and benign, Non-distended, No tenderness, No rebound, No guarding Musculoskeletal: No clubbing, No swelling, No tenderness Integumentary: No rashes Neurological: Normal gait, Normal speech, Normal strength at 5/5 x4 extr, Normal tone, Normal affect Lymphatics: No axilla or inguinal lymphadenopathy Assessment & Plan - Problems (Diagnosis) (1) Shortness of breath Current Visit: Yes Status: Acute (2) Uncontrolled hypertension Current Visit: Yes Status: Acute (3) (HFpEF) heart failure with preserved ejection fraction Current Visit: Yes Status: Acute - Plan 1. Echocardiogram 2. Strict BP control 3. Continue with Beta humble 4. Cardiology consultation 5. Gente diuresis 6. Strict I's and O's 7. Repeat CXR 8. Daily weights 9. Ddimer 10. Education regarding diet and treatment of congestive heart failure Discharge Plan: Home Plan to discharge in: 24 Hours - Advance Directives Does patient have a Living Will: No Does patient have a Durable POA for Healthcare: No - Code Status/Comfort Care Code Status Assessed: Yes Code Status: Full Code Critical Care: No Time Spent Managing PTS Care (In Minutes): 45
--- NOTE | 2022-10-31 23:24 | P.PN ---
Date of Service: 10/31/22 Subjective Still with shortness of breath. D-dimer pending. Echocardiogram pending. Anticipate discharge in the morning. Physical Examination - Vital Signs reviewed - Physical Exam General: Alert, In no apparent distress, Oriented x3 Respiratory: Clear to auscultation bilaterally, Normal air movement Cardiovascular: Regular rate/rhythm, Normal S1 S2, No murmurs Gastrointestinal: Normal bowel sounds, Soft and benign, Non-distended, No tenderness, No rebound, No guarding Musculoskeletal: No clubbing, No swelling, No tenderness Neurological: No focal deficits Assessment & Plan - Problems (Diagnosis) (1) Shortness of breath Current Visit: Yes Status: Acute (2) Uncontrolled hypertension Current Visit: Yes Status: Acute (3) (HFpEF) heart failure with preserved ejection fraction Current Visit: Yes Status: Acute - Plan Plan of care as mentioned below: 1. Echocardiogram pending 2. Strict BP control; improved 3. Continue with Beta humble; stable 4. Cardiology consultation appreciated 5. Gentle diuresis 6. Strict I's and O's 7. Repeat CXR 8. Daily weights 9. Ddimer pending 10. Education regarding diet and treatment of congestive heart failure
[2022-11-01] MEDS: MORPHINE 4 MG/ML SYR IV PRN (03:20)
[2022-11-01 03:54] LABS: Absolute Lymphocytes (CBC) 2.5 K/uL (0.7-4.9); Hematocrit 36.1 % (36.0-45.0); Lymphocytes % 39.4 % (15.3-44.8); MCV 91.5 fL (80-100); MPV 7.6 fL (7.6-11.3); RBC Red Blood Cell Count 3.95 M/uL (3.86-4.86)
[2022-11-01 04:35] LABS: AST/SGOT 12 U/L (15-37); Albumin 3.2 g/dL (3.4-5.0); Alkaline Phosphatase 57 U/L (45-117); BUN Blood Urea Nitrogen 14 mg/dL (7-18); Bicarbonate 30 mEq/L (21-32); Bilirubin Total 0.4 mg/dL (0.2-1.0); Glomerular Filtration Rate 87 ml/min (=/>90); Glucose Level 97 mg/dL (74-106); Potassium 3.8 mEq/L (3.5-5.1); Protein, Total 6.8 g/dL (6.4-8.2); Sodium Level 138 mEq/L (136-145)
[2022-11-01 04:38] LABS: ALT/SGPT < 10 U/L (13-56)
[2022-11-01] MEDS: ENOXAPARIN 40 MG/0.4 ML SQ SCH (08:43)
[2022-11-01] MEDS: METOPROLOL TAR 50 MG TAB PO SCH (08:44)
[2022-11-01] MEDS: ASPIRIN EC 81 MG TAB PO SCH (08:44)
[2022-11-01 09:07] VITALS: TEMP 97
[2022-11-01 13:20] VITALS: BP 135/63
--- NOTE | 2022-11-01 14:05 | PN ---
Date of Progress Note: 11/01/2022 Subjective: Seen by bedside. She is still doing well. No distress. Review of Systems: No chest pain, shortness of breath, orthopnea, cough. No nausea, vomiting, diarrhea. All other syst ems reviewed and they were negative. Physical Examination: Vital Signs: Reviewed. Head and Neck: Pupils are equal, reactive to light. Intact eye movements. No JVD. No cervical lym phadenopathy. Neck is supple. Thyroid is not enlarged. Lungs: Clear to auscultation bilaterally. No rhonchi, wheezing, or crackles. No accessory muscle u se. Heart: Regular rate and rhythm. No extra sounds. Abdomen: Soft, nontender. Bowel sounds positive. No organomegaly. No masses or hernia. No rigidi ty or rebound. Extremities: No edema, clubbing, or cyanosis. Intact pulses. Skin: No rash. Neurologic: Alert, awake, oriented x3. No acute focal deficits appreciated. Investigations: D-dimer was negative and cardiac enzymes have been negative. Assessment And Recommendations: 1.Chest pain. Negative cardiac enzymes. Heart catheterization with no significant coronary artery disease within the past 3 years. The patient can be released and follow up as an outpatient. If she continues to be symptomatic, we will obtain stress test and an echo as an outpatient. 2.Fluid retention, probably a steroid induced. Encouraged to follow a low-salt diet and we can place her on diuretics if needed. 3.Hypertension. Blood pressure is controlled. SR/MODL Voice ID: [id number] Report ID: [id number]
--- NOTE | 2022-11-01 15:25 | EKG ---
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
[2022-11-01 16:45] VITALS: O2SAT 99
--- NOTE | 2022-11-02 09:01 | ECHO ---
HEIGHT: 5 ft 3 in WEIGHT: 274 lb 11.136 oz DATE OF STUDY: 11/01/[address]: Deep Chandra MD 2-DIMENSIONAL: YES M.MODE: YES DOPPLER: YES COLOR FLOW: YES TDS: YES PORTABLE: YES DEFINITY: BUBBLE STUDY: DIAGNOSIS: CHEST PAIN, RULE OUT ACUTE CORONARY SYNDROME CARDIAC HISTORY: CATHERIZATION: NO SURGERY: NO PROSTHETIC VALVE: NO PACEMAKER: NO MEASUREMENTS (cm) DIASTOLIC (NORMALS) SYSTOLIC (NORMALS) IVSd 1.2 (0.6-1.2) LA Diam 2.5 (1.9-4.0) LVEF 52% LVIDd 4.5 (3.5-5.7) LVIDs 3.3 (2.0-3.5) %FS 27% LVPWd 1.3 (0.6-1.2) Ao Diam 2.3 (2.0-3.7) 2 DIMENSIONAL ASSESSMENT: RIGHT ATRIUM: NORMAL LEFT ATRIUM: NORMAL RIGHT VENTRICLE: NORMAL LEFT VENTRICLE: NORMAL TRICUSPID VALVE: NORMAL MITRAL VALVE: NORMAL PULMONIC VALVE: NORMAL AORTIC VALVE: NORMAL PERICARDIAL EFFUSION: NONE AORTIC ROOT: NORMAL LEFT VENTRICULAR WALL MOTION: NORMAL DOPPLER/COLOR FLOW: NORMAL COMMENTS: 1. NORMAL 2-DIMENSIONAL ECHOCARDIOGRAM WITH DOPPLER. 2. NO WALL MOTION ABNORMALITY 3. NO EFFUSION TECHNOLOGIST: LORRI SINGLETON
== END 2022-11-01 16:12 | disposition home or self-care (01) ==
LOC: ER 12:52 → ERHOLD 16:04 → 2ND 19:20
PROVIDERS: ADMIT Hospitalist; ATTEND Hospitalist
DX: R06.02 Shortness of breath (principal); I10 Essential (primary) hypertension; I50.31 Acute diastolic (congestive) heart failure; R07.9 Chest pain, unspecified; R60.9 Edema, unspecified
CPT/HCPCS: 36415; 70450; 71045; 80048; 80053; 80061; 80076; 83735; 83880; 84484; 85025; 85379; 85610; 93005; 93306; C9113; J1650; J3480; J7040; J7050

== ENCOUNTER 2023-04-26 19:47 | Observation (INO) | payer OTHER, SELFPAY ==
--- OUTSIDE RECORDS SUMMARY | 2023-04-26 19:53 | XMS REPORT | Continuity of Care Document ---
:1965 Author Organization [facility] t Address [address] [facility] Last. [address] [place] [address] Care Team Providers Name Role Phone DOMI QUINONEZ JR Primary Care Physician Unavailable THUAN_GCBZW_Mechea_S Attending Clinician Unavailable Etienne MO Attending Clinician Unavailable Etienne Hernandez Attending Clinician Julian Wise MD Attending Clinician Graham Dorantes MD Attending Clinician THUAN_GCBZW_Mechea_S Admitting Clinician Unavailable Etienne MO Admitting Clinician Unavailable Graham Dorantes [...] Active U nivers 7-15 ity of 00:00: [place] 00 Medical Branch Morbid Morbid Disease Active Univers obesity obesity 7-15 ity of with body with [place] mass index mass index 00 Me dical of of Branch 40.0-49.9 40.0-49.9 Essential Essential Disease Active Uni vers hypertensi hypertensi 7-15 it y of on on 00:00: [place] 00 Medical Branch Dizziness Dizziness Disease Active Uni vers 7-15 ity of 00:00: [place] [facility] Headache Headache Disease Active Unive rs 7-15 ity of 00:00: [place] 00 Medical Branch Allergies, Adverse Reactions, Alerts Allergy Allergy Status Severity Reaction(s) Onset Inactive Treating Comm ents Source Name Type Date Date Clinician Mesna - Propensi Active Intraven ty to 628 ous adverse 00:00: reaction 00 to drug [...] Branch Vistaril Propensi Active 2015-06 ty to 2- adverse 00:00: reaction 00 to drug Social History Social Habit Start Date Stop Date Quantity Comments Source Exposure to 2021-10-03 2021-10-13 Not sure [facility] SARS-CoV-2 00:00:00 19:35:00 [place] [facility] (event) Branch Tobacco use and 2017-12-25 2017-12-25 Never used Universit y of exposure 00:00:00 00:00:00 [facility] [place] Branch Alcohol intake 2017-12-25 2017-12-25 Current University of 00:00:00 00:00:00 non-drinker of [facility] alcohol Branch (finding) Sex Ass[birth year] At [birth year] Universit y of 00:00:00 00:00:00 [facility] Smoking Status Start Date Stop Date Source Never smoker [facility] Medical Branch Medications Ordered Filled Start Stop Current Ordering Indication Dosage Frequency Signature Comments Components Source Medication Medication Date Date Medication? Clinician (SIG) Name Name TAKE ONE 2021-0 No 160 TABLET 9-03 DAILY FOR 00:00: MIGRAINE 00 HEADACHE PREVENTION TAKE ONE 2021-0 No TABLET 9-03 DAILY FOR 00:00: MIGRAINE 00 HEADACHE PREVENTION TAKE ONE 2021-0 No 160 TABLET 9-03 DAILY FOR 00:00: MIGRAINE 00 HEADACHE PREVENTION TAKE 1 2021-0 No TABLET BY 8-26 MOUTH TWICE 00:00: DAILY 00 TAKE 1 2021-0 No TABLET BY 8-26 MOUTH TWICE 00:00: DAILY 00 TAKE 1 2021-0 No TABLET BY 8-26 MOUTH TWICE 00:00: DAILY 00 hydrochloro 2021-0 No 1mg thiazide 25 6-28 mg tablet 00:00: 00 hydrochloro 2021-0 No 1mg thiazide 25 6-28 mg tablet 00:00: 00 hydrochloro 2021-0 No 1mg thiazide 25 6-28 mg tablet 00:00: 00 KCL 2021-0 2021- No 40meq 40 mEq, Univers (KLOR-CON 10-14- Oral, ity of M20) tablet 03:45: 02:55 [place] 1 [place] mEq 00 :00 dose, On Medical 10/13/21 Branch at 2245, Routine methylpredn 2021- No 125mg 125 mg, U nivers isolone sod 10-14- Slow IV ity of succ 02:30: 01:45 [facility], [place] (SOLU-MEDRO 00 :00 ONCE, 1 Medic al L) dose, On Branch injection 10/13/21 125 mg at 2130, ABAD methylPREDN 2021-0 Yes [id number] Take by Univers ISolone - mouth ity of (MEDROL, 00:00: SEE-INSTRU Manpreet as NIRAJ,) 4 mg 00 CTIONS. Medica l tablets follow Branch package directions Augmentin 2021-0 No 1mg 500 mg-125 4-16 mg tablet 00:00: 00 benzonatate 2021-0 No 1mg 200 mg 4-16 capsule 00:00: 00 Dose 2021-0 No Unknown 4-16 00:00: 00 Dose 2021-0 No Unknown 4-16 00:00: 00 Augmentin 2021-0 No 1mg 500 mg-125 4-16 mg tablet 00:00: 00 benzonatate 2-0 No 1mg 200 mg 4-16 capsule 00:00: 00 Dose 2022-0 No Unknown 4-16 00:00: 00 Dose 2022-0 No Unknown 4-16 00:00: 00 Augmentin 2-0 No 1mg 500 mg-125 4-16 mg tablet 00:00: 00 benzonatate 2-0 No 1mg 200 mg 4-16 capsule 00:00: 00 Dose 2022-0 No Unknown 4-16 00:00: 00 Dose 2-0 [...] 2-0 No Unknown 3-06 00:00: 00 Dose 2022-0 No Unknown 3-06 00:00: 00 Dose 2022-0 No Unknown 3-06 00:00: 00 Dose 2022-0 No Unknown 3-06 00:00: 00 Dose 2022-0 No Unknown 3-06 00:00: 00 Flovent HFA [...] 2022-0 No Unknown 3-05 00:00: 00 Dose 2-0 No Unknown 3-05 00:00: 00 Dose 2-0 No Unknown 3-05 00:00: 00 Dose 2022-0 No Unknown 3-05 00:00: 00 Dose 2022-0 No Unknown 3-05 00:00: 00 Dose 2-0 [...] 2022-0 No Unknown 3-03 00:00: 00 ondansetron 2-0 No 1mg 4 mg 3-03 disintegrat 00:00: ing tablet 00 benzonatate 2-0 No 1mg 100 mg 3-03 capsule 00:00: [...] 3-03 00:00: 00 Dose 2022-0 No Unknown 3- 00:00: 00 Dose 2022-0 No Unknown 3- 00:00: 00 Dose 2022-0 No Unknown 3- 00:00: 00 Dose 2022-0 No Unknown 3- 00:00: 00 Dose 2022-0 No Unknown 3- 00:00: 00 Dose 2022-0 No Unknown 3- 00:00: 00 Dose 2022-0 No Unknown 3- 00:00: 00 Dose 2022-0 No Unknown 3- 00:00: 00 Dose 2022-0 No Unknown 3- 00:00: 00 Dose 2021-0 No Unknown 3-03 00:00: 00 enoxaparin Yes 40mg 40 mg, Unive rs (LOVENOX) 02-08 Subcutaneo ity of injection 14:00[place] 00 First dose Medical on [place] [facility] 02/08/21 at 0900, Until Discontinu ed, Routine hydroCHLORO Yes 25mg Take 25 mg Univers thiazide 25 02-07 by mouth ity of mg tablet 23:51: daily. [address] traZODONE Yes 50mg Take 50 mg Un rubin 50 mg 02-07 by mouth ity of tablet 23:51: at [place] [address] bedtime. [facility] Branch aspirin 81 Yes 81mg Take 81 mg U nivers mg chewable 02-07 by mouth ity of tablet 23:51: as needed. [address] Branch azithromyci Yes 250mg Take 250 [...] 250 mg days 2 to 5. iopamidol 202- No [id number] 100mL 100 mL, Univers (ISOVUE 8-28 08-28 Intravenou ity o f 370-500 mL) 20:45: 20:45 s, ONCE, 1 [place] injection 00 :00 dose, Sat Medic al 100 mL 02/07/21 at Branch 1545, Routine aspirin 2020- No 325mg 325 mg, Unive rs tablet 325 02-07 Oral, ity of mg 19:45: 22:03 ONCE, 1 [place] 00 :00 dose, Sat [facility] 02/07/21 at Branch 1445, STAT nitroglycer Yes .4mg 0.4 mg, Uni vers in 02-07 Sublingual ity of (NITROSTAT) 18:56: , Q5MIN Manpreet as sublingual 00 PRN, Medical tablet 0.4 Starting Branc h mg [facility] 02/07/21 at 1356, Until Discontinu ed, Routine, Chest pain morpHINE 2020- No 2mg 2 mg, Slow Un rubin injection 2 02-07 IV Push, ity of mg 18:55: 18:54 Q4HPRN, [place] 48 :48 Starting Medical Sat [facility] 02/07/21 at 1355, Until 02/08/21 at 1354, Routine, Pain (scale 7-10), Chest pain acetaminoph Yes 650mg 650 mg, Un rubin en 02-07 Oral, ity of (TYLENOL) 18:55: Q6HPRN, [place] tablet 650 36 Starting Medic al mg Sat [facility] 02/07/21 at 1355, Until Discontinu ed, Routine, Pain (scale 1-3) azithromyci Yes 250mg Take 250 U nivers n 02-07 mg by ity of (ZITHROMAX 18:51: mouth [place] Z-NIRAJ) 250 41 daily. Medical mg tablet Take 500 Branch mg day 1, then 250 mg days 2 to 5. hydroCHLORO Yes 25mg Take 25 mg Univers thiazide 25 02-07 by mouth ity of mg tablet 18:51: daily. [address] traZODONE Yes 50mg Take 50 mg Un rubin 50 mg 02-07 by mouth ity of tablet 18:51: at [place] [address] bedtime. [facility] Branch aspirin 81 0 Yes 81mg Take 81 mg U nivers mg chewable 8-28 by mouth ity of tablet 18:51: as needed. [place] 41 Medical Branch azithromyci 0 Yes 250mg Take 250 U nivers n [...] 00:00: 00 butalbital- 2015-06 No 1mg acetaminoph 2- en-caffeine 00:00: 50 mg-300 00 mg-40 mg [...] amlodipine 2015-06 No 1mg 5 mg tablet 07-14 00:00: 00 sumatriptan 2015- No 12mg 25 mg 2 tablet 00:00: 00 Vital Signs Vital Name Observation Time Observation Value Comments Source Systolic blood 2021-10-14 02:57:00 139 mm[Hg] Univer sity of [facility] Diastolic blood 2021-10-14 02:57:00 76 mm[Hg] Unive rsity of [facility] Heart rate 2021-10-14 02:57:00 63 /min Universi ty of [facility] Body temperature 2021-10-14 02:57:00 36.5 [place] Univ ersity [facility] Respiratory rate 2021-10-14 02:57:00 12 /min [facility] Oxygen saturation in 2021-10-14 02:57:00 99 /min University of Arterial blood by [place] [employer] lexi Pulse oximetry Branch Body weight 2021-10-13 23:15:00 117.935 kg Universi ty [facility] BMI 2021-10-13 23:15:00 46.06 kg/m2 Universi ty [facility] Heart rate 2021-02-07 22:00:00 79 /min Universi ty [facility] Respiratory rate 2021-02-07 22:00:00 21 /min [facility] Oxygen saturation in 2021-02-07 22:00:00 98 /min University of Arterial blood by [place] [facility] lexi Pulse oximetry Branch Systolic blood 2021-02-07 21:00:00 166 mm[Hg] Univer sity of [facility] Diastolic blood 2021-02-07 21:00:00 131 mm[Hg] Unive rsity [facility] [place] Body temperature 2021-02-07 20:00:00 36.83 [place]le Univ ersity of [facility] Body weight 2021-02-07 16:56:00 120.203 kg Universi ty [facility] BMI 2021-02-07 16:56:00 46.94 kg/m2 Universi ty [facility] BP Systolic 2022-04-09 13:37:00 138 mm[Hg] BP [...] CHEST 1 VW 2021-10-14 01:21:33 Etienne Mo [facility] POCT GLUCOSE(AGE 2021-10-14 00:50:00 Etienne Mo [facility] >30DAYS) [facility] POCT GLUCOSE 2021-10-14 00:49:00 Etienne Mo [facility] (AUTOMATED) [facility] TROPONIN I 2021-10-14 00:38:00 Etienne Mo [facility] THYROID STIMULATING 2021-10-14 00:38:00 Etienne Mo [facility] HORMONE Medical Branch COMP. METABOLIC PANEL 2021-10-14 00:38:00 Etienne Mo [facility] ([id number]) Medical Branch CBC WITH DIFF 2021-10-14 00:38:00 Etienne Mo Yoly [facility] N-TERMINAL PRO-BNP 2021-10-14 00:38:00 Etienne Mo [facility] NOTICE OF PRIVACY 2021-10-13 23:11:47 Doctor Unassigned, No [facility] Medical Branch CONSENT/REFUSAL FOR 2021-10-13 23:11:10 Doctor Unassigned, No [facility]REAT[facility] Name [facility] TROPONIN I 2021-02-07 22:16:00 Graham Dorantes [facility] CT CHEST PULMONARY 2021-02-07 19:40:28 Graham Dorantes [facility] ANGIOGRAM [facility] Branch PROTHROMBIN TIME / INR 2021-02-07 18:58:00 Graham Dorantes [facility] D-DIMER 2021-02-07 18:58:00 [facility] ACTIVATED PARTIAL 2021-02-07 18:58:00 Jose E Graham [facility] THRMPLAS TERESO [facility] XR CHEST 1 VW 2021-02-07 17:53:12 [facility] TROPONIN I 2021-02-07 17:25:00 Frandy Julian [facility] COMP. METABOLIC PANEL 2021-02-07 17:25:00 Julian Wise [facility] ([id number]) Medical Branch CBC WITH DIFF 2021-02-07 17:25:00 Julian Wise [facility] N-TERMINAL PRO-BNP 2021-02-07 17:25:00 Julian Wise [facility] COVID-19 (ID NOW RAPID 2021-02-07 17:25:[address] [facility] TESTING) Medical Branch NOTICE OF PRIVACY 2021-02-07 16:55:14 Doctor Unassigned, No [facility] PRACTICES Name Medical Branch Plan of Care Planned Activity Planned Date Details Comments Source Goal Plan of Care Note [code = 93687-2] Goal Plan of Care Note [code = 85856-9] Goal Plan of Care Note [code = 50859-7] Goal Plan of Care Note [code = 69462-8] Goal Plan of Care Note [code = 23703-7] Goal Plan of Care Note [code = 33887-1] Goal Plan of Care Note [code = 94455-6] Goal Plan of Care Note [code = 18392-7] Goal Plan of Care Note [code = 17785-7] Goal Plan of Care Note [code = 94721-8] Goal Plan of Care Note [code = 08937-3] Goal Plan of Care Note [code = 89785-3] Goal Plan of Care Note [code = 82875-2] Goal Plan of Care Note [code = 46090-6] Goal Plan of Care Note [code = 73554-5] Goal Plan of Care Note [code = 12176-5] Goal Plan of Care Note [code = 56943-9] Goal Plan of Care Note [code = 26719-6] Goal Plan of Care Note [code = 72467-9] Goal Plan of Care Note [code = 57852-5] Goal Plan of Care Note [code = 69982-8] Goal Plan of Care Note [code = 79279-2] Goal Plan of Care Note [code = 60689-9] Goal Plan of Care Note [code = 85449-6] Goal Plan of Care Note [code = 26276-0] Goal Plan of Care Note [code = 25192-6] Goal Plan of Care Note [code = 38203-9] Goal Plan of Care Note [code = 42551-0] Goal Plan of Care Note [code = 30664-5] Goal Plan of Care Note [code = 15681-2] Goal Plan of Care Note [code = 06342-5] Goal Plan of Care Note [code = 49335-8] Goal Plan of Care Note [code = 47953-9] Goal Plan of Care Note [code = 71713-1] Goal Plan of Care Note [code = 80367-9] Goal Plan of Care Note [code = 88886-5] Goal Plan of Care Note [code = 11956-2] Goal Plan of Care Note [code = 90301-1] Goal Plan of Care Note [code = 90640-7] Goal Plan of Care Note [code = 36672-7] Goal Plan of Care Note [code = 97632-7] Goal Plan of Care Note [code = 97274-5] Goal Plan of Care Note [code = 39259-9] Goal Plan of Care Note [code = 09400-8] Goal Plan of Care Note [code = 07439-2] Goal Plan of Care Note [code = 36986-5] Goal Plan of Care Note [code = 95581-2] Encounters Start End Encounter Admission Attending Care Care Encounter Source Date/Time Date/Time Type Type Clinicians Facility Department ID 2023-04-09 2023-04-09 Outpatient GC_GCBZW_Ka PRIV PRIV [id number] [facility] 00:00:00 00:00:00 Daniela [id number] [facility] 2022-07-21 2022-07-21 Outpatient SFA SFA [id number] Shashank 16:28:19 16:28:19 0208 [facility] [place] 2022-07-14 2022-07-14 Outpatient SFA SFA [id number] Shashank 15:02:34 15:02:34 0201 F [place] 2022-05-24 2022-05-24 Outpatient SFA SFA [id number] Shashank 17:04:46 17:04:46 1212 F [place] 2022-04-09 2022-04-09 Outpatient SFA SFA [id number] Shashank 13:29:18 13:29:18 1028 F [place] 2022-04-09 2022-04-09 Outpatient [id number] 00:00:00 00:00:00 Visit [id number] 151-487b-9 -9abb-fcb abb-fcb5f7 9t52v6g0a 6d3b2c 2022-02-12 2022-02-12 Outpatient [id number] 00:00:00 00:00:00 Visit eecb-4a6c ecb-4a6c-9 -4gn7-6wo bf5-7bb59e [id number] 0h453n 2021-12-08 2021-12-08 Outpatient [id number] 00:00:00 00:00:00 Visit 091b-4bec 91b-4bec-b -bab7-bda ab7-bda1a1 [id number] 2021-10-13 2021-10-13 Emergency X Etienne MO [facility] ERT [id number] Univers 18:25:00 [facility] 2021-10-13 2021-10-13 Emergency Etienne Mo [facility] [id number] Univers 18:25:00 22:45:00 Yoly ORTE[place] [id number] i [facility] 4.2.7.2.686 [facility] [id number] [address] 2021-02-07 2021-02-07 Emergency Julian Wise [facility] [id number] Univers 11:59:00 18:51:00 [id number] 4.2.7.2.686 [facility] [id number] [address] 2021-02-07 2021-02-07 Emergency X [facility] ERT [id number] Univers 11:52:00 11:52:00 [facility] Results Test Description Test Time Test Comments [...] . . . . . NG/ML 30-100 [id number] 04:31:56 Test Item Value Reference Range Interpretation Comments NT-proBNP <50 PG/ML SEE BELOW If NT-ProBNP i s less than 300 (test code = PG/ML, heart fa ilure is unlikely 53401) for allages. Age............ .....Heart Failure Likely <50 Years.......... .>=450 PG/ML 50-75 Years.... .....>=900 PG/ML > 75 Years..... .....>=1800 PG/ML Methodology: Ro estefania Wyatt Electrochemilum inescense Immunoassay [facility] has important patho logy staff changes effecti ve 08/11/2022. New patholo gy staff will provide uninter rupted, excellent patient care an d clinical consultation. S ee URL: [email or web address]. UNLESS OTHERWIS E INDICATED, ALL TESTING PERFORM ED AT CLINICAL PATHOLOGY [facility], [facility]. [address] [place] [address] CLIA: [id number], CAP : [id number] TSH, THIRD [id number] 04:30:14 Test Item Value Reference Range Interpretation Comments TSH, THIRD GENERATION (test code 1.410 UIU/ML 0.400-4.100 = 2821) VITAMIN [id number] 04:30:14 Test Item Value Reference Range Interpretation Comments VITAMIN B-12 (test code = 2840) 323 PG/ML 200-950 [id number] 11:09:48 Test Item Value Reference Range Interpretation [...] established for disseminatedint ra-vascu lar coagulation (DIC). [facility] has imp ortant pathology staff changes effective 08/11. New an[place]ette gy staff will provide uninterrupted, excellent patie nt care and clinical consultation. S ee URL: [email or web address]. UNLESS OTHERWISE INDIC ATED, ALL TESTING PER FORMED AT [facility] [place]. [address] [facility] [place] CLIA: [id number], CAP: [id number] [Autom ated message] The sy stem which generated this result transmit taniya reference range : <=0.49. The ref erence range was not u sed to interpret this result as normal/abnor mal. CBC W/AUTO DIFF WITH [id number] 03:30:03 Test Item Value Reference Range Interpretation [...] RBCS 0.00 K/UL 0.00-0.11 (test code = 73214) COMPREHENSIVE METABOLIC [id number] 03:13:06 Test Item Value Reference Range Interpretation Comments GLUCOSE (test code = 92 MG/DL 70-99 2216) BUN (test code = 10 MG/DL 6-20 2207) CREATININE (test 0.89 MG/DL 0.60-1.30 code = 2213) eGFR (2020 CKD-EPI) 75 ML/MIN/1.73 >60 (test code = 82533) CALC BUN/CREAT (test 11 RATIO 6-28 code = 2235) SODIUM (test code = 144 MEQ/L 178-885 8808) POTASSIUM (test code 3.8 MEQ/L 3.5-5.4 = [...] RATIO (test 1.7 RATIO 1.0-2.6 code = 2234) BILIRUBIN, TOTAL 0.3 MG/DL See_Comment [Automated message] (test code = 2207) The syste m which generated this result transmit taniya reference range : <=1.2. The refe rence range was not u sed to interpret th is result as normal/abnormal . ALKALINE PHOSPHATASE 66 U/L 40-136 (test code = 220) AST (test code = 15 U/L 9-40 2217) ALT (test code = 7 U/L 5-40 2218) COMPREHENSIVE METABOLIC [id number] 05:44:51 Test Item Value Reference Range Interpretation Comments GLUCOSE (test code = 92 MG/DL 70-99 2216) BUN (test code = 9 MG/DL 6-20 2207) CREATININE (test 0.78 MG/DL 0.60-1.30 code = 221) eGFR (2020 CKD-EPI) 88 ML/MIN/1.73 >60 (test code = 88530) CALC BUN/CREAT (test 12 RATIO 6-28 code = 2235) SODIUM (test code = 144 MEQ/L 905-997 7311) POTASSIUM (test code 3.3 MEQ/L 3.5-5.4 L = 2227) CHLORIDE (test code 101 MEQ/L 95-107 = 2214) CARBON DIOXIDE (test 31 MEQ/L 19-31 code = 220) CALCIUM (test code = 9.8 MG/DL 8.5-10.5 2208) PROTEIN, TOTAL (test 7.7 G/DL 6.1-8.3 code = 222) ALBUMIN (test code = 4.6 G/DL 3.5-5.2 2200) CALC GLOBULIN (test 3.1 G/DL 1.9-3.7 code = 2240) CALC A/G RATIO (test 1.5 RATIO 1.0-2.6 code = 2234) BILIRUBIN, TOTAL 0.4 MG/DL See_Comment [Automated message] [...] code = 6 U/L 5-40 2218) LIPID [id number] 05:44:51 Test Item Value Reference Range Interpretation [...] MOREINFORMATION , SEE CLIENT ANNOUNCE MENT AT [email or web address] [email or web address] RATIO LDL/HDL 0.86 RATIO <3.22 UNLESS O THERWISE (test code = 223) INDICATED , ALL TESTING PERFORMED [facility], [facility]. [address] [place] [address] [facility] DIRECTOR: TRISHA MUNSON M.D. CLIA NUMBER [id number] CAP ACCREDITATION N O. [id number] CBC WITH [id number] 01:46:24 Test Item Value Reference Range Interpretation Comments WBC (test code = See_Comment [Automated 8990-2) message] The sy stem which generated this result transmitted reference range : 4.30 - 11.10 10*3/?L. The reference range was not used to interpret this result as normal/abnormal . RBC (test code = See_Comment [Automated 839-8) message] The sy stem which generated this [...] RDW-SD (test code = 44.4 fL 39.0-49.9 43449-3) RDW-CV (test code = 13.6 % 12.0-15.5 788-0) PLT (test code = See_Comment [Automated 267-3) message] The sy stem which generated this result transmitted reference range : 166 - 358 10*3/ ?L. The reference r darius was not used to interpret this result as normal/abnormal . MPV (test code = 9.5 fL 9.5-12.9 11024-1) NRBC/100 WBC (test See_Comment [Automat ed code = 4255429392) message] The system which generated this result transmitted reference range : 0.0 - 10.0 /100 WBCs. The refer ence range was not u sed to interpret th is result as normal/abnormal . NRBC x10^3 (test code <0.01 See_Comment [Auto mated = 5574918700) message] The s ystem which generated this result transmitted reference range : 10*3/?L. The reference range was not used to interpret this result as normal/abnormal . SEG % (test code = 47 % 33-76 67022-5) LYMPH % (test code = 45 % 14-54 37314-2) MONO % (test code = 5 % 0-4 H 02776-4) EOS % (test code = 3 % 0-3 14107-8) ANC (test code = 2.18 10*3/uL 1.88-7.09 753-4) SPHEROCYTES (test code 2+ A = 802-9) Lab Interpretation Abnormal (test code = 08450-7) [facility] [id number] 01:34:03 Test Item Value Reference Range Interpretation Comments TSH (test code = See_Comment Biotin has been [id number]) reported to cau se a negative bias, interpret resul ts relative to pat ient's use of biotin. [Automated mess age] The system whic h generated this result transmitted ref erence range: 0.45 - 4 .70 mIU/L. The refe rence range was not u sed to interpret this result as normal/abnor mal. Lab Interpretation (test Normal code = 82365-5) [facility] [id number] 01:15:00 Test Item Value Reference Interpretation Comments Range TROPONIN I (test 0.001 ng/mL See_Comment [Automated code = 0372766264) message] The system which generated this result [...] biotin. Lab Interpretation Normal (test code = 08117-6) [facility] [id number] 01:11:38 Test Item Value Reference Range Interpretation Comments NT-proBNP (test code 35 pg/mL See_Comment [Autom ated = 4646947024) message] The system which generated this result transmitted reference range : <=125. The reference range was not used to interpret this result as normal/abnormal . SANTO (test code = SANTO) Biotin has been reported to cause a negative bias, interpret results relative to patient's use of biotin. Lab Interpretation Normal (test code = 95356-6) [facility]. METABOLIC PANEL (70372)2021-10-14 01:02:55 Test Item Value Reference Range Interpretation Comments NA (test code = 142 mmol/L 135-145 5319548476) K (test code = 3.3 mmol/L 3.5-5.0 L 3780922331) CL (test code = 100 mmol/L 98-108 1286747165) CO2 TOTAL (test code = 30 mmol/L 23-31 1070857995) AGAP (test code = 2-16 3945161131) BUN (test code = 11 mg/dL 7-23 2047641079) GLUCOSE (test code = 108 mg/dL 70-110 7114996593) CREATININE (test code = 0.71 mg/dL 0.50-1.04 7022957164) TOTAL BILI (test code = 0.6 mg/dL 0.1-1.9 6561034096) CALCIUM (test code = 8.8 mg/dL 8.6-10.6 0027538763) T PROTEIN (test code = 7.1 g/dL 6.3-8.2 3642684472) ALBUMIN (test code = 4.2 g/dL 3.5-5.0 4396834930) ALK PHOS (test code = 61 U/L 34-122 2259135172) ALTv (test code = 8 U/L 5-35 1742-6) AST(SGOT) (test code = 21 U/L 13-40 9581844029) eGFR (test code = mL/min/1.73m2 8355367732) SANTO (test code = SANTO) Association of [...] tests). Lab Interpretation Abnormal (test code = 56231-6) [facility] GLUCOSE (AUTOMATED)2021-10-14 00:58:37 Test Item Value Reference Range Interpretation Comments POCT GLU (test code = 0813183472) 109 mg/dL 70-110 Lab Interpretation (test code = Normal 41850-7) [facility] >30DAYS)2021-10-14 00:50:00 Test Item Value Reference Range Interpretation Comments POCT Glu (age>30days) (test code = 109 mg/dL 70-110 3342) Lab Interpretation (test code = Normal 36192-8) [facility] ([facility]OVID-19) by RT-PCR (HIGH RISK) 2021-02-21 00:00:00 Test Item Value Reference Range Interpretation Comments SARS-CoV-2 INTERPRETATION NEGATIVE (test code = 47924) SOURCE (test code = 74227) NASOPHARYNGEAL SARS-CoV-2 (COVID-19) by RT-PCR (HIGH RISK)2021-02-21 00:00:00 Test Item Value Reference Range Interpretation Comments SARS-CoV-2 INTERPRETATION NEGATIVE (test code = 27037) SOURCE (test code = 08132) NASOPHARYNGEAL SARS-CoV-2 (COVID-19) by RT-PCR (HIGH RISK)2021-02-21 00:00:00 Test Item Value Reference Range Interpretation Comments SARS-CoV-2 INTERPRETATION NEGATIVE (test code = 33891) SOURCE (test code = 30593) NASOPHARYNGEAL SARS-CoV-2 (COVID-19) by RT-PCR (HIGH RISK)2021-02-21 00:00:00 Test Item Value Reference Range Interpretation Comments SARS-CoV-2 INTERPRETATION NEGATIVE (test code = 96288) SOURCE (test code = 85716) NASOPHARYNGEAL SARS-CoV-2 (COVID-19) by RT-PCR (HIGH RISK)2021-02-21 00:00:00 Test Item Value Reference Range Interpretation Comments SARS-CoV-2 INTERPRETATION NEGATIVE (test code = 16277) SOURCE (test code = 39397) NASOPHARYNGEAL SARS-CoV-2 (COVID-19) by RT-PCR (HIGH RISK)2021-02-21 00:00:00 Test Item Value Reference Range Interpretation Comments SARS-CoV-2 INTERPRETATION NEGATIVE (test code = 22713) SOURCE (test code = 78995) NASOPHARYNGEAL TROPONIN [id number] 22:50:08 Test Item Value Reference Range Interpretation Comments TROPONIN I (test code = 0.001 ng/mL See_Comment [Au tomated 6002030219) message] The sy stem which generated this result transmitted reference range : <=0.034. The reference range was not used to interpret this result as normal/abnormal . SANTO (test code = SANTO) Lab Interpretation Normal (test code = 01781-2) [facility] [id number] 20:59:34 1. No pulmonary emboli. 2. Scattered [...] lesions are detected.The soft tissues appear normal. [facility], Radiant Results Inft User - 02/07/2021 4:00 [...] reviewed this study and agree with theabove report.[facility] CenterD-[id number] 19:37:33 Test Item Value Reference Range Interpretation Comments D-DIMER (test code = See_Comment H [Autom ated message] 9445122736) The system [employer] generated this result transmitted ref erence range: <0.41 ?g /mL (FEU). The refe rence range was not u sed to interpret this result as normal/abnor mal. SANTO (test code = SANTO) Lab Interpretation (test Abnormal code = 08180-8) [facility]ACT[facility] THRMPLAS [id number] 19:30:55 Test Item Value Reference Range Interpretation Comments APTT Patient (test code = See_Comment [ Automated message] 3173-2) The system [employer] h generated this result transmitted ref erence range: 23 - 38 Seconds. The re ference range was not u sed to interpret this result as normal/abnor mal. SANTO (test code = SANTO) Lab Interpretation (test Normal code = 12743-6) [facility] CenterPROT[facility]OM[facility] TIME / [id number] 19:28:54 Test Item Value Reference Range Interpretation Comments PROTIME PATIENT (test See_Comment [Auto mated message] code = 5964-2) The system wh ich generated this result transmitted ref erence range: 12.0 - 1 4.7 Seconds. The re ference range was not u sed to interpret this result as normal/abnor mal. INR (test code = 6301-6) Lab Interpretation (test Normal code = 84346-4) [facility] CenterXR [facility]ST 1 [id number] 18:41:28 1. ?Low lung volumes without focal [...] lung volumes without foc al infiltrate.RL: 1105 [facility] [id number] 18:06:10 Test Item Value Reference Range Interpretation Comments TROPONIN I (test code = 0.002 ng/mL See_Comment [Au tomated [id number]) message] The sy stem which generated this result transmitted reference range : <=0.034. The reference range was not used to interpret this result as normal/abnormal . SANTO (test code = SANTO) Lab Interpretation Normal (test code = 33430-5) [facility] CenterN-TERMINAL [id number] 18:02:53 Test Item Value Reference Range Interpretation Comments NT-proBNP (test code = 97 pg/mL See_Comment [Aut omated message] 1152471857) The system [employer] generated this result transmitted ref erence range: <=125. T he reference range was not used to int erpret this result as normal/abnormal . SANTO (test code = SANTO) Lab Interpretation (test Normal code = 82626-3) [facility] CenterCOMP. METABOLIC PANEL (04601)2021-02-07 17:55:47 Test Item Value Reference Range Interpretation Comments NA (test code = 7245925339) 142 mmol/L 135-145 K (test code = 4774154538) 3.8 mmol/L 3.5-5.0 CL (test code = 6149139016) 102 mmol/L 98-108 CO2 TOTAL (test code = 6962573495) 29 mmol/L 23-31 AGAP (test code = 7757257941) 2-16 BUN (test code = 3860519034) 15 mg/dL 7-23 GLUCOSE (test code = 5022032934) 98 mg/dL 70-110 CREATININE (test code = 0.66 mg/dL 0.50-1.04 7845631543) TOTAL BILI (test code = 0.7 mg/dL 0.1-1.5 7954906514) CALCIUM (test code = 6802270437) 9.2 mg/dL 8.6-10.6 T PROTEIN (test code = 2813657332) 8.3 g/dL 6.3-8.2 H ALBUMIN (test code = 4899273301) 4.5 g/dL 3.5-5.0 ALK PHOS (test code = 0376751865) 65 U/L 34-122 ALTv (test code = 1742-6) 33 U/L 5-35 AST(SGOT) (test code = 8384772541) 44 U/L 13-40 H eGFR (test code = 4442287346) mL/min/1.73m2 SANTO (test code = SANTO) Lab Interpretation (test code = Abnormal 23234-6) [facility] CenterCOVID[facility] (ID NOW RAPID TESTING)2021-02-07 17:55:47 Test Item Value Reference Range Interpretation Comments SARS-CoV-2 Rapid ID NOW (test code = Positive Not Detected A 13280-2) SANTO (test code = SANTO) Lab Interpretation (test code = Abnormal 65204-8) [facility] CenterCB WITH [id number] 17:41:52 Test Item Value Reference Range Interpretation Comments WBC (test code = See_Comment [Automated 0590-2) message] The sy stem which generated this [...] RDW-SD (test code = 48.4 fL 39.0-49.9 73988-2) RDW-CV (test code = 14.6 % 12.0-15.5 788-0) PLT (test code = See_Comment H [Automated 777-3) message] The sy stem which generated this result transmitted reference range : 166 - 358 10*3/ ?L. The reference r darius was not used to interpret this result as normal/abnormal . MPV (test code = 9.2 fL 9.5-12.9 L 30595-1) NRBC/100 WBC (test See_Comment [Automat ed code = 4274695101) message] The system which generated this result transmitted reference range : 0.0 - 10.0 /100 WBCs. The refer ence range was not u sed to interpret th is result as normal/abnormal . NRBC x10^3 (test code <0.01 See_Comment [Auto mated = 0239931822) message] The s ystem which generated this result transmitted reference range : 10*3/?L. The reference range was not used to interpret this result as normal/abnormal . GRAN MAT (NEUT) % 74.0 % (test code = 770-8) IMM GRAN % (test code 1.60 % = 8722565791) LYMPH % (test code = 18.7 % 736-9) MONO % (test code = 5.3 % 5905-5) EOS % (test code = 0.2 % 713-8) BASO % (test code = 0.2 % 706-2) GRAN MAT x10^3(ANC) 7.07 10*3/uL 1.88-7.09 (test code = 4825655137) IMM GRAN x10^3 (test 0.15 10*3/uL 0.00-0.06 H code = 7533790483) LYMPH x10^3 (test code 1.79 10*3/uL 1.32-3.29 = 731-0) MONO x10^3 (test code 0.51 10*3/uL 0.33-0.92 = 742-7) EOS x10^3 (test code = <0.03 0.03-0.39 L 711-2) BASO x10^3 (test code <0.03 0.01-0.07 = 704-7) Lab Interpretation Abnormal (test code = 77780-2) [facility] CenterSARS[facility] ([facility]OVID-19) by RT-PCR (HIGH RISK) 2020-07-06 00:00:00 Test Item Value Reference Range Interpretation Comments SARS-CoV-2 INTERPRETATION NEGATIVE (test code = 64804) SOURCE (test code = 70342) NASOPHARYNGEAL SARS-CoV-2 (COVID-19) by RT-PCR (HIGH RISK)2020-07-06 00:00:00 Test Item Value Reference Range Interpretation Comments SARS-CoV-2 INTERPRETATION NEGATIVE (test code = 50308) SOURCE (test code = 29464) NASOPHARYNGEAL SARS-CoV-2 (COVID-19) by RT-PCR (HIGH RISK)2020-07-06 00:00:00 Test Item Value Reference Range Interpretation Comments SARS-CoV-2 INTERPRETATION NEGATIVE (test code = 56413) SOURCE (test code = 18418) NASOPHARYNGEAL SARS-CoV-2 (COVID-19) by RT-PCR (HIGH RISK)2020-07-06 00:00:00 Test Item Value Reference Range Interpretation Comments SARS-CoV-2 INTERPRETATION NEGATIVE (test code = 94517) SOURCE (test code = 65740) NASOPHARYNGEAL SARS-CoV-2 (COVID-19) by RT-PCR (HIGH RISK)2020-07-06 00:00:00 Test Item Value Reference Range Interpretation Comments SARS-CoV-2 INTERPRETATION NEGATIVE (test code = 24540) SOURCE (test code = 61213) NASOPHARYNGEAL SARS-CoV-2 (COVID-19) by RT-PCR (HIGH RISK)2020-07-06 00:00:00 Test Item Value Reference Range Interpretation Comments SARS-CoV-2 INTERPRETATION NEGATIVE (test code = 51051) SOURCE (test code = 81732) NASOPHARYNGEAL"
[2023-04-26 20:38] LABS: Absolute Lymphocytes (CBC) 2.5 K/uL (0.7-4.9); Hematocrit 36.5 % (36.0-45.0); Lymphocytes % 50.8 % (15.3-44.8); MCV 90.4 fL (80-100); MPV 7.5 fL (7.6-11.3); Platelets 271 thou/uL (152-406); RBC Red Blood Cell Count 4.04 M/uL (3.86-4.86)
[2023-04-26] MEDS ORDERED: ASPIRIN 81 MG CHEWABLE TABLET ONE (20:39)
[2023-04-26 20:40] LABS: Protime INR 1.15
[2023-04-26 21:00] LABS: Albumin 3.6 g/dL (3.4-5.0); Bilirubin Direct 0.1 mg/dL (0-0.2); Bilirubin Indirect, Calculated 0.3 mg/dL (0.2-0.8); Bilirubin Total 0.4 mg/dL (0.2-1.0); Magnesium 2.2 mg/dL (1.6-2.4); Potassium 3.3 mEq/L (3.5-5.1); Protein, Total 7.4 g/dL (6.4-8.2); Troponin High Sensitivity 4.8 pg/mL (<58.9)
--- NOTE | 2023-04-26 21:12 | RAD REPORT ---
EXAM DESCRIPTION: US - Extremity Venous Uni Ltd - 04/26/2023 9:04 pm CLINICAL HISTORY: Left leg pain COMPARISON: None. TECHNIQUE: Real-time sonographic evaluation of the left lower extremity deep venous system was perfo rmed. FINDINGS: Normal compressibility, flow augmentation, phasic flow and spontaneous flow is identified in the left lower extremity deep venous system. No intraluminal filling defects seen. IMPRESSION: No evidence of DVT in the left lower extremity.
--- NOTE | 2023-04-26 22:32 | ER ---
Nurse's Notes [facility] Name: Zohreh Mabry Age: 57 yrs Sex: Female : 1965 Arrival Date: 04/26/2023 Time: 19:47 Bed 4 Private MD: Diagnosis: Chest pain, unspecified;Atypical chest pain, dyspnea on exertion, left lower extremity pain and swelling Presentation: 04/26 19:54 Chief complaint: Patient states: I started with left leg pain for 5 days where I can't pf1 stand for anything to touch it is swollen. Now I feel weird in my chest and some shortness of breath. I feel like I can't get comfortable. Coronavirus screen: Vaccine status: Patient reports receiving the 2nd dose of the covid vaccine. Moderna Client denies travel out of the [place] in the last 14 days. At this time, the client does not indicate any symptoms associated with coronavirus-19. Ebola Screen: Patient negative for fever greater than or equal to 101.5 degrees Fahrenheit, and additional compatible Ebola Virus Disease symptoms Patient denies exposure to infectious person. Patient denies travel to an Ebola-affected area in the 21 days before illness onset. No symptoms or risks identified at this time. Risk Assessment: Do you want to hurt yourself or someone else? Patient reports no desire to harm self or others. Onset of symptoms was April 21, 2023. 19:54 Method Of Arrival: Ambulatory pf1 19:54 Acuity: KERRY 3 pf1 20:03 Initial Sepsis Screen: Does the patient meet any 2 criteria? No. Patient's initial pf1 sepsis screen is negative. Does the patient have a suspected source of infection? No. Patient's initial sepsis screen is negative. Triage Assessment: 19:58 General: Appears in no apparent distress. uncomfortable, Behavior is calm, cooperative, pf1 appropriate for age. Pain: Complains of pain in left leg Pain radiates to anterior aspect of left shoulder Pain currently is 7 out of 10 on a pain scale. Quality of pain is described as pressure, Pain began 5 days ago. EENT: No deficits noted. No signs and/or symptoms were reported regarding the EENT system. Neuro: Level of Consciousness is awake, alert, obeys commands, Oriented to person, place, time, situation, Appropriate for age. Cardiovascular: Reports chest pain, shortness of breath, Chest pain quality is pressure. Respiratory: Airway is patent Respiratory effort is even, unlabored, Respiratory pattern is regular, symmetrical. GI: No deficits noted. No signs and/or symptoms were reported involving the gastrointestinal system. : No deficits noted. No signs and/or symptoms were reported regarding the genitourinary system. Derm: No deficits noted. No signs and/or symptoms reported regarding the dermatologic system. Historical: - Allergies: 19:57 Nubain; pf1 19:57 Vistaril; pf1 - Home Meds: 19:57 hydrochlorothiazide 25 mg Oral tablet daily [Active]; pf1 - PMHx: 19:57 Headaches; Hypertension; Vertigo; pf1 - PSHx: 19:57 breast; hysterectomy; tubal ligation; pf1 - Immunization history:: Client reports receiving the 2nd dose of the Covid vaccine, Flu vaccine is not up to date. - Social history:: Smoking status: Patient denies any tobacco usage or history of. - Family history:: not pertinent. Screenin:00 [facility] ED Fall Risk Assessment (Adult) History of falling in the last 3 months, pf1 including since admission No falls in past 3 months (0 pts) Confusion or Disorientation No (0 pts) Intoxicated or Sedated No (0 pts) Impaired Gait No (0 pts) Mobility Assist Device Used No (0 pt) Altered Elimination No (0 pt) Score/Fall Risk Level 0 - 2 = Low Risk Oriented to surroundings, Maintained a safe environment, Educated pt \T\ family on fall prevention, incl call for assistance when getting out of bed. Abuse screen: Denies threats or abuse. Nutritional screening: No deficits noted. Tuberculosis screening: No symptoms or risk factors identified. Assessment: 20:04 General: Appears uncomfortable, Behavior is calm, cooperative. Pain: Complains of pain ha1 in chest and epigastric area and left leg Pain does not radiate. Pain currently is 7 out of 10 on a pain scale. Quality of pain is described as burning, pressure. Neuro: Level of Consciousness is awake, alert, obeys commands, Oriented to person, place, time, situation. Cardiovascular: Reports chest pain, nausea, Heart tones S1 S2 present Capillary refill < 3 seconds Patient's skin is warm and dry. Rhythm is sinus rhythm. Respiratory: Airway is patent Respiratory effort is even, unlabored, Respiratory pattern is regular, symmetrical, Breath sounds are clear bilaterally. GI: Abdomen is round non-distended, Bowel sounds present X 4 quads. Reports nausea, vomiting. : No signs and/or symptoms were reported regarding the genitourinary system. Derm: Skin is moist, Skin is normal. Musculoskeletal: Circulation, motion, and sensation intact. Range of motion: intact in all extremities. 21:20 Reassessment: Patient appears in no apparent distress at this time. No changes from jw7 previously documented assessment. Patient and/or family updated on plan of care and expected duration. Pain level reassessed. Patient is alert, oriented x 3, equal unlabored respirations, skin warm/dry/pink. 22:30 Reassessment: Patient and/or family updated on plan of care and expected duration. Pain ha1 level reassessed. Patient is alert, oriented x 3, equal unlabored respirations, skin warm/dry/pink. pain 4/10. Pain only on the left leg Patient states feeling better. Patient states symptoms have improved. 23:14 General: attempted to call report, nurse will call back . jw7 23:33 General: Report given to receiving nurse. jw7 Vital Signs: 19:54 Weight 120.2 kg; Height 5 ft. 3 in. ; Pain 7/10; pf1 20:02 BP 156 / 97; Pulse 75; Resp 12; Temp 98.3; Pulse Ox 98% ; pf1 20:31 BP 115 / 95; Pulse 72; Resp 17 S; Pulse Ox 98% on R/A; ha1 21:35 BP 140 / 79; Pulse 68; Resp 17 S; Pulse Ox 99% on R/A; ha1 22:30 BP 121 / 62; Pulse 61; Resp 12 S; Pulse Ox 99% on R/A; jw7 23:07 BP 127 / 68; Pulse 65; Resp 15 S; Pulse Ox 97% on R/A; jw7 19:54 Body Mass Index 46.94 (120.20 kg, 160.02 cm) pf1 19:54 Pain Scale: Adult pf1 ED Course: 19:54 Patient arrived in ED. pf1 19:57 Triage completed. pf1 20:00 Arm band placed on right wrist. pf1 20:04 Mario Alberto Yañez MD is Attending Physician. sp4 20:04 Patient has correct armband on for positive identification. Placed in gown. Bed in low ha1 position. Call light in reach. Side rails up X 1. 20:10 Inserted saline lock: 20 gauge in left antecubital area, using aseptic technique. Blood ha1 collected. 20:30 Basic Metabolic Panel Sent. ha1 20:30 CBC with Diff Sent. ha1 20:30 D-Dimer Sent. ha1 20:30 LFT's Sent. ha1 20:30 Magnesium Sent. ha1 20:30 NT PRO-BNP Sent. ha1 20:30 PT-INR Sent. ha1 20:30 Troponin HS Sent. ha1 21:05 Extremity Venous Uni Ltd US In Process Unspecified. EDMS 22:29 Gama Sharif is Hospitalizing Provider. sp4 23:07 Provided Education on: need for admit. jw7 23:08 No provider procedures requiring assistance completed. jw7 23:13 Patient admitted, IV remains in place. jw7 Administered Medications: 20:33 Drug: Ondansetron IVP 8 mg IVP once; over 2 minutes Route: IVP; Site: left antecubital; jw7 21:00 Follow up: Response: No adverse reaction; Nausea is decreased ha1 20:34 Drug: Aspirin PO Chewable Tablet 324 mg PO once; 81 mg tablets x 4 Route: PO; jw7 23:36 Follow up: Response: No adverse reaction jw7 20:34 Drug: Promethazine PO 25 mg PO once Route: PO; jw7 21:00 Follow up: Response: No adverse reaction; Nausea is decreased ha1 22:25 Drug: morphine IVP or IV 4 mg IVP once over 4 mins Route: IVP; Infused Over: 4 mins; as6 Site: left antecubital; 23:14 Follow up: Response: No adverse reaction; Marked relief of symptoms jw7 22:25 Drug: Ketorolac IVP 30 mg IVP once Route: IVP; Site: left antecubital; as6 23:15 Follow up: Response: No adverse reaction; Marked relief of symptoms jw7 Medication: 20:03 VIS not applicable for this client. pf1 Outcome: 22:31 Decision to Hospitalize by Provider. sp4 23:13 Admitted to Med/surg accompanied by nurse, via wheelchair, room 224, jw7 23:13 Condition: stable 23:13 Instructed on the need for admit, Demonstrated understanding of instructions, 23:36 Patient left the ED. jw7 Signatures: Dispatcher [employer] EDMS Agustin Downey, RN RN as6 Delmi Burch RN RN jw7 Lore Luciano, RN RN ha1 Alina Collins RN RN pf1 Mario Alberto Yañez MD MD sp4 Corrections: (The following items were deleted from the chart) 23:13 22:30 Reassessment: Patient appears in no apparent distress at this time. No changes jw7 from previously documented assessment. Patient and/or family updated on plan of care and expected duration. Pain level reassessed. Patient is alert, oriented x 3, equal unlabored respirations, skin warm/dry/pink. jw7
--- NOTE | 2023-04-26 22:32 | EDPHYS ---
Physician Documentation [facility] Name: Zohreh Mabry Age: 57 yrs Sex: Female : 1965 Arrival Date: 04/26/2023 Time: 19:47 Bed 4 Private MD: ED Physician Mario Alberto Yañez HPI: 04/26 20:04 This 57 yrs old Black Female presents to ER via Ambulatory with complaints of Gen sp4 complaint. 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 Patient also states that she has had left lower extremity discomfort for 1 week associated with pain in the left foot. Patient has past medical history of vertigo, hypertension, chronic back pain, GERD. Patient was admitted on 01/01/2023 for chest pain and dizziness. Patient was evaluated . Last echocardiography was October 2022 revealed EF of 52% with no abnormalities. Manager Database Administration has seen the patient and noted that the recent heart catheter revealed no coronary artery blockages. . Cardiology assessment from prior admission - Assessment And Recommendations: 1. Chest pain. It is atypical. Cardiac enzymes are negative. Coronary angiogram in the recent past was negative. No further cardiac workup is recommended. From Cardiology standpoint, the patient can be released. Follow up as an outpatient. 2. Hypertension. Blood pressure is controlled. Continue current management. Cardiology will sign off.. Patient's medications include aspirin, HCTZ 25 mg daily, ibuprofen as needed pain.. Historical: - Allergies: 19:57 Nubain; pf1 19:57 Vistaril; pf1 - Home Meds: 19:57 hydrochlorothiazide 25 mg Oral tablet daily [Active]; pf1 - PMHx: 19:57 Headaches; Hypertension; Vertigo; pf1 - PSHx: 19:57 breast; hysterectomy; tubal ligation; pf1 - Immunization history:: Client reports receiving the 2nd dose of the Covid vaccine, Flu vaccine is not up to date. - Social history:: Smoking status: Patient denies any tobacco usage or history of. - Family history:: not pertinent. ROS: 20:29 Constitutional: Negative for fever, chills, and weight loss, positive chest pressure sp4 positive left lower extremity discomfort and positive shortness of breath today. 20:29 All other systems are negative, Exam: 20:29 Constitutional: This is a well developed, well nourished patient who is awake, alert, sp4 and in no acute distress. Head/Face: Normocephalic, atraumatic. Eyes: Pupils equal round and reactive to light, extra-ocular motions intact. Lids and lashes normal. Conjunctiva and sclera are not injected. Cornea within normal limits. Periorbital areas with no swelling, redness, or edema. ENT: Nares patent. No nasal discharge, no septal abnormalities noted. Tympanic membranes are normal and external auditory canals are clear. Oropharynx with no redness, swelling, or masses, exudates, or evidence of obstruction, uvula midline. Mucous membranes moist. Neck: Trachea midline, no thyromegaly or masses palpated, and no cervical lymphadenopathy. Supple, full range of motion without nuchal rigidity, or vertebral point tenderness. Chest/axilla: Normal chest wall appearance and motion. Nontender with no deformity. No lesions are appreciated. Cardiovascular: Regular rate and rhythm with a normal S1 and S2. No gallops, murmurs, or rubs. Normal PMI, no JVD. No pulse deficits. Respiratory: Lungs have equal breath sounds bilaterally, clear to auscultation and percussion. No rales, rhonchi or wheezes noted. No increased work of breathing, no retractions or nasal flaring. Abdomen/GI: Soft, non-tender, with normal bowel sounds. No distension or tympany. No guarding or rebound. No evidence of tenderness throughout. Back: No spinal tenderness. No costovertebral tenderness. Skin: Warm, dry with normal turgor. Normal color with no rashes, no lesions, and no evidence of cellulitis. MS/ Extremity: Pulses equal, no cyanosis. Neurovascular intact. Full, normal range of motion. Neuro: Awake and alert, GCS 15, oriented to person, place, time, and situation. Cranial nerves II-XII grossly intact. Motor strength 5/5 in all extremities. Sensory grossly intact. Psych: Awake, alert, with orientation to person, place and time. Behavior, mood, and affect are within normal limits 20:30 ECG was reviewed by the Attending Physician. EKG time 2018, sinus bradycardia at the sp4 rate of 57 otherwise normal EKG, no ectopy, no ST elevation or depression Vital Signs: 19:54 Weight 120.2 kg; Height 5 ft. 3 in. ; Pain 7/10; pf1 20:02 BP 156 / 97; Pulse 75; Resp 12; Temp 98.3; Pulse Ox 98% ; pf1 20:31 BP 115 / 95; Pulse 72; Resp 17 S; Pulse Ox 98% on R/A; ha1 21:35 BP 140 / 79; Pulse 68; Resp 17 S; Pulse Ox 99% on R/A; ha1 22:30 BP 121 / 62; Pulse 61; Resp 12 S; Pulse Ox 99% on R/A; jw7 23:07 BP 127 / 68; Pulse 65; Resp 15 S; Pulse Ox 97% on R/A; jw7 19:54 Body Mass Index 46.94 (120.20 kg, 160.02 cm) pf1 19:54 Pain Scale: Adult pf1 MDM: 20:11 Patient medically screened. sp4 22:24 Differential Diagnosis altered mental status, sepsis, flu, Acute coronary syndrome, sp4 congestive heart failure, pulmonary embolus. Data reviewed: vital signs, nurses notes, old medical records, lab test result(s), EKG, radiologic studies, ultrasound. Consideration of Admission/Observation Patient was admitted/placed on observation. Escalation of care including admission/observation considered. Management of patient was discussed with the following: Hospitalist: Discussed with admission team. . ED course: US - EXAM DESCRIPTION: US - Extremity Venous Uni Ltd - 04/26/2023 9:04 pm CLINICAL HISTORY: Left leg pain COMPARISON: None. TECHNIQUE: Real-time sonographic evaluation of the left lower extremity deep venous system was performed. FINDINGS: Normal compressibility, flow augmentation, phasic flow and spontaneous flow is identified in the left lower extremity deep venous system. No intraluminal filling defects seen. IMPRESSION: No evidence of DVT in the left lower extremity. . ED course: Patient reports persistent chest pressure and left lower extremity discomfort and pain. Patient was ordered IV morphine. We have requested admission for observation overnight for rule out ACS. At this time patient is stable for admission to telemetry floor. May benefit from cardiology consult. 04/26 20:11 Order name: Basic Metabolic Panel; Complete Time: 21:50 sp4 04/26 20:11 Order name: CBC with Diff; Complete Time: 21:50 sp4 04/26 20:11 Order name: D-Dimer; Complete Time: 21:50 [facility] 04/26 20:11 Order name: LFT's; Complete Time: 21:50 [facility] 04/26 20:11 Order name: Magnesium; Complete Time: 21:50 [facility] 04/26 20:11 Order name: NT PRO-BNP; Complete Time: 21:50 [facility] 04/26 20:11 Order name: PT-INR; Complete Time: 21:50 [facility] 04/26 20:11 Order name: Troponin HS; Complete Time: 21:50 [facility] 04/26 20:11 Order name: COVID-19 SARS RT PCR; Complete Time: 21:50 [facility] 04/26 21:52 Order name: Troponin High Sensitivity: collect at 23:00 [facility] 04/26 20:10 Order name: Extremity Venous Uni Ltd US; Complete Time: 21:50 [facility] 04/26 20:11 Order name: EKG; Complete Time: 20:11 [facility] 04/26 20:11 Order name: Cardiac monitoring; Complete Time: 20:22 [facility] 04/26 20:11 Order name: EKG - Nurse/Tech; Complete Time: 20: [facility] 04/26 20:11 Order name: IV Saline Lock; Complete Time: 20:22 [facility] 04/26 20:11 Order name: Labs collected and sent; Complete Time: 20: [facility] 04/26 20:11 Order name: O2 Per Protocol; Complete Time: 20: [facility] 04/26 20:11 Order name: O2 Sat Monitoring; Complete Time: 20:22 sp4 EC:30 Rate is 57 beats/min. Rhythm is regular, Sinus bradycardia. QRS [place] is Normal. [place] sp4 interval is normal. QRS interval is normal. QT interval is normal. No Q waves. T waves are Normal. No ST changes noted. Clinical impression: Sinus bradycardia and No evidence of ischemia. Interpreted by me. Reviewed by me. Administered Medications: 20:33 Drug: Ondansetron IVP 8 mg IVP once; over 2 minutes Route: IVP; Site: left antecubital; jw7 21:00 Follow up: Response: No adverse reaction; Nausea is decreased ha1 20:34 Drug: Aspirin PO Chewable Tablet 324 mg PO once; 81 mg tablets x 4 Route: PO; jw7 23:36 Follow up: Response: No adverse reaction jw7 20:34 Drug: Promethazine PO 25 mg PO once Route: PO; jw7 21:00 Follow up: Response: No adverse reaction; Nausea is decreased ha1 22:25 Drug: morphine IVP or IV 4 mg IVP once over 4 mins Route: IVP; Infused Over: 4 mins; as6 Site: left antecubital; 23:14 Follow up: Response: No adverse reaction; Marked relief of symptoms jw7 22:25 Drug: Ketorolac IVP 30 mg IVP once Route: IVP; Site: left antecubital; as6 23:15 Follow up: Response: No adverse reaction; Marked relief of symptoms jw7 Disposition Summary: 04/26/23 22:31 Hospitalization Ordered Notes: Hospitalization Status: Observation sp4 Provider: Gama Sharif spJimmy Location: Telemetry/MedSurg (observation) sp4 Condition: Stable sp4 Problem: new sp4 Symptoms: have improved sp4 Bed/Room Type: Standard sp4 Room Assignment: 224(04/26/23 23:03) as6 Diagnosis - Chest pain, unspecified sp4 - Atypical chest pain, dyspnea on exertion, left lower extremity pain and swelling sp4 Forms: - Medication Reconciliation Form sp4 - SBAR form sp4 - Leadership Thank You Letter sp4 Signatures: Dispatcher [employer] Agustin Araya RN RN as6 Delmi Burch RN RN jw7 Alina Collins RN RN pf1 Mario Alberto Yañez MD MD sp4 Lore Luciano RN ha1 Corrections: (The following items were deleted from the chart) 23:03 22:31 sp4 as6
[2023-04-26] MEDS ORDERED: KETOROLAC 30 MG/ML INJ ONE (22:35)
[2023-04-26] MEDS ORDERED: MORPHINE 4 MG/ML SYR ONE (22:35)
--- NOTE | 2023-04-26 22:42 | P.HP ---
Certification for Inpatient Patient admitted to: Observation With expected LOS: <2 Midnights Patient will require the following post-hospital care: None Practitioner: I am a practitioner with admitting privileges, knowledge of patient current condition, hospital course, and medical plan of care. Services: Services provided to patient in accordance with Admission requirements found in Title 42 Section 412.3 of the Code of Federal Regulations Patient History Date of Service: 04/26/23 Reason for admission: Chest Pain History of Present Illness: Ms. Mabry is a 57 year old female with past medical history of hypertension, vertigo, GERD, and chronic back pain who presented to the emergency department with complaints of exertional chest pain with radiation to her left shoulder associated with shortness of breath. She also reports progressively worsening left foot pain, denies any injury, states the foot is even sensitive to touch, in the area of her heel. She has not had a cardiac cath or stress test in several years, although they were negative in the past. In the ED, lab work is unremarkable- troponin negative, EKG normal, chest xray clear, ddimer negative, ultrasound of left leg negative for DVT. She received aspirin, IVF, morphine, zofran, toradol, and phenegran in the emergency department. Vital signs have been stable. She reports moderate improvement in symptoms. ED provider wishes to admit patient for observation for ACS rule out. Allergies hydroxyzine HCl [From Vistaril] Allergy (Mild, Verified 10/30/22 23:01) Hives/Rash hydroxyzine pamoate [From Vistaril] Allergy (Mild, Verified 10/30/22 23:01) Hives/Rash nalbuphine HCl [From Nubain] Allergy (Mild, Verified 10/30/22 23:01) Shortness of breath gadobutrol Allergy (Verified 01/03/23 08:28) Hives/Rash Home medications list reviewed: Yes Home Medications: Aspirin [Aspirin EC 81 MG] 81 mg PO DAILY #90 tablet. 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 moist/pink, EOMI, Sclerae nonicteric Neck: Supple, JVD not distended Respiratory: Clear to auscultation bilaterally, Normal air movement Cardiovascular: Regular rate/rhythm, Normal S1 S2 Gastrointestinal: Normal bowel sounds, No tenderness Musculoskeletal: No tenderness Integumentary: No rashes Neurological: Normal speech, Normal affect - Studies Laboratory Data (last 24 hrs) 04/26/23 04/26/23 04/26/23 20:20 20:20 20:20 WBC 4.80 Hgb 12.0 Hct 36.5 Plt Count 271 PT 12.6 H INR 1.15 Sodium 137 Potassium 3.3 L BUN 8 Creatinine 0.80 Glucose 90 Magnesium 2.2 Total Bilirubin 0.4 AST 13 L ALT 11 L Alkaline Phosphatase 68 Assessment and Plan - Problems (Diagnosis) (1) Chest pain Current Visit: Yes Status: Acute (2) Hypertension Current Visit: Yes Status: Chronic Qualifiers: Hypertension type: primary hypertension Qualified Code(s): I10 - Essential (primary) hypertension - Plan Patient is admitted for ACS rule out. Trend troponin. Initial negative. Ddimer negative, low suspicion for PE. Last echo done 6 months ago was normal. Consider stress test if chest pain persists. Monitor on telemetry. Consult cardiology. Check lipid panel. Foot pain most consistent with neuropathy. Daily aspirin. Lovenox for VTE prophylaxis. Full code. Discharge Plan: Home Plan to discharge in: 24 Hours - Advance Directives Does patient have a Living Will: No Does patient have a Durable POA for Healthcare: No - Code Status/Comfort Care Code Status Assessed: Yes Code Status: Full Code Physician Review: Patient Assessed, Agree with Above Assessment and Plan Critical Care: No Time Spent Managing Pts Care (In Minutes): 50
[2023-04-27] MEDS ORDERED: ONDANSETRON 4 MG/2 ML VIAL IV PRN (00:04)
[2023-04-27] MEDS ORDERED: ACETAMINOPHEN 500 MG TAB PO PRN (00:04)
[2023-04-27 00:42] VITALS: O2SAT 98; BMI 46.9
[2023-04-27 02:55] LABS: Absolute Lymphocytes (CBC) 2.3 K/uL (0.7-4.9); Hematocrit 35.8 % (36.0-45.0); Lymphocytes % 52.8 % (15.3-44.8); MCV 90.4 fL (80-100); MPV 7.8 fL (7.6-11.3); Platelets 238 thou/uL (152-406); RBC Red Blood Cell Count 3.96 M/uL (3.86-4.86)
[2023-04-27 03:10] LABS: Magnesium 2.3 mg/dL (1.6-2.4); Phosphorus 3.6 mg/dL (2.5-4.9); Potassium 3.3 mEq/L (3.5-5.1); Troponin High Sensitivity 4.6 pg/mL (<58.9)
[2023-04-27] MEDS ORDERED: POTASSIUM CL SA 10 MEQ TAB PO ONE (06:00)
[2023-04-27] MEDS ORDERED: INFLUENZA VACCINE (for 6+ mo) 0.5 ML DOSE IMVAC ONE (08:00)
[2023-04-27] MEDS ORDERED: ENOXAPARIN 40 MG/0.4 ML SQ SCH (09:00)
--- NOTE | 2023-04-27 12:13 | P.DS ---
Admission Date: 04/26/23 Discharge Date: 04/27/23 Disposition: ROUTINE DISCHARGE Discharge Condition: FAIR Reason for Admission: Chest Pain - Problems (1) Complex regional pain syndrome I of lower limb Current Visit: Yes Status: Acute (2) Chest pain Current Visit: Yes Status: Acute (3) Hypertension Current Visit: Yes Status: Chronic Qualifiers: Hypertension type: primary hypertension Qualified Code(s): I10 - Essential (primary) hypertension Brief History of Present Illness: Ms. Mabry is a 57 year old female with past medical history of hypertension, vertigo, GERD, and chronic back pain who presented to the emergency department with complaints of exertional chest pain with radiation to her left shoulder associated with shortness of breath. She also reports progressively worsening left foot pain, denies any injury, states the foot is even sensitive to touch, in the area of her heel. She stated her last cardiac catheterization was 2 years ago and was reported as clean coronary arteries. In the ED, lab work was unremarkable- troponin negative, EKG normal, chest xray clear, ddimer negative, ultrasound of left leg negative for DVT. She received aspirin, IVF, morphine, zofran, toradol, and phenegran in the emergency department. Vital signs have been stable. She reports moderate improvement in symptoms. Patient hospitalized for further evaluation. Hospital Course: Patient placed on observation on the medical floor. Troponin trended negative. She had no chest pain during the hospital stay. Her only complaint was right ankle pain with tenderness quite sensitive to touch. Lipid profile within acceptable range, blood glucose normal. Patient denies history of diabetes. ACS ruled out. Patient is deemed stable for discharge. She is discharged to follow-up with cardiology as outpatient. Vital Signs/Physical Exam: Temp Pulse Resp BP Pulse Ox 96.8 F 60 16 144/72 H 98 04/27/23 08:00 04/27/23 08:00 04/27/23 08:00 04/27/23 08:00 04/27/23 08:00 General: Alert, In no apparent distress, Oriented x3 HEENT: Mucous membr. moist/pink, Sclerae nonicteric Neck: Supple, JVD not distended Respiratory: Clear to auscultation bilaterally, Normal air movement Cardiovascular: Regular rate/rhythm, Normal S1 S2 Gastrointestinal: Normal bowel sounds, Soft and benign, Non-distended, No tenderness Musculoskeletal: No swelling, Tenderness (Dorsum of right foot, anteriolateral aspect of right ankle) Integumentary: No rashes, No cyanosis Neurological: Normal strength at 5/5 x4 extr Laboratory Data at Discharge: WBC 4.40 thou/uL (4.3-10.9) 04/27/23 02:19 Hgb 11.9 g/dL (12.0-15.0) L 04/27/23 02:19 Hct 35.8 % (36.0-45.0) L 04/27/23 02:19 Plt Count 238 thou/uL (152-406) 04/27/23 02:19 PT 12.6 SECONDS (9.5-12.5) H 04/26/23 20:20 INR 1.15 04/26/23 20:20 Sodium 137 mEq/L (136-145) 04/27/23 02:19 Potassium 3.5 mEq/L (3.5-5.1) 04/27/23 07:53 BUN 8 mg/dL (7-18) 04/27/23 02:19 Creatinine 0.65 mg/dL (0.55-1.02) 04/27/23 02:19 Glucose 99 mg/dL (74-106) 04/27/23 02:19 Phosphorus 3.6 mg/dL (2.5-4.9) 04/27/23 02:19 Magnesium 2.3 mg/dL (1.6-2.4) 04/27/23 02:19 Total Bilirubin 0.4 mg/dL (0.2-1.0) 04/26/23 20:20 AST 13 U/L (15-37) L 04/26/23 20:20 ALT 11 U/L (13-56) L 04/26/23 20:20 Alkaline Phosphatase 68 U/L (45-117) 04/26/23 20:20 Triglycerides 98 mg/dL (<150) 04/27/23 02:19 Cholesterol 96 mg/dL (<200) 04/27/23 02:19 HDL Cholesterol 54 mg/dL (40-60) 04/27/23 02:19 Cholesterol/HDL Ratio 1.78 04/27/23 02:19 Home Medications: Aspirin [Aspirin EC 81 MG] 81 mg PO DAILY #90 tablet.dr 09/23/20 hydroCHLOROthiazide [Hydrochlorothiazide] 25 mg PO DAILY #30 tablet 09/23/20 Ibuprofen [Ibu] 600 mg PO BID 01/01/23 Pregabalin [Lyrica] 50 mg PO BEDTIME #30 cap 04/27/23 New Medications: Pregabalin [Lyrica] 50 mg PO BEDTIME #30 cap Diet: AHA Activity: Ad eladia Followup: Jose M Suarez MD [ASSOCIATE-ACTIVE - CAN ADMIT] - (Neuropathic pain Follow up within 1 month. ) Guanakito Nettles MD [Primary Care Provider] - 1-2 Weeks Yves Smith MD [ACTIVE - CAN ADMIT] - 1-2 Weeks Time spent managing pt's care (in minutes): 27
[2023-04-27] MEDS ORDERED: HYDRALAZINE HCL 20 MG/ML VIAL IV ONE (13:02)
[2023-04-27] MEDS ORDERED: HYDRALAZINE HCL 10 MG TABLET PO ONE (13:09)
[2023-04-27 13:29] VITALS: BP 169/85; TEMP 96.9
--- NOTE | 2023-04-27 17:21 | EKG ---
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
== END 2023-04-27 14:30 | disposition home or self-care (01) ==
LOC: ER 19:47 → ERHOLD 22:37 → 2ND 23:24
PROVIDERS: ADMIT Internal Medicine; ATTEND Internal Medicine
DX: R07.9 Chest pain, unspecified (principal); I10 Essential (primary) hypertension; K21.9 Gastro-esophageal reflux disease without esophagitis; R42 Dizziness and giddiness; M54.9 Dorsalgia, unspecified; Z88.8 Allergy status to other drugs, medicaments and biological substances; Z79.82 Long term (current) use of aspirin; Z11.52 Encounter for screening for COVID-19
CPT/HCPCS: 36415; 80048; 80061; 80076; 83735; 83880; 84100; 84132; 84484; 85025; 85379; 85610; 87635; 93005; 93971; 96374; 96375; 99285; G0378; J1650

== ENCOUNTER 2023-10-05 03:03 | Emergency (ER) | payer OTHER, SELFPAY ==
--- OUTSIDE RECORDS SUMMARY | 2023-10-05 03:07 | XMS REPORT | Continuity of Care Document ---
Author Name Unknown Address [address] [facility] Last. [address] [place] [address] [facility] thconnect Address [address] [facility]. 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 [employer] Instructor Name Role Phone DOMI QUINONEZ JR Primary Care Physician Naz parks [email or web address]_S Attending Clinician UnavailEtienne Isaacs Attending Clinician Unavailable Etienne Hernandez Attending Clinician [phone] Julian Wise MD Attending Clinician [phone] Graham Dorantes MD Attending Clinician [phone] GC_GCBZW_Kadiyala_S Admitting Clinician UnavailEtienne Isaacs Admitting Clinician Unavailable Graham Dorantes MD Admitting Clinician [phone] Problems Condition Name Condition Details Condition Category Status Onset Date Resolution Date Last Treatment Date Treating Clinician Comments Source Morbid obesity with body mass index of 40.0-49.9 Morbid obesity with body mass index of 40.0-49.9 Disease Active 12-25 00:00: 00 [facility] Chest pain Chest pain Disease Active 12-25 00:00: 00 [facility] Morbid obesity with body mass index of 40.0-49.9 Morbid obesity with body mass index of 40.0-49.9 Disease Active 12-25 00:00: 00 [facility] Essential hypertensi on Essential hypertensi on Disease Active 12-25 00:00: 00 [facility] Dizziness Dizziness Disease Active 12-25 00:00: 00 [facility] Headache Headache Disease Active 12-25 00:00: 00 [facility] Allergies, Adverse Reactions, Alerts Allergy Name Allergy Type Status Severity Reaction(s) Onset Date Inactive Date Treating Clinician Comments Source [place] - Intraven ous Propensi ty to adverse reaction to drug Active 12-08 00:00: 00 Vistaril - Oral Propensi ty to adverse reaction to drug Active 303 00:00: 00 Nalbuphi ne Propensi ty to adverse reaction s Active Extra pyramidal effects 12-24 00:00: 00 [facility] Hydroxyz ine Hcl Propensi ty to adverse reaction s Active Extra pyramidal effects 12-24 00:00: 00 [facility] NALBUPHI NE DRUG INGREDI Active EP Effects 12-24 00:00: 00 [facility] HYDROXYZ INE HCL DRUG INGREDI Active EP Effects 12-24 00:00: 00 [facility] Vistaril Propensi ty to adverse reaction to drug Active 2015-06 00:00: 00 Social History Social Habit Start Date Stop Date Quantity Comments Source Exposure to SARS-CoV-2 (event) 2021-10-03 00:00:00 2021-10-13 19:35:[address] [facility] Tobacco use and exposure 2017-12-25 00:00:00 2017-12-25 00:00:[address] [facility] Alcohol intake 2017-12-25 00:00:00 2017-12-25 00:00:00 Current non-drinker of alcohol (finding) [facility] Sex Ass[birth year] At 1965 00:00:00 1965 00:00:00 [facility] Smoking Status Start Date Stop Date Source Never smoker [facility] Medications Ordered Medication Name Filled Medication Name Start Date Stop Date Current Medication? Ordering Clinician Indication Dosage Frequency Signature (SIG) Comments Components Source TAKE ONE TABLET DAILY FOR MIGRAINE HEADACHE PREVENTION 02-13 00:00: 00 No 160 TAKE ONE TABLET DAILY FOR MIGRAINE HEADACHE PREVENTION 02-13 00:00: 00 No TAKE 1 TABLET BY MOUTH TWICE DAILY 02-05 00:00: 00 No TAKE 1 TABLET BY MOUTH TWICE DAILY 02-05 00:00: 00 No hydrochloro thiazide 25 mg tablet 12-08 00:00: 00 No 1mg hydrochloro thiazide 25 mg tablet 12-08 00:00: 00 No 1mg KCL (KLOR-CON M20) tablet 40 mEq 10-14 03:45: 00 10-14 02:55 :00 No 40meq 40 mEq, Oral, ONCE, 1 dose, On Tue10/13/21 at 2245, Routine [facility] methylpredn isolone sod succ (SOLU-MEDRO L) injection 125 mg 10-14 02:30: 00 10-14 01:45 :00 No 125mg 125 mg, Slow IV Push, ONCE, 1 dose, On Tue10/13/21 at 2130, ABAD [facility] methylPREDN ISolone (MEDROL, NIRAJ,) 4 mg tablets 10-13 00:00: 00 Yes [id number] Take by mouth SEE-INSTRU CTIONS. follow package directions [facility] Augmentin 500 mg-125 mg tablet 09-26 00:00: 00 No 1mg benzonatate 200 mg capsule 16 00:00: 00 No 1mg Augmentin 500 mg-125 mg tablet 16 00:00: 00 No 1mg benzonatate 200 mg capsule 16 00:00: 00 No 1mg Flovent HFA 110 mcg/actuati on aerosol inhaler - 00:00: 00 No 2mcg/ac tuation promethazin e 12.5 mg tablet - 00:00: 00 No 1mg Flovent HFA 110 mcg/actuati on aerosol inhaler - 00:00: 00 No 2mcg/ac tuation promethazin e 12.5 mg tablet 2-0 3-10 00:00: 00 No 1mg Dose Unknown 2021-0 3-06 00:00: 00 No Dose Unknown 2-0 3-06 00:00: 00 No Dose Unknown 2-0 3-06 00:00: 00 No Dose Unknown 2021-0 3-06 00:00: 00 No Flovent HFA 110 mcg/actuati on aerosol inhaler 2021-0 3-05 00:00: 00 No 2mcg/ac tuation promethazin e 12.5 mg tablet 2021-0 3-05 00:00: 00 No 1mg Dose Unknown 2021-0 3-05 00:00: 00 No Dose Unknown 2021-0 3-05 00:00: 00 No Flovent HFA 110 mcg/actuati on aerosol inhaler 2021-0 3-05 00:00: 00 No 2mcg/ac tuation promethazin e 12.5 mg tablet 2021-0 3-05 00:00: 00 No 1mg Dose Unknown 2021-0 3-05 00:00: 00 No Dose Unknown 2021-0 3-05 00:00: 00 No ondansetron 4 mg disintegrat ing tablet 2021-0 3-03 00:00: 00 No 1mg benzonatate 100 mg capsule 2021-0 3-03 00:00: 00 No 1mg Dose Unknown 2021-0 3-03 00:00: 00 No Dose Unknown 2021-0 3-03 00:00: 00 No Dose Unknown 2021-0 3-03 00:00: 00 No Dose Unknown 2-0 3-03 00:00: 00 No Dose Unknown 2-0 3-03 00:00: 00 No Dose Unknown 2-0 3-03 00:00: 00 No ondansetron 4 mg disintegrat ing tablet 2021-0 3-03 00:00: 00 No 1mg benzonatate 100 mg capsule 2021-0 3-03 00:00: 00 No 1mg Dose Unknown 2-0 3-03 00:00: 00 No Dose Unknown 2-0 3-03 00:00: 00 No Dose Unknown 2021-0 3-03 00:00: 00 No Dose Unknown 2022-0 3-03 00:00: 00 No Dose Unknown 08-13 00:00: 00 No Dose Unknown 08-13 00:00: 00 No enoxaparin (LOVENOX) injection 40 mg 02-08 14:00: 00 Yes 40mg 40 mg, Subcutaneo us, DAILY, First dose on 02/08/21 at 0900, Until Discontinu ed, Routine [facility] hydroCHLORO thiazide 25 mg tablet 02-07 23:51: 41 Yes 25mg Take 25 mg by mouth daily. [facility] traZODONE 50 mg tablet 02-07 23:51: 41 Yes 50mg Take 50 mg by mouth at bedtime. [facility] aspirin 81 mg chewable tablet 02-07 23:51: 41 Yes 81mg Take 81 mg by mouth as needed. [facility] azithromyci n (ZITHROMAX Z-NIRAJ) 250 mg tablet 02-07 23:51: 41 Yes 250mg Take 250 mg by mouth daily. Take 500 mg day 1, then 250 mg days 2 to 5. [facility] iopamidol (ISOVUE 370-500 mL) injection 100 mL 02-07 20:45: 00 02-07 20:45 :00 No [id number] 100mL 100 mL, Intravenou s, ONCE, 1 dose, 02/07/21 at 1545, Routine [facility] aspirin tablet 325 mg 02-07 19:45: 00 02-07 22:03 :00 No 325mg 325 mg, Oral, ONCE, 1 dose, 02/07/21 at 1445, STAT [facility] nitroglycer in (NITROSTAT) sublingual tablet 0.4 mg 02-07 18:56: 00 Yes .4mg 0.4 mg, Sublingual , Q5MIN PRN, Starting 02/07/21 at 1356, Until Discontinu ed, Routine, Chest pain [facility] morpHINE injection 2 mg 02-07 18:55: 48 02-08 18:54 :48 No 2mg 2 mg, Slow IV Push, Q4HPRN, Starting 02/07/21 at 1355, Until 02/08/21 at 1354, Routine, Pain (scale 7-10), Chest pain [facility] acetaminoph en (TYLENOL) tablet 650 mg 02-07 18:55: 36 Yes 650mg 650 mg, Oral, Q6HPRN, Starting 02/07/21 at 1355, Until Discontinu ed, Routine, Pain (scale 1-3) [facility] hydroCHLORO thiazide 25 mg tablet 02-07 18:51: 41 Yes 25mg Take 25 mg by mouth daily. [facility] traZODONE 50 mg tablet 02-07 18:51: 41 Yes 50mg Take 50 mg by mouth at bedtime. [facility] aspirin 81 mg chewable tablet 02-07 18:51: 41 Yes 81mg Take 81 mg by mouth as needed. [facility] azithromyci n (ZITHROMAX Z-NIRAJ) 250 mg tablet 02-07 18:51: 41 Yes 250mg Take 250 mg by mouth daily. Take 500 mg day 1, then 250 mg days 2 to 5. [facility] ProAir HFA 90 mcg/actuati on aerosol inhaler 01-30 00:00: 00 No 2mcg/ac tuation Tessalon Perles 100 mg capsule 01-30 00:00: 00 No 1mg ProAir HFA 90 mcg/actuati on aerosol inhaler 01-30 00:00: 00 No 2mcg/ac tuation Tessalon Perles 100 mg capsule 01-30 00:00: 00 No 1mg butalbital- acetaminoph en-caffeine 50 mg-300 mg-40 mg capsule 2015-06 00:00: 00 No 1mg hydrochloro thiazide 25 mg tablet 2015-06 00:00: 00 No 1mg amlodipine 5 mg tablet 2015-06 00:00: 00 No 1mg sumatriptan 25 mg tablet 2015-06 00:00: 00 No 12mg butalbital- acetaminoph en-caffeine 50 mg-300 mg-40 mg capsule 2015-06 00:00: 00 No 1mg hydrochloro thiazide 25 mg tablet 2015-06 00:00: 00 No 1mg amlodipine 5 mg tablet 2015-06 00:00: 00 No 1mg sumatriptan 25 mg tablet 2015-06 00:00: 00 No 12mg Vital Signs Vital Name Observation Time Observation Value Comments S ource Diastolic blood pressure 2021-10-14 02:57:00 76 mm[Hg] [facility] Heart rate 2021-10-14 02:57:00 63 /min [facility] Body temperature 2021-10-14 02:57:[address] [facility] Respiratory rate 2021-10-14 02:57:00 12 /min [facility] Oxygen saturation in Arterial blood by Pulse oximetry 2021-10-14 02:57:00 99 /min [facility] Systolic blood pressure 2021-10-14 02:57:00 139 mm[Hg] [facility] Body weight 2021-10-13 23:15:00 117.935 kg [facility] BMI 2021-10-13 23:15:00 46.06 kg/m2 [facility] Heart rate 2021-02-07 22:00:00 79 /min [facility] Respiratory rate 2021-02-07 22:00:00 21 /min [facility] Oxygen saturation in Arterial blood by Pulse oximetry 2021-02-07 22:00:00 98 /min [facility] Systolic blood pressure 2021-02-07 21:00:00 166 mm[Hg] [facility] Diastolic blood pressure 2021-02-07 21:00:00 131 mm[Hg] [facility] Body temperature 2021-02-07 20:00:[address] [facility] Body weight 2021-02-07 16:56:00 120.203 kg [facility] BMI 2021-02-07 16:56:00 46.94 kg/m2 [facility] BP Systolic 2022-04-09 13:37:00 138 mm[Hg] [...] 2016-05-13 11:19:00 Procedures Procedure Date / Time Performed Performing Clinician Source XR CHEST 1 VW 2021-10-14 01:21:33 Etienne Mo [facility] POCT GLUCOSE(AGE >30DAYS) 2021-10-14 00:50:[address] [facility] POCT GLUCOSE (AUTOMATED) 2021-10-14 00:49:[address] [facility] TROPONIN I 2021-10-14 00:38:00 [facility]ienne Mo [facility] THYROID STIMULATING HORMONE 2021-10-14 00:38:[address] [facility] COMP. METABOLIC PANEL (44004) 2021-10-14 00:38:[address] [facility] CBC WITH DIFF 2021-10-14 00:38:00 Etienne Mo Yoly [facility] N-TERMINAL PRO-BNP 2021-10-14 00:38:[address] [facility] NOTICE OF PRIVACY PRACTICES 2021-10-13 23:11:47 Doctor Unassigned, [place] [facility] CONSENT/REFUSAL FOR DIAGNOSIS AND TREATMENT 2021-10-13 23:11:10 Doctor Unassigned, [place] [facility] TROPONIN I 2021-02-07 22:16:00 Graham Dorantes [facility] CT CHEST PULMONARY ANGIOGRAM 2021-02-07 19:40:[address] [facility] PROTHROMBIN TIME / INR 2021-02-07 18:58:[address] [facility] D-DIMER 2021-02-07 18:58:00 Graham Dorantes [facility] ACTIVATED PARTIAL THRMPLAS TERESO 2021-02-07 18:58:[address] [facility] XR CHEST 1 VW 2021-02-07 17:53:12 Julian Wise [facility] TROPONIN I 2021-02-07 17:25:00 Julian Wise [facility] COMP. METABOLIC PANEL (48229) 2021-02-07 [facility] 2021-02-07 17:25:00 Julian Wise [facility] N-TERMINAL PRO-BNP 2021-02-07 17:25:00 Frandy [facility] COVID-19 (ID NOW RAPID TESTING) 2021-02-07 17:25:[address] [facility] NOTICE OF PRIVACY PRACTICES 2021-02-07 16:55:14 Doctor Unassigned, [place] [facility] Plan of Care Planned Activity Planned Date Details Comments Source Goal Plan of Care Note [code = 67363-2] Goal Plan of Care Note [code = 84296-5] Goal Plan of Care Note [code = 54025-7] Goal Plan of Care Note [code = 32776-5] Goal Plan of Care Note [code = 39232-2] Goal Plan of Care Note [code = 52446-2] Goal Plan of Care Note [code = 23119-3] Goal Plan of Care Note [code = 47430-9] Goal Plan of Care Note [code = 60215-2] Goal Plan of Care Note [code = 81926-9] Goal Plan of Care Note [code = 94502-0] Goal Plan of Care Note [code = 35540-8] Goal Plan of Care Note [code = 39023-8] Goal Plan of Care Note [code = 98949-0] Goal Plan of Care Note [code = 55718-8] Goal Plan of Care Note [code = 47184-1] Goal Plan of Care Note [code = 56869-1] Goal Plan of Care Note [code = 43919-0] Goal Plan of Care Note [code = 30644-5] Goal Plan of Care Note [code = 41856-8] Goal Plan of Care Note [code = 25416-4] Goal Plan of Care Note [code = 11476-6] Goal Plan of Care Note [code = 66742-5] Goal Plan of Care Note [code = 47553-5] Goal Plan of Care Note [code = 95903-4] Goal Plan of Care Note [code = 89253-4] Goal Plan of Care Note [code = 55187-6] Goal Plan of Care Note [code = 56623-8] Goal Plan of Care Note [code = 57529-3] Goal Plan of Care Note [code = 78470-7] Goal Plan of Care Note [code = 14260-0] Goal Plan of Care Note [code = 04294-0] Goal Plan of Care Note [code = 48285-7] Goal Plan of Care Note [code = 77203-1] Goal Plan of Care Note [code = 03851-7] Goal Plan of Care Note [code = 60316-9] Goal Plan of Care Note [code = 06888-1] Goal Plan of Care Note [code = 35758-8] Goal Plan of Care Note [code = 54030-8] Goal Plan of Care Note [code = 24418-1] Goal Plan of Care Note [code = 24359-0] Goal Plan of Care Note [code = 48809-7] Goal Plan of Care Note [code = 42890-9] Goal Plan of Care Note [code = 03625-5] Goal Plan of Care Note [code = 17123-9] Goal Plan of Care Note [code = 80642-9] Goal Plan of Care Note [code = 75009-0] Encounters Start Date/Time End Date/Time Encounter Type Admission Type Attending [facility] Facility Care Department Encounter ID Source 2023-04-09 00:00:00 2023-04-09 00:00:00 Outpatient GC_GCBZW_Ka diyala_S [facility] [id number] [facility] 2022-07-21 16:28:19 2022-07-21 16:28:19 Outpatient [facility] [id number] Sh[address]lier 2022-07-14 15:02:34 2022-07-14 15:02:34 Outpatient [facility] [address] Sh[address] Collier 2022-05-24 17:04:46 2022-05-24 17:04:46 Outpatient [facility] [id number] Shashank Collier 2022-04-09 13:29:18 2022-04-09 13:29:18 Outpatient [facility] [id number] Shashank Sams Nando 2022-04-09 00:00:00 2022-04-09 00:00:00 Outpatient Visit [id number] 2022-02-12 00:00:00 2022-02-12 00:00:00 Outpatient Visit [id number] 2021-12-08 00:00:00 2021-12-08 00:00:00 Outpatient Visit [id number] 2021-10-13 18:25:00 2021-10-13 22:45:00 Emergency X Etienne MO [facility] ERT [id number] [facility] 2021-10-13 18:25:00 2021-10-13 22:45:00 Emergency Etienne Mo [facility] [id number] [facility] 2021-02-07 11:59:00 2021-02-07 18:51:00 Emergency Julian Wise [facility] [id number] [facility] 2021-02-07 11:52:00 2021-02-07 11:52:00 Emergency X [facility] ERT [id number] [facility] Results Test Description Test Time Test Comments Results Result Co mments Source [id number] 04:31:56* Test Item Value Reference Range Interpretation Comme nts NT-proBNP (test code = 85665) <50 PG/ML SEE BELOW If NT-ProBNP is less than 300 PG/ML, heart failure is unlikely for allages. Age.................Heart Failure Likely <50 Years...........>=450 PG/ML 50-75 Years.........>=900 PG/ML > 75 Years..........>=1800 PG/ML Methodology: [employer] Electrochemil[employer] Immunoassay [facility] has important pathology staff changes effective 08/11/2022. New pathology staff will provide uninterrupted, excellent patient care and clinical consultation. See URL: [email or web address]. UNLESS OTHERWISE INDICATED, ALL TESTING PERFORMED AT [facility] [address] [place] [address] CLIA: [id number], CAP: [id number] TSH, THIRD [id number] 04:30:14* Test Item Value Reference Range Interpretation [facility] TSH, THIRD GENERATION (test code = 2821) 1.410 UIU/ML 0.400-4.100 VITAMIN [id number] 04:30:14* Test Item Value Reference Range Interpretation [facility] VITAMIN B-12 (test code = 2840) 323 PG/ML 200-950 [id number] 11:09:48* Test Item Value Reference Range Interpretation Comme [facility] D-DIMER (test code = 1405) 0.32 UG/ML FEU See_Comment NOTE: Provided reference range is established for evaluation of Deep Venous Thrombosis/Pulmonary Embolus (DVT/PE). Results below cutoff value of <=0.49 UG/ML FEU have a high negative predictive value forDVT/PE. No reference range is established for disseminatedintra-vascu lar coagulation (DIC). [facility] has important pathology staff changes effective 08/11/2022. New pathology staff will provide uninterrupted, excellent patient care and clinical consultation. See URL: [email or web address]. UNLESS OTHERWISE INDICATED, ALL TESTING PERFORMED AT [facility] [address] [place] [address] CLIA: [id number], CAP: [Automated message] The system which generated this result transmitted reference range: <=0.49. The reference range was not used to interpret this result as normal/abnormal. CBC W/AUTO DIFF WITH [id number] 03:30:03* Test Item Value Reference Range Interpretation Comme [facility] WBC (test code = 1001) 5.1 K/UL 3.5-11.0 RBC (test code = 1002) 3.96 M/UL 3.80-5.40 HEMOGLOBIN (test code = 1003) 12.0 G/DL 11.5-15.5 HEMATOCRIT (test code = 1004) 36.0 % 34.0-45.0 MCV (test code = 1005) 90.9 fL 80.0-99.0 MCH (test code = 1006) 30.3 PG 25.0-33.0 MCHC (test code = 1007) 33.3 G/DL 31.0-36.0 RDW (test code = 1038) 13.3 % 11.5-15.0 NEUTROPHILS (test code = 1008) 44.7 % LYMPHOCYTES (test code = 1010) 45.4 % MONOCYTES (test code = 1011) 6.5 % EOSINOPHILS (test code = 1012) 2.8 % BASOPHILS (test code = 1013) 0.4 % IMMATURE GRANULOCYTES (test code = 1036) 0.2 % NUCLEATED RBCS (test code = 1065) 0.0 /100 WBC'S See_Comment [Automated [employer] ge] The system which generated this result transmitted reference range: 0.0. The reference range was not used to interpret this result as normal/abnormal. PLATELET COUNT (test code = 1015) 284 K/UL 130-400 ABSOLUTE NEUTROPHILS (test code = 1066) 2.27 K/UL 1.50-7.50 ABSOLUTE LYMPHOCYTES (test code = 1067) 2.30 K/UL 1.00-4.00 ABSOLUTE MONOCYTES (test code = 1068) 0.33 K/UL 0.20-1.00 ABSOLUTE EOSINOPHILS (test code = 1040) 0.14 K/UL 0.00-0.50 ABSOLUTE BASOPHILS (test code = 1069) 0.02 K/UL 0.00-0.20 ABS IMMATURE GRANULOCYTES (test code = 1020) 0.01 K/UL 0.00-0.10 ABS NUCLEATED RBCS (test code = 29647) 0.00 K/UL 0.00-0.11 COMPREHENSIVE METABOLIC [id number] 03:13:06* Test Item Value Reference Range Interpretation Comme nts GLUCOSE (test code = 2217) 92 MG/DL 70-99 BUN (test code = 2208) 10 MG/DL 6-20 CREATININE (test code = 2214) 0.89 MG/DL 0.60-1.30 eGFR (2020 CKD-EPI) (test code = 81011) 75 ML/MIN/1.73 >60 CALC BUN/CREAT (test code = 223) 11 RATIO 6-28 SODIUM (test code = 223) 144 MEQ/L 133-146 POTASSIUM (test code = 2228) 3.8 MEQ/L 3.5-5.4 CHLORIDE (test code = 2215) 105 MEQ/L 95-107 CARBON DIOXIDE (test code = 220) 31 MEQ/L 19-31 CALCIUM (test code = 220) 9.1 MG/DL 8.5-10.5 PROTEIN, TOTAL (test code = 2228) 6.8 G/DL 6.1-8.3 ALBUMIN (test code = 2200) 4.3 G/DL 3.5-5.2 CALC GLOBULIN (test code = 2239) 2.5 G/DL 1.9-3.7 CALC A/G RATIO (test code = 2233) 1.7 RATIO 1.0-2.6 BILIRUBIN, TOTAL (test code = 2206) 0.3 MG/DL See_Comment [Automated me ssage] The system which generated this result transmitted reference range: <=1.2. The reference range was not used to interpret this result as normal/abnormal. ALKALINE PHOSPHATASE (test code = 2203) 66 U/L 40-136 AST (test code = 2217) 15 U/L 9-40 ALT (test code = 221) 7 U/L 5-40 COMPREHENSIVE METABOLIC [id number] 05:44:51* Test Item Value Reference Range Interpretation Comme nts GLUCOSE (test code = 2216) 92 MG/DL 70-99 BUN (test code = 2207) 9 MG/DL 6-20 CREATININE (test code = 2214) 0.78 MG/DL 0.60-1.30 eGFR (2020 CKD-EPI) (test code = 90570) 88 ML/MIN/1.73 >60 CALC BUN/CREAT (test code = 223) 12 RATIO 6-28 SODIUM (test code = 223) 144 MEQ/L 133-146 POTASSIUM (test code = 222) 3.3 MEQ/L 3.5-5.4 L CHLORIDE (test code = 2215) 101 MEQ/L 95-107 CARBON DIOXIDE (test code = 2206) 31 MEQ/L 19-31 CALCIUM (test code = 2209) 9.8 MG/DL 8.5-10.5 PROTEIN, TOTAL (test code = 2228) 7.7 G/DL 6.1-8.3 ALBUMIN (test code = 1) 4.6 G/DL 3.5-5.2 CALC GLOBULIN (test code = 0) 3.1 G/DL 1.9-3.7 CALC A/G RATIO (test code = 2233) 1.5 RATIO 1.0-2.6 BILIRUBIN, TOTAL (test code = 2206) 0.4 MG/DL See_Comment [Automated YesPlz! ssage] The system which generated this result transmitted reference range: <=1.2. The reference range was not used to interpret this result as normal/abnormal. ALKALINE PHOSPHATASE (test code = 2203) 69 U/L 40-136 AST (test code = 2217) 15 U/L 9-40 ALT (test code = 2218) 6 U/L 5-40 LIPID [id number] 05:44:51* Test Item Value Reference Range Interpretation Comme nts CHOLESTEROL (test code = 2210) 131 MG/DL <200 TRIGLYCERIDES (test code = 2231) 124 MG/DL <150 HDL CHOLESTEROL (test code = 2219) 59 MG/DL >39 CALC LDL CHOL (test code = 2236) 51 MG/DL <100 NOTE: CALCULATED LDL IS BASED ON SINA-VELÁZQUEZ METHOD WHICHINCLUDES ADJUSTABLE TRIGLYCERIDE:VLDL CHOLESTEROL RATIO.THIS FACTOR VARIES BY MEASURED TRIGLYCERIDE AND NON-HDLCHOLESTEROL CONCENTRATIONS WITH INCREASED CALCULATED LDL SEENIN HIGHER TRIGLYCERIDE OR LOWER NON-HDL SPECIMENS. FOR MOREINFORMATION, SEE CLIENT ANNOUNCEMENT AT [email or web address] RATIO LDL/HDL (test code = 2238) 0.86 RATIO <3.22 UNLESS OTHERW ISE INDICATED, [facility]MED [facility] [address] [place] [id number] SUPPORT ANALYST: TRISHA MUNSON M.D. CLIA NUMBER [id number] [place]. [id number] CBC WITH [id number] 01:46:24* Test Item Value Reference Range Interpretation Comme nts WBC (test code = 6690-2) See_Comment [Automated [employer] ge] The system which generated this result transmitted reference range: 4.30 - 11.10 10*3/?L. The reference range was not used to interpret this result as normal/abnormal. RBC (test code = 789-8) See_Comment [Automated messa ge] The system which generated this result transmitted reference range: 3.93 - 5.25 10*6/?L. The reference range was not used to interpret this result as normal/abnormal. HGB (test code = 718-7) 12.3 g/dL 11.6-15.0 HCT (test code = 4544-3) 36.3 % 35.7-45.2 MCV (test code = 787-2) 89.2 fL 80.6-95.5 MCH (test code = 785-6) 30.2 pg 25.9-32.8 MCHC (test code = 786-4) 33.9 g/dL 31.6-35.1 RDW-SD (test code = 64220-2) 44.4 fL 39.0-49.9 RDW-CV (test code = 788-0) 13.6 % 12.0-15.5 PLT (test code = 777-3) See_Comment [Automated [employer] ge] The system which generated this result transmitted reference range: 166 - 358 10*3/?L. The reference range was not used to interpret this result as normal/abnormal. MPV (test code = 03300-9) 9.5 fL 9.5-12.9 NRBC/100 WBC (test code = [id number]) See_Comment [Automated [employer] ssage] The system which generated this result transmitted reference range: 0.0 - 10.0 /100 WBCs. The reference range was not used to interpret this result as normal/abnormal. NRBC x10^3 (test code = 0796417481) <0.01 See_Comment [Automated messa ge] The system which generated this result transmitted reference range: 10*3/?L. The reference range was not used to interpret this result as normal/abnormal. SEG % (test code = 73611-3) 47 % 33-76 LYMPH % (test code = 69231-3) 45 % 14-54 MONO % (test code = 24833-5) 5 % 0-4 H EOS % (test code = 10872-9) 3 % 0-3 ANC (test code = 753-4) 2.18 10*3/uL 1.88-7.09 SPHEROCYTES (test code = 802-9) 2+ A Lab Interpretation (test code = 38088-4) [facility]normal [facility] [id number] 01:34:03 * Test Item Value Reference Range Interpretation Comme nts TSH (test code = 2754003675) See_Comment Biotin has been reported to cause a negative bias, interpret results relative to patient's use of biotin. [Automated message] The system which generated this result transmitted reference range: 0.45 - 4.70 mIU/L. The reference range was not used to interpret this result as normal/abnormal. Lab Interpretation (test code = 19258-6) Normal [facility] [id number] 01:15:00* Test Item Value Reference Range Interpretation Comments TROPONIN I (test code = 2077394744) 0.001 ng/mL See_Comment [Automated message] The system which generated this result transmitted reference range: <=0.034. The reference range was not used to interpret this result as normal/abnormal. SANTO (test code = SANTO) Reference (Normal) Range (defined by the 99th percentile reference [...] to patient's use of biotin. Lab Interpretation (test code = 19722-4) Normal [facility] [id number] 01:11:38* Test Item Value Reference Range Interpretation Comme nts NT-proBNP (test code = 1534551250) 35 pg/mL See_Comment [Automated message] The system which generated this result transmitted reference range: <=125. The reference range was not used to interpret this result as normal/abnormal. SANTO (test code = SANTO) Biotin has been reported to cause a negative bias, interpret results relative to patient's use of biotin. Lab Interpretation (test code = 19827-8) Normal [facility]. METABOLIC PANEL (45426)2021-10-14 01:02:55* Test Item Value Reference Range Interpretation Comme nts NA (test code = 6583792242) 142 mmol/L 135-145 K (test code = 2198731247) 3.3 mmol/L 3.5-5.0 L CL (test code = 2651498894) 100 mmol/L 98-108 CO2 TOTAL (test code = 4334526796) 30 mmol/L 23-31 AGAP (test code = 3569365595) 2-16 BUN (test code = 3219336099) 11 mg/dL 7-23 GLUCOSE (test code = 6865338631) 108 mg/dL 70-110 CREATININE (test code = 3740268311) 0.71 mg/dL 0.50-1.04 TOTAL BILI (test code = 9162000843) 0.6 mg/dL 0.1-1.1 CALCIUM (test code = 0290647070) 8.8 mg/dL 8.6-10.6 T PROTEIN (test code = 6012449108) 7.1 g/dL 6.3-8.2 ALBUMIN (test code = 0129671644) 4.2 g/dL 3.5-5.0 ALK PHOS (test code = 5509743442) 61 U/L 34-122 ALTv (test code = 1742-6) 8 U/L 5-35 AST(SGOT) (test code = 9678060762) 21 U/L 13-40 eGFR (test code = 8074139467) mL/min/1.73m2 SANTO (test code = SANTO) Association of [...] or abnormalities in imaging tests). Lab Interpretation (test code = 01490-4) Abnormal [facility] GLUCOSE (AUTOMATED)2021-10-14 00:58:37* Test Item Value Reference Range Interpretation Comme nts POCT GLU (test code = 4128422470) 109 mg/dL 70-110 Lab Interpretation (test cod e = 09374-1) Normal [facility] GLUCOSE(AGE >30DAYS)2021-10-14 00:50:00* Test Item Value Reference Range Interpretation Comme nts POCT Glu (age>30days) (test code = 3342) 109 mg/dL 70-110 Lab Interpretation (test cod e = 12468-8) Normal [facility] ([facility] by RT-PCR (HIGH RISK) 2021-02-21 00:00:00* Test Item Value Reference Range Interpretation Comme nts SARS-CoV-2 INTERPRETATION (test code = 65091) NEGATIVE SOURCE (test code = 73147) NASOPHARYNGEAL SARS-CoV-2 (COVID-19) by RT-PCR (HIGH RISK)2021-02-21 00:00:00* Test Item Value Reference Range Interpretation Comme nts SARS-CoV-2 INTERPRETATION (test code = 46393) NEGATIVE SOURCE (test code = 50335) NASOPHARYNGEAL SARS-CoV-2 (COVID-19) by RT-PCR (HIGH RISK)2021-02-21 00:00:00* Test Item Value Reference Range Interpretation Comme nts SARS-CoV-2 INTERPRETATION (test code = 51774) NEGATIVE SOURCE (test code = 96564) NASOPHARYNGEAL SARS-CoV-2 (COVID-19) by RT-PCR (HIGH RISK)2021-02-21 00:00:00* Test Item Value Reference Range Interpretation Comme nts SARS-CoV-2 INTERPRETATION (test code = 71713) NEGATIVE SOURCE (test code = 65030) NASOPHARYNGEAL SARS-CoV-2 (COVID-19) by RT-PCR (HIGH RISK)2021-02-21 00:00:00* Test Item Value Reference Range Interpretation Comme nts SARS-CoV-2 INTERPRETATION (test code = 18947) NEGATIVE SOURCE (test code = 22443) NASOPHARYNGEAL SARS-CoV-2 (COVID-19) by RT-PCR (HIGH RISK)2021-02-21 00:00:00* Test Item Value Reference Range Interpretation Comme nts SARS-CoV-2 INTERPRETATION (test code = 20391) NEGATIVE SOURCE (test code = 58364) NASOPHARYNGEAL TROPONIN [id number] 22:50:08* Test Item Value Reference Range Interpretation Comme nts TROPONIN I (test code = 6718890758) 0.001 ng/mL See_Comment [Automated [employer]] The system which generated this result transmitted reference range: <=0.034. The reference range was not used to interpret this result as normal/abnormal. SANTO (test code = SANTO) Lab Interpretation (test code = 00541-0) Normal [facility] CHEST PULMONARY [id number] 20:59:341. No pulmonary emboli. 2. Scattered lung opacities involving small volumes of the lungs consistentwith the known diagnosis of COVID 19 pneumonia. Preliminary Report Dictated by Resident: Quinn Nicole MD., have reviewed this study and agree with theabove report.PROCEDUR E: CT CHEST WITH CONTRAST- CHEST PE PROTOCOL [...] UPPER ABDOMEN: Small type I hiatal hernia. O SSEOUS STRUCTURES AND SOFT TISSUES: No focal osseous lesions are detected.The soft tissues appear normal. [facility], Radiant Results Inft User - 02/07/2021 4:00 PM CDT PROCEDURE: CT CHEST WITH CONTRAST- CHEST PE PROTOCOLCLINICAL INDICATION: 55-year-old female patient with Covid presenting withshortness of breath. COMPARISON: Chest radiograph dated 08/10/2020.TECHNIQUE: Volumetric helical CT angiogram was performed of the chest ([email or web address]) with IV contrast. Images were reconstructed at 1.25 mmslice thickness. Corresponding axial, sagittal and coronal MIP images wereperformed. Axial MIPs and coronal and sagittal MPR images were generatedand reviewed..FINDINGS:DEVICES: None HEART AND GREAT VESSELS: The opacification [...] small lymph nodes in both sides of themediastinumand hilar regions. No evidence of intrathoracic lymphadenopathy.LUNGS AND PLEURA: Scattered small areas of peripheral patchy groundglassopacities seen at both lungs involving small volume of the lungs. Nosuspicious nodules. No pleural abnormality detected.VISUALIZED UPPER ABDOMEN: Small type I hiatal hernia. OSSEOUS STRUCTURES AND SOFT TISSUES: No focal osseous lesions are detected.Thesoft tissues appear normal.IMPRESSION1. No pulmonary emboli.2. Scattered lung opacities involving small volumes of the lungs consistentwith the known diagnosis of COVID 19 pneumonia.Preliminary Report Dictated by Resident: Quinn Finney MD., have reviewed this study and agree with theabove report.[facility]-[id number] 19:37:33* Test Item Value Reference Range Interpretation Comme [facility] D-DIMER (test code = 2396730897) See_Comment H [Automated messa ge] The system which generated this result transmitted reference range: <0.41 ?g/mL (FEU). The reference range was not used to interpret this result as normal/abnormal. SANTO (test code = SANTO) Lab Interpretation (test code = 94462-7) Abnormal [facility] CenterACTIVATED PARTIAL THRMPLAS [id number] 19:30:55* Test Item Value Reference Range Interpretation Comme [facility] APTT Patient (test code = 3173-2) See_Comment [Automated messa ge] The system which generated this result transmitted reference range: 23 - 38 Seconds. The reference range was not used to interpret this result as normal/abnormal. SANTO (test code = SANTO) Lab Interpretation (test code = 36811-9) Normal [facility] CenterPROTHROMBIN TIME / [id number] 19:28:54* Test Item Value Reference Range Interpretation Comme [facility] PROTIME PATIENT (test code = 5964-2) See_Comment [Automated messa ge] The system which generated this result transmitted reference range: 12.0 - 14.7 Seconds. The reference range was not used to interpret this result as normal/abnormal. INR (test code = 6301-6) Lab Interpretation (test code = 83136-2) Normal [facility] 1 [id number] 18:41:281. ?Low lung volumes without focal infiltrate. RL: [...] Low lung volumes without focal infiltrate.RL: [address] [facility] [id number] 18:06:10* Test Item Value Reference Range Interpretation Comme nts TROPONIN I (test code = 8635709238) 0.002 ng/mL See_Comment [Automated [employer]] The system which generated this result transmitted reference range: <=0.034. The reference range was not used to interpret this result as normal/abnormal. SANTO (test code = SANTO) Lab Interpretation (test code = 99437-7) Normal [facility]N-[facility]MINAL [id number] 18:02:53* Test Item Value Reference Range Interpretation Comme nts NT-proBNP (test code = 5400105360) 97 pg/mL See_Comment [Automated [employer]] The system which generated this result transmitted reference range: <=125. The reference range was not used to interpret this result as normal/abnormal. SANTO (test code = SANTO) Lab Interpretation (test code = 16999-2) Normal [facility] CenterCOMP[facility] METABOLIC PANEL (78402)2021-02-07 17:55:47* Test Item Value Reference Range Interpretation Comme nts NA (test code = 9425990913) 142 mmol/L 135-145 K (test code = 1647144202) 3.8 mmol/L 3.5-5.0 CL (test code = 9600233154) 102 mmol/L 98-108 CO2 TOTAL (test code = 0086892236) 29 mmol/L 23-31 AGAP (test code = 3535143882) 2-16 BUN (test code = 2368884057) 15 mg/dL 7-23 GLUCOSE (test code = 7332265441) 98 mg/dL 70-110 CREATININE (test code = 2354682717) 0.66 mg/dL 0.50-1.04 TOTAL BILI (test code = 0920052622) 0.7 mg/dL 0.1-1.1 CALCIUM (test code = 0966387987) 9.2 mg/dL 8.6-10.6 T PROTEIN (test code = 3730051901) 8.3 g/dL 6.3-8.2 H ALBUMIN (test code = 9624338678) 4.5 g/dL 3.5-5.0 ALK PHOS (test code = 7987421518) 65 U/L 34-122 ALTv (test code = 1742-6) 33 U/L 5-35 AST(SGOT) (test code = 6641442320) 44 U/L 13-40 H eGFR (test code = 1204870409) mL/min/1.73m2 ASNTO (test code = SANTO) Lab Interpretation (test cod e = 69000-8) [facility]normal [facility]COVID[facility] (ID NOW RAPID TESTING)2021-02-07 17:55:47* Test Item Value Reference Range Interpretation Comme nts SARS-CoV-2 Rapid ID NOW (kumar t code = 77507-0) Positive Not Detected A SANTO (test code = SANTO) Lab Interpretation (test cod e = 40591-2) Abnormal [facility] CenterCB WITH [id number] 17:41:52* Test Item Value Reference Range Interpretation Comme nts WBC (test code = 6690-2) See_Comment [Automated messa ge] The system which generated this result transmitted reference range: 4.30 - 11.10 10*3/?L. The reference range was not used to interpret this result as normal/abnormal. RBC (test code = 789-8) See_Comment [Automated [employer] ge] The system which generated this result transmitted reference range: 3.93 - 5.25 10*6/?L. The reference range was not used to interpret this result as normal/abnormal. HGB (test code = 718-7) 12.0 g/dL 11.6-15.0 HCT (test code = 4544-3) 38.0 % 35.7-45.2 MCV (test code = 787-2) 91.1 fL 80.6-95.5 MCH (test code = 785-6) 28.8 pg 25.9-32.8 MCHC (test code = 786-4) 31.6 g/dL 31.6-35.1 RDW-SD (test code = 89888-7) 48.4 fL 39.0-49.9 RDW-CV (test code = 788-0) 14.6 % 12.0-15.5 PLT (test code = 777-3) See_Comment H [Automated messa ge] The system which generated this result transmitted reference range: 166 - 358 10*3/?L. The reference range was not used to interpret this result as normal/abnormal. MPV (test code = 71247-7) 9.2 fL 9.5-12.9 L NRBC/100 WBC (test code = 0290234062) See_Comment [Automated [employer] ssage] The system which generated this result transmitted reference range: 0.0 - 10.0 /100 WBCs. The reference range was not used to interpret this result as normal/abnormal. NRBC x10^3 (test code = 2632844348) <0.01 See_Comment [Automated messa ge] The system which generated this result transmitted reference range: 10*3/?L. The reference range was not used to interpret this result as normal/abnormal. GRAN MAT (NEUT) % (test code = 770-8) 74.0 % IMM GRAN % (test code = 2635993366) 1.60 % LYMPH % (test code = 736-9) 18.7 % MONO % (test code = 5905-5) 5.3 % EOS % (test code = 713-8) 0.2 % BASO % (test code = 706-2) 0.2 % GRAN MAT x10^3(ANC) (test code = 2683717412) 7.07 10*3/uL 1.88-7.09 IMM GRAN x10^3 (test code = 7393109094) 0.15 10*3/uL 0.00-0.06 H LYMPH x10^3 (test code = 731-0) 1.79 10*3/uL 1.32-3.29 MONO x10^3 (test code = 742-7) 0.51 10*3/uL 0.33-0.92 EOS x10^3 (test code = 711-2) <0.03 0.03-0.39 L BASO x10^3 (test code = 704-7) <0.03 0.01-0.07 Lab Interpretation (test code = 66680-7) [facility]normal [facility] ([facility]OVID-19) by RT-PCR (HIGH RISK) 2020-07-06 00:00:00* Test Item Value Reference Range Interpretation Comme nts SARS-CoV-2 INTERPRETATION (test code = 79556) NEGATIVE SOURCE (test code = 63127) NASOPHARYNGEAL SARS-CoV-2 (COVID-19) by RT-PCR (HIGH RISK)2020-07-06 00:00:00* Test Item Value Reference Range Interpretation Comme nts SARS-CoV-2 INTERPRETATION (test code = 19835) NEGATIVE SOURCE (test code = 64147) NASOPHARYNGEAL SARS-CoV-2 (COVID-19) by RT-PCR (HIGH RISK)2020-07-06 00:00:00* Test Item Value Reference Range Interpretation Comme nts SARS-CoV-2 INTERPRETATION (test code = 86308) NEGATIVE SOURCE (test code = 95903) NASOPHARYNGEAL SARS-CoV-2 (COVID-19) by RT-PCR (HIGH RISK)2020-07-06 00:00:00* Test Item Value Reference Range Interpretation Comme nts SARS-CoV-2 INTERPRETATION (test code = 18557) NEGATIVE SOURCE (test code = 50242) NASOPHARYNGEAL SARS-CoV-2 (COVID-19) by RT-PCR (HIGH RISK)2020-07-06 00:00:00* Test Item Value Reference Range Interpretation Comme nts SARS-CoV-2 INTERPRETATION (test code = 82032) NEGATIVE SOURCE (test code = 41931) NASOPHARYNGEAL SARS-CoV-2 (COVID-19) by RT-PCR (HIGH RISK)2020-07-06 00:00:00* Test Item Value Reference Range Interpretation Comme nts SARS-CoV-2 INTERPRETATION (test code = 38416) NEGATIVE SOURCE (test code = 24418) NASOPHARYNGEAL"
[2023-10-05] MEDS ORDERED: DIPHENHYDRAMINE 50 MG/ML VIAL ONE (03:27)
[2023-10-05] MEDS ORDERED: ONDANSETRON 4 MG/2 ML VIAL ONE (03:27)
[2023-10-05] MEDS ORDERED: METOCLOPRAMIDE 10 MG/2mL INJ ONE (03:27)
[2023-10-05] MEDS ORDERED: FAMOTIDINE 20 MG/2 ML VIAL IV ONE (03:28)
[2023-10-05] MEDS ORDERED: NA CHLORIDE 0.9% 1,000 ML ONE (03:28)
[2023-10-05 04:18] LABS: Absolute Eosinophils 0.1 K/uL (0-0.5); Absolute Lymphocytes (CBC) 0.9 K/uL (0.7-4.9); Absolute Monocytes 0.6 K/uL (0.1-1.3); Absolute Neutrophil 7.9 K/uL (1.8-8.0); Basophils % 0.3 % (0-1.3); Eosinophils % 0.6 % (0-4.4); Hematocrit 37.6 % (36.0-45.0); Hemoglobin 12.3 g/dL (12.0-15.0); Lymphocytes % 9.5 % (15.3-44.8); MCH 29.7 pg (27.0-35.0); MCHC 32.6 g/dL (32.0-36.0); MCV 91.2 fL (80-100); Monocytes % 6.2 % (3.3-12.3); Neutrophils % 83.4 % (41.7-73.7); Platelets 287 thou/uL (152-406); RBC Red Blood Cell Count 4.13 M/uL (3.86-4.86); Red Cell Distribution Width 14.5 % (12.1-15.2)
[2023-10-05 04:33] LABS: Albumin 3.6 g/dL (3.4-5.0); Albumin/Globulin Ratio 0.9 (1.1-1.8); Anion Gap 8.5 mEq/L (5.0-15.0); Bilirubin Total 0.5 mg/dL (0.2-1.0); Globulin 3.8 g/dL (2.3-3.5); Potassium 3.5 mEq/L (3.5-5.1); Protein, Total 7.4 g/dL (6.4-8.2)
--- NOTE | 2023-10-05 05:07 | EDPHYS ---
Physician Documentation [facility] Name: Zohreh Mabry Age: 58 yrs Sex: Female : 1965 Arrival Date: 10/05/2023 Time: 03:03 Bed 5 Private MD: ED Physician Spencer Kessler HPI: 10/04 03:25 This 58 yrs old Black Female presents to ER via Ambulatory with complaints of Vomiting, cp Headache, Abdominal Pain. 03:25 The patient presents to the emergency department with nausea, that is moderate, cp vomiting, that is intermittent, abdominal pain. Onset: The symptoms/episode began/occurred yesterday. Associated signs and symptoms: Pertinent positives: headache times 3 days. Historical: - Allergies: 03:18 Nubain; cm10 03:18 Vistaril; cm10 - PMHx: 03:18 Hypertension; Headaches; Vertigo; cm10 - PSHx: 03:18 hysterectomy; breast; tubal ligation; cm10 - Immunization history:: Adult Immunizations up to date. - Infectious Disease History:: Denies. - Social history:: Smoking status: unknown. ROS: 03:30 Constitutional: Negative for body aches, chills, fever, cp 03:30 Respiratory: Negative for cough, shortness of breath, wheezing, cp Exam: 03:35 Constitutional: The patient appears in no acute distress, alert, awake, cp non-diaphoretic, non-toxic, well developed, well nourished, obese, uncomfortable, 03:35 Head/Face: Normocephalic, atraumatic. cp 03:35 Eyes: Periorbital structures: appear normal, Pupils: equal, round, and reactive to light and accomodation, Extraocular movements: intact throughout, Conjunctiva: normal, no exudate, no injection, Sclera: no appreciated abnormality, Lids and lashes: appear normal, bilaterally, 03:35 ENT: External ear(s): are unremarkable, Nose: is normal, Mouth: Lips: moist, Oral mucosa: pink and intact, moist, Posterior pharynx: is normal, airway is patent, no erythema, no exudate, Voice: is normal, 03:35 Neck: ROM/movement: is normal, is supple, without pain, no range of motions limitations, 03:35 Chest/axilla: Inspection: normal, 03:35 Cardiovascular: Rate: normal, Rhythm: regular, Edema: is not appreciated, JVD: is not appreciated, 03:35 Respiratory: the patient does not display signs of respiratory distress, Respirations: normal, no use of accessory muscles, no retractions, labored breathing, is not present, Breath sounds: are clear throughout, no decreased breath sounds, no stridor, no wheezing, 03:35 Abdomen/GI: Inspection: abdomen appears normal, Palpation: abdomen is soft and non-tender, in all quadrants, 03:35 Back: CVA tenderness, is absent, 03:35 Skin: no rash present. 03:35 Neuro: Orientation: to person, place \T\ time. Mentation: able to follow commands, Motor: moves all fours, no focal deficits, Sensation: no obvious gross deficits, Gait: is steady, at a normal pace, without difficulty, Vital Signs: 03:18 BP 140 / 89; Pulse 96; Resp 18; Temp 98.6(O); Pulse Ox 98% on R/A; Weight 118.8 kg; cm10 Height 5 ft. 3 in. ; Pain 6/10; 03:30 BP 126 / 79; Pulse 77; Resp 16; Pulse Ox 98% on R/A; km8 03:45 BP 126 / 73; Pulse 75; Resp 16; Pulse Ox 96% on R/A; km8 04:00 BP 122 / 67; Pulse 73; Resp 16; Pulse Ox 96% on R/A; km8 05:11 BP 132 / 86; Pulse 82; Resp 18; Temp 98.5; Pulse Ox 98% on R/A; Pain 0/10; jh8 03:18 Body Mass Index 46.39 (118.80 kg, 160.02 cm) cm10 03:18 Pain Scale: Adult cm10 05:11 Pain Scale: Adult jh8 MDM: 03:10 Patient medically screened. cp 05:05 Data reviewed: vital signs, nurses notes, lab test result(s). cp 05:05 Differential diagnosis: dehydration, migraine, tension. I considered the following cp discharge prescriptions or medication management in the emergency department Medications were administered in the Emergency Department. See MAR. Counseling: I had a detailed discussion with the patient and/or guardian regarding the historical points, exam findings, and any diagnostic results supporting the discharge/admit diagnosis, lab results, the need for outpatient follow up, a family practitioner, to return to the emergency department if symptoms worsen or persist or if there are any questions or concerns that arise at home. Response to treatment: the patient's symptoms have markedly improved after treatment, and as a result, I will discharge patient. 10/04 03:20 Order name: CBC with Diff; Complete Time: 04:48 cp 10/04 04:48 Interpretation: Normal except: DIMITRIS% 83.4; LYM% 9.5. cp 10/04 03:20 Order name: CMP; Complete Time: 04:48 cp 10/04 04:48 Interpretation: Normal except: GLUC 115; GFR 84; GLOB 3.8; A/G 0.9. cp 10/04 03:20 Order name: Lipase; Complete Time: 04:48 cp 10/04 03:20 Order name: IV Saline Lock; Complete Time: 03:36 cp 10/04 03:20 Order name: Labs collected and sent; Complete Time: 03:36 cp 10/04 04:48 Order name: PO challenge; Complete Time: 04:52 cp Administered Medications: 03:30 CANCELLED (Physician Discretion): ns 0.9% 1000 ml IV at 999 bolus Per protocol; 1000 mL cp bolus 03:35 Drug: NS 0.9% IV 1000 ml IV at 999 bolus Per protocol; 1000 mL bolus Route: IV; Rate: jh8 999 bolus; Site: left antecubital; 05:12 Follow up: Response: No adverse reaction; IV Status: Completed infusion jh8 03:35 Drug: Famotidine IVP 20 mg IVP once; dilute with 10 mL 0.9% NaCl; give over 2 minutes jh Route: IVP; Site: left antecubital; 05:12 Follow up: Response: No adverse reaction jh8 03:35 Drug: metoCLOPramide IVP 10 mg IVP once; over 1 to 2 minutes Route: IVP; Site: left [facility] antecubital; 05:12 Follow up: Response: No adverse reaction jh8 03:35 Drug: diphenhydrAMINE IVP 25 mg IVP once Route: IVP; Site: left antecubital; [facility] 05:12 Follow up: Response: No adverse reaction [facility] 03:36 Drug: Ondansetron IVP 4 mg IVP once; over 2 minutes Route: IVP; Site: left antecubital; jh8 05:12 Follow up: Response: No adverse reaction jh8 Disposition Summary: 10/05/23 05:06 Discharge Ordered Notes: Location: Home cp Problem: an acute exacerbation cp Symptoms: have improved cp Condition: Stable cp Diagnosis - Headache cp - Nausea with vomiting, unspecified cp - Abdominal pain, unspecified cp Followup: cp - With: Private Physician - When: 1 - 2 days - Reason: Worsening of condition Discharge Instructions: - Discharge Summary Sheet cp - Abdominal Pain, Adult cp - Migraine Headache cp - Nausea and Vomiting, Adult cp Forms: - Medication Reconciliation Form cp - Antibiotic Education cp - Prescription Opioid Use cp - Patient Portal Instructions cp - Leadership Thank You Letter cp Prescriptions: - Fioricet 50-300-40 mg Oral capsule - take 1 capsule ORAL route every 6 hours; 20 capsule; Refills: 0, Product cp Selection Permitted - Reglan 10 mg Oral Tablet - take 1 tablet ORAL route every 6 hours take 30 minutes before meals and at cp bedtime; 20 tablet; Refills: 0, Product Selection Permitted Signatures: Dispatcher [employer] EDMS Spencer Garcia PA PA cp Dipti Samaniego, RN RN cm10 Misael Love, RN RN jh8 Corrections: (The following items were deleted from the chart) 03:30 03:28 NS 0.9% IV 1000 ml IV at 999 bolus Per protocol; 1000 mL bolus ordered. cp cp 10/05 04:13 10/04 03:25 The patient presents to the emergency department with nausea, that is cp moderate, vomiting, that is intermittent, cp
--- NOTE | 2023-10-05 05:07 | ER ---
Nurse's Notes [facility] Name: Zohreh Mabry Age: 58 yrs Sex: Female : 1965 Arrival Date: 10/05/2023 Time: 03:03 Bed 5 Private MD: Diagnosis: Headache;Nausea with vomiting, unspecified;Abdominal pain, unspecified Presentation: 10/04 03:18 Chief complaint: Patient states: Headache X3 days and abdominal pain, nausea, vomiting cm10 and diarrhea onset a couple hours ago. Coronavirus screen: Client denies travel out of the [place] in the last 14 days. Ebola Screen: Patient denies travel to an Ebola-affected area in the 21 days before illness onset. No symptoms or risks identified at this time. Initial Sepsis Screen: Does the patient meet any 2 criteria? HR > 90 bpm. Does the patient have a suspected source of infection? No. Patient's initial sepsis screen is negative. Risk Assessment: Do you want to hurt yourself or someone else? Patient reports no desire to harm self or others. Onset of symptoms was October 05, 2023. 03:18 Method Of Arrival: Ambulatory cm10 03:18 Acuity: KERYR 3 cm10 Triage Assessment: 03:19 General: Appears in no apparent distress. uncomfortable, Behavior is cooperative. cm10 Historical: - Allergies: 03:18 Nubain; cm10 03:18 Vistaril; cm10 - PMHx: 03:18 Hypertension; Headaches; Vertigo; cm10 - PSHx: 03:18 hysterectomy; breast; tubal ligation; cm10 - Immunization history:: Adult Immunizations up to date. - Infectious Disease History:: Denies. - Social history:: Smoking status: unknown. Screenin:10 [facility] ED Fall Risk Assessment (Adult) History of falling in the last 3 months, jh8 including since admission No falls in past 3 months (0 pts) Confusion or Disorientation No (0 pts) Intoxicated or Sedated No (0 pts) Impaired Gait No (0 pts) Mobility Assist Device Used No (0 pt) Altered Elimination No (0 pt) Score/Fall Risk Level 0 - 2 = Low Risk. Abuse screen: Denies threats or abuse. Denies injuries from another. Nutritional screening: No deficits noted. Tuberculosis screening: No symptoms or risk factors identified. Assessment: 03:37 General: Appears distressed, uncomfortable, obese, Behavior is calm, cooperative. Pain: 8 Complains of pain in abdomen Pain does not radiate. Pain currently is 7 out of 10 on a pain scale. Quality of pain is described as aching. Neuro: Level of Consciousness is awake, alert, obeys commands, Oriented to person, place, time, situation. Cardiovascular: Capillary refill < 3 seconds Patient's skin is warm and dry. Respiratory: Airway is patent Respiratory effort is even, unlabored, Respiratory pattern is regular, symmetrical. GI: Abdomen is round Reports upper abdominal pain, bloating, nausea, vomiting. 04:30 Reassessment: Patient states feeling better. Patient states symptoms have improved. jh8 Vital Signs: 03:18 BP 140 / 89; Pulse 96; Resp 18; Temp 98.6(O); Pulse Ox 98% on R/A; Weight 118.8 kg; cm10 Height 5 ft. 3 in. ; Pain 6/10; 03:30 BP 126 / 79; Pulse 77; Resp 16; Pulse Ox 98% on R/A; km8 03:45 BP 126 / 73; Pulse 75; Resp 16; Pulse Ox 96% on R/A; km8 04:00 BP 122 / 67; Pulse 73; Resp 16; Pulse Ox 96% on R/A; km8 05:11 BP 132 / 86; Pulse 82; Resp 18; Temp 98.5; Pulse Ox 98% on R/A; Pain 0/10; jh8 03:18 Body Mass Index 46.39 (118.80 kg, 160.02 cm) cm10 03:18 Pain Scale: Adult cm10 05:11 Pain Scale: Adult jh8 ED Course: 03:06 Patient arrived in ED. ra3 03:07 Spencer Garcia PA is PHCP. cp 03:07 Spencer Kessler MD is Attending Physician. cp 03:19 Triage completed. cm10 03:19 Arm band placed on Patient placed in an exam room, on a stretcher. cm10 03:39 Patient has correct armband on for positive identification. Placed in gown. Bed in low jh8 position. Call light in reach. Side rails up X2. Provided Education on: iv, labs, meds. 03:39 No provider procedures requiring assistance completed. Inserted saline lock: 20 gauge jh8 in left antecubital area, using aseptic technique. 05:11 Misael Love, RN is Primary Nurse. [facility] 05:11 IV discontinued. [facility] Administered Medications: 03:30 CANCELLED (Physician Discretion): ns 0.9% 1000 ml IV at 999 bolus Per protocol; 1000 mL cp bolus 03:35 Drug: NS 0.9% IV 1000 ml IV at 999 bolus Per protocol; 1000 mL bolus Route: IV; Rate: jh8 999 bolus; Site: left antecubital; 05:12 Follow up: Response: No adverse reaction; IV Status: Completed infusion [facility] 03:35 Drug: Famotidine IVP 20 mg IVP once; dilute with 10 mL 0.9% NaCl; give over 2 minutes [facility] Route: IVP; Site: left antecubital; 05:12 Follow up: Response: No adverse reaction [facility] 03:35 Drug: metoCLOPramide IVP 10 mg IVP once; over 1 to 2 minutes Route: IVP; Site: left [facility] antecubital; 05:12 Follow up: Response: No adverse reaction [facility] 03:35 Drug: diphenhydrAMINE IVP 25 mg IVP once Route: IVP; Site: left antecubital; [facility] 05:12 Follow up: Response: No adverse reaction [facility] 03:36 Drug: Ondansetron IVP 4 mg IVP once; over 2 minutes Route: IVP; Site: left antecubital; [facility] 05:12 Follow up: Response: No adverse reaction [facility] Medication: 05:10 VIS not applicable for this client. [facility] Outcome: 05:06 Discharge ordered by MD. bach 05:10 Discharged to home ambulatory, [facility] 05:10 Condition: stable 05:10 Discharge instructions given to patient, Instructed on discharge instructions, follow up and referral plans. Demonstrated understanding of instructions, follow-up care, medications, Prescriptions given X 2, 05:13 Patient left the ED. [facility] Signatures: Spencer Garcia PA PA cp Martinez, Clarissa, RN RN cm10 Yvette Pineda RN RN km8 Vicenta Molina ra3 Misael Love, APURVA RN [facility]
[2023-10-05 05:59] VITALS: BP 132/86; TEMP 98.5; O2SAT 98
== END 2023-10-05 05:13 | disposition home or self-care (01) ==
LOC: ER 03:03
DX: R51.9 Headache, unspecified (principal); R11.2 Nausea with vomiting, unspecified; R10.9 Unspecified abdominal pain; I10 Essential (primary) hypertension; Z88.8 Allergy status to other drugs, medicaments and biological substances
CPT/HCPCS: 85025; 36415; 83690; 80053; J2765; J1200; J2405; J7030; 96361; 96374; 96375; 99284

== ENCOUNTER 2024-06-11 08:28 | Emergency (ER) | payer OTHER ==
--- OUTSIDE RECORDS SUMMARY | 2024-06-11 08:32 | XMS REPORT | Continuity of Care Document ---
Author Name Unknown Address [address] [facility] [address] [place] [address] [facility] thconnect Address [address] [place] [address] Care Team Providers Care [employer] Name Role Phone DOMI QUINONEZ JR Primary Care Physician Etienne Iqbal Attending Clinician Unavailable Etienne Hernandez Attending Clinician [phone] Julian Wise MD Attending Clinician [phone] Graham Dorantes MD Attending Clinician [phone] Etienne MO Admitting Clinician Unavailable Graham Dorantes MD Admitting Clinician [phone] Problems Condition Name Condition Details Condition Category Status Onset Date Resolution Date Last Treatment Date Treating Clinician Comments Source Mixed urinary incontinen ce Mixed Urinary Incontinen ce Problem Active 02-06 00:00: 00 [facility] Pelvic and perineal pain Pelvic and Perineal Pain Problem Active 02-06 00:00: 00 [facility] Pain in pelvis Pain in Pelvis Problem Active 02-06 00:00: 00 [facility] Menopausal flushing Menopausal Flushing Problem Active 02-05 00:00: 00 [facility] Mastodynia of bilateral breasts Mastodynia of Bilateral Breasts Problem Active 02-05 00:00: 00 [facility] Essential hypertensi on Essential Hypertensi on Problem Active 02-05 00:00: 00 [facility] Myocardial infarction Myocardial Infarction Problem Active 8 00:00: 00 [facility] Vaginal pain Vaginal Pain Problem Active 02-05 00:00: 00 [facility] Morbid obesity with body mass index of 40.0-49.9 Morbid obesity with body mass index of 40.0-49.9 Disease Active 12-25 00:00: 00 [facility] Chest pain Chest pain Disease Active 12-25 00:00: 00 [facility] Morbid obesity with body mass index of 40.0-49.9 Morbid obesity with body mass index of 40.0-49.9 Disease Active 12-25 00:00: 00 [facility] Essential hypertensi on Essential hypertensi on Disease Active 12-25 00:00: 00 [facility] Dizziness Dizziness Disease Active 12-25 00:00: 00 [facility] Headache Headache Disease Active 12-25 00:00: 00 [facility] Allergies, Adverse Reactions, Alerts Allergy Name Allergy Type Status Severity Reaction(s) Onset Date Inactive Date Treating Clinician Comments Source [place] - Intraven ous Propensi ty to adverse reaction to drug Active 6-28 00:00: 00 Vistaril - Oral Propensi ty to adverse reaction to drug Active 3-03 00:00: 00 Hydroxyz ine Hcl Propensi ty to adverse reaction s Active Extra pyramidal effects 12-24 00:00: 00 [facility] NALBUPHI NE DRUG INGREDI Active EP Effects 12-24 00:00: 00 [facility] HYDROXYZ INE HCL DRUG INGREDI Active EP Effects 12-24 00:00: 00 [facility] Nalbuphi ne Propensi ty to adverse reaction s Active Extra pyramidal effects 12-24 00:00: 00 [facility] Vistaril Propensi ty to adverse reaction to drug Active 2015-06 00:00: 00 NUBAIN Allergy to substanc e Active [facility] Vistaril Allergy to substanc e Active [facility] Social History Social Habit Start Date Stop Date Quantity Comments Source Exposure to SARS-CoV-2 (event) 2021-10-03 00:00:00 2021-10-13 19:35:00 Not sure [facility] Tobacco use and exposure 2017-12-25 00:00:00 2017-12-25 00:00:00 Never used [facility] Alcohol intake 2017-12-25 00:00:00 2017-12-25 00:00:00 Current non-drinker of alcohol (finding) [facility] Sex Ass[birth year] At 1965 00:00:00 1965 00:00:00 [facility] Smoking Status Start Date Stop Date Source Never Smoker [facility] Medications Ordered Medication Name Filled Medication Name [...] 1 dose, On Tue10/13/21 at 2245, Routine [facility] methylpredn isolone sod succ (SOLU-MEDRO L) injection 125 mg 10-14 02:30: 00 10-14 01:45 :00 No 125mg 125 mg, Slow IV Push, ONCE, 1 dose, On Tue10/13/21 at 2130, ABAD [facility] methylPREDN ISolone (MEDROL, NIRAJ,) 4 mg tablets 10-13 00:00: 00 Yes [id number] Take by mouth SEE-INSTRU CTIONS. follow package directions [facility] Augmentin 500 mg-125 mg tablet 2021-0 4-16 00:00: 00 No 1mg benzonatate 200 mg capsule 0 4-16 00:00: 00 No 1mg Augmentin 500 mg-125 mg tablet 0 4-16 00:00: 00 No 1mg benzonatate 200 mg capsule 2021-0 4-16 00:00: 00 No 1mg Flovent HFA 110 mcg/actuati on aerosol inhaler 0 3-10 00:00: 00 No 2mcg/ac tuation promethazin e 12.5 mg tablet 0 3-10 00:00: 00 No 1mg Flovent HFA 110 mcg/actuati on aerosol inhaler 0 3-10 00:00: 00 No 2mcg/ac tuation promethazin e 12.5 mg tablet 0 3-10 00:00: 00 No 1mg Dose Unknown 2021-0 3-06 00:00: 00 No Dose Unknown 0 3-06 00:00: 00 No Dose Unknown 0 3-06 00:00: 00 No Dose Unknown 0 3-06 00:00: 00 No Flovent HFA 110 mcg/actuati on aerosol inhaler 0 3-05 00:00: 00 No 2mcg/ac tuation promethazin e 12.5 mg tablet 0 3-05 00:00: 00 No 1mg Dose Unknown 2021-0 3-05 00:00: 00 No Dose Unknown 0 3-05 00:00: 00 No Flovent HFA 110 mcg/actuati on aerosol inhaler 0 3-05 00:00: 00 No 2mcg/ac tuation promethazin e 12.5 mg tablet 0 3-05 00:00: 00 No 1mg Dose Unknown 0 3-05 00:00: 00 No Dose Unknown 0 3-05 00:00: 00 No ondansetron 4 mg disintegrat ing tablet 2021-0 3-03 00:00: 00 No 1mg benzonatate 100 mg capsule 2021-0 3-03 00:00: 00 No 1mg Dose Unknown 08-13 00:00: 00 No Dose Unknown 08-13 00:00: 00 No Dose Unknown 08-13 00:00: 00 No Dose Unknown 08-13 00:00: 00 No Dose Unknown 08-13 00:00: 00 No Dose Unknown 08-13 00:00: 00 No ondansetron 4 mg disintegrat ing tablet 08-13 00:00: 00 No 1mg benzonatate 100 mg capsule 08-13 00:00: 00 No 1mg Dose Unknown 08-13 00:00: 00 No Dose Unknown 08-13 00:00: 00 No Dose Unknown 08-13 00:00: 00 No Dose Unknown 08-13 00:00: 00 No Dose Unknown 08-13 00:00: 00 No Dose Unknown 08-13 00:00: 00 No enoxaparin (LOVENOX) injection 40 mg 02-08 14:00: 00 Yes 40mg 40 mg, Subcutaneo us, DAILY, First dose on 02/08/21 at 0900, Until Discontinu ed, Routine [facility] hydroCHLORO thiazide 25 mg tablet 02-07 23:51: 41 Yes 25mg Take 25 mg by mouth daily. [facility] traZODONE 50 mg tablet 02-07 23:51: 41 Yes 50mg Take 50 mg by mouth at bedtime. [facility] aspirin 81 mg chewable tablet 02-07 23:51: 41 Yes 81mg Take 81 mg by mouth as needed. [facility] azithromyci n (ZITHROMAX Z-NIRAJ) 250 mg tablet 02-07 23:51: 41 Yes 250mg Take 250 mg by mouth daily. Take 500 mg day 1, then 250 mg days 2 to 5. [facility] iopamidol (ISOVUE 370-500 mL) injection 100 mL 02-07 20:45: 00 02-07 20:45 :00 No [id number] 100mL 100 mL, Intravenou s, ONCE, 1 dose, 02/07/21 at 1545, Routine [facility] aspirin tablet 325 mg 02-07 19:45: 00 02-07 22:03 :00 No 325mg 325 mg, Oral, ONCE, 1 dose, 02/07/21 at 1445, STAT [facility] nitroglycer in (NITROSTAT) sublingual tablet 0.4 mg 02-07 18:56: 00 Yes .4mg 0.4 mg, Sublingual , Q5MIN PRN, Starting 02/07/21 at 1356, Until Discontinu ed, Routine, Chest pain [facility] morpHINE injection 2 mg 02-07 18:55: 48 02-08 18:54 :48 No 2mg 2 mg, Slow IV Push, Q4HPRN, Starting 02/07/21 at 1355, Until 02/08/21 at 1354, Routine, Pain (scale 7-10), Chest pain [facility] acetaminoph en (TYLENOL) tablet 650 mg 02-07 18:55: 36 Yes 650mg 650 mg, Oral, Q6HPRN, Starting 02/07/21 at 1355, Until Discontinu ed, Routine, Pain (scale 1-3) [facility] hydroCHLORO thiazide 25 mg tablet 02-07 18:51: 41 Yes 25mg Take 25 mg by mouth daily. [facility] traZODONE 50 mg tablet 02-07 18:51: 41 Yes 50mg Take 50 mg by mouth at bedtime. [facility] aspirin 81 mg chewable tablet 02-07 18:51: 41 Yes 81mg Take 81 mg by mouth as needed. [facility] azithromyci n (ZITHROMAX Z-NIRAJ) 250 mg tablet 02-07 18:51: 41 Yes 250mg Take 250 mg by mouth daily. Take 500 mg day 1, then 250 mg days 2 to 5. [facility] ProAir HFA 90 mcg/actuati on aerosol inhaler [...] mg tablet 2015-06 00:00: 00 No 12mg hydrochloro thiazide 25 mg tablet Take 1 tablet every day by oral route. hydrochloro thiazide 25 mg tablet Take 1 tablet every day by oral route. No 1 Q1D hydrochlor othiazide 25 mg tablet Take 1 tablet every day by oral route. [facility] Vital Signs Vital Name Observation Time Observation Value Comments S ource Height 2024-02-06 00:00:00 63 [in_i] [facility] BP Systolic 2024-02-06 00:00:00 146 mm[Hg] [facility] BMI (Body Mass Index) 2024-02-06 00:00:00 46.8 kg/m2 [facility] Body Weight 2024-02-06 00:00:00 264 [lb_av] [facility] BP Diastolic 2024-02-06 00:00:00 86 mm[Hg] [facility] Systolic blood pressure 2021-10-14 02:57:00 139 mm[Hg] [facility] Diastolic blood pressure 2021-10-14 02:57:00 76 mm[Hg] [facility] Heart rate 2021-10-14 02:57:00 63 /min [facility] Body temperature 2021-10-14 02:57:00 36.5 Myrtle [facility] Respiratory rate 2021-10-14 02:57:00 12 /min [facility] Oxygen saturation in Arterial blood by Pulse oximetry 2021-10-14 02:57:00 99 /min [facility] Body weight 2021-10-13 23:15:00 117.935 kg [facility] BMI 2021-10-13 23:15:00 46.06 kg/m2 [facility] Heart rate 2021-02-07 22:00:00 79 /min [facility] Respiratory rate 2021-02-07 22:00:00 21 /min [facility] Oxygen saturation in Arterial blood by Pulse oximetry 2021-02-07 22:00:00 98 /min [facility] Systolic blood pressure 2021-02-07 21:00:00 166 mm[Hg] [facility] Diastolic blood pressure 2021-02-07 21:00:00 131 mm[Hg] [facility] Body temperature 2021-02-07 20:00:00 36.83 Myrtle [facility] Body weight 2021-02-07 16:56:00 120.203 kg [facility] BMI 2021-02-07 16:56:00 46.94 kg/m2 [facility] BP Systolic 2022-04-09 13:37:00 138 [...] Date / Time Performed Performing Clinician Source US TRANSVAGINAL 2024-02-10 00:00:00 [facility] MAMMO, diagnostic, digital, bilateral 2024-02-06 00:00:00 [facility] US, breast, bilateral, complete 2024-02-06 00:00:00 [facility] XR CHEST 1 VW 2021-10-14 01:21:33 Etienne Mo [facility] POCT GLUCOSE(AGE >30DAYS) 2021-10-14 00:50:00 Etienne Mo [facility] POCT GLUCOSE (AUTOMATED) 2021-10-14 00:49:00 Etienne Mo [facility] TROPONIN I 2021-10-14 00:38:00 Etienne Mo [facility] THYROID STIMULATING HORMONE 2021-10-14 00:38:00 Etienne Mo [facility] COMP. METABOLIC PANEL (44039) 2021-10-14 00:38:00 Etienne Mo [facility] CBC WITH DIFF 2021-10-14 00:38:00 Etienne Mo Yoly [facility] N-TERMINAL PRO-BNP 2021-10-14 00:38:00 Etienne Mo Yoly [facility] NOTICE OF PRIVACY PRACTICES 2021-10-13 23:11:47 Doctor Unassigned, [place] [facility] CONSENT/REFUSAL FOR DIAGNOSIS AND TREATMENT 2021-10-13 23:11:10 Doctor Unassigned, [place] [facility] TROPONIN I 2021-02-07 22:16:00 Graham Dorantes [facility] CT CHEST PULMONARY ANGIOGRAM 2021-02-07 19:40:28 Jose E Graham [facility] PROTHROMBIN TIME / INR 2021-02-07 18:58:00 Dragan Dorantes [facility] D-DIMER 2021-02-07 18:58:00 Graham Dorantes [facility] ACTIVATED PARTIAL THRMPLAS TERESO 2021-02-07 18:58:00 Graham Dorantes [facility] XR CHEST 1 VW 2021-02-07 17:53:12 Frandy [facility] TROPONIN I 2021-02-07 17:25:00 Julian Wise [facility] COMP. METABOLIC PANEL (00055) 2021-02-07 17:25:00 Julian Wise [facility] CBC WITH DIFF 2021-02-07 17:25:00 Julian Wise [facility] N-TERMINAL PRO-BNP 2021-02-07 17:25:[address] [facility] COVID-19 (ID NOW RAPID TESTING) 2021-02-07 17:25:[address] [facility] NOTICE OF PRIVACY PRACTICES 2021-02-07 16:55:14 Doctor Unassigned, [place] [facility] Lumpectomy of Breast 2013-06-13 00:00:00 [facility] Hysterectomy 2006-06-13 00:00:00 Ned alejandra Plan of Care Planned Activity Planned Date Details Comments Source Goal Plan of Care Note [code = 99951-0] Goal Plan of Care Note [code = 36057-6] Goal Plan of Care Note [code = 21784-7] Goal Plan of Care Note [code = 36082-6] Goal Plan of Care Note [code = 50907-5] Goal Plan of Care Note [code = 13918-4] Goal Plan of Care Note [code = 56161-7] Goal Plan of Care Note [code = 10364-8] Goal Plan of Care Note [code = 68115-6] Goal Plan of Care Note [code = 49528-4] Goal Plan of Care Note [code = 61644-3] Goal Plan of Care Note [code = 48720-7] Goal Plan of Care Note [code = 27796-0] Goal Plan of Care Note [code = 87395-0] Goal Plan of Care Note [code = 96745-3] Goal Plan of Care Note [code = 95392-7] Goal Plan of Care Note [code = 12164-6] Goal Plan of Care Note [code = 38890-1] Goal Plan of Care Note [code = 30306-2] Goal Plan of Care Note [code = 55395-9] Goal Plan of Care Note [code = 47885-3] Goal Plan of Care Note [code = 47109-4] Goal Plan of Care Note [code = 20898-9] Goal Plan of Care Note [code = 58674-6] Goal Plan of Care Note [code = 75883-1] Goal Plan of Care Note [code = 43248-1] Goal Plan of Care Note [code = 33297-0] Goal Plan of Care Note [code = 99551-8] Goal Plan of Care Note [code = 11809-1] Goal Plan of Care Note [code = 49969-4] Goal Plan of Care Note [code = 62237-2] Goal Plan of Care Note [code = 04966-2] Goal Plan of Care Note [code = 57385-2] Goal Plan of Care Note [code = 16215-0] Goal Plan of Care Note [code = 31871-4] Goal Plan of Care Note [code = 05781-7] Goal Plan of Care Note [code = 03191-0] Goal Plan of Care Note [code = 28253-8] Goal Plan of Care Note [code = 30980-8] Goal Plan of Care Note [code = 56347-8] Goal Plan of Care Note [code = 46690-4] Goal Plan of Care Note [code = 07571-6] Goal Plan of Care Note [code = 27652-2] Goal Plan of Care Note [code = 36426-5] Goal Plan of Care Note [code = 24338-1] Goal Plan of Care Note [code = 55195-5] Goal Plan of Care Note [code = 11934-8] Encounters Start Date/Time End Date/Time Encounter Type Admission Type Attending [facility] Care Department Encounter ID Source 2024-02-10 00:00:00 2024-02-10 00:00:00 Julianne Mcdonough MD: [address], [place] [address] , Ph. Formerly [facility] - [facility]* [id number] [facility] 2024-02-06 00:00:00 2024-02-06 00:00:00 DAR Guardado: [address], [place] [phone] , Ph. [facility]ly [facility] - [facility]* [id number] [facility] 2022-07-21 16:28:19 2022-07-21 16:28:19 Outpatient [facility] [address] 2022-07-14 15:02:34 2022-07-14 15:02:34 Outpatient [facility] [address] Latrell [address] 2022-05-24 17:04:46 2022-05-24 17:04:46 Outpatient [facility] [id number] 2022-04-09 13:29:18 2022-04-09 13:29:18 Outpatient [facility] [id number] aSms Nando 2022-04-09 00:00:00 2022-04-09 00:00:00 Outpatient Visit [id number] 2022-02-12 00:00:00 2022-02-12 00:00:00 Outpatient Visit [id number] 2021-12-08 00:00:00 2021-12-08 00:00:00 Outpatient Visit [id number] 2021-10-13 18:25:00 2021-10-13 22:45:00 Emergency X Etienne MO [facility] [id number] [facility] 2021-10-13 18:25:00 2021-10-13 22:45:00 Emergency Etienne Mo [facility] [id number] [facility] 2021-02-07 11:59:00 2021-02-07 18:51:00 Emergency Julian Wise [facility] [id number] [facility] 2021-02-07 11:52:00 2021-02-07 11:52:00 Emergency X [facility] [id number] [facility] Results Test Description Test Time Test Comments Results Result Co mments Source [facility], 25 [id number] 04:34:46* Test Item Value Reference Range Interpretation Comme nts VITAMIN D, 25 OH (test code = 4958) 9 NG/ML SEE BELOW L EFFECTIVE 01/ 02/2023, PLEASE NOTE NEW METHODOLOGY IS ELECTROCHEMILUMINESCENCE BINDING ASSAY. NOTE: 25-HYDROXYVITAMIN D ASSAY INCLUDES 25-HYDROXYVITAMIN D2 AND D3. INTERPRETIVE RANGES PEDIATRIC (<17 YEARS) . . . . . . . . . . . NG/ML 20-100ADULT: INSUFFICIENT . . . . . . . . . . . . . . NG/ML <20 SUBOPTIMAL . . . . . . . . . . . . . . . NG/ML 20-29 OPTIMAL . . . . . . . . . . . . . . . . . NG/ML 30-100 [id number] 04:31:56* Test Item Value Reference Range Interpretation Comme [facility] NT-proBNP (test code = 88222) <50 PG/ML SEE BELOW If NT-ProBNP is less than 300 PG/ML, heart failure is unlikely for allages. Age.................Heart Failure Likely <50 Years...........>=450 PG/ML 50-75 Years.........>=900 PG/ML > 75 Years..........>=1800 PG/ML Methodology: Chava Wyatt Electrochemiluminescense Immunoassay [facility] has important pathology staff changes effective 08/11/2022. New pathology staff will provide uninterrupted, excellent patient care and clinical consultation. See URL: [email or web address] UNLESS OTHERWISE INDICATED, ALL TESTING PERFORMED AT [facility] [address] [place] [address] CLIA: [id number], CAP: [id number] TSH, THIRD [id number] 04:30:14* Test Item Value Reference Range Interpretation Comme [facility] TSH, THIRD GENERATION (test code = 2821) 1.410 UIU/ML 0.400-4.100 VITAMIN [id number] 04:30:14* Test Item Value Reference Range Interpretation Comme [facility] VITAMIN B-12 (test code = 2840) 323 PG/ML 200-950 [id number] 11:09:48* Test Item Value Reference Range Interpretation Comme [facility] D-DIMER (test code = 1405) 0.32 UG/ML FEU See_Comment NOTE: Provided reference range is established for evaluation of Deep Venous Thrombosis/Pulmonary Embolus (DVT/PE). Results below cutoff value of <=0.49 UG/ML FEU have a high negative predictive value forDVT/PE. No reference range is established for disseminatedintra-vascu lar coagulation (DIC). [facility] has important pathology staff changes effective 08/11/2022. New pathology staff will provide uninterrupted, excellent patient care and clinical consultation. See URL: [email or web address] UNLESS OTHERWISE INDICATED, ALL TESTING PERFORMED AT [facility] [address] [place] [address], [place] CLIA: [id number], CAP: [id number] [Automated message] The system which generated this result transmitted reference range: <=0.49. The reference range was not used to interpret this result as normal/abnormal. CBC W/AUTO DIFF WITH [id number] 03:30:03* Test Item Value Reference Range Interpretation Comme nts WBC (test code = 1001) 5.1 K/UL [...] = 1065) 0.0 /100 WBC'S See_Comment [Automated messa ge] The system which [...] 0.00-0.10 ABS NUCLEATED RBCS (test code = 53303) 0.00 K/UL 0.00-0.11 COMPREHENSIVE METABOLIC [id number] 03:13:06* Test Item Value Reference Range Interpretation Comme nts GLUCOSE (test code = 2217) 92 MG/DL 70-99 BUN (test code = 2207) 10 MG/DL 6-20 CREATININE (test code = 2214) 0.89 MG/DL 0.60-1.30 eGFR (2020 CKD-EPI) (test code = 05614) 75 ML/MIN/1.73 >60 CALC BUN/CREAT (test code = 2235) 11 RATIO 6-28 SODIUM (test code = 223) 144 MEQ/L 133-146 POTASSIUM (test code = 2228) 3.8 MEQ/L 3.5-5.4 CHLORIDE (test code = 2215) 105 MEQ/L 95-107 CARBON DIOXIDE (test code = 2206) 31 MEQ/L 19-31 CALCIUM (test code = 2209) 9.1 MG/DL 8.5-10.5 PROTEIN, TOTAL (test code = 2229) 6.8 G/DL 6.1-8.3 ALBUMIN (test code = 2201) 4.3 G/DL 3.5-5.2 CALC GLOBULIN (test code = 2240) 2.5 G/DL 1.9-3.7 CALC A/G RATIO (test code = 2234) 1.7 RATIO 1.0-2.6 BILIRUBIN, TOTAL (test code = 2207) 0.3 MG/DL See_Comment [Automated me ssage] The system which generated this result transmitted reference range: <=1.2. The reference range was not used to interpret this result as normal/abnormal. ALKALINE PHOSPHATASE (test code = 2203) 66 U/L 40-136 AST (test code = 8) 15 U/L 9-40 ALT (test code = 2218) 7 U/L 5-40 COMPREHENSIVE METABOLIC [id number] 05:44:51* Test Item Value Reference Range Interpretation Comme nts GLUCOSE (test code = 2216) 92 MG/DL 70-99 BUN (test code = 2207) 9 MG/DL 6-20 CREATININE (test code = 2213) 0.78 MG/DL 0.60-1.30 eGFR (2020 CKD-EPI) (test code = 18429) 88 ML/MIN/1.73 >60 CALC BUN/CREAT (test code = 5) 12 RATIO 6-28 SODIUM (test code = 2230) 144 MEQ/L 133-146 POTASSIUM (test code = 2227) 3.3 MEQ/L 3.5-5.4 L CHLORIDE (test code = 2214) 101 MEQ/L 95-107 CARBON DIOXIDE (test code = 2205) 31 MEQ/L 19-31 CALCIUM (test code = 2208) 9.8 MG/DL 8.5-10.5 PROTEIN, TOTAL (test code = 2228) 7.7 G/DL 6.1-8.3 ALBUMIN (test code = 2200) 4.6 G/DL 3.5-5.2 CALC GLOBULIN (test code = 2240) 3.1 G/DL 1.9-3.7 CALC A/G RATIO (test code = 223) 1.5 RATIO 1.0-2.6 BILIRUBIN, TOTAL (test code = 2206) 0.4 MG/DL See_Comment [Automated me ssage] The system which generated this result transmitted reference range: <=1.2. The reference range was not used to interpret this result as normal/abnormal. ALKALINE PHOSPHATASE (test code = 2203) 69 U/L 40-136 AST (test code = 8) 15 U/L 9-40 ALT (test code = 2218) 6 U/L 5-40 LIPID [id number] 05:44:51* Test Item Value Reference Range Interpretation Comme nts CHOLESTEROL (test code = 2210) 131 MG/DL <200 TRIGLYCERIDES (test code = 2232) 124 MG/DL <150 HDL CHOLESTEROL (test code = 2220) 59 MG/DL >39 CALC LDL CHOL (test code = 2237) 51 MG/DL <100 NOTE: CALCULATED LDL IS BASED ON SINA-VELÁZQUEZ METHOD WHICHINCLUDES ADJUSTABLE TRIGLYCERIDE:VLDL CHOLESTEROL RATIO.THIS FACTOR VARIES BY MEASURED TRIGLYCERIDE AND NON-HDLCHOLESTEROL CONCENTRATIONS WITH INCREASED CALCULATED LDL SEENIN HIGHER TRIGLYCERIDE OR LOWER NON-HDL SPECIMENS. FOR MOREINFORMATION, SEE CLIENT ANNOUNCEMENT AT [email or web address] RATIO LDL/HDL (test code = 2238) 0.86 RATIO <3.22 UNLESS OTHERW ISE INDICATED, ALL TESTING PERFORMED [facility] [employer] [address] [place] [address] DIALYSIS TECH: TRISHA MUNSON M.D. CLIA NUMBER [id number] [facility] [place]. [id number] CBC WITH [id number] 01:46:24* Test Item Value Reference Range Interpretation Comme nts WBC (test code = 6690-2) See_Comment [Automated eRALOS3a ge] The system which generated this result transmitted reference range: 4.30 - 11.10 10*3/?L. The reference range was not used to interpret this result as normal/abnormal. RBC (test code = 789-8) See_Comment [Automated eRALOS3a [employer]] The system which generated this result transmitted [...] 33.9 g/dL 31.6-35.1 RDW-SD (test code = 76382-4) 44.4 fL 39.0-49.9 RDW-CV (test code = 788-0) 13.6 % 12.0-15.5 PLT (test code = 777-3) See_Comment [Automated messa ge] The system which generated this result transmitted reference range: 166 - 358 10*3/?L. The reference range was not used to interpret this result as normal/abnormal. MPV (test code = 17954-2) 9.5 fL 9.5-12.9 NRBC/100 WBC (test code = 0916434124) See_Comment [Automated SummuS Render ssage] The system which generated this result transmitted reference range: 0.0 - 10.0 /100 WBCs. The reference range was not used to interpret this result as normal/abnormal. NRBC x10^3 (test code = 4831831198) <0.01 See_Comment [Automated eRALOS3a ge] The system which generated this result transmitted reference range: 10*3/?L. The reference range was not used to interpret this result as normal/abnormal. SEG % (test code = 45348-3) 47 % 33-76 LYMPH % (test code = 67747-9) 45 % 14-54 MONO % (test code = 24494-6) 5 % 0-4 H EOS % (test code = 83118-0) 3 % 0-3 ANC (test code = 753-4) 2.18 10*3/uL 1.88-7.09 SPHEROCYTES (test code = 802-9) 2+ A Lab Interpretation (test code = 18342-1) [facility]normal [facility] [id number] 01:34:03 * Test Item Value Reference Range Interpretation Comme nts TSH (test code = 0679784708) See_Comment Biotin has been reported to cause a negative bias, interpret results relative to patient's use of biotin. [Automated message] The system which generated this result transmitted reference range: 0.45 - 4.70 mIU/L. The reference range was not used to interpret this result as normal/abnormal. Lab Interpretation (test code = 04847-4) Normal [facility] [id number] 01:15:00* Test Item Value Reference Range Interpretation Comments TROPONIN I (test code = 1588056999) 0.001 ng/mL See_Comment [Automated message] The system [...] of biotin. Lab Interpretation (test code = 06475-3) Normal [facility] [id number] 01:11:38* Test Item Value Reference Range Interpretation Comme nts NT-proBNP (test code = 7757201957) 35 pg/mL See_Comment [Automated message] The system which generated this result transmitted reference range: <=125. The reference range was not used to interpret this result as normal/abnormal. SANTO (test code = SANTO) Biotin has been reported to cause a negative bias, interpret results relative to patient's use of biotin. Lab Interpretation (test code = 17930-9) Normal [facility]wood[facility]. METABOLIC PANEL (13316)2021-10-14 01:02:55* Test Item Value Reference Range Interpretation Comme nts NA (test code = 8048889803) 142 mmol/L 135-145 K (test code = 9072521584) 3.3 mmol/L 3.5-5.0 L CL (test code = 6108181369) 100 mmol/L 98-108 CO2 TOTAL (test code = 0205114972) 30 mmol/L 23-31 AGAP (test code = 4287419536) 2-16 BUN (test code = 7147848879) 11 mg/dL 7-23 GLUCOSE (test code = 6674074281) 108 mg/dL 70-110 CREATININE (test code = 8097159012) 0.71 mg/dL 0.50-1.04 TOTAL BILI (test code = 2312030258) 0.6 mg/dL 0.1-1.1 CALCIUM (test code = 8051532699) 8.8 mg/dL 8.6-10.6 T PROTEIN (test code = 3998811880) 7.1 g/dL 6.3-8.2 ALBUMIN (test code = 3714221040) 4.2 g/dL 3.5-5.0 ALK PHOS (test code = 7760009889) 61 U/L 34-122 ALTv (test code = 1742-6) 8 U/L 5-35 AST(SGOT) (test code = 4827932010) 21 U/L 13-40 eGFR (test code = 3833270442) mL/min/1.73m2 SANTO (test code = SANTO) Association [...] imaging tests). Lab Interpretation (test code = 64833-2) Abnormal [facility] GLUCOSE (AUTOMATED)2021-10-14 00:58:37* Test Item Value Reference Range Interpretation Comme nts POCT GLU (test code = 3060431990) 109 mg/dL 70-110 Lab Interpretation (test cod e = 40706-1) Normal [facility]wood[facility] GLUCOSE(AGE >30DAYS)2021-10-14 00:50:00* Test Item Value Reference Range Interpretation Comme nts POCT Glu (age>30days) (test code = 3342) 109 mg/dL 70-110 Lab Interpretation (test cod e = 30064-0) Normal [facility]-CoV-2 (COVID-19) by RT-PCR (HIGH RISK) 2021-02-21 00:00:00* Test Item Value Reference Range Interpretation Comme nts SARS-CoV-2 INTERPRETATION (test code = 74156) NEGATIVE SOURCE (test code = 75986) NASOPHARYNGEAL SARS-CoV-2 (COVID-19) by RT-PCR (HIGH RISK)2021-02-21 00:00:00* Test Item Value Reference Range Interpretation Comme nts SARS-CoV-2 INTERPRETATION (test code = 96614) NEGATIVE SOURCE (test code = 81470) NASOPHARYNGEAL SARS-CoV-2 (COVID-19) by RT-PCR (HIGH RISK)2021-02-21 00:00:00* Test Item Value Reference Range Interpretation Comme nts SARS-CoV-2 INTERPRETATION (test code = 63710) NEGATIVE SOURCE (test code = 56760) NASOPHARYNGEAL TROPONIN [id number] 22:50:08* Test Item Value Reference Range Interpretation Comme nts TROPONIN I (test code = 3307333529) 0.001 ng/mL See_Comment [Automated eRALOS3a ge] The system which generated this result transmitted reference range: <=0.034. The reference range was not used to interpret this result as normal/abnormal. SANTO (test code = SANTO) Lab Interpretation (test code = 88538-8) Normal [facility] CHEST PULMONARY [id number] 20:59:341. No pulmonary emboli. 2. Scattered lung [...] angiogram was performed of the chest (lungapices tobases) with IV contrast. Images were reconstructed at [...] reviewed this study and agree with theabove report.[facility]woodD-[id number] 19:37:33* Test Item Value Reference Range Interpretation [facility] (test code = 9707935589) See_Comment H [Automated messa ge] The system which generated this result transmitted reference range: <0.41 ?g/mL (FEU). The reference range was not used to interpret this result as normal/abnormal. SANTO (test code = SANTO) Lab Interpretation (test code = 40726-0) Abnormal [facility]woodACTIVATED PARTIAL THRMPLAS [id number] 19:30:55* Test Item Value Reference Range Interpretation Comme [facility] APTT Patient (test code = 3173-2) See_Comment [Automated messa ge] The system which generated this result transmitted reference range: 23 - 38 Seconds. The reference range was not used to interpret this result as normal/abnormal. SANTO (test code = SANTO) Lab Interpretation (test code = 01156-4) Normal [facility] KingwoodPROTHROMBIN TIME / [id number] 19:28:54* Test Item Value Reference Range Interpretation Comme [facility] PROTIME PATIENT (test code = 5964-2) See_Comment [Automated messa ge] The system which generated this result transmitted reference range: 12.0 - 14.7 Seconds. The reference range was not used to interpret this result as normal/abnormal. INR (test code = 6301-6) Lab Interpretation (test code = 63454-8) Normal [facility] KingwoodXR CHEST 1 [id number] 18:41:281. ?Low lung volumes without focal infiltrate. [...] Low lung volumes without focal infiltrate.RL: 1105 [facility] [id number] 18:06:10* Test Item Value Reference Range Interpretation Comme nts TROPONIN I (test code = 2716227575) 0.002 ng/mL See_Comment [Automated messa ge] The system which generated this result transmitted reference range: <=0.034. The reference range was not used to interpret this result as normal/abnormal. SANTO (test code = SANTO) Lab Interpretation (test code = 07737-1) Normal [facility]woodN-TERMINAL [id number] 18:02:53* Test Item Value Reference Range Interpretation Comme nts NT-proBNP (test code = 7791755492) 97 pg/mL See_Comment [Automated eRALOS3a [employer]] The system which generated this result transmitted reference range: <=125. The reference range was not used to interpret this result as normal/abnormal. SANTO (test code = SANTO) Lab Interpretation (test code = 63852-7) Normal [facility]woodCOMP. METABOLIC PANEL (52966)2021-02-07 17:55:47* Test Item Value Reference Range Interpretation Comme nts NA (test code = 3964635175) 142 mmol/L 135-145 K (test code = 2121299182) 3.8 mmol/L 3.5-5.0 CL (test code = 1108718678) 102 mmol/L 98-108 CO2 TOTAL (test code = 7767485987) 29 mmol/L 23-31 AGAP (test code = 2810190790) 2-16 BUN (test code = 2797810617) 15 mg/dL 7-23 GLUCOSE (test code = 9572550361) 98 mg/dL 70-110 CREATININE (test code = 8876465861) 0.66 mg/dL 0.50-1.04 TOTAL BILI (test code = 5030517751) 0.7 mg/dL 0.1-1.1 CALCIUM (test code = 1423023898) 9.2 mg/dL 8.6-10.6 T PROTEIN (test code = 3669372012) 8.3 g/dL 6.3-8.2 H ALBUMIN (test code = 5774155447) 4.5 g/dL 3.5-5.0 ALK PHOS (test code = 1376867846) 65 U/L 34-122 ALTv (test code = 1742-6) 33 U/L 5-35 AST(SGOT) (test code = 9930484722) 44 U/L 13-40 H eGFR (test code = 9134567816) mL/min/1.73m2 SANTO (test code = SANTO) Lab Interpretation (test cod e = 76435-3) Abnormal [facility]woodCOVID-[facility] (ID NOW RAPID TESTING)2021-02-07 17:55:47* Test Item Value Reference Range Interpretation Comme nts SARS-CoV-2 Rapid ID NOW (kumar t code = 60544-4) Positive Not Detected A SANTO (test code = SANTO) Lab Interpretation (test cod e = 93455-0) Abnormal [facility] KingwoodCB WITH [id number] 17:41:52* Test Item Value Reference Range Interpretation Comme nts WBC (test code = 6690-2) See_Comment [Automated eRALOS3a ge] The system which generated this result [...] 31.6 g/dL 31.6-35.1 RDW-SD (test code = 30862-3) 48.4 fL 39.0-49.9 RDW-CV (test code = 788-0) 14.6 % 12.0-15.5 PLT (test code = 777-3) See_Comment H [Automated messa ge] The system which generated this result transmitted reference range: 166 - 358 10*3/?L. The reference range was not used to interpret this result as normal/abnormal. MPV (test code = 02248-8) 9.2 fL 9.5-12.9 L NRBC/100 WBC (test code = 3001739840) See_Comment [Automated SummuS Render ssage] The system which generated this result transmitted reference range: 0.0 - 10.0 /100 WBCs. The reference range was not used to interpret this result as normal/abnormal. NRBC x10^3 (test code = 6875332712) <0.01 See_Comment [Automated messa ge] The system which generated this result transmitted reference range: 10*3/?L. The reference range was not used to interpret this result as normal/abnormal. GRAN MAT (NEUT) % (test code = 770-8) 74.0 % IMM GRAN % (test code = 5534902897) 1.60 % LYMPH % (test code = 736-9) 18.7 % MONO % (test code = 5905-5) 5.3 % EOS % (test code = 713-8) 0.2 % BASO % (test code = 706-2) 0.2 % GRAN MAT x10^3(ANC) (test code = 3638420790) 7.07 10*3/uL 1.88-7.09 IMM GRAN x10^3 (test code = 2712908757) 0.15 10*3/uL 0.00-0.06 H LYMPH x10^3 (test code = 731-0) 1.79 10*3/uL 1.32-3.29 MONO x10^3 (test code = 742-7) 0.51 10*3/uL 0.33-0.92 EOS x10^3 (test code = 711-2) <0.03 0.03-0.39 L BASO x10^3 (test code = 704-7) <0.03 0.01-0.07 Lab Interpretation (test code = 22154-3) Abnormal [facility] ([facility]OVID-19) by RT-PCR (HIGH RISK) 2020-07-06 00:00:00* Test Item Value Reference Range Interpretation Comme nts SARS-CoV-2 INTERPRETATION (test code = 25811) NEGATIVE SOURCE (test code = 80027) NASOPHARYNGEAL SARS-CoV-2 (COVID-19) by RT-PCR (HIGH RISK)2020-07-06 00:00:00* Test Item Value Reference Range Interpretation Comme nts SARS-CoV-2 INTERPRETATION (test code = 38596) NEGATIVE SOURCE (test code = 00223) NASOPHARYNGEAL SARS-CoV-2 (COVID-19) by RT-PCR (HIGH RISK)2020-07-06 00:00:00* Test Item Value Reference Range Interpretation Comme nts SARS-CoV-2 INTERPRETATION (test code = 81687) NEGATIVE SOURCE (test code = 03808) NASOPHARYNGEAL"
--- NOTE | 2024-06-11 08:56 | EDPHYS ---
Physician Documentation [facility] Name: Zohreh Mabry Age: 58 yrs Sex: Female : 1965 Arrival Date: 06/11/2024 Time: 08:28 Bed 10 Private MD: ED Physician Candido Jalloh HPI: 06/11 09:09 This 58 yrs old Black Female presents to ER via Ambulatory with complaints of Vaginal sb4 Pain, Skin Problem. 09:09 has noticed bumps in and around vagina. states they have started draining and bleeding. sb4 they are causing her a lot of pain. denies any new sexual partners. recently finished a vaginal suppository for unknown infection. Historical: - Allergies: 08:39 Nubain; ss 08:39 Vistaril; ss - PMHx: 08:39 Headaches; Hypertension; Vertigo; ss - PSHx: 08:39 breast; hysterectomy; tubal ligation; ss - Immunization history:: Client reports receiving the 2nd dose of the Covid vaccine. - Infectious Disease History:: Denies. - Social history:: Smoking status: Patient denies any tobacco usage or history of. ROS: 09:09 Positive for per HPI, sb4 09:09 Constitutional: Negative for fever, chills, and weight loss, 09:09 All other systems are negative, Exam: 09:09 Constitutional: This is a well developed, well nourished patient who is awake, alert, sb4 and in no acute distress. Head/Face: Normocephalic, atraumatic. Eyes: Extra-ocular motions intact. Periorbital areas with no swelling, redness, or edema. ENT: Mucous membranes moist. Respiratory: No increased work of breathing, no retractions or nasal flaring. Abdomen/GI: Soft, non-tender, no distension. Skin: Warm, dry with normal turgor. Normal color with no rashes, no lesions, and no evidence of cellulitis. 09:09 : Pelvic Exam: External exam: erythema is noted, abscess inferior aspect of left labia majora with induration, no drainage, Vital Signs: 08:36 BP 149 / 91; Pulse 88; Resp 16; Temp 98.7(TE); Pulse Ox 97% on R/A; Weight 122.47 kg; ss Height 5 ft. 3 in. ; Pain 10/10; 09:15 BP 135 / 88; Pulse 74; Resp 17; Pulse Ox 98% ; rs5 08:36 Body Mass Index 47.83 (122.47 kg, 160.02 cm) ss 08:36 Pain Scale: Adult ss MDM: 08:39 Medical Screening Exam initiated sb4 09:11 Data reviewed: vital signs, nurses notes, and as a result, I will discharge patient. sb4 Counseling: I had a detailed discussion with the patient and/or guardian regarding the historical points, exam findings, and any diagnostic results supporting the discharge/admit diagnosis, the need for outpatient follow up, an OB/Gyne specialist, to return to the emergency department if symptoms worsen or persist or if there are any questions or concerns that arise at home. 09:16 ED course: patient can barely tolerate the examination. educated that the best sb4 treatment would be I\T\D but she would like to try antibiotics first. I told her to return if it does not improve. She understands. Administered Medications: No medications were administered Disposition: 06/12 07:00 Co-signature as Attending Physician, Candido Jalloh MD I reviewed the patient's care rn provided by the Advanced Practice Provider and agree with the diagnosis and treatment plan. Disposition Summary: 06/11/24 08:56 Discharge Ordered Notes: Location: Home sb4 Problem: new sb4 Symptoms: have improved sb4 Condition: Stable sb4 Diagnosis - Labial abscess sb4 Followup: sb4 - With: Private Physician - When: As needed - Reason: Recheck today's complaints, Re-evaluation by your physician Discharge Instructions: - Discharge Summary Sheet sb4 - Skin Abscess, Jhvp-tl-Derq sb4 - Bartholin's Cyst, Iduv-rr-Layu sb4 Forms: - Antibiotic Education sb4 - Patient Portal Instructions sb4 - Leadership Thank You Letter sb4 Prescriptions: - sulfamethoxazole-trimethoprim 200-40 mg/5 mL Oral suspension - take 20 milliliter ORAL route 2 times per day for 7 days; 560 milliliter; sb4 Refills: 0, Product Selection Permitted Signatures: Candido Jalloh MD MD rn Blanchard, Shelby, RN RN ss Brown, Sophia, PA-C PA-C sb4
--- NOTE | 2024-06-11 08:56 | ER ---
Nurse's Notes [facility] Name: Zohreh Mabry Age: 58 yrs Sex: Female : 1965 Arrival Date: 06/11/2024 Time: 08:28 Bed 10 Private MD: Diagnosis: Labial abscess Presentation: 06/11 08:36 Chief complaint: Patient states: painful blisters to vaginal area that began yesterday. ss Coronavirus screen: Client denies travel out of the [place] in the last 14 days. Ebola Screen: Patient denies exposure to infectious person. Patient denies travel to an Ebola-affected area in the 21 days before illness onset. Initial Sepsis Screen: Does the patient meet any 2 criteria? No. Patient's initial sepsis screen is negative. Does the patient have a suspected source of infection? No. Patient's initial sepsis screen is negative. Risk Assessment: Do you want to hurt yourself or someone else? Patient reports no desire to harm self or others. Onset of symptoms was June 09, 2024. 08:36 Method Of Arrival: Ambulatory ss 08:36 Acuity: KERRY 4 ss Triage Assessment: 08:40 General: Appears in no apparent distress. comfortable, Behavior is calm, cooperative. rs5 Historical: - Allergies: 08:39 Nubain; ss 08:39 Vistaril; ss - PMHx: 08:39 Headaches; Hypertension; Vertigo; ss - PSHx: 08:39 breast; hysterectomy; tubal ligation; ss - Immunization history:: Client reports receiving the 2nd dose of the Covid vaccine. - Infectious Disease History:: Denies. - Social history:: Smoking status: Patient denies any tobacco usage or history of. Screenin:40 [facility] ED Fall Risk Assessment (Adult) History of falling in the last 3 months, rs5 including since admission No falls in past 3 months (0 pts) Confusion or Disorientation No (0 pts) Intoxicated or Sedated No (0 pts) Impaired Gait No (0 pts) Mobility Assist Device Used No (0 pt) Altered Elimination No (0 pt) Score/Fall Risk Level 0 - 2 = Low Risk Oriented to surroundings, Maintained a safe environment. Abuse screen: Denies threats or abuse. Nutritional screening: No deficits noted. Tuberculosis screening: No symptoms or risk factors identified. Assessment: 08:40 General: Appears in no apparent distress. uncomfortable, Behavior is calm, cooperative. rs5 Pain: Complains of pain in vaginal area Pain currently is 5 out of 10 on a pain scale. Quality of pain is described as aching. Neuro: Level of Consciousness is awake, alert, obeys commands, Oriented to person, place, time, situation. Cardiovascular: Patient's skin is warm and dry. Respiratory: Airway is patent Respiratory effort is even, unlabored, Respiratory pattern is regular, symmetrical. GI: Abdomen is round non-distended, Abd is soft and non tender X 4 quads. : No signs and/or symptoms were reported regarding the genitourinary system. EENT: Reports blister in vaginal area. Derm: Skin is intact, Skin is pink, warm \T\ dry. Musculoskeletal: Range of motion: intact in all extremities. 09:18 Reassessment: Patient and/or family updated on plan of care and expected duration. Pain rs5 level reassessed. Patient is alert, oriented x 3, equal unlabored respirations, skin warm/dry/pink. Vital Signs: 08:36 BP 149 / 91; Pulse 88; Resp 16; Temp 98.7(TE); Pulse Ox 97% on R/A; Weight 122.47 kg; ss Height 5 ft. 3 in. ; Pain 10/10; 09:15 BP 135 / 88; Pulse 74; Resp 17; Pulse Ox 98% ; rs5 08:36 Body Mass Index 47.83 (122.47 kg, 160.02 cm) ss 08:36 Pain Scale: Adult ss ED Course: 08:22 Provided Education on: discharge instructions . rs5 08:30 Patient arrived in ED. mr 08:31 Nan Garza PA-C is PHCP. sb4 08:31 Candido Jalloh MD is Attending Physician. sb4 08:39 Triage completed. ss 08:39 Arm band placed on right wrist. ss 08:40 Patient has correct armband on for positive identification. Placed in gown. Bed in low rs5 position. Call light in reach. Side rails up X2. 08:40 No provider procedures requiring assistance completed. rs5 09:20 Patient did not have IV access during this emergency room visit. rs5 09:29 Cosme Schreiber, RN is Primary Nurse. rs5 Administered Medications: No medications were administered Medication: 09:31 VIS not applicable for this client. rs5 Outcome: 08:56 Discharge ordered by . sb4 09:20 Patient left the ED. rs5 09:20 Discharged to home ambulatory, rs5 09:20 Condition: stable 09:20 Discharge instructions given to patient, family, Instructed on discharge instructions, follow up and referral plans. medication usage, Demonstrated understanding of instructions, follow-up care, medications, Prescriptions given X 1, Signatures: Gabrielle Bateman, Reg Reg mr Marybeth Claire, APURVA RN Nan Yadav, PA-C PA-C sb4 Cosme Schreiber RN RN rs5 Corrections: (The following items were deleted from the chart) 09:32 09:29 Patient left the ED. rs5 rs5 09:33 09:30 Reassessment: Patient and/or family updated on plan of care and expected rs5 duration. Pain level reassessed. Patient is alert, oriented x 3, equal unlabored respirations, skin warm/dry/pink. rs5
[2024-06-11 12:13] VITALS: BP 149/91; TEMP 98.7; O2SAT 97
== END 2024-06-11 09:29 | disposition home or self-care (01) ==
LOC: ER 08:28
DX: N76.4 Abscess of vulva (principal)
CPT/HCPCS: 99283

== ENCOUNTER 2025-03-01 09:02 | Emergency (ER) | payer OTHER ==
[2025-03-01 09:43] LABS: Absolute Lymphocytes (CBC) 1.3 K/uL (0.7-4.9); Hematocrit 35.4 % (36.0-45.0); Hemoglobin 12.0 g/dL (12.0-15.0); MCH 30.4 pg (27.0-35.0); MCHC 33.8 g/dL (32.0-36.0); MCV 89.9 fL (80-100); MPV 7.4 fL (7.6-11.3); Nucleated RBC Absolute Count 0.0 (0-0); Nucleated Red Blood Cells % 0.1 % (0-0); RBC Red Blood Cell Count 3.93 M/uL (3.86-4.86); White Blood Count 3.40 thou/uL (4.3-10.9)
[2025-03-01 10:08] LABS: AST/SGOT 18 U/L (15-37); Albumin 3.5 g/dL (3.4-5.0); Albumin/Globulin Ratio 1.1 (1.1-1.8); Alkaline Phosphatase 71 U/L (45-117); Anion Gap 4.9 mEq/L (5.0-15.0); BUN Blood Urea Nitrogen 10 mg/dL (7-18); Globulin 3.2 g/dL (2.3-3.5); Glucose Level 99 mg/dL (74-106); Potassium 3.9 mEq/L (3.5-5.1)
--- NOTE | 2025-03-01 10:08 | RAD REPORT ---
EXAM: CT Head Brain Wo Cont HISTORY: HEADACHE COMPARISON: 10/30/2022 TECHNIQUE: Multiple contiguous axial images were obtained for a CT of the brain without contrast. Sag ittal and coronal reformats were performed. One or more of the following dose reduction techniques were used: Automated exposure control, adjus tment of the mA and kV according to patient size, and iterative reconstruction. Unless otherwise specified, incidental findings do not require dedicated imaging follow-up. FINDINGS: No evidence of hydrocephalus, intracranial hemorrhage, or extra-axial fluid collection. The brain is normal in morphology. The calvarium is intact. Hyperostosis frontalis interna noted. The visualized paranasal sinuses and m astoid air cells are essentially clear. IMPRESSION: No evidence of acute intracranial abnormality.
[2025-03-01 10:12] LABS: ALT/SGPT < 14 U/L (13-56)
[2025-03-01 11:22] LABS: Differential Total Cells Count 100; Segmented Neutrophils 46 % (40-80)
[2025-03-01 11:23] LABS: Blood Morphology Comment NOT SEEN (NOT SEEN)
[2025-03-01] MEDS ORDERED: DIPHENHYDRAMINE 50 MG/ML VIAL ONE (11:24)
[2025-03-01] MEDS ORDERED: METOCLOPRAMIDE 10 MG/2mL INJ ONE (11:24)
--- NOTE | 2025-03-01 12:23 | EDPHYS ---
Physician Documentation [facility] Name: Zohreh Mabry Age: 59 yrs Sex: Female : 1965 Arrival Date: 03/01/2025 Time: :02 Bed 14 Private MD: ED Physician Harman Link HPI: 03/01 09:22 This 59 yrs old Black Female presents to ER via Ambulatory with complaints of High ms3 Blood Pressure, Dizziness, Leg Swelling, Shortness Of Breath. 09:22 59-year-old female past medical history of headaches, hypertension, vertigo presents to [facility] the emergency department for headache, dizziness that has been ongoing for 3 days. Patient states her discomfort is an 8/10 located in the posterior portion of her head. Patient denies radiation of the pain. She denies any alleviating or inciting factors patient states turning her head to the left causes the room to spin. Patient denies any alleviating factors.. Historical: - Allergies: 09:13 Nubain; ll1 09:13 Vistaril; ll1 - PMHx: 09:13 Headaches; Hypertension; Vertigo; ll1 - PSHx: 09:13 breast; hysterectomy; tubal ligation; ll1 - Immunization history:: Adult Immunizations up to date. - Infectious Disease History:: Denies. - Social history:: Smoking status: Patient denies any tobacco usage or history of. ROS: 09:22 Constitutional: Negative for fever, and chills. Cardiovascular: Negative for chest ms3 pain, and palpitations. Respiratory: Negative for shortness of breath, cough, wheezing, and pleuritic chest pain, Abdomen/GI: Negative for abdominal pain, nausea, vomiting, diarrhea, and constipation, MS/Extremity: Negative for injury and deformity, :22 Neuro: Positive for dizziness, headache, Exam: : Constitutional: This is a well developed, well nourished patient who is awake, alert, ms3 and in no acute distress. Cardiovascular: Regular rate and rhythm with a normal S1 and S2. No gallops, murmurs, or rubs. Normal PMI, no JVD. No pulse deficits. Respiratory: Lungs have equal breath sounds bilaterally, clear to auscultation and percussion. No rales, rhonchi or wheezes noted. No increased work of breathing, no retractions or nasal flaring. Abdomen/GI: Soft, non-tender, with normal bowel sounds. No distension or tympany. No guarding or rebound. No evidence of tenderness throughout. Skin: Warm, dry with normal turgor. Normal color with no rashes, no lesions, and no evidence of cellulitis. MS/ Extremity: Pulses equal, no cyanosis. Neurovascular intact. Full, normal range of motion. Vital Signs: 09:13 BP 169 / 89; Pulse 64; Resp 17; Temp 97.9(O); Weight 120.2 kg; Height 5 ft. 3 in. ; ll1 Pain 8/10; 09:30 BP 140 / 120; Pulse 66; Resp 18; Pulse Ox 98% on R/A; jp5 10:47 BP 138 / 88; Pulse 58; Resp 16; Pulse Ox 98% on R/A; Pain 8/10; jp5 11:30 BP 164 / 99; Pulse 53; Resp 16; Pulse Ox 100% on R/A; jp5 12:28 BP 150 / 103; Pulse 56; Resp 16; Temp 98(O); Pulse Ox 100% on R/A; Pain 0/10; jp5 09:13 Body Mass Index 46.94 (120.20 kg, 160.02 cm) ll1 09:13 Pain Scale: Adult ll1 10:47 Pain Scale: Adult jp5 12:28 Pain Scale: Adult jp5 MDM: 09:15 Medical Screening Exam initiated ms3 09:22 Differential diagnosis: Migraine versus tension headache versus BPV. ms3 12:26 Data reviewed: vital signs, nurses notes, lab test result(s), radiologic studies, and ms3 as a result, I will discharge patient. 03/01 09:21 Order name: CBC with Diff; Complete Time: 11:29 ms3 03/01 09:21 Order name: CMP; Complete Time: 11:29 ms3 03/01 11:23 Order name: Manual Differential; Complete Time: 11:29 EDMS 03/01 09:21 Order name: CT Head Brain wo Cont; Complete Time: 10:09 ms3 Administered Medications: 11:25 Drug: metoCLOPramide IVP 10 mg IVP once; over 1 to 2 minutes Route: IVP; Site: left jp5 antecubital; 11:55 Follow up: Response: No adverse reaction jp5 11:25 Drug: diphenhydrAMINE IVP 25 mg IVP once Route: IVP; Site: left antecubital; jp5 11:55 Follow up: Response: No adverse reaction jp5 12:15 Not Given (Patient Refused): [id number] mg 10 mg IVP once jp5 Disposition Summary: 03/01/25 12:22 Discharge Ordered Notes: Location: Home ms3 Condition: Stable ms3 Diagnosis - Headache ms3 - Dizziness ms3 Followup: ms3 - With: Jose M Suarez MD - When: 2 - 3 days - Reason: Recheck today's complaints Discharge Instructions: - Discharge Summary Sheet ms3 - General Headache Without Cause ms3 - Dizziness, [id number] ms3 Forms: - Medication Reconciliation Form ms3 - Antibiotic Education ms3 - Prescription Opioid Use ms3 - Patient Portal Instructions ms3 - Leadership Thank You Letter ms3 Signatures: Dispatcher [employer] EDMS Guerrero Daigle, APURVA RN ll1 Harman Link DO DO ms3 Matilde Samuels RN RN jp5 Corrections: (The following items were deleted from the chart) 09:21 09:21 CBC+H.LAB.BRZ ordered. EDMS EDMS 09:21 09:21 COMPREHENSIVE METABOLIC PANEL+C.LAB.BRZ ordered. EDMS EDMS 11:24 09:46 CBC Smear Scan ordered. EDMS EDMS
--- NOTE | 2025-03-01 12:23 | ER ---
Nurse's Notes [facility] Name: Zohreh Mabry Age: 59 yrs Sex: Female : 1965 Arrival Date: 03/01/2025 Time: 09:02 Bed 14 Private MD: Diagnosis: Headache;Dizziness Presentation: 03/01 09:13 Chief complaint: Patient states: IRWIN for 3 days. Intermittent dizziness, balance off, ll1 nausea, swollen all over off/on since. No fever or cough. Coronavirus screen: Client denies travel out of the [place] in the last 14 days. Ebola Screen: Patient denies travel to an Ebola-affected area in the 21 days before illness onset. Initial Sepsis Screen: Does the patient meet any 2 criteria? No. Patient's initial sepsis screen is negative. Does the patient have a suspected source of infection? No. Patient's initial sepsis screen is negative. Risk Assessment: Do you want to hurt yourself or someone else? Patient reports no desire to harm self or others. Onset of symptoms was February 27, 2025. 09:13 Method Of Arrival: Ambulatory ll1 09:13 Acuity: KERRY 3 ll1 Triage Assessment: 09:13 General: Appears in no apparent distress. Behavior is calm, cooperative, appropriate ll1 for age, Reports chills for fatigue for. Pain: Complains of pain in head Pain currently is 8 out of 10 on a pain scale. Quality of pain is described as aching, Pain began 2-3 days ago. Neuro: Reports dizziness, headache weakness. Cardiovascular: Reports swelling all over. GI: Reports nausea. Historical: - Allergies: 09:13 Nubain; ll1 09:13 Vistaril; ll1 - PMHx: 09:13 Headaches; Hypertension; Vertigo; ll1 - PSHx: 09:13 breast; hysterectomy; tubal ligation; ll1 - Immunization history:: Adult Immunizations up to date. - Infectious Disease History:: Denies. - Social history:: Smoking status: Patient denies any tobacco usage or history of. Screenin:37 [facility] ED Fall Risk Assessment (Adult) History of falling in the last 3 months, jp5 including since admission No falls in past 3 months (0 pts) Confusion or Disorientation No (0 pts) Intoxicated or Sedated No (0 pts) Impaired Gait No (0 pts) Mobility Assist Device Used No (0 pt) Altered Elimination No (0 pt) Score/Fall Risk Level 0 - 2 = Low Risk Oriented to surroundings, Maintained a safe environment, Educated pt \T\ family on fall prevention, incl call for assistance when getting out of bed, Assessed \T\ reinforced patient's understanding of fall precautions, Provided non-skid footwear, Hourly rounding (assess needs \T\ fall precautionary measures) done. Abuse screen: Denies threats or abuse. Denies injuries from another. Nutritional screening: No deficits noted. Tuberculosis screening: No symptoms or risk factors identified. Assessment: 09:35 General: Appears in no apparent distress. comfortable, Behavior is calm, cooperative. jp5 Neuro: Reports dizziness, headache. Cardiovascular: No deficits noted. Cardiovascular: Rhythm is regular. Respiratory: No deficits noted. Airway is patent Respiratory effort is even, unlabored, Breath sounds are clear. 11:25 Pain: Complains of pain in top of head and left side of the back of head Pain currently jp5 is 8 out of 10 on a pain scale. Quality of pain is described as pressure. 11:55 Pain: Denies pain. Alleviated by medications, rest. jp5 Vital Signs: 09:13 BP 169 / 89; Pulse 64; Resp 17; Temp 97.9(O); Weight 120.2 kg; Height 5 ft. 3 in. ; ll1 Pain 8/10; 09:30 BP 140 / 120; Pulse 66; Resp 18; Pulse Ox 98% on R/A; jp5 10:47 BP 138 / 88; Pulse 58; Resp 16; Pulse Ox 98% on R/A; Pain 8/10; jp5 11:30 BP 164 / 99; Pulse 53; Resp 16; Pulse Ox 100% on R/A; jp5 12:28 BP 150 / 103; Pulse 56; Resp 16; Temp 98(O); Pulse Ox 100% on R/A; Pain 0/10; jp5 09:13 Body Mass Index 46.94 (120.20 kg, 160.02 cm) ll1 09:13 Pain Scale: Adult ll1 10:47 Pain Scale: Adult jp5 12:28 Pain Scale: Adult jp5 ED Course: 09:05 Patient arrived in ED. im 09:06 Harman Link DO is Attending Physician. ms3 09:06 Arm band placed on Patient placed in an exam room, on a stretcher. ll1 09:16 Triage completed. ll1 09:30 Matilde Samuels, RN is Primary Nurse. jp5 09:35 Patient has correct armband on for positive identification. Bed in low position. Call jp5 light in reach. Side rails up X 1. Provided Education on: call light. Pulse ox on. NIBP on. 09:35 Inserted saline lock: 20 gauge in left antecubital area, using aseptic technique. Blood jp5 collected. Flushed with 10 mL NS. 09:37 CMP Sent. jp5 09:37 CBC with Diff Sent. jp5 09:37 No provider procedures requiring assistance completed. jp5 09:56 CT Head Brain wo Cont In Process Unspecified. EDMS 12:22 Jose M Suarez MD is Referral Physician. ms3 12:29 IV discontinued, intact, bleeding controlled, No redness/swelling at site. Pressure jp5 dressing applied. Administered Medications: 11:25 Drug: metoCLOPramide IVP 10 mg IVP once; over 1 to 2 minutes Route: IVP; Site: left jp5 antecubital; 11:55 Follow up: Response: No adverse reaction jp5 11:25 Drug: diphenhydrAMINE IVP 25 mg IVP once Route: IVP; Site: left antecubital; jp5 11:55 Follow up: Response: No adverse reaction jp5 12:15 Not Given (Patient Refused): [id number] mg 10 mg IVP once jp5 Medication: 09:38 VIS not applicable for this client. jp5 Outcome: 12:22 Discharge ordered by . ms3 12:29 Discharged to home ambulatory, jp5 12:29 Condition: stable 12:29 Discharge instructions given to patient, Instructed on discharge instructions, follow up and referral plans. Demonstrated understanding of instructions, follow-up care, 12:34 Patient left the ED. jp5 Signatures: Dispatcher [employer] EDMS Guerrero Daigle, RN RN ll1 Harman Link, DO ms3 Jalyn Guillory Jailene, RN RN jp5
[2025-03-01 12:51] VITALS: O2SAT 100
[2025-03-01 12:53] VITALS: BP 150/103; TEMP 98
== END 2025-03-01 12:34 | disposition home or self-care (01) ==
LOC: ER 09:02
DX: R51.9 Headache, unspecified (principal); R42 Dizziness and giddiness; I10 Essential (primary) hypertension
CPT/HCPCS: 85025; 36415; 80053; 70450; 96375; 96374; 99284; J2765; J1200